=== PATIENT | male | born 1960 | race Caucasian/White ===

== ENCOUNTER 2017-12-11 16:12 | Inpatient (IN) | payer MEDICARE ==
[2017-12-11] MEDS ORDERED: INSULIN REG, HUMAN 100 UNIT/ML 3 ML VIAL (PYX) ONE ×2 (16:36→16:37)
[2017-12-11] MEDS ORDERED: INSULIN REG, HUMAN 100 UNIT/ML 3 ML VIAL (PYX) IV ONE ×2 (16:39→16:41)
[2017-12-11 16:50] LABS: HEMATOCRIT 50.2 % (37.9-51.0); MEAN CORPUSCULAR HEMOGLOBIN 32.1 pg (27.0-33.4); MEAN CORPUSCULAR HGB CONC 29.8 g/dL (32.0-36.0); MEAN CORPUSCULAR VOLUME 108 fl (80-97); RED BLOOD COUNT 4.67 10^6/uL (4.35-5.55); RED CELL DISTRIBUTION WIDTH 14.1 % (11.5-14.0); WHITE BLOOD COUNT 22.9 10^3/uL (4.0-10.5)
--- NOTE | 2017-12-11 16:58 | RADIOLOGY REPORT (SQ) ---
EXAM DESCRIPTION: CHEST SINGLE VIEW COMPLETED DATE/TIME: 12/11/2017 4:47 pm REASON FOR STUDY: Short of breath, poorly responsive COMPARISON: None. NUMBER OF VIEWS: One view. TECHNIQUE: Single frontal radiographic view of the chest acquired. LIMITATIONS: None. FINDINGS: LUNGS AND PLEURA: No opacities, masses or pneumothorax. No pleural effusion. MEDIASTINUM AND HILAR STRUCTURES: No masses. Contour normal. HEART AND VASCULAR STRUCTURES: Heart enlarged without failure. Normal vasculature. BONES: No acute findings. HARDWARE: None in the chest. OTHER: No other significant finding. IMPRESSION: HEART ENLARGED WITHOUT FAILURE. NO OTHER SIGNIFICANT RADIOGRAPHIC FINDING IN THE CHEST. TECHNICAL DOCUMENTATION: JOB ID: [id number] [employer]- All Rights Reserved Reading location - IP/workstation name: [email or web address]
[2017-12-11] MEDS ORDERED: NORMAL SALINE 1000 ML 1,000 ML IV PRN ×2 (17:04→18:22)
[2017-12-11 17:11] LABS: ALANINE AMINOTRANSFERASE 53 U/L (21-72); ALBUMIN 4.2 g/dL (3.5-5.0); ALKALINE PHOSPHATASE 139 U/L (38-126); ASPARTATE AMINO TRANSFERASE 39 U/L (17-59); BILIRUBIN,DIRECT 0.7 mg/dL (0.0-0.4); BILIRUBIN,TOTAL 1.3 mg/dL (0.2-1.3); BLOOD UREA NITROGEN 72 mg/dL (7-20); CALCIUM 10.6 mg/dL (8.4-10.2); POTASSIUM 5.1 mmol/L (3.6-5.0); TOTAL PROTEIN 7.8 g/dL (6.3-8.2)
[2017-12-11 17:16] LABS: CARBON DIOXIDE 27 mmol/L (22-30); CHLORIDE 89 mmol/L (98-107); SODIUM 139.7 mmol/L (137-145)
[2017-12-11 17:17] LABS: ANION GAP 24 (5-19)
[2017-12-11 17:28] LABS: ABSOLUTE LYMPHOCYTES# (MANUAL) 0.7 10^3/uL (0.5-4.7); ABSOLUTE MONOCYTES # (MANUAL) 1.8 10^3/uL (0.1-1.4); ABSOLUTE NEUTROPHILS# (MANUAL) 20.4 10^3/uL (1.7-8.2); BAND NEUTROPHILS % (MANUAL) 2 % (3-5); BASOPHILS % (MANUAL) 0 % (0-2); EOSINOPHILS % (MANUAL) 0 % (0-6); LYMPHOCYTES % (MANUAL) 3 % (13-45); MONOCYTES % (MANUAL) 8 % (3-13); SEGMENTED NEUTROPHILS % (MAN) 87 % (42-78); TOTAL CELLS COUNTED 100
[2017-12-11 17:30] LABS: GLUCOSE 1548 mg/dL (75-110)
[2017-12-11 17:32] LABS: ANISOCYTOSIS SLIGHT; POLYCHROMASIA SLIGHT
[2017-12-11 17:33] LABS: PLATELET CLUMPS PRESENT; PLATELET COMMENT ADEQUATE; PLATELET COUNT 313 10^3/uL (150-450)
[2017-12-11 18:00] LABS: APPEARANCE,URINE CLEAR; BILIRUBIN,URINE NEGATIVE (NEGATIVE); COLOR,URINE YELLOW; GLUCOSE, URINE >=1000 mg/dL (NEGATIVE); KETONES,URINE NEGATIVE (NEGATIVE)
[2017-12-11 18:01] LABS: PROTEIN,URINE NEGATIVE (NEGATIVE)
[2017-12-11 18:02] LABS: LEUKOCYTE ESTERASE,URINE NEGATIVE (NEGATIVE); NITRITE,URINE NEGATIVE (NEGATIVE); URINE SPECIFIC GRAVITY 1.034; UROBILINOGEN,URINE NEGATIVE mg/dL (<2.0)
--- NOTE | 2017-12-11 18:08 | ER Document Report ---
ED General - General Chief Complaint: High Blood Sugar Stated Complaint: HIGH BLOOD SUGAR Time Seen by Provider: 12/11/17 16:36 Notes: Patient's brought in because she has been sick for 3 days. 3 days ago he vomited all day long. Has also had some diarrhea. Has not vomited today. However, patient's went to work and came back home this afternoon to find the patient "acting crazy" and unable to stand or walk and ambulate on his own. Patient is an insulin-dependent diabetic on Januvia and glipizide and Actos as well as sliding scale regular insulin. He was previously on NovoLog but that was stopped about a week and a half ago. Blood sugar here today, is running high. TRAVEL OUTSIDE OF THE [place] IN LAST 30 DAYS: No - Related Data Allergies/Adverse Reactions: Unable to Assess Allergy (Unverified 12/11/17 17:03) Past Medical History - Social History Smoking Status: Never Smoker Frequency of alcohol use: None Drug Abuse: None Family History: Reviewed & Not Pertinent Patient has suicidal ideation: No Patient has homicidal ideation: No - Past Medical History Cardiac Medical History: Reports: Hx Hypercholesterolemia, Hx Hypertension Pulmonary Medical History: Reports: Hx Sleep Apnea Endocrine Medical History: Reports: Hx Diabetes Mellitus Type 1, Hx Diabetes Mellitus Type 2 Malignancy Medical History: Reports Hx Prostate Cancer - Surgery 3 years ago. Past Surgical History: Reports: Hx Orthopedic Surgery - rotator cuff Review of Systems - Review of Systems Notes: REVIEW OF SYSTEMS: Patient unable to provide any review of history. What is listed is obtained from the . CONSTITUTIONAL : Denies fever. EENT: Denies eye, ear, nose or mouth or throat pain or other symptoms. CARDIOVASCULAR: Denies chest pain. RESPIRATORY: Denies cough, chest congestion, or shortness of breath. GASTROINTESTINAL: See HPI. GENITOURINARY: Denies difficulty or painful urinating, urinary frequency, blood in urine. MUSCULOSKELETAL: Denies back or neck pain. Denies joint pain or swelling. SKIN: Denies rash or skin lesions. NEUROLOGICAL: See HPI. ALL OTHER SYSTEMS REVIEWED AND NEGATIVE. Physical Exam - Vital signs Vitals: Resp Pulse Ox 25 H 97 12/11/17 16:19 12/11/17 16:19 Interpretation: Tachycardic, Tachypneic - Notes Notes: PHYSICAL EXAMINATION: GENERAL: Comatose and unresponsive except with a shrug or a grunt to tactile stimulation HEAD: Atraumatic, normocephalic. EYES: Pupils equal round and reactive to light, extraocular movements intact. ENT: oropharynx clear without exudates. NECK: Normal range of motion, supple. LUNGS: Breath sounds clear and equal bilaterally. HEART: Regular rate and rhythm without murmurs. ABDOMEN: Soft, nontender. No guarding or rebound. No masses. BACK: No tenderness throughout entire back. EXTREMITIES: Normal range of motion without pain. NEUROLOGICAL: Patient is semi-comatose and basically unresponsive to verbal or tactile stimulation, only displaying a slight shrug or grunt in response.. SKIN: Warm, dry, no rashes. Course - Re-evaluation Re-evalutation: 12/11/17 18:25 Patient is in critical condition. IV fluids were established. He was given a 5 unit insulin bolus and then a 5 U/h insulin drip. Spoke with hospitalist who will admit the patient to ICU. - Vital Signs Vital signs: Temp Pulse Resp BP Pulse Ox 26 H 155/88 H 100 12/11/17 17:01 12/11/17 17:01 12/11/17 17:01 - Laboratory Result Diagrams: 12/11/17 16:25 12/11/17 16:25 Laboratory results interpreted by me: 12/11/17 12/11/17 12/11/17 16:25 16:25 17:25 WBC 22.9 H MCV 108 H MCHC 29.8 L RDW 14.1 H Seg Neuts % (Manual) 87 H Band Neutrophils % 2 L Lymphocytes % (Manual) 3 L Abs Neuts (Manual) 20.4 H Abs Monocytes (Manual) 1.8 H Potassium 5.1 H Chloride 89 L Anion Gap 24 H BUN 72 H Creatinine 2.76 H Est GFR ( Amer) 29 L Est GFR (Non-Af Amer) 24 L Glucose 1548 H* Calcium 10.6 H Direct Bilirubin 0.7 H Alkaline Phosphatase 139 H Urine Glucose (UA) >=1000 H Urine Blood LARGE H - Diagnostic Test Radiology results interpreted by me: 12/11/17 18:27 Chest x-ray shows an enlarged heart but otherwise unremarkable. - EKG Interpretation by Mi EKG shows normal: Sinus rhythm Rate: Tachycardia Rhythm: NSR Additional EKG results interpreted by me: 12/11/17 18:27 Otherwise no change in EKG. Critical Care Note - Critical Care Note Total time excluding time spent on procedures (mins): 60 Discharge - Discharge Clinical Impression: Diabetic ketoacidosis Condition: Serious Disposition: ADMITTED INPATIENT Admitting Provider: Hospitalist Unit Admitted: ICU
[2017-12-11] MEDS ORDERED: GLUCAGON,HUMAN RECOMB 1 MG INJ IM PRN ×2 (18:20→18:21)
[2017-12-11] MEDS ORDERED: DEXTROSE 50%-WATER 25 GM/50 ML DISP.SYRIN IV PRN ×4 (18:20→18:21)
[2017-12-11] MEDS ORDERED: DEXTROSE 40% GEL 15 GM TUBE PO PRN ×4 (18:20→18:21)
[2017-12-11] MEDS ORDERED: ACETAMINOPHEN 650 MG SUPP.RECT PR PRN (18:22)
[2017-12-11 18:27] LABS: ARTERIAL BLOOD BASE EXCESS -0.6 mmol/L; ARTERIAL BLOOD H2CO3 1.52 mmol/L (1.05-1.35); ARTERIAL BLOOD HCO3 26.1 mmol/L (20-26); ARTERIAL BLOOD O2 SATURATION 99.1 % (94-98); ARTERIAL BLOOD PCO2 50.5 mmHg (35-45); ARTERIAL BLOOD PH 7.33 (7.35-7.45); ARTERIAL BLOOD PO2 177.8 mmHg (80-100); ARTERIAL BLOOD TOTAL CO2 27.6 mmol/L (23-27)
[2017-12-11 18:29] LABS: ARTERIAL BLOOD FIO2 45%
--- NOTE | 2017-12-11 18:37 | PDOC H&P ---
History of Present Illness Admission Date/PCP: 12/11/17 Dr. Yenni Painting [facility] Gentleman with past medical history of insulin-dependent diabetes Diabetic neuropathy Prostate cancer treated 8 years ago Hypertension Hyperlipidemia He presented to the hospital today because his brought in him in for altered mental status and decreased responsiveness. She reports that for the past 3 days he has been having vomiting diarrhea fatigue and generalized pains. He stopped his NovoLog approximately 2 weeks ago in consultation with his physician given that he could not afford it anymore. He has been taking Lantus, dose unknown. The rest of his medications are as follows Atorvastatin 40 mg daily Januvia 50 mg twice a day Lisinopril hydrochlorothiazide 20/25 mg daily Glipizide ER 10 mg daily Ranitidine 150 mg twice a day P.o. glitazone 30 mg daily According to his his blood sugar readings have been too high to be detected by the glucometer however he refused to call his doctor. He has a long history of noncompliance and poorly controlled diabetes. Emergency room he was found to have diabetic ketoacidosis and also has acute renal failure mild hyperkalemia. History of Present Illness: JERE MCMILLAN is a 57 year old male Past Medical History Cardiac Medical History: Reports: Hyperlipidema, Hypertension Pulmonary Medical History: Reports: Sleep Apnea Endocrine Medical History: Reports: Diabetes Mellitus Type 1, Diabetes Mellitus Type 2 Past Surgical History Past Surgical History: Reports: Orthopedic Surgery - rotator cuff Social History Smoking Status: Never Smoker Frequency of Alcohol Use: None Hx Recreational Drug Use: No Family History Family History: DM Parental Family History Reviewed: Yes Children Family History Reviewed: Yes Sibling(s) Family History Reviewed.: Yes Medication/Allergy Allergies/Adverse Reactions: Unable to Assess Allergy (Unverified 12/11/17 17:03) Review of Systems ROS unobtainable: Due to mental status Physical Exam Vital Signs: Temp Pulse Resp BP Pulse Ox 26 H 155/88 H 100 12/11/17 17:01 12/11/17 17:01 12/11/17 17:01 General appearance: PRESENT: obese Head exam: PRESENT: atraumatic, normocephalic Eye exam: PRESENT: conjunctiva pink, EOMI. ABSENT: scleral icterus Ear exam: PRESENT: normal external ear exam Respiratory exam: PRESENT: clear to auscultation bernardo, symmetrical, unlabored Cardiovascular exam: PRESENT: RRR GI/Abdominal exam: PRESENT: normal bowel sounds, soft. ABSENT: tenderness Rectal exam: PRESENT: deferred Neurological exam: PRESENT: other - Obtunded on BiPAP, groans to sternal rub unable to follow commands. Results Laboratory Results: 12/11/17 16:25 12/11/17 16:25 12/11/17 12/11/17 12/11/17 16:25 16:25 17:25 WBC 22.9 H RBC 4.67 Hgb 15.0 Hct 50.2 MCV 108 H MCH 32.1 MCHC 29.8 L RDW 14.1 H Plt Count 313 Seg Neutrophils % Not Reportable Lymphocytes % Not Reportable Monocytes % Not Reportable Eosinophils % Not Reportable Basophils % Not Reportable Absolute Neutrophils Not Reportable Absolute Lymphocytes Not Reportable Absolute Monocytes Not Reportable Absolute Eosinophils Not Reportable Absolute Basophils Not Reportable Carbonic Acid HCO3/H2CO3 Ratio ABG pH ABG pCO2 ABG pO2 ABG HCO3 ABG O2 Saturation ABG Base Excess FiO2 Sodium 139.7 Potassium 5.1 H Chloride 89 L Carbon Dioxide 27 Anion Gap 24 H BUN 72 H Creatinine 2.76 H Est GFR ( Amer) 29 L Est GFR (Non-Af Amer) 24 L Glucose 1548 H* Calcium 10.6 H Total Bilirubin 1.3 AST 39 ALT 53 Alkaline Phosphatase 139 H Total Protein 7.8 Albumin 4.2 Urine Color YELLOW Urine Appearance CLEAR Urine pH 6.0 Ur Specific Covel 1.034 Urine Protein NEGATIVE Urine Glucose (UA) >=1000 H Urine Ketones NEGATIVE Urine Blood LARGE H Urine Nitrite NEGATIVE Ur Leukocyte Esterase NEGATIVE Urine WBC (Auto) 1 Urine RBC (Auto) 0 12/11/17 18:09 WBC RBC Hgb Hct MCV MCH MCHC RDW Plt Count Seg Neutrophils % Lymphocytes % Monocytes % Eosinophils % Basophils % Absolute Neutrophils Absolute Lymphocytes Absolute Monocytes Absolute Eosinophils Absolute Basophils Carbonic Acid 1.52 H HCO3/H2CO3 Ratio 17:1 ABG pH 7.33 L ABG pCO2 50.5 H ABG pO2 177.8 H ABG HCO3 26.1 H ABG O2 Saturation 99.1 H ABG Base Excess -0.6 FiO2 45% Sodium Potassium Chloride Carbon Dioxide Anion Gap BUN Creatinine Est GFR ( Amer) Est GFR (Non-Af Amer) Glucose Calcium Total Bilirubin AST ALT Alkaline Phosphatase Total Protein Albumin Urine Color Urine Appearance Urine pH Ur Specific Covel Urine Protein Urine Glucose (UA) Urine Ketones Urine Blood Urine Nitrite Ur Leukocyte Esterase Urine WBC (Auto) Urine RBC (Auto) Impressions: Chest X-Ray 12/11/17 16:37 IMPRESSION: HEART ENLARGED WITHOUT FAILURE. NO OTHER SIGNIFICANT RADIOGRAPHIC FINDING IN THE CHEST. 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: with custodial use Diabetes mellitus complication status: with neurologic complications Diabetes mellitus complication detail: with polyneuropathy Qualified Code(s): E11.42 - Type 2 diabetes mellitus with diabetic polyneuropathy; E11.65 - Type 2 diabetes mellitus with hyperglycemia; E11.65 - Type 2 diabetes mellitus with hyperglycemia; E11.65 - Type 2 diabetes mellitus with hyperglycemia; E11.65 - Type 2 diabetes mellitus with hyperglycemia; 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; Z79.4 - MCFP (current) use of insulin; Z79.4 - [facility]FP (current ) use of insulin; 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 Is this a current diagnosis for this admission?: Yes (4) Diabetic neuropathy Is this a current diagnosis for this admission?: Yes (5) Hypertension Is this a current diagnosis for this admission?: Yes (6) Hyperlipidemia Is this a current diagnosis for this admission?: Yes (7) History of prostate cancer Is this a current diagnosis for this admission?: No - Time Time Spent with patient: 65 min critical care time Time Spent: 50 to 70 Minutes - Inpatient Certification Medical Necessity: Failure to Improve With Outpatient Therapy, Significant Comorbidiites Make Outpatient Treatment Too Risky, Need Close Monitoring Due to Risk of Patient Decompensation, Need For IV Fluids - Plan Summary Plan Summary: Admit to ICU Every hour Accu-Cheks Insulin drip Monitor electrolytes and renal function IV fluids N.p.o. Hold oral hypoglycemic agents Hold lisinopril and hydrochlorothiazide.
[2017-12-11 19:31] LABS: BLOOD UREA NITROGEN 74 mg/dL (7-20); CALCIUM 10.4 mg/dL (8.4-10.2); CARBON DIOXIDE 30 mmol/L (22-30); CHLORIDE 98 mmol/L (98-107); POTASSIUM 4.4 mmol/L (3.6-5.0); SODIUM 148.1 mmol/L (137-145)
[2017-12-11 19:42] LABS: CREATINE KINASE MB 3.05 ng/mL (<4.55); TROPONIN I 0.028 ng/mL
[2017-12-11 19:58] LABS: GLUCOSE 1234 mg/dL (75-110)
[2017-12-11 19:59] LABS: ANION GAP 20 (5-19)
[2017-12-11] MEDS ORDERED: 1/2 NORMAL SALINE 1,000 ML IV PRN ×2 (20:30→20:32)
[2017-12-11 22:52] LABS: ANION GAP 15 (5-19); BLOOD UREA NITROGEN 78 mg/dL (7-20); CALCIUM 10.7 mg/dL (8.4-10.2); CARBON DIOXIDE 35 mmol/L (22-30); CHLORIDE 104 mmol/L (98-107); POTASSIUM 4.5 mmol/L (3.6-5.0); SODIUM 154.2 mmol/L (137-145)
[2017-12-11 23:01] LABS: GLUCOSE 878 mg/dL (75-110)
[2017-12-11] MEDS ORDERED: DESMOPRESSIN ACETATE INJ 4 MCG/1 ML AMPULE IV ONE (23:30)
[2017-12-11] MEDS ORDERED: PHARMACY COMMUNICATION ORDER MC NR (23:30)
[2017-12-11] MEDS ORDERED: DEXTROSE 40% GEL 15 GM TUBE NG PRN ×2 (23:31)
[2017-12-11 23:35] LABS: ARTERIAL BLOOD H2CO3 1.58 mmol/L (1.05-1.35); ARTERIAL BLOOD HCO3 33.4 mmol/L (20-26); ARTERIAL BLOOD O2 SATURATION 99.7 % (94-98); ARTERIAL BLOOD PCO2 52.5 mmHg (35-45); ARTERIAL BLOOD PH 7.42 (7.35-7.45); ARTERIAL BLOOD PO2 279.5 mmHg (80-100)
[2017-12-11 23:41] LABS: ARTERIAL BLOOD FIO2 15L
[2017-12-11] MEDS ORDERED: DESMOPRESSIN ACETATE INJ 4 MCG/1 ML AMPULE ONE (23:51)
[2017-12-11] MEDS: DEXTROSE 5%-WATER 1000 ML 1,000 ML IV PRN (23:57)
--- NOTE | 2017-12-12 00:05 | RADIOLOGY REPORT (SQ) ---
EXAM DESCRIPTION: CHEST SINGLE VIEW CLINICAL HISTORY: 57 years, Male, NG tube Placement COMPARISON: None. NUMBER OF VIEWS: One TECHNIQUE: AP view the chest LIMITATIONS: None. FINDINGS: The tip of the nasogastric tube is in the distal thoracic esophagus and should be advanced further. The visualized lung bases are clear IMPRESSION: The tip of the nasogastric tube is in the distal thoracic esophagus and should be advanced further 2010 [email or web address]- All Rights Reserved
[2017-12-12] MEDS ORDERED: DESMOPRESSIN ACETATE INJ 4 MCG/1 ML AMPULE ONE (00:23)
[2017-12-12] MEDS ORDERED: INFLUENZA ADLT QUAD (36MOS+) 2017-18 VAC 0.5 ML SYR IM PRN (00:41)
[2017-12-12 00:52] LABS: CREATINE KINASE MB 5.78 ng/mL (<4.55); TROPONIN I 0.084 ng/mL
[2017-12-12] MEDS ORDERED: PROPOFOL 100 ML IV ONE (01:32)
[2017-12-12] MEDS ORDERED: VANCOMYCIN HCL 1,500 MG in DEXTROSE 5%-WATER 250 ML IV ONE (01:33)
[2017-12-12] MEDS ORDERED: THIAMINE HCL 100 MG, FOLIC ACID 1 MG in NORMAL SALINE 250 ML IV ONE (01:45)
[2017-12-12] MEDS ORDERED: VANCOMYCIN HCL 0 MG in DEXTROSE 5%-WATER 250 ML IV NR (01:45)
[2017-12-12] MEDS ORDERED: PANTOPRAZOLE SODIUM 40 MG VIAL IV ONE (01:45)
[2017-12-12] MEDS ORDERED: PROPOFOL INJ 200 MG/20 ML VIAL IV ONE (01:47)
[2017-12-12] MEDS ORDERED: CEFTRIAXONE 2 GM/D5W RTU 2 GM/50 ML RTUPB IV ONE ×2 (02:00→04:40)
[2017-12-12] MEDS ORDERED: NOREPINEPHRINE BITARTRATE INJ/PF 4 MG/4 ML SDV IV ONE (02:14)
--- NOTE | 2017-12-12 02:20 | RADIOLOGY REPORT (SQ) ---
EXAM DESCRIPTION: CHEST SINGLE VIEW CLINICAL HISTORY: 57 years Male, Check NG Tube placement due to advance; ETT PLACED COMPARISON: 3.29.18 NUMBER OF VIEWS/TECHNIQUE: 1/AP LIMITATIONS: None. FINDINGS: Low lung volume, normal cardiac silhouette, nonspecific obscuration of left costophrenic angle, adequate appearing enteric tube tip is 5.2 cm from the mason, and likely adequate enteric tube obscured at its tip. No acute bone defect. No pneumothorax. IMPRESSION: Interval line and tube adjustment. Else, stable.
[2017-12-12] MEDS ORDERED: NORMAL SALINE 1000 ML 1,000 ML IV ONE ×2 (02:30→23:45)
[2017-12-12 02:55] LABS: ANION GAP 17 (5-19); BLOOD UREA NITROGEN 80 mg/dL (7-20); CALCIUM 9.7 mg/dL (8.4-10.2); CARBON DIOXIDE 29 mmol/L (22-30); CHLORIDE 109 mmol/L (98-107); POTASSIUM 4.1 mmol/L (3.6-5.0); SODIUM 155.2 mmol/L (137-145)
[2017-12-12 03:07] LABS: GLUCOSE 687 mg/dL (75-110)
[2017-12-12] MEDS: PANTOPRAZOLE SODIUM 40 MG VIAL IV SCH ×3 (03:07→21:11)
[2017-12-12] MEDS: HEPARIN SOD (PORCINE) 5,000 UNIT/ML 1 ML SYRINGE SUBCUT SCH ×4 (03:07→21:11)
[2017-12-12 03:14] LABS: ARTERIAL BLOOD BASE EXCESS -0.9 mmol/L; ARTERIAL BLOOD H2CO3 1.25 mmol/L (1.05-1.35); ARTERIAL BLOOD HCO3 24.2 mmol/L (20-26); ARTERIAL BLOOD O2 SATURATION 97.5 % (94-98); ARTERIAL BLOOD PCO2 41.4 mmHg (35-45); ARTERIAL BLOOD PH 7.38 (7.35-7.45); ARTERIAL BLOOD PO2 100.5 mmHg (80-100); ARTERIAL BLOOD TOTAL CO2 25.4 mmol/L (23-27)
[2017-12-12 03:19] LABS: ARTERIAL BLOOD FIO2 40%
[2017-12-12] MEDS ORDERED: HYDROCORTISONE SOD SUCCINATE INJ/PF 100 MG/2 ML SDV IV ONE (03:38)
[2017-12-12] MEDS ORDERED: THIAMINE HCL INJ 200 MG/2 ML VIAL ONE (03:58)
--- NOTE | 2017-12-12 03:59 | RADIOLOGY REPORT (SQ) ---
EXAM DESCRIPTION: CT HEAD WITHOUT CLINICAL HISTORY: 57 years Male, Fever due to COMPARISON: None. TECHNIQUE: No contrast. Coronal and sagittal reformat. This exam was performed according to our departmental dose-optimization program, which includes automated exposure control, adjustment of the mA and/or kV according to patient size and/or use of iterative reconstruction technique. FINDINGS: No hemorrhage or infarct. No mass, mass effect, or midline shift. Mild cerebral volume loss, endotracheal-nasogastric tubes partially imaged, and moderate abdominal levo convexity of the nasal septum.Brain and extra-axial structures appear otherwise intact. IMPRESSION: No acute findings. Lines and tubes.
--- NOTE | 2017-12-12 04:09 | RADIOLOGY REPORT (SQ) ---
EXAM DESCRIPTION: CT CHEST WITHOUT (accession [id number]), CT ABD/PELVIS NO ORAL OR IV (accession [id number]) CLINICAL HISTORY: 57 years Male, Aspiration COMPARISON: None. TECHNIQUE: No contrast. Coronal and sagittal reformat. This exam was performed according to our departmental dose-optimization program, which includes automated exposure control, adjustment of the mA and/or kV according to patient size and/or use of iterative reconstruction technique. Limitation: Arm positioning. FINDINGS: Moderately inflamed fat surrounds the pancreatic tail. Fat replacement of the pancreatic head. Small streakiness of the right lower lobe. Minimal streakiness of the left lower lobe. Minimal bilateral dependent atelectasis. Adequate appearing endotracheal tube tip is 3.5 cm from the mason. Adequate appearing enteric tube. Appendicolith. No appendicitis. Bhatti catheter. Penile prosthesis with right intrapelvic reservoir. 3 cm umbilical fat only hernia. Moderate hepatic steatosis. Moderate diffuse idiopathic skeletal hyperostosis. Inferior neck, axillae, mediastinum, heart, gallbladder, spleen, adrenals, renal system, gastrointestinal tract, pelvic organs, lymphatics, vasculature, and musculoskeleton appear otherwise unremarkable. Impression: 1. Moderate focal pancreatitis pattern at the pancreatic tail. 2. Minimal bilateral lower lobar pneumonia/atelectasis.
--- NOTE | 2017-12-12 04:09 | RADIOLOGY REPORT (SQ) ---
EXAM DESCRIPTION: CT CHEST WITHOUT (accession [id number]), CT ABD/PELVIS NO ORAL OR IV (accession [id number]) CLINICAL HISTORY: 57 years Male, Aspiration COMPARISON: None. TECHNIQUE: No contrast. Coronal and sagittal reformat. This exam was performed according to our departmental dose-optimization program, which includes automated exposure control, adjustment of the mA and/or kV according to patient size and/or use of iterative reconstruction technique. Limitation: Arm positioning. FINDINGS: Moderately inflamed fat surrounds the pancreatic tail. Fat replacement of the pancreatic head. Small streakiness of the right lower lobe. Minimal streakiness of the left lower lobe. Minimal bilateral dependent atelectasis. Adequate appearing endotracheal tube tip is 3.5 cm from the mason. Adequate appearing enteric tube. Appendicolith. No appendicitis. Bhatti catheter. Penile prosthesis with right intrapelvic reservoir. 3 cm umbilical fat only hernia. Moderate hepatic steatosis. Moderate diffuse idiopathic skeletal hyperostosis. Inferior neck, axillae, mediastinum, heart, gallbladder, spleen, adrenals, renal system, gastrointestinal tract, pelvic organs, lymphatics, vasculature, and musculoskeleton appear otherwise unremarkable. Impression: 1. Moderate focal pancreatitis pattern at the pancreatic tail. 2. Minimal bilateral lower lobar pneumonia/atelectasis.
[2017-12-12] MEDS ORDERED: FOLIC ACID INJ 5 MG/1 ML 10 ML VIAL ONE (04:40)
[2017-12-12] MEDS ORDERED: VANCOMYCIN HCL INJ 1000 MG VIAL ONE (04:40)
[2017-12-12] MEDS ORDERED: VANCOMYCIN HCL INJ 500 MG VIAL ONE (04:40)
[2017-12-12] MEDS: DEXTROSE 5%-WATER 1000 ML 1,000 ML IV PRN ×3 (05:15→17:29)
[2017-12-12 06:33] LABS: ALANINE AMINOTRANSFERASE 39 U/L (21-72); ALBUMIN 3.5 g/dL (3.5-5.0); ALKALINE PHOSPHATASE 106 U/L (38-126); ASPARTATE AMINO TRANSFERASE 57 U/L (17-59); BILIRUBIN,DIRECT 0.5 mg/dL (0.0-0.4); TOTAL PROTEIN 6.7 g/dL (6.3-8.2)
[2017-12-12 06:40] LABS: LIPASE 3942.1 U/L (23-300)
[2017-12-12 07:18] LABS: ABSOLUTE BASOPHILS # (AUTO) 0.1 10^3/uL (0.0-0.2); ABSOLUTE LYMPHOCYTES (AUTO) 1.1 10^3/uL (0.5-4.7); ABSOLUTE MONOCYTES (AUTO) 1.3 10^3/uL (0.1-1.4); ABSOLUTE NEUT (AUTO) 16.9 10^3/uL (1.7-8.2); BASOPHILS % (AUTO) 0.3 % (0-2); EOSINOPHILS % (AUTO) 0.1 % (0-6); HEMATOCRIT 42.5 % (37.9-51.0); HEMOGLOBIN 14.1 g/dL (13.5-17.0); LYMPHOCYTES % (AUTO) 5.8 % (13-45); MEAN CORPUSCULAR HEMOGLOBIN 32.2 pg (27.0-33.4); MEAN CORPUSCULAR HGB CONC 33.2 g/dL (32.0-36.0); MONOCYTES % (AUTO) 6.9 % (3-13); PLATELET COUNT 240 10^3/uL (150-450); RED BLOOD COUNT 4.38 10^6/uL (4.35-5.55); RED CELL DISTRIBUTION WIDTH 13.1 % (11.5-14.0); SEGMENTED NEUTROPHILS % (AUTO) 86.9 % (42-78); TOTAL CELLS COUNTED % (AUTO) 100 %; WHITE BLOOD COUNT 19.4 10^3/uL (4.0-10.5)
[2017-12-12 07:20] LABS: MEAN CORPUSCULAR VOLUME 97 fl (80-97)
[2017-12-12 07:27] LABS: INTERNATIONAL RATION (INR) 0.94; PROTHROMBIN TIME 13.2 SEC (11.4-15.4)
[2017-12-12 07:42] LABS: ALANINE AMINOTRANSFERASE 47 U/L (21-72); ALBUMIN 3.5 g/dL (3.5-5.0); ALKALINE PHOSPHATASE 114 U/L (38-126); ANION GAP 14 (5-19); ASPARTATE AMINO TRANSFERASE 56 U/L (17-59); BILIRUBIN,DIRECT 0.4 mg/dL (0.0-0.4); BILIRUBIN,TOTAL 0.6 mg/dL (0.2-1.3); BLOOD UREA NITROGEN 81 mg/dL (7-20); CALCIUM 9.6 mg/dL (8.4-10.2); CARBON DIOXIDE 30 mmol/L (22-30); CHLORIDE 109 mmol/L (98-107); CHOLESTEROL 270.72 mg/dL (0-200); CREATINE KINASE 1142 U/L (55-170); PHOSPHORUS 4.5 mg/dL (2.5-4.5); POTASSIUM 3.9 mmol/L (3.6-5.0); SODIUM 152.8 mmol/L (137-145); TOTAL PROTEIN 6.7 g/dL (6.3-8.2)
[2017-12-12 07:47] LABS: CREATINE KINASE MB 5.69 ng/mL (<4.55); TROPONIN I 0.098 ng/mL
--- NOTE | 2017-12-12 07:48 | EKG REPORT ---
SEVERITY:- BORDERLINE ECG - SINUS TACHYCARDIA BORDERLINE PROLONGED QT INTERVAL : Confirmed by: Willie Sherman MD 12-Dec-2017 07:46:55
[2017-12-12] MEDS: DEXTROSE 5%-WATER 250 ML with NOREPINEPHRINE BITARTRATE 4 MG IV PRN ×6 (08:12→19:47)
[2017-12-12 08:15] LABS: DIRECT LDL < 30 mg/dL (<100); TRIGLYCERIDES 1970 mg/dL (<150)
[2017-12-12] MEDS: PROPOFOL 100 ML IV PRN ×3 (08:15→17:27)
[2017-12-12 08:17] LABS: GLUCOSE 520 mg/dL (75-110)
[2017-12-12] MEDS ORDERED: PANTOPRAZOLE SODIUM 40 MG VIAL IV SCH (10:00)
--- NOTE | 2017-12-12 10:17 | RADIOLOGY REPORT (SQ) ---
EXAM DESCRIPTION: CHEST SINGLE VIEW COMPLETED DATE/TIME: 12/12/2017 9:43 am REASON FOR STUDY: CENTRAL LINE PLACEMENT COMPARISON: CT chest 12/12/2017 Chest films 12/12/2017, 12/11/2017 EXAM PARAMETERS: NUMBER OF VIEWS: One view. TECHNIQUE: Single frontal radiographic view of the chest acquired. RADIATION DOSE: NA LIMITATIONS: None. FINDINGS: Endotracheal tube tip is at the mason, pointing toward the right mainstem bronchus. This report was called to the patient's nurse in ICU 1000 hours, 12/12/2017, Fauzia PLUMMER. Right jugular central line tip in the SVC/upper right atrium. No pneumothorax. Nasogastric tube tip and side port in the stomach. LUNGS AND PLEURA: Mild bibasilar airspace disease atelectasis versus pneumonia. No pleural effusions . No pneumothorax. MEDIASTINUM AND HILAR STRUCTURES: No masses. Contour normal. HEART AND VASCULAR STRUCTURES: Heart normal in size. Normal vasculature. BONES: No acute findings. HARDWARE: As above OTHER: No other significant finding. IMPRESSION: Bibasilar airspace disease atelectasis versus pneumonia Endotracheal tube at the mason pointing towards the right mainstem bronchus. Report called to ELIAN Cage ICU nurse 1000 hours, 12/12/2017 TECHNICAL DOCUMENTATION: JOB ID: [id number] [employer]- All Rights Reserved Reading location - IP/workstation name: [email or web address]
[2017-12-12] MEDS: ASPIRIN 81 MG TABLET, CHEWABLE NG SCH (10:41)
[2017-12-12] MEDS: DESMOPRESSIN ACETATE INJ 4 MCG/1 ML AMPULE IV SCH ×2 (10:46→17:27)
[2017-12-12] MEDS: NORMAL SALINE 100 ML with INSULIN REGULAR, HUMAN 100 UNIT IV PRN ×6 (11:07→23:39)
[2017-12-12 11:27] LABS: ANION GAP 12 (5-19); BLOOD UREA NITROGEN 81 mg/dL (7-20); CALCIUM 8.9 mg/dL (8.4-10.2); CARBON DIOXIDE 29 mmol/L (22-30); CHLORIDE 108 mmol/L (98-107); POTASSIUM 3.5 mmol/L (3.6-5.0)
--- NOTE | 2017-12-12 11:34 | OPERATIVE REPORT E ---
Operative Report NAME: JERE MCMILLAN : 1960 AGE: 57Y DATE OF SURGERY: 12/12/2017 ROOM: [id number] PREOPERATIVE DIAGNOSIS: Poor veins for IV access and patient needed a central line for hemodynamic instability. POSTOPERATIVE DIAGNOSIS: Poor veins for IV access and patient needed a central line for hemodynamic instability. OPERATION: Insertion of a right internal jugular vein catheter under ultrasound guidance. SURGEON: KENN PAGAN M.D. ANESTHESIA: Local. DESCRIPTION OF PROCEDURE: The patient was still intubated and placed in slight Trendelenburg position. The right internal jugular vein was identified with an ultrasound and permanent marker placed on the path of the internal jugular vein. Next, the right was then prepped and draped in the usual sterile fashion and local anesthesia infiltrated over the path of the internal jugular vein. The right internal jugular vein was then punctured and guidewire passed through the needle towards the area of the superior vena cava. The puncture was enlarged and a triple lumen catheter inserted for a distance of about 15 cm. The catheter was then anchored to the skin with 3-0 silk, and all the 3 ports aspirated blood easily and was able to instill saline easily. A Biopatch placed at the insertion site and a transparent dressing placed over the Biopatch and catheter. Chest x-ray will be obtained for placement. DICTATING PHYSICIAN: KENN PAGAN M.D. [id number] PHY#: [id number] ID: [id number] JOB#: [id number] ACCT: [id number] cc:KENN PAGAN M.D. >
[2017-12-12 11:37] LABS: GLUCOSE 417 mg/dL (75-110)
--- NOTE | 2017-12-12 13:07 | PDOC CONSULTATION ---
Consultation Consult Date: 12/12/17 Attending physician:: JUAN M LAGUNAS Consult reason:: resp failure/pna History of Present Illness Admission Date/PCP: 12/11/17 18:31 History of Present Illness: JERE MCMILLAN is a 57 year old male Currently in intubated and sedated in the ICU apparently the patient has chronic renal failure diabetes mellitus with poor control (hemoglobin A1c 14) and hyperosmolar as Jenny nonketotic diabetic coma. It also appears that he is aspirated as the NG aspirate and the ET aspirate are comparable. No additional history is available at this time as patient is currently intubated and sedated Past Medical History Cardiac Medical History: Reports: Hyperlipidema, Hypertension Pulmonary Medical History: Reports: Sleep Apnea Endocrine Medical History: Reports: Diabetes Mellitus Type 1, Diabetes Mellitus Type 2 Past Surgical History Past Surgical History: Reports: Orthopedic Surgery - rotator cuff Social History Smoking Status: Current Every Day Smoker Frequency of Alcohol Use: None Hx Recreational Drug Use: No Family History Parental Family History Reviewed: No Children Family History Reviewed: No Sibling(s) Family History Reviewed.: No Medication/Allergy Home Medications: Atorvastatin Calcium [Lipitor 40 mg Tablet] 40 mg PO QHS 12/11/17 Glipizide [Glipizide Xl] 10 mg PO DAILY 12/11/17 Insulin Aspart [Novolog Insulin 100 Unit/1 ml 10 ml] 50 unit SUBCUT MEALS Insulin Glargine,Hum.rec.anlog [Lantus Solostar] 65 unit SQ .ASDIR 12/11/17 Lisinopril/Hydrochlorothiazide [Lisinopril-Hctz 20-25 mg Tab] 1 each PO DAILY Pioglitazone HCl [Actos] 45 mg PO DAILY 12/11/17 Sitagliptin Phosphate [Januvia 50 mg Tablet] 50 mg PO Q12 12/11/17 Allergies/Adverse Reactions: Unable to Assess Allergy (Unverified 12/11/17 17:03) Review of Systems ROS unobtainable: Due to endotracheal tube Physical Exam Vital Signs: Temp Pulse Resp BP Pulse Ox 100.0 F 101 H 18 103/60 97 12/12/17 08:39 12/12/17 08:00 12/12/17 08:39 12/12/17 08:39 12/12/17 08:39 Intake & Output 12/11/17 12/12/17 12/13/17 06:59 06:59 06:59 Intake Total 2207 Output Total 750 15 Balance 1457 -15 Weight 99.6 kg General appearance: PRESENT: no acute distress, disheveled, obese. ABSENT: cooperative Head exam: PRESENT: atraumatic, normocephalic Eye exam: PRESENT: conjunctiva pale. ABSENT: nystagmus, periorbital swelling, scleral icterus Mouth exam: PRESENT: dry mucosa, neck supple, tongue midline, other - Endotracheal tube in place Neck exam: ABSENT: carotid bruit, JVD, lymphadenopathy, thyromegaly, tracheal deviation, tracheostomy Respiratory exam: PRESENT: decreased breath sounds, prolonged expiratory phas, rales, rhonchi, symmetrical, unlabored, wheezes. ABSENT: retraction, stridor, tachypnea Cardiovascular exam: PRESENT: RRR, +S1, +S2, tachycardia Pulses: PRESENT: normal radial pulses GI/Abdominal exam: PRESENT: diminished bowel sounds, soft Extremities exam: ABSENT: clubbing, full ROM, joint swelling Musculoskeletal exam: ABSENT: ambulatory, deformity, dislocation Neurological exam: ABSENT: awake, oriented to person Skin exam: PRESENT: dry, warm Results Laboratory Results: 12/12/17 07:00 12/12/17 07:00 12/11/17 12/11/17 12/11/17 18:50 22:20 23:15 WBC RBC Hgb Hct MCV MCH MCHC RDW Plt Count Seg Neutrophils % Lymphocytes % Monocytes % Eosinophils % Basophils % Absolute Neutrophils Absolute Lymphocytes Absolute Monocytes Absolute Eosinophils Absolute Basophils Carbonic Acid 1.58 H HCO3/H2CO3 Ratio 21:1 ABG pH 7.42 ABG pCO2 52.5 H ABG pO2 279.5 H ABG HCO3 33.4 H ABG O2 Saturation 99.7 H ABG Base Excess 7.0 FiO2 15L Sodium 148.1 H 154.2 H Potassium 4.4 4.5 Chloride 98 104 Carbon Dioxide 30 35 H Anion Gap 20 H 15 BUN 74 H 78 H Creatinine 2.40 H 2.51 H Est GFR ( Amer) 34 L 32 L Est GFR (Non-Af Amer) 28 L 27 L Glucose 1234 H* 878 H* Serum Osmolality Calcium 10.4 H 10.7 H Phosphorus Magnesium Total Bilirubin AST ALT Alkaline Phosphatase Total Protein Albumin Triglycerides Cholesterol LDL Cholesterol Direct VLDL Cholesterol HDL Cholesterol Lipase TSH Urine Osmolality 12/12/17 12/12/17 12/12/17 00:10 00:18 01:08 WBC RBC Hgb Hct MCV MCH MCHC RDW Plt Count Seg Neutrophils % Lymphocytes % Monocytes % Eosinophils % Basophils % Absolute Neutrophils Absolute Lymphocytes Absolute Monocytes Absolute Eosinophils Absolute Basophils Carbonic Acid HCO3/H2CO3 Ratio ABG pH ABG pCO2 ABG pO2 ABG HCO3 ABG O2 Saturation ABG Base Excess FiO2 Sodium Potassium Chloride Carbon Dioxide Anion Gap BUN Creatinine Est GFR ( Amer) Est GFR (Non-Af Amer) Glucose 713 H* Serum Osmolality 390 H Calcium Phosphorus Magnesium Total Bilirubin AST ALT Alkaline Phosphatase Total Protein Albumin Triglycerides Cholesterol LDL Cholesterol Direct VLDL Cholesterol HDL Cholesterol Lipase TSH Urine Osmolality 476 12/12/17 12/12/17 12/12/17 02:25 02:50 05:10 WBC RBC Hgb Hct MCV MCH MCHC RDW Plt Count Seg Neutrophils % Lymphocytes % Monocytes % Eosinophils % Basophils % Absolute Neutrophils Absolute Lymphocytes Absolute Monocytes Absolute Eosinophils Absolute Basophils Carbonic Acid 1.25 HCO3/H2CO3 Ratio 19:1 ABG pH 7.38 ABG pCO2 41.4 ABG pO2 100.5 H ABG HCO3 24.2 ABG O2 Saturation 97.5 ABG Base Excess -0.9 FiO2 40% Sodium 155.2 H Potassium 4.1 Chloride 109 H Carbon Dioxide 29 Anion Gap 17 BUN 80 H Creatinine 3.26 H Est GFR ( Amer) 24 L Est GFR (Non-Af Amer) 20 L Glucose 687 H* 590 H* Serum Osmolality Calcium 9.7 Phosphorus Magnesium Total Bilirubin AST ALT Alkaline Phosphatase Total Protein Albumin Triglycerides Cholesterol LDL Cholesterol Direct VLDL Cholesterol HDL Cholesterol Lipase TSH Urine Osmolality 12/12/17 12/12/17 12/12/17 05:10 07:00 07:00 WBC 19.4 H RBC 4.38 Hgb 14.1 Hct 42.5 MCV 97 D MCH 32.2 MCHC 33.2 RDW 13.1 Plt Count 240 Seg Neutrophils % 86.9 H Lymphocytes % 5.8 L Monocytes % 6.9 Eosinophils % 0.1 Basophils % 0.3 Absolute Neutrophils 16.9 H Absolute Lymphocytes 1.1 Absolute Monocytes 1.3 Absolute Eosinophils 0.0 Absolute Basophils 0.1 Carbonic Acid HCO3/H2CO3 Ratio ABG pH ABG pCO2 ABG pO2 ABG HCO3 ABG O2 Saturation ABG Base Excess FiO2 Sodium 152.8 H Potassium 3.9 Chloride 109 H Carbon Dioxide 30 Anion Gap 14 BUN 81 H Creatinine 3.08 H Est GFR ( Amer) 25 L Est GFR (Non-Af Amer) 21 L Glucose 520 H* Serum Osmolality Calcium 9.6 Phosphorus 4.5 Magnesium 2.9 H Total Bilirubin 1.0 0.6 AST 57 56 ALT 39 47 Alkaline Phosphatase 106 114 Total Protein 6.7 6.7 Albumin 3.5 3.5 Triglycerides 1970 H Cholesterol 270.72 H LDL Cholesterol Direct < 30 VLDL Cholesterol UNABLE TO CALCULATE HDL Cholesterol 19 L Lipase 3942.1 H TSH Urine Osmolality 12/12/17 07:00 WBC RBC Hgb Hct MCV MCH MCHC RDW Plt Count Seg Neutrophils % Lymphocytes % Monocytes % Eosinophils % Basophils % Absolute Neutrophils Absolute Lymphocytes Absolute Monocytes Absolute Eosinophils Absolute Basophils Carbonic Acid HCO3/H2CO3 Ratio ABG pH ABG pCO2 ABG pO2 ABG HCO3 ABG O2 Saturation ABG Base Excess FiO2 Sodium Potassium Chloride Carbon Dioxide Anion Gap BUN Creatinine Est GFR ( Amer) Est GFR (Non-Af Amer) Glucose Serum Osmolality Calcium Phosphorus Magnesium Total Bilirubin AST ALT Alkaline Phosphatase Total Protein Albumin Triglycerides Cholesterol LDL Cholesterol Direct VLDL Cholesterol HDL Cholesterol Lipase TSH 0.65 Urine Osmolality 12/12/17 12/12/17 12/12/17 00:18 00:18 07:00 Creatine Kinase 1133 H 1142 H CK-MB (CK-2) 5.78 H Troponin I 0.084 NT-Pro-B Natriuret Pep 12/12/17 07:00 Creatine Kinase CK-MB (CK-2) 5.69 H Troponin I 0.098 NT-Pro-B Natriuret Pep 553 Impressions: Chest X-Ray 12/12/17 00:00 IMPRESSION: Interval line and tube adjustment. Else, stable. Head CT 12/12/17 00:00 IMPRESSION: No acute findings. Lines and tubes. Assessment & Plan - Diagnosis (1) Acute respiratory failure Is this a current diagnosis for this admission?: Yes Plan: Support with mechanical ventilation getting adequate oxygenation and ventilation patient currently not acidotic excessive ventilation not necessary at this time (2) Hyperosmolar nonketotic coma in diabetes Is this a current diagnosis for this admission?: Yes Plan: Labs- All tests 24 hr 12/11/17 12/12/17 12/12/17 17:25 00:18 10:00 Carbon Dioxide POC Glucose 451 H* Serum Osmolality 390 H Urine Ketones NEGATIVE Ur Leukocyte Esterase NEGATIVE 12/12/17 10:50 Carbon Dioxide 29 POC Glucose Serum Osmolality Urine Ketones Ur Leukocyte Esterase (3) ARF (acute renal failure) Is this a current diagnosis for this admission?: Yes (4) Diabetes type 2, uncontrolled Qualifiers: Diabetes mellitus mcfp insulin use: with mcfp use Diabetes mellitus complication status: with neurologic complications Diabetes mellitus complication detail: with polyneuropathy Qualified Code(s): E11.42 - Type 2 diabetes mellitus with diabetic polyneuropathy; E11.65 - Type 2 diabetes mellitus with hyperglycemia; E11.65 - Type 2 diabetes mellitus with hyperglycemia; E11.65 - Type 2 diabetes mellitus with hyperglycemia; E11.65 - Type 2 diabetes mellitus with hyperglycemia; Z79.4 - [facility] (current) use of insulin; Z79.4 - [facility] (current) use of insulin; Z79.4 - [facility] (current ) use of insulin; 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 Is this a current diagnosis for this admission?: Yes Plan: Hemoglobin A1c 14 (5) Hypertension Is this a current diagnosis for this admission?: Yes Plan: Stable at this time (6) Septic shock Is this a current diagnosis for this admission?: Yes Plan: Labs- All tests 24 hr 12/11/17 12/12/17 16:25 07:00 WBC 22.9 H 19.4 H Selected Entries 12/12/17 12/12/17 12/12/17 08:09 08:23 09:53 Temperature 100.0 F 100.0 F 100.0 F 12/12/17 12/12/17 12/12/17 09:54 11:09 11:23 Temperature 100.0 F 100.0 F 100.0 F 12/12/17 12/12/17 12/12/17 11:24 11:38 11:39 Temperature 100.0 F 100.0 F 100.0 F 12/12/17 12:00 Temperature 100.0 F Generic Name Dose Route Start Last Admin Trade Name Freq PRN Reason Stop Dose Admin Norepinephrine Bitartrate 4 mg 250 mls @ 0 mls/hr 12/12/17 02:23 12/12/17 08: 12 / Dextrose IV 01/11/18 02:22 4 mg CONTINUOUS PRN THIS MED IS NOT "PRN" Protocol Titrate - Time Total Critical Time (Minutes): 60
[2017-12-12 14:47] LABS: CREATINE KINASE MB 5.29 ng/mL (<4.55); TROPONIN I 0.081 ng/mL
[2017-12-12] MEDS ORDERED: SUCCINYLCHOLINE CHLORIDE INJ 200 MG/10 ML VIAL ONE (14:57)
[2017-12-12 15:29] LABS: ANION GAP 12 (5-19); BLOOD UREA NITROGEN 82 mg/dL (7-20); CALCIUM 8.7 mg/dL (8.4-10.2); CARBON DIOXIDE 29 mmol/L (22-30); CHLORIDE 108 mmol/L (98-107); GLUCOSE 328 mg/dL (75-110); POTASSIUM 3.2 mmol/L (3.6-5.0); SODIUM 149.2 mmol/L (137-145)
--- NOTE | 2017-12-12 16:16 | PDOC PROGRESS REPORT ---
Subjective Progress Note for:: 12/12/17 Subjective:: 57-year-old gentleman with uncontrolled diabetes and medication noncompliance presented with DKA yesterday. Overnight he developed acute respiratory failure and was intubated. He also has acute pancreatitis as seen on CAT scan of the abdomen. The patient has hypernatremia and is being treated with D5W and free water flushes through the OG tube. Blood and urine cultures have been negative so far. He is on empiric antibiotics and levophed. Reason For Visit: DKA Physical Exam Vital Signs: Temp Pulse Resp BP Pulse Ox 100.0 F 96 14 114/64 99 12/12/17 16:00 12/12/17 16:00 12/12/17 16:00 12/12/17 16:00 12/12/17 16:00 Intake & Output 12/11/17 12/12/17 12/13/17 06:59 06:59 06:59 Intake Total 2207 250 Output Total 750 200 Balance 1457 50 Weight 99.6 kg General appearance: PRESENT: obese, other - Sedated on the vent. ET tube and OG tube present. Head exam: PRESENT: atraumatic, normocephalic Eye exam: PRESENT: conjunctiva pink, PERRLA Ear exam: PRESENT: normal external ear exam Neck exam: ABSENT: tracheal deviation Respiratory exam: PRESENT: rhonchi, unlabored Cardiovascular exam: PRESENT: RRR GI/Abdominal exam: PRESENT: normal bowel sounds, tenderness, other - Epigastric tenderness Rectal exam: PRESENT: deferred Skin exam: ABSENT: rash Results Laboratory Results: 12/12/17 07:00 12/12/17 13:58 12/11/17 12/11/17 12/11/17 18:50 22:20 23:15 WBC RBC Hgb Hct MCV MCH MCHC RDW Plt Count Seg Neutrophils % Lymphocytes % Monocytes % Eosinophils % Basophils % Absolute Neutrophils Absolute Lymphocytes Absolute Monocytes Absolute Eosinophils Absolute Basophils Carbonic Acid 1.58 H HCO3/H2CO3 Ratio 21:1 ABG pH 7.42 ABG pCO2 52.5 H ABG pO2 279.5 H ABG HCO3 33.4 H ABG O2 Saturation 99.7 H ABG Base Excess 7.0 FiO2 15L Sodium 148.1 H 154.2 H Potassium 4.4 4.5 Chloride 98 104 Carbon Dioxide 30 35 H Anion Gap 20 H 15 BUN 74 H 78 H Creatinine 2.40 H 2.51 H Est GFR ( Amer) 34 L 32 L Est GFR (Non-Af Amer) 28 L 27 L Glucose 1234 H* 878 H* Serum Osmolality Lactic Acid Calcium 10.4 H 10.7 H Phosphorus Magnesium Total Bilirubin AST ALT Alkaline Phosphatase Total Protein Albumin Triglycerides Cholesterol LDL Cholesterol Direct VLDL Cholesterol HDL Cholesterol Lipase TSH Urine Osmolality 12/12/17 12/12/17 12/12/17 00:10 00:18 01:08 WBC RBC Hgb Hct MCV MCH MCHC RDW Plt Count Seg Neutrophils % Lymphocytes % Monocytes % Eosinophils % Basophils % Absolute Neutrophils Absolute Lymphocytes Absolute Monocytes Absolute Eosinophils Absolute Basophils Carbonic Acid HCO3/H2CO3 Ratio ABG pH ABG pCO2 ABG pO2 ABG HCO3 ABG O2 Saturation ABG Base Excess FiO2 Sodium Potassium Chloride Carbon Dioxide Anion Gap BUN Creatinine Est GFR ( Amer) Est GFR (Non-Af Amer) Glucose 713 H* Serum Osmolality 390 H Lactic Acid Calcium Phosphorus Magnesium Total Bilirubin AST ALT Alkaline Phosphatase Total Protein Albumin Triglycerides Cholesterol LDL Cholesterol Direct VLDL Cholesterol HDL Cholesterol Lipase TSH Urine Osmolality 476 12/12/17 12/12/17 12/12/17 02:25 02:50 05:10 WBC RBC Hgb Hct MCV MCH MCHC RDW Plt Count Seg Neutrophils % Lymphocytes % Monocytes % Eosinophils % Basophils % Absolute Neutrophils Absolute Lymphocytes Absolute Monocytes Absolute Eosinophils Absolute Basophils Carbonic Acid 1.25 HCO3/H2CO3 Ratio 19:1 ABG pH 7.38 ABG pCO2 41.4 ABG pO2 100.5 H ABG HCO3 24.2 ABG O2 Saturation 97.5 ABG Base Excess -0.9 FiO2 40% Sodium 155.2 H Potassium 4.1 Chloride 109 H Carbon Dioxide 29 Anion Gap 17 BUN 80 H Creatinine 3.26 H Est GFR ( Amer) 24 L Est GFR (Non-Af Amer) 20 L Glucose 687 H* 590 H* Serum Osmolality Lactic Acid Calcium 9.7 Phosphorus Magnesium Total Bilirubin AST ALT Alkaline Phosphatase Total Protein Albumin Triglycerides Cholesterol LDL Cholesterol Direct VLDL Cholesterol HDL Cholesterol Lipase TSH Urine Osmolality 12/12/17 12/12/17 12/12/17 05:10 07:00 07:00 WBC 19.4 H RBC 4.38 Hgb 14.1 Hct 42.5 MCV 97 D MCH 32.2 MCHC 33.2 RDW 13.1 Plt Count 240 Seg Neutrophils % 86.9 H Lymphocytes % 5.8 L Monocytes % 6.9 Eosinophils % 0.1 Basophils % 0.3 Absolute Neutrophils 16.9 H Absolute Lymphocytes 1.1 Absolute Monocytes 1.3 Absolute Eosinophils 0.0 Absolute Basophils 0.1 Carbonic Acid HCO3/H2CO3 Ratio ABG pH ABG pCO2 ABG pO2 ABG HCO3 ABG O2 Saturation ABG Base Excess FiO2 Sodium 152.8 H Potassium 3.9 Chloride 109 H Carbon Dioxide 30 Anion Gap 14 BUN 81 H Creatinine 3.08 H Est GFR ( Amer) 25 L Est GFR (Non-Af Amer) 21 L Glucose 520 H* Serum Osmolality Lactic Acid Calcium 9.6 Phosphorus 4.5 Magnesium 2.9 H Total Bilirubin 1.0 0.6 AST 57 56 ALT 39 47 Alkaline Phosphatase 106 114 Total Protein 6.7 6.7 Albumin 3.5 3.5 Triglycerides 1970 H Cholesterol 270.72 H LDL Cholesterol Direct < 30 VLDL Cholesterol UNABLE TO CALCULATE HDL Cholesterol 19 L Lipase 3942.1 H TSH Urine Osmolality 12/12/17 12/12/17 12/12/17 07:00 10:50 10:50 WBC RBC Hgb Hct MCV MCH MCHC RDW Plt Count Seg Neutrophils % Lymphocytes % Monocytes % Eosinophils % Basophils % Absolute Neutrophils Absolute Lymphocytes Absolute Monocytes Absolute Eosinophils Absolute Basophils Carbonic Acid HCO3/H2CO3 Ratio ABG pH ABG pCO2 ABG pO2 ABG HCO3 ABG O2 Saturation ABG Base Excess FiO2 Sodium 149.0 H Potassium 3.5 L Chloride 108 H Carbon Dioxide 29 Anion Gap 12 BUN 81 H Creatinine 3.00 H Est GFR ( Amer) 26 L Est GFR (Non-Af Amer) 22 L Glucose 417 H* Serum Osmolality Lactic Acid Cancelled Calcium 8.9 Phosphorus Magnesium Total Bilirubin AST ALT Alkaline Phosphatase Total Protein Albumin Triglycerides Cholesterol LDL Cholesterol Direct VLDL Cholesterol HDL Cholesterol Lipase TSH 0.65 Urine Osmolality 12/12/17 12/12/17 12/12/17 10:50 13:58 13:58 WBC RBC Hgb Hct MCV MCH MCHC RDW Plt Count Seg Neutrophils % Lymphocytes % Monocytes % Eosinophils % Basophils % Absolute Neutrophils Absolute Lymphocytes Absolute Monocytes Absolute Eosinophils Absolute Basophils Carbonic Acid HCO3/H2CO3 Ratio ABG pH ABG pCO2 ABG pO2 ABG HCO3 ABG O2 Saturation ABG Base Excess FiO2 Sodium 149.2 H Potassium 3.2 L Chloride 108 H Carbon Dioxide 29 Anion Gap 12 BUN 82 H Creatinine 3.16 H Est GFR ( Amer) 25 L Est GFR (Non-Af Amer) 20 L Glucose 328 H Serum Osmolality Lactic Acid 2.4 H 2.4 H Calcium 8.7 Phosphorus Magnesium Total Bilirubin AST ALT Alkaline Phosphatase Total Protein Albumin Triglycerides Cholesterol LDL Cholesterol Direct VLDL Cholesterol HDL Cholesterol Lipase TSH Urine Osmolality 12/12/17 12/12/17 12/12/17 00:18 00:18 07:00 Creatine Kinase 1133 H 1142 H CK-MB (CK-2) 5.78 H Troponin I 0.084 NT-Pro-B Natriuret Pep 12/12/17 12/12/17 12/12/17 07:00 13:58 13:58 Creatine Kinase 1040 H CK-MB (CK-2) 5.69 H 5.29 H Troponin I 0.098 0.081 NT-Pro-B Natriuret Pep 553 Impressions: Chest X-Ray 12/12/17 00:00 IMPRESSION: Bibasilar airspace disease atelectasis versus pneumonia Endotracheal tube at the mason pointing towards the right mainstem bronchus. Report called to ELIAN Cage ICU nurse 1000 hours, 12/12/[address] 12/12/17 00:00 IMPRESSION: No acute findings. Lines and tubes. Assessment & Plan - Diagnosis (1) Diabetic ketoacidosis Is this a current diagnosis for this admission?: Yes Plan: On insulin drip. Continue to monitor blood sugars. (2) ARF (acute renal failure) Qualifiers: Acute renal failure type: with acute tubular necrosis Qualified Code(s): N17.0 - Acute kidney failure with tubular necrosis Is this a current diagnosis for this admission?: Yes Plan: Continue IV fluids and monitor renal function. (3) Diabetes type 2, uncontrolled Qualifiers: Diabetes mellitus manager terminal insulin use: with manager terminal use Diabetes mellitus complication status: with neurologic complications Diabetes mellitus complication detail: with polyneuropathy Qualified Code(s): E11.42 - Type 2 diabetes mellitus with diabetic polyneuropathy; E11.65 - Type 2 diabetes mellitus with hyperglycemia; E11.65 - Type 2 diabetes mellitus with hyperglycemia; E11.65 - Type 2 diabetes mellitus with hyperglycemia; E11.65 - Type 2 diabetes mellitus with hyperglycemia; Z79.4 - [facility] ([facility] use of [facility]; Z79.4 - [facility] ([facility] use of insulin; Z79.4 - [facility] (current ) use of insulin; 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 (10) Hypernatremia Is this a current diagnosis for this admission?: Yes Plan: Improving very slowly. Continue to monitor closely. Continue D5W and free water flushes. (11) Hypokalemia Is this a current diagnosis for this admission?: Yes Plan: Replete and continue to monitor.
[2017-12-12] MEDS: POTASSI CL 20 MEQ/50 ML RIDER 20 MEQ/50 ML RTUPB IV SCH ×2 (16:25→17:28)
[2017-12-12 19:16] LABS: ANION GAP 9 (5-19); BLOOD UREA NITROGEN 81 mg/dL (7-20); CALCIUM 8.4 mg/dL (8.4-10.2); CARBON DIOXIDE 29 mmol/L (22-30); CHLORIDE 107 mmol/L (98-107); CREATINE KINASE 1048 U/L (55-170); GLUCOSE 237 mg/dL (75-110); POTASSIUM 3.4 mmol/L (3.6-5.0); SODIUM 145.4 mmol/L (137-145)
[2017-12-12 19:28] LABS: CREATINE KINASE MB 4.78 ng/mL (<4.55); TROPONIN I 0.067 ng/mL
[2017-12-12] MEDS: CEFTRIAXONE 2 GM/D5W RTU 2 GM/50 ML RTUPB IV SCH (21:10)
[2017-12-12 23:30] LABS: ANION GAP 10 (5-19); BLOOD UREA NITROGEN 81 mg/dL (7-20); CALCIUM 7.8 mg/dL (8.4-10.2); CARBON DIOXIDE 28 mmol/L (22-30); CHLORIDE 104 mmol/L (98-107); GLUCOSE 238 mg/dL (75-110); SODIUM 142.1 mmol/L (137-145)
[2017-12-13] MEDS: PROPOFOL 100 ML IV PRN ×6 (00:08→21:45)
[2017-12-13] MEDS: POTASSIUM CHLORIDE 20 MEQ/50 ML RTU IV SCH ×4 (00:40→09:31)
[2017-12-13 03:49] LABS: ANION GAP 9 (5-19); BLOOD UREA NITROGEN 72 mg/dL (7-20); CALCIUM 7.5 mg/dL (8.4-10.2); CARBON DIOXIDE 25 mmol/L (22-30); CHLORIDE 107 mmol/L (98-107); GLUCOSE 249 mg/dL (75-110); POTASSIUM 3.6 mmol/L (3.6-5.0); SODIUM 141.3 mmol/L (137-145)
[2017-12-13 04:52] LABS: MEAN CORPUSCULAR HEMOGLOBIN 31.9 pg (27.0-33.4); MEAN CORPUSCULAR HGB CONC 33.6 g/dL (32.0-36.0); MEAN CORPUSCULAR VOLUME 95 fl (80-97); RED BLOOD COUNT 3.59 10^6/uL (4.35-5.55); RED CELL DISTRIBUTION WIDTH 12.6 % (11.5-14.0); WHITE BLOOD COUNT 15.3 10^3/uL (4.0-10.5)
[2017-12-13 05:00] LABS: ALANINE AMINOTRANSFERASE 43 U/L (21-72); ALBUMIN 2.7 g/dL (3.5-5.0); ALKALINE PHOSPHATASE 78 U/L (38-126); AMYLASE 612 U/L (30-110); ANION GAP 7 (5-19); ASPARTATE AMINO TRANSFERASE 53 U/L (17-59); BILIRUBIN,DIRECT 0.2 mg/dL (0.0-0.4); BILIRUBIN,TOTAL 0.4 mg/dL (0.2-1.3); BLOOD UREA NITROGEN 71 mg/dL (7-20); CALCIUM 7.4 mg/dL (8.4-10.2); CARBON DIOXIDE 27 mmol/L (22-30); CHLORIDE 106 mmol/L (98-107); GLUCOSE 267 mg/dL (75-110); LIPASE 1173.7 U/L (23-300); PHOSPHORUS 2.6 mg/dL (2.5-4.5); POTASSIUM 3.4 mmol/L (3.6-5.0); SODIUM 140.4 mmol/L (137-145); TOTAL PROTEIN 5.2 g/dL (6.3-8.2)
[2017-12-13] MEDS: DEXTROSE 5%-WATER 250 ML with NOREPINEPHRINE BITARTRATE 4 MG IV PRN ×4 (05:04→21:46)
[2017-12-13] MEDS: HEPARIN SOD (PORCINE) 5,000 UNIT/ML 1 ML SYRINGE SUBCUT SCH ×3 (05:05→21:46)
[2017-12-13 05:36] LABS: ARTERIAL BLOOD BASE EXCESS 1.5 mmol/L; ARTERIAL BLOOD H2CO3 1.13 mmol/L (1.05-1.35); ARTERIAL BLOOD HCO3 25.4 mmol/L (20-26); ARTERIAL BLOOD O2 SATURATION 95.8 % (94-98); ARTERIAL BLOOD PCO2 37.7 mmHg (35-45); ARTERIAL BLOOD PH 7.45 (7.35-7.45); ARTERIAL BLOOD PO2 75.9 mmHg (80-100); ARTERIAL BLOOD TOTAL CO2 26.6 mmol/L (23-27)
[2017-12-13 05:42] LABS: ARTERIAL BLOOD FIO2 30%
[2017-12-13 05:42] LABS: ABSOLUTE LYMPHOCYTES# (MANUAL) 1.1 10^3/uL (0.5-4.7); ABSOLUTE MONOCYTES # (MANUAL) 0.3 10^3/uL (0.1-1.4); ABSOLUTE NEUTROPHILS# (MANUAL) 13.9 10^3/uL (1.7-8.2); BASOPHILS % (MANUAL) 0 % (0-2); EOSINOPHILS % (MANUAL) 0 % (0-6); LYMPHOCYTES % (MANUAL) 6 % (13-45); METAMYELOCYTES % (MANUAL) 1 % (0); MONOCYTES % (MANUAL) 2 % (3-13); SEGMENTED NEUTROPHILS % (MAN) 80 % (42-78); TOTAL CELLS COUNTED 100
[2017-12-13 05:47] LABS: PLATELET CLUMPS PRESENT; PLATELET COMMENT ADEQUATE; RBC MORPHOLOGY COMMENT NORMO-CYTIC/CHROMIC; TOXIC GRANULATION 1+; TOXIC VACUOLATION PRESENT
[2017-12-13 05:48] LABS: PLATELET COUNT 149 10^3/uL (150-450)
[2017-12-13 05:49] LABS: BAND NEUTROPHILS % (MANUAL) 10 % (3-5)
[2017-12-13] MEDS ORDERED: VANCOMYCIN HCL 750 MG in DEXTROSE 5%-WATER 250 ML IV SCH (06:00)
[2017-12-13 06:03] LABS: HEMOGLOBIN 11.4 g/dL (13.5-17.0)
[2017-12-13] MEDS: ACETAMINOPHEN 650 MG SUPP.RECT PR PRN (06:15)
--- NOTE | 2017-12-13 08:20 | RADIOLOGY REPORT (SQ) ---
EXAM DESCRIPTION: CHEST SINGLE VIEW COMPLETED DATE/TIME: 12/13/2017 7:08 am REASON FOR STUDY: pna/resp failure COMPARISON: 12/12/2017 EXAM PARAMETERS: NUMBER OF VIEWS: One view TECHNIQUE: Single frontal radiograph of the chest. RADIATION DOSE: N/A LIMITATIONS: None. FINDINGS: TEMPORARY SUPPORT DEVICES:ETT in expected location. NG tube courses below the ya-diaphr agm in to the stomach. Central venous access catheter tip is in expected location. LUNGS AND PLEURA: Minimal basilar airspace disease left greater than right. No pneumothorax. No effu sions. No masses. No pneumothorax. MEDIASTINUM AND HILAR STRUCTURES: No masses. Contour normal. HEART AND VASCULAR STRUCTURES: Heart normal in size. normal vascularity. Aorta normal for age. BONES: No acute findings. OTHER: No other significant finding. IMPRESSION: Minimal basilar airspace disease. SUPPORT DEVICE(S) IN EXPECTED LOCATIONS. TECHNICAL DOCUMENTATION: JOB ID: [id number] [employer]- All Rights Reserved Reading location - IP/workstation name: [email or web address]
[2017-12-13] MEDS: PANTOPRAZOLE SODIUM 40 MG VIAL IV SCH ×2 (09:29→21:46)
[2017-12-13] MEDS: ASPIRIN 81 MG TABLET, CHEWABLE NG SCH (09:30)
[2017-12-13 09:31] LABS: ANION GAP 6 (5-19); BLOOD UREA NITROGEN 68 mg/dL (7-20); CALCIUM 7.3 mg/dL (8.4-10.2); CARBON DIOXIDE 27 mmol/L (22-30); CHLORIDE 104 mmol/L (98-107); GLUCOSE 375 mg/dL (75-110); POTASSIUM 3.8 mmol/L (3.6-5.0); SODIUM 137.3 mmol/L (137-145)
[2017-12-13] MEDS: NORMAL SALINE 100 ML with INSULIN REGULAR, HUMAN 100 UNIT IV PRN ×6 (09:56→21:47)
[2017-12-13] MEDS: DESMOPRESSIN ACETATE INJ 4 MCG/1 ML AMPULE IV SCH (10:08)
[2017-12-13] MEDS ORDERED: DEXTROSE 5%-1/2 NORMAL SALINE 1,000 ML with POTASSIUM CHLORIDE 20 MEQ IV PRN ×2 (10:11)
[2017-12-13] MEDS: THIAMINE HCL 100 MG, FOLIC ACID 1 MG in NORMAL SALINE 250 ML IV SCH (10:38)
[2017-12-13 12:48] LABS: ANION GAP 6 (5-19); BLOOD UREA NITROGEN 63 mg/dL (7-20); CALCIUM 7.1 mg/dL (8.4-10.2); CARBON DIOXIDE 27 mmol/L (22-30); CHLORIDE 106 mmol/L (98-107); GLUCOSE 308 mg/dL (75-110); POTASSIUM 3.7 mmol/L (3.6-5.0); SODIUM 139.3 mmol/L (137-145)
[2017-12-13] MEDS: POTASSI CL 20 MEQ/D5-1/2NS 1L 1000 ML IV PRN ×2 (12:52→21:48)
--- NOTE | 2017-12-13 13:15 | PDOC PROGRESS REPORT ---
Subjective Progress Note for:: 12/13/17 Subjective:: 57-year-old gentleman with uncontrolled diabetes and medication noncompliance presented with [facility] on 12/11/17 He was intubated for acute respiratory failure and was also found to have acute pancreatitis. The patient had some hyponatremia which was treated with D5W and free water flushes. This has improved. Lipase level is improving. Blood and urine cultures have been negative so far. He is on empiric antibiotics and levophed. Remain sedated on the vent. Reason For Visit: DKA Physical Exam Vital Signs: Temp Pulse Resp BP Pulse Ox 99.1 F 77 15 111/60 99 12/13/17 12:00 12/13/17 12:00 12/13/17 12:00 12/13/17 12:00 12/13/17 12:00 Intake & Output 12/12/17 12/13/17 12/14/17 06:59 06:59 06:59 Intake Total 2207 6150 Output Total 750 820 570 Balance 1457 5330 -570 Weight 99.6 kg 105.5 kg General appearance: PRESENT: morbidly obese Head exam: PRESENT: atraumatic, normocephalic Eye exam: PRESENT: PERRLA. ABSENT: scleral icterus Respiratory exam: PRESENT: clear to auscultation bernardo, symmetrical, unlabored Cardiovascular exam: PRESENT: RRR GI/Abdominal exam: PRESENT: normal bowel sounds, soft, tenderness Rectal exam: PRESENT: deferred Extremities exam: ABSENT: pedal edema - sedated on the vent. OG tube present Bhatti present Results Laboratory Results: 12/13/17 04:35 12/13/17 11:50 12/12/17 12/12/17 12/12/17 13:58 13:58 18:45 WBC RBC Hgb Hct MCV MCH MCHC RDW Plt Count Seg Neutrophils % Lymphocytes % Monocytes % Eosinophils % Basophils % Absolute Neutrophils Absolute Lymphocytes Absolute Monocytes Absolute Eosinophils Absolute Basophils Carbonic Acid HCO3/H2CO3 Ratio ABG pH ABG pCO2 ABG pO2 ABG HCO3 ABG O2 Saturation ABG Base Excess FiO2 Sodium 149.2 H 145.4 H Potassium 3.2 L 3.4 L Chloride 108 H 107 Carbon Dioxide 29 29 Anion Gap 12 9 BUN 82 H 81 H Creatinine 3.16 H 2.84 H Est GFR ( Amer) 25 L 28 L Est GFR (Non-Af Amer) 20 L 23 L Glucose 328 H 237 H Lactic Acid 2.4 H Calcium 8.7 8.4 Phosphorus Magnesium Total Bilirubin AST ALT Alkaline Phosphatase Total Protein Albumin Amylase Lipase 12/12/17 12/13/17 12/13/17 23:00 03:00 04:35 WBC RBC Hgb Hct MCV MCH MCHC RDW Plt Count Seg Neutrophils % Lymphocytes % Monocytes % Eosinophils % Basophils % Absolute Neutrophils Absolute Lymphocytes Absolute Monocytes Absolute Eosinophils Absolute Basophils Carbonic Acid HCO3/H2CO3 Ratio ABG pH ABG pCO2 ABG pO2 ABG HCO3 ABG O2 Saturation ABG Base Excess FiO2 Sodium 142.1 141.3 140.4 Potassium 3.0 L* 3.6 3.4 L Chloride 104 107 106 Carbon Dioxide 28 25 27 Anion Gap 10 9 7 BUN 81 H 72 H 71 H Creatinine 2.96 H 2.58 H 2.52 H Est GFR ( Amer) 27 L 31 L 32 L Est GFR (Non-Af Amer) 22 L 26 L 26 L Glucose 238 H 249 H 267 H Lactic Acid Calcium 7.8 L 7.5 L 7.4 L Phosphorus 2.6 Magnesium 2.1 Total Bilirubin 0.4 AST 53 ALT 43 Alkaline Phosphatase 78 Total Protein 5.2 L Albumin 2.7 L Amylase 612 H Lipase 1173.7 H 12/13/17 12/13/17 12/13/17 04:35 05:20 06:55 WBC 15.3 H RBC 3.59 L Hgb 11.4 L D Hct 34.0 L MCV 95 MCH 31.9 MCHC 33.6 RDW 12.6 Plt Count 149 L Seg Neutrophils % Not Reportable Lymphocytes % Not Reportable Monocytes % Not Reportable Eosinophils % Not Reportable Basophils % Not Reportable Absolute Neutrophils Not Reportable Absolute Lymphocytes Not Reportable Absolute Monocytes Not Reportable Absolute Eosinophils Not Reportable Absolute Basophils Not Reportable Carbonic Acid 1.13 HCO3/H2CO3 Ratio 22:1 ABG pH 7.45 ABG pCO2 37.7 ABG pO2 75.9 L ABG HCO3 25.4 ABG O2 Saturation 95.8 ABG Base Excess 1.5 FiO2 30% Sodium Cancelled Potassium Cancelled Chloride Cancelled Carbon Dioxide Cancelled Anion Gap Cancelled BUN Cancelled Creatinine Cancelled Est GFR ( Amer) Cancelled Est GFR (Non-Af Amer) Cancelled Glucose Cancelled Lactic Acid Calcium Cancelled Phosphorus Magnesium Total Bilirubin AST ALT Alkaline Phosphatase Total Protein Albumin Amylase Lipase 12/13/17 12/13/17 08:49 11:50 WBC RBC Hgb Hct MCV MCH MCHC RDW Plt Count Seg Neutrophils % Lymphocytes % Monocytes % Eosinophils % Basophils % Absolute Neutrophils Absolute Lymphocytes Absolute Monocytes Absolute Eosinophils Absolute Basophils Carbonic Acid HCO3/H2CO3 Ratio ABG pH ABG pCO2 ABG pO2 ABG HCO3 ABG O2 Saturation ABG Base Excess FiO2 Sodium 137.3 139.3 Potassium 3.8 3.7 Chloride 104 106 Carbon Dioxide 27 27 Anion Gap 6 6 BUN 68 H 63 H Creatinine 2.22 H 1.89 H Est GFR ( Amer) 37 L 45 L Est GFR (Non-Af Amer) 31 L 37 L Glucose 375 H 308 H Lactic Acid Calcium 7.3 L 7.1 L Phosphorus Magnesium Total Bilirubin AST ALT Alkaline Phosphatase Total Protein Albumin Amylase Lipase 12/12/17 12/12/17 12/12/17 00:18 00:18 07:00 Creatine Kinase 1133 H 1142 H CK-MB (CK-2) 5.78 H Troponin I 0.084 NT-Pro-B Natriuret Pep 12/12/17 12/12/17 12/12/17 07:00 13:58 13:58 Creatine Kinase 1040 H CK-MB (CK-2) 5.69 H 5.29 H Troponin I 0.098 0.081 NT-Pro-B Natriuret Pep 553 12/12/17 12/12/17 18:45 18:45 Creatine Kinase 1048 H CK-MB (CK-2) 4.78 H Troponin I 0.067 NT-Pro-B Natriuret Pep Impressions: Head CT 12/12/17 00:00 IMPRESSION: No acute findings. Lines and tubes. Chest X-Ray 12/13/17 06:00 IMPRESSION: Minimal basilar airspace disease. SUPPORT DEVICE(S) IN EXPECTED LOCATIONS. Assessment & Plan - Diagnosis (1) Hyperosmolar nonketotic coma in diabetes Is this a current diagnosis for this admission?: Yes Plan: Continue IV fluids, free water flushes through the OG and insulin drip. (2) ARF (acute renal failure) Qualifiers: Acute renal failure type: with acute tubular necrosis Qualified Code(s): N17.0 - Acute kidney failure with tubular necrosis Is this a current diagnosis for this admission?: Yes Plan: Continue IV fluids and monitor renal function. (3) Diabetes type 2, uncontrolled Qualifiers: Diabetes mellitus senior living insulin use: with senior living use Diabetes mellitus complication status: with neurologic complications Diabetes mellitus complication detail: with polyneuropathy Qualified Code(s): E11.42 - Type 2 diabetes mellitus with diabetic polyneuropathy; E11.65 - Type 2 diabetes mellitus with hyperglycemia; E11.65 - Type 2 diabetes mellitus with hyperglycemia; E11.65 - Type 2 diabetes mellitus with hyperglycemia; E11.65 - Type 2 diabetes mellitus with hyperglycemia; Z79.4 - snf (current) use of insulin; Z79.4 - snf (current) use of insulin; Z79.4 - bowling ball 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 (4) Diabetic neuropathy Is this a current diagnosis for this admission?: Yes (5) Hypertension Is this a current diagnosis for this admission?: No (6) Hyperlipidemia Is this a current diagnosis for this admission?: Yes (7) History of prostate cancer Is this a current diagnosis for this admission?: No (8) Acute pancreatitis Is this a current diagnosis for this admission?: Yes Plan: N.p.o. Bowel rest. Continue to monitor lipase. Empiric antibiotics. (9) Acute respiratory failure Is this a current diagnosis for this admission?: Yes Plan: Continue vent support. Pulmonology recommendations appreciated. (10) Hypernatremia Is this a current diagnosis for this admission?: Yes Plan: Improving. Continue to monitor closely. (11) Hypokalemia Is this a current diagnosis for this admission?: Yes - Time Time Spent with patient: 35 or more minutes Total Critical Time (Minutes): 45 - Inpatient Certification Medical Necessity: Need Close Monitoring Due to Risk of Patient Decompensation, Need For IV Fluids, Need For Continuous Telemetry Monitoring, Need for IV Antibiotics, Risk of Complication if Not Cared For in Hospital
[2017-12-13 16:25] LABS: ANION GAP 8 (5-19); BLOOD UREA NITROGEN 60 mg/dL (7-20); CALCIUM 7.1 mg/dL (8.4-10.2); CARBON DIOXIDE 25 mmol/L (22-30); CHLORIDE 106 mmol/L (98-107); GLUCOSE 293 mg/dL (75-110); POTASSIUM 3.6 mmol/L (3.6-5.0); SODIUM 139.3 mmol/L (137-145)
--- NOTE | 2017-12-13 19:19 | PDOC PROGRESS REPORT ---
Subjective Progress Note for:: 12/13/17 Subjective:: intubated and sedated Reason For Visit: DKA Physical Exam Vital Signs: Temp Pulse Resp BP Pulse Ox 100.0 F 87 16 118/55 L 99 12/13/17 08:00 12/13/17 08:00 12/13/17 08:00 12/13/17 08:00 12/13/17 08:00 Intake & Output 12/12/17 12/13/17 12/14/17 06:59 06:59 06:59 Intake Total 2207 6150 Output Total 750 820 125 Balance 1457 5330 -125 Weight 99.6 kg 105.5 kg General appearance: PRESENT: no acute distress, disheveled, obese. ABSENT: cooperative Head exam: PRESENT: atraumatic, normocephalic Eye exam: PRESENT: conjunctiva pale. ABSENT: nystagmus, periorbital swelling, scleral icterus Mouth exam: PRESENT: dry mucosa, neck supple, tongue midline, other - ET tube Neck exam: ABSENT: carotid bruit, JVD, lymphadenopathy, thyromegaly, tracheal deviation, tracheostomy Respiratory exam: PRESENT: decreased breath sounds, prolonged expiratory phas, rales, rhonchi, symmetrical, unlabored, wheezes. ABSENT: retraction, stridor, tachypnea Cardiovascular exam: PRESENT: RRR, +S1, +S2, tachycardia Pulses: PRESENT: normal radial pulses GI/Abdominal exam: PRESENT: diminished bowel sounds, soft Extremities exam: ABSENT: clubbing, joint swelling Musculoskeletal exam: ABSENT: ambulatory, deformity, dislocation Neurological exam: ABSENT: awake, oriented to person Skin exam: PRESENT: dry, warm Results Laboratory Results: 12/13/17 04:35 12/13/17 06:55 12/12/17 12/12/17 12/12/17 10:50 10:50 10:50 WBC RBC Hgb Hct MCV MCH MCHC RDW Plt Count Seg Neutrophils % Lymphocytes % Monocytes % Eosinophils % Basophils % Absolute Neutrophils Absolute Lymphocytes Absolute Monocytes Absolute Eosinophils Absolute Basophils Carbonic Acid HCO3/H2CO3 Ratio ABG pH ABG pCO2 ABG pO2 ABG HCO3 ABG O2 Saturation ABG Base Excess FiO2 Sodium 149.0 H Potassium 3.5 L Chloride 108 H Carbon Dioxide 29 Anion Gap 12 BUN 81 H Creatinine 3.00 H Est GFR ( Amer) 26 L Est GFR (Non-Af Amer) 22 L Glucose 417 H* Lactic Acid Cancelled 2.4 H Calcium 8.9 Phosphorus Magnesium Total Bilirubin AST ALT Alkaline Phosphatase Total Protein Albumin Amylase Lipase 12/12/17 12/12/17 12/12/17 13:58 13:58 18:45 WBC RBC Hgb Hct MCV MCH MCHC RDW Plt Count Seg Neutrophils % Lymphocytes % Monocytes % Eosinophils % Basophils % Absolute Neutrophils Absolute Lymphocytes Absolute Monocytes Absolute Eosinophils Absolute Basophils Carbonic Acid HCO3/H2CO3 Ratio ABG pH ABG pCO2 ABG pO2 ABG HCO3 ABG O2 Saturation ABG Base Excess FiO2 Sodium 149.2 H 145.4 H Potassium 3.2 L 3.4 L Chloride 108 H 107 Carbon Dioxide 29 29 Anion Gap 12 9 BUN 82 H 81 H Creatinine 3.16 H 2.84 H Est GFR ( Amer) 25 L 28 L Est GFR (Non-Af Amer) 20 L 23 L Glucose 328 H 237 H Lactic Acid 2.4 H Calcium 8.7 8.4 Phosphorus Magnesium Total Bilirubin AST ALT Alkaline Phosphatase Total Protein Albumin Amylase Lipase 12/12/17 12/13/17 12/13/17 23:00 03:00 04:35 WBC RBC Hgb Hct MCV MCH MCHC RDW Plt Count Seg Neutrophils % Lymphocytes % Monocytes % Eosinophils % Basophils % Absolute Neutrophils Absolute Lymphocytes Absolute Monocytes Absolute Eosinophils Absolute Basophils Carbonic Acid HCO3/H2CO3 Ratio ABG pH ABG pCO2 ABG pO2 ABG HCO3 ABG O2 Saturation ABG Base Excess FiO2 Sodium 142.1 141.3 140.4 Potassium 3.0 L* 3.6 3.4 L Chloride 104 107 106 Carbon Dioxide 28 25 27 Anion Gap 10 9 7 BUN 81 H 72 H 71 H Creatinine 2.96 H 2.58 H 2.52 H Est GFR ( Amer) 27 L 31 L 32 L Est GFR (Non-Af Amer) 22 L 26 L 26 L Glucose 238 H 249 H 267 H Lactic Acid Calcium 7.8 L 7.5 L 7.4 L Phosphorus 2.6 Magnesium 2.1 Total Bilirubin 0.4 AST 53 ALT 43 Alkaline Phosphatase 78 Total Protein 5.2 L Albumin 2.7 L Amylase 612 H Lipase 1173.7 H 12/13/17 12/13/17 12/13/17 04:35 05:20 06:55 WBC 15.3 H RBC 3.59 L Hgb 11.4 L D Hct 34.0 L MCV 95 MCH 31.9 MCHC 33.6 RDW 12.6 Plt Count 149 L Seg Neutrophils % Not Reportable Lymphocytes % Not Reportable Monocytes % Not Reportable Eosinophils % Not Reportable Basophils % Not Reportable Absolute Neutrophils Not Reportable Absolute Lymphocytes Not Reportable Absolute Monocytes Not Reportable Absolute Eosinophils Not Reportable Absolute Basophils Not Reportable Carbonic Acid 1.13 HCO3/H2CO3 Ratio 22:1 ABG pH 7.45 ABG pCO2 37.7 ABG pO2 75.9 L ABG HCO3 25.4 ABG O2 Saturation 95.8 ABG Base Excess 1.5 FiO2 30% Sodium Cancelled Potassium Cancelled Chloride Cancelled Carbon Dioxide Cancelled Anion Gap Cancelled BUN Cancelled Creatinine Cancelled Est GFR ( Amer) Cancelled Est GFR (Non-Af Amer) Cancelled Glucose Cancelled Lactic Acid Calcium Cancelled Phosphorus Magnesium Total Bilirubin AST ALT Alkaline Phosphatase Total Protein Albumin Amylase Lipase 12/12/17 12/12/17 12/12/17 00:18 00:18 07:00 Creatine Kinase 1133 H 1142 H CK-MB (CK-2) 5.78 H Troponin I 0.084 NT-Pro-B Natriuret Pep 12/12/17 12/12/17 12/12/17 07:00 13:58 13:58 Creatine Kinase 1040 H CK-MB (CK-2) 5.69 H 5.29 H Troponin I 0.098 0.081 NT-Pro-B Natriuret Pep 553 12/12/17 12/12/17 18:45 18:45 Creatine Kinase 1048 H CK-MB (CK-2) 4.78 H Troponin I 0.067 NT-Pro-B Natriuret Pep Impressions: Head CT 12/12/17 00:00 IMPRESSION: No acute findings. Lines and tubes. Chest X-Ray 12/13/17 06:00 IMPRESSION: Minimal basilar airspace disease. SUPPORT DEVICE(S) IN EXPECTED LOCATIONS. Assessment & Plan - Diagnosis (1) Acute respiratory failure Is this a current diagnosis for this admission?: Yes Plan: Support with mechanical ventilation getting adequate oxygenation and ventilation patient currently not acidotic excessive ventilation not necessary at this time (2) Hyperosmolar nonketotic coma in diabetes Is this a current diagnosis for this admission?: Yes Plan: Labs- All tests 24 hr 12/11/17 12/12/17 12/12/17 17:25 00:18 10:00 Carbon Dioxide POC Glucose 451 H* Serum Osmolality 390 H Urine Ketones NEGATIVE Ur Leukocyte Esterase NEGATIVE 12/12/17 10:50 Carbon Dioxide 29 POC Glucose Serum Osmolality Urine Ketones Ur Leukocyte Esterase (3) ARF (acute renal failure) Qualifiers: Acute renal failure type: with acute tubular necrosis Qualified Code(s): N17.0 - Acute kidney failure with tubular necrosis Is this a current diagnosis for this admission?: Yes Plan: improved slightly (4) Diabetes type 2, uncontrolled Qualifiers: Diabetes mellitus retirement insulin use: 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 Diabetes mellitus complication status: with neurologic complications Diabetes mellitus complication detail: with polyneuropathy Qualified Code(s): E11.42 - Type 2 diabetes mellitus with diabetic polyneuropathy; E11.65 - Type 2 diabetes mellitus with hyperglycemia; E11.65 - Type 2 diabetes mellitus with hyperglycemia; E11.65 - Type 2 diabetes mellitus with hyperglycemia; E11.65 - Type 2 diabetes mellitus with hyperglycemia; Z79.4 - penitentiary (current) use of insulin; Z79.4 - long term care administrator (current) use of insulin; Z79.4 - penitentiary (current ) use of insulin; Z79.4 - long term care administrator (current) use of insulin Is this a current diagnosis for this admission?: Yes Plan: Hemoglobin A1c 14 (5) Hypertension Is this a current diagnosis for this admission?: No (6) Septic shock Is this a current diagnosis for this admission?: Yes - Time Total Critical Time (Minutes): 45
[2017-12-13 19:24] LABS: ALBUMIN 2.5 g/dL (3.5-5.0); ANION GAP 6 (5-19); BLOOD UREA NITROGEN 56 mg/dL (7-20); CALCIUM 7.1 mg/dL (8.4-10.2); CARBON DIOXIDE 26 mmol/L (22-30); CHLORIDE 107 mmol/L (98-107); GLUCOSE 268 mg/dL (75-110); POTASSIUM 3.5 mmol/L (3.6-5.0); SODIUM 138.6 mmol/L (137-145)
--- NOTE | 2017-12-13 20:05 | XCELERA REPORT ---
[address] [address] Transthoracic Echocardiogram Report Name: ASH MCMILLAN Age: 57 yrs Gender: Male : 1960 Patient Status: Inpatient Patient Location: ICU^[id number]^A Study Date: 12/13/2017 03:31 PM Height: 67 in Weight: 232 lb BSA: 2.2 m2 Procedure: A complete two-dimensional transthoracic echocardiogram was performed (2D, M-mode, spectral and color flow Doppler). The study was technically difficult with many images being suboptimal in quality. Reason For Study: LVEF, CHF, CAD Ordering Physician: JUAN M LAGUNAS Performed By: Claudia Mares Interpretation Summary The left ventricular ejection fraction is normal. Doppler measurements suggest pseudonormalized left ventricular relaxation, which is associated with grade II/IV or mild to moderate diastolic dysfunction There is mild concentric left ventricular hypertrophy. The left ventricle is grossly normal size. Wall motion cannot be accurately commented on, but no definite regional wall motion abnormalities noted. The right ventricle is mildly dilated. The right ventricular systolic function is normal. The right atrium is normal in size The left atrial size is normal. There is no mitral valve stenosis. There is a trace amount of mitral regurgitation There is no aortic valve stenosis No aortic regurgitation is present. There is a trace or physiologic amount of tricuspid regurgitation Tricuspid regurgitation jet envelope not well defined to measure RV systolic pressure accurately. The aortic root is not well visualized but is probably normal size. The inferior vena cava was not well visualized Minimal pericardial effusion. MMode/2D Measurements & Calculations RVDd: 2.8 cm LVIDd: 4.5 cm FS: 36.5 % Ao root diam: 2.9 cm IVSd: 1.1 cm LVIDs: 2.9 cm EDV(Teich): 93.2 ml LVPWd: 1.1 cm ESV(Teich): 31.3 ml Ao root area: 6.4 cm2 EF(Teich): 66.4 % LA dimension: 2.7 cm Doppler Measurements & Calculations MV E max nicole: MV P1/2t max nicole: Ao V2 max: LV V1 max P.1 cm/sec 72.1 cm/sec 150.3 cm/sec 4.3 mmHg MV A max nicole: MV P1/2t: 84.4 msec Ao max PG: LV V1 max: 92.3 cm/sec 9.0 mmHg 104.1 cm/sec MV E/A: 0.78 MVA(P1/2t): 2.6 cm2 MV dec slope: 250.2 cm/sec2 PA V2 max: 98.2 cm/sec PA max P.9 mmHg Left Ventricle The left ventricle is grossly normal size. There is mild concentric left ventricular hypertrophy. The left ventricular ejection fraction is normal. Doppler measurements suggest pseudonormalized left ventricular relaxation, which is associated with grade II/IV or mild to moderate diastolic dysfunction. Wall motion cannot be accurately commented on, but no definite regional wall motion abnormalities noted. Right Ventricle The right ventricle is mildly dilated. There is normal right ventricular wall thickness. The right ventricular systolic function is normal. Atria The right atrium is normal in size. The left atrial size is normal. Interarterial septum not well visualized and not well dopplered. Cannot comment on ASD/PFO presence. Mitral Valve The mitral valve is grossly normal. There is no mitral valve stenosis. There is a trace amount of mitral regurgitation. Aortic Valve The aortic valve opens well. There is no aortic valve stenosis. No aortic regurgitation is present. Tricuspid Valve The tricuspid valve is not well visualized secondary to technical limitations. There is no tricuspid stenosis. There is a trace or physiologic amount of tricuspid regurgitation. Tricuspid regurgitation jet envelope not well defined to measure RV systolic pressure accurately. Pulmonic Valve The pulmonic valve is not well visualized. Great Vessels The aortic root is not well visualized but is probably normal size. The inferior vena cava was not well visualized. Effusions Minimal pericardial effusion. : JUAN M LAGUNAS > Dae Carrillo
[2017-12-13] MEDS: CEFTRIAXONE 2 GM/D5W RTU 2 GM/50 ML RTUPB IV SCH (21:46)
[2017-12-13 23:44] LABS: ANION GAP 7 (5-19); BLOOD UREA NITROGEN 52 mg/dL (7-20); CARBON DIOXIDE 24 mmol/L (22-30); CHLORIDE 108 mmol/L (98-107); GLUCOSE 225 mg/dL (75-110); POTASSIUM 3.7 mmol/L (3.6-5.0)
[2017-12-14 00:11] LABS: CALCIUM 6.9 mg/dL (8.4-10.2)
[2017-12-14] MEDS: PROPOFOL 100 ML IV PRN ×6 (02:53→21:41)
[2017-12-14] MEDS: NORMAL SALINE 100 ML with INSULIN REGULAR, HUMAN 100 UNIT IV PRN ×8 (02:53→21:42)
[2017-12-14] MEDS: POTASSI CL 20 MEQ/D5-1/2NS 1L 1000 ML IV PRN ×2 (05:44→15:45)
[2017-12-14] MEDS: HEPARIN SOD (PORCINE) 5,000 UNIT/ML 1 ML SYRINGE SUBCUT SCH (05:44)
[2017-12-14 05:46] LABS: ARTERIAL BLOOD BASE EXCESS -2.3 mmol/L; ARTERIAL BLOOD FIO2 30%; ARTERIAL BLOOD H2CO3 0.95 mmol/L (1.05-1.35); ARTERIAL BLOOD HCO3 21.1 mmol/L (20-26); ARTERIAL BLOOD O2 SATURATION 97.7 % (94-98); ARTERIAL BLOOD PCO2 31.7 mmHg (35-45); ARTERIAL BLOOD PH 7.44 (7.35-7.45); ARTERIAL BLOOD PO2 97.3 mmHg (80-100); ARTERIAL BLOOD TOTAL CO2 22.1 mmol/L (23-27)
[2017-12-14 05:49] LABS: ABSOLUTE EOSINOPHILS # (AUTO) 0.7 10^3/uL (0.0-0.6); ABSOLUTE LYMPHOCYTES (AUTO) 1.6 10^3/uL (0.5-4.7); ABSOLUTE MONOCYTES (AUTO) 0.9 10^3/uL (0.1-1.4); ABSOLUTE NEUT (AUTO) 11.9 10^3/uL (1.7-8.2); BASOPHILS % (AUTO) 0.1 % (0-2); EOSINOPHILS % (AUTO) 4.8 % (0-6); HEMATOCRIT 31.6 % (37.9-51.0); HEMOGLOBIN 10.7 g/dL (13.5-17.0); LYMPHOCYTES % (AUTO) 10.7 % (13-45); MEAN CORPUSCULAR HEMOGLOBIN 32.2 pg (27.0-33.4); MEAN CORPUSCULAR HGB CONC 33.9 g/dL (32.0-36.0); MEAN CORPUSCULAR VOLUME 95 fl (80-97); MONOCYTES % (AUTO) 6.2 % (3-13); PLATELET COUNT 118 10^3/uL (150-450); RED BLOOD COUNT 3.32 10^6/uL (4.35-5.55); RED CELL DISTRIBUTION WIDTH 12.7 % (11.5-14.0); SEGMENTED NEUTROPHILS % (AUTO) 78.2 % (42-78); TOTAL CELLS COUNTED % (AUTO) 100 %; WHITE BLOOD COUNT 15.2 10^3/uL (4.0-10.5)
[2017-12-14] MEDS ORDERED: VANCOMYCIN HCL 1,250 MG in DEXTROSE 5%-WATER 250 ML IV SCH (06:00)
[2017-12-14 06:19] LABS: ALANINE AMINOTRANSFERASE 44 U/L (21-72); ALBUMIN 2.4 g/dL (3.5-5.0); ALKALINE PHOSPHATASE 88 U/L (38-126); ANION GAP 6 (5-19); ASPARTATE AMINO TRANSFERASE 52 U/L (17-59); BILIRUBIN,DIRECT 0.3 mg/dL (0.0-0.4); BILIRUBIN,TOTAL 0.3 mg/dL (0.2-1.3); BLOOD UREA NITROGEN 47 mg/dL (7-20); CARBON DIOXIDE 25 mmol/L (22-30); CHLORIDE 111 mmol/L (98-107); GLUCOSE 159 mg/dL (75-110); POTASSIUM 3.5 mmol/L (3.6-5.0); SODIUM 142.1 mmol/L (137-145)
[2017-12-14 06:20] LABS: PHOSPHORUS 2.3 mg/dL (2.5-4.5)
--- NOTE | 2017-12-14 08:26 | RADIOLOGY REPORT (SQ) ---
EXAM DESCRIPTION: CHEST SINGLE VIEW COMPLETED DATE/TIME: 12/14/2017 6:57 am REASON FOR STUDY: bruce COMPARISON: 12/13/2017 EXAM PARAMETERS: NUMBER OF VIEWS: One view TECHNIQUE: Single frontal radiograph of the chest. RADIATION DOSE: N/A LIMITATIONS: None. FINDINGS: TEMPORARY SUPPORT DEVICES:ETT in expected location. NG tube courses below the ya-diaphr agm in to the stomach. Central venous access catheter tip is in expected location. LUNGS AND PLEURA: Minimal basilar atelectasis left greater than right. No effusions. No masses. No p neumothorax. MEDIASTINUM AND HILAR STRUCTURES: No masses. Contour normal. HEART AND VASCULAR STRUCTURES: Heart normal in size. normal vascularity. Aorta normal for age. BONES: No acute findings. OTHER: No other significant finding. IMPRESSION: Basilar atelectasis. SUPPORT DEVICE(S) IN EXPECTED LOCATIONS. TECHNICAL DOCUMENTATION: JOB ID: [id number] [employer]- All Rights Reserved Reading location - IP/workstation name: [email or web address]
[2017-12-14 08:56] LABS: HEMATOCRIT 31.1 % (37.9-51.0); HEMOGLOBIN 10.6 g/dL (13.5-17.0); MEAN CORPUSCULAR HEMOGLOBIN 32.4 pg (27.0-33.4); MEAN CORPUSCULAR VOLUME 95 fl (80-97); PLATELET COUNT 111 10^3/uL (150-450); RED BLOOD COUNT 3.27 10^6/uL (4.35-5.55); RED CELL DISTRIBUTION WIDTH 12.7 % (11.5-14.0); WHITE BLOOD COUNT 13.8 10^3/uL (4.0-10.5)
[2017-12-14] MEDS ORDERED: CALCIUM GLUCONATE 1000 MG/10 ML INJ IV ONE (09:00)
[2017-12-14] MEDS: PANTOPRAZOLE SODIUM 40 MG VIAL IV SCH (09:01)
[2017-12-14] MEDS: ASPIRIN 81 MG TABLET, CHEWABLE NG SCH (09:01)
[2017-12-14] MEDS: THIAMINE HCL 100 MG, FOLIC ACID 1 MG in NORMAL SALINE 250 ML IV SCH (09:01)
--- NOTE | 2017-12-14 15:43 | PDOC PROGRESS REPORT ---
Subjective Progress Note for:: 12/14/17 Subjective:: 57-year-old gentleman with uncontrolled diabetes and medication noncompliance presented with [facility] on 12/11/17 He was intubated for acute respiratory failure and was also found to have acute pancreatitis. The patient had some hyponatremia which was treated with D5W and free water flushes. This has improved. Lipase level is improving. Blood and urine cultures have been negative so far. He is on empiric antibiotics and levophed. Remains sedated on the vent. Platelet count dropped by >50%- stopped heparin, started on SCDs. Check HIT antibody. Continues to have low grade fevers- negative cultures, no diarrhea- check venous dopplers of extremities Reason For Visit: DKA Physical Exam Vital Signs: Temp Pulse Resp BP Pulse Ox 100.0 F 85 16 108/59 L 98 12/14/17 06:01 12/13/17 22:00 12/14/17 06:01 12/14/17 06:01 12/14/17 06:01 Intake & Output 12/13/17 12/14/17 12/15/17 06:59 06:59 06:59 Intake Total 6150 4300 Output Total 820 2605 Balance 5330 1695 Weight 105.5 kg 106.8 kg General appearance: PRESENT: obese Head exam: PRESENT: atraumatic, normocephalic Eye exam: PRESENT: conjunctiva pink, PERRLA. ABSENT: scleral icterus Ear exam: PRESENT: normal external ear exam Mouth exam: PRESENT: neck supple Respiratory exam: PRESENT: clear to auscultation bernardo, symmetrical, unlabored Cardiovascular exam: PRESENT: RRR GI/Abdominal exam: PRESENT: normal bowel sounds, soft. ABSENT: tenderness Rectal exam: PRESENT: deferred Extremities exam: ABSENT: calf tenderness, pedal edema Skin exam: PRESENT: rash - Sedated on vent Results Laboratory Results: 12/14/17 05:15 12/14/17 05:15 12/13/17 12/13/17 12/13/17 06:55 08:49 11:50 WBC RBC Hgb Hct MCV MCH MCHC RDW Plt Count Seg Neutrophils % Lymphocytes % Monocytes % Eosinophils % Basophils % Absolute Neutrophils Absolute Lymphocytes Absolute Monocytes Absolute Eosinophils Absolute Basophils Carbonic Acid HCO3/H2CO3 Ratio ABG pH ABG pCO2 ABG pO2 ABG HCO3 ABG O2 Saturation ABG Base Excess FiO2 Sodium Cancelled 137.3 139.3 Potassium Cancelled 3.8 3.7 Chloride Cancelled 104 106 Carbon Dioxide Cancelled 27 27 Anion Gap Cancelled 6 6 BUN Cancelled 68 H 63 H Creatinine Cancelled 2.22 H 1.89 H Est GFR ( Amer) Cancelled 37 L 45 L Est GFR (Non-Af Amer) Cancelled 31 L 37 L Glucose Cancelled 375 H 308 H Calcium Cancelled 7.3 L 7.1 L Phosphorus Magnesium Total Bilirubin AST ALT Alkaline Phosphatase Total Protein Albumin Lipase 12/13/17 12/13/17 12/13/17 15:41 18:43 23:10 WBC RBC Hgb Hct MCV MCH MCHC RDW Plt Count Seg Neutrophils % Lymphocytes % Monocytes % Eosinophils % Basophils % Absolute Neutrophils Absolute Lymphocytes Absolute Monocytes Absolute Eosinophils Absolute Basophils Carbonic Acid HCO3/H2CO3 Ratio ABG pH ABG pCO2 ABG pO2 ABG HCO3 ABG O2 Saturation ABG Base Excess FiO2 Sodium 139.3 138.6 139.0 Potassium 3.6 3.5 L 3.7 Chloride 106 107 108 H Carbon Dioxide 25 26 24 Anion Gap 8 6 7 BUN 60 H 56 H 52 H Creatinine 1.81 H 1.90 H 1.55 H Est GFR ( Amer) 47 L 44 L 56 L Est GFR (Non-Af Amer) 39 L 37 L 46 L Glucose 293 H 268 H 225 H Calcium 7.1 L 7.1 L 6.9 L* Phosphorus Magnesium Total Bilirubin AST ALT Alkaline Phosphatase Total Protein Albumin 2.5 L Lipase 12/14/17 12/14/17 12/14/17 05:15 05:15 05:15 WBC RBC Hgb Hct MCV MCH MCHC RDW Plt Count Seg Neutrophils % Lymphocytes % Monocytes % Eosinophils % Basophils % Absolute Neutrophils Absolute Lymphocytes Absolute Monocytes Absolute Eosinophils Absolute Basophils Carbonic Acid 0.95 L HCO3/H2CO3 Ratio 22:1 ABG pH 7.44 ABG pCO2 31.7 L ABG pO2 97.3 ABG HCO3 21.1 ABG O2 Saturation 97.7 ABG Base Excess -2.3 FiO2 30% Sodium Potassium Chloride Carbon Dioxide Anion Gap BUN Creatinine Est GFR ( Amer) Est GFR (Non-Af Amer) Glucose Calcium Phosphorus 2.3 L Magnesium 2.5 H Total Bilirubin AST ALT Alkaline Phosphatase Total Protein Albumin 2.5 L Lipase 04/01/18 04/01/18 05:15 05:15 WBC 15.2 H RBC 3.32 L Hgb 10.7 L Hct 31.6 L MCV 95 MCH 32.2 MCHC 33.9 RDW 12.7 Plt Count 118 L Seg Neutrophils % 78.2 H Lymphocytes % 10.7 L Monocytes % 6.2 Eosinophils % 4.8 Basophils % 0.1 Absolute Neutrophils 11.9 H Absolute Lymphocytes 1.6 Absolute Monocytes 0.9 Absolute Eosinophils 0.7 H Absolute Basophils 0.0 Carbonic Acid HCO3/H2CO3 Ratio ABG pH ABG pCO2 ABG pO2 ABG HCO3 ABG O2 Saturation ABG Base Excess FiO2 Sodium 142.1 Potassium 3.5 L Chloride 111 H Carbon Dioxide 25 Anion Gap 6 BUN 47 H Creatinine 1.51 H Est GFR ( Amer) 58 L Est GFR (Non-Af Amer) 48 L Glucose 159 H Calcium 7.0 L* Phosphorus Magnesium Total Bilirubin 0.3 AST 52 ALT 44 Alkaline Phosphatase 88 Total Protein 5.0 L Albumin 2.4 L Lipase 351.0 H 12/12/17 12/12/17 12/12/17 00:18 00:18 07:00 Creatine Kinase 1133 H 1142 H CK-MB (CK-2) 5.78 H Troponin I 0.084 NT-Pro-B Natriuret Pep 12/12/17 12/12/17 12/12/17 07:00 13:58 13:58 Creatine Kinase 1040 H CK-MB (CK-2) 5.69 H 5.29 H Troponin I 0.098 0.081 NT-Pro-B Natriuret Pep 553 12/12/17 12/12/17 18:45 18:45 Creatine Kinase 1048 H CK-MB (CK-2) 4.78 H Troponin I 0.067 NT-Pro-B Natriuret Pep Impressions: Head CT 12/12/17 00:00 IMPRESSION: No acute findings. Lines and tubes. Assessment & Plan - Diagnosis (1) Hyperosmolar nonketotic coma in diabetes Is this a current diagnosis for this admission?: Yes Plan: Continue IV fluids, free water flushes through the OG and insulin drip. (2) ARF (acute renal failure) Qualifiers: Acute renal failure type: with acute tubular necrosis Qualified Code(s): N17.0 - Acute kidney failure with tubular necrosis Is this a current diagnosis for this admission?: Yes Plan: Continue IV fluids and monitor renal function. Improving (3) Diabetes type 2, uncontrolled Qualifiers: Diabetes mellitus correction insulin use: with correction use Diabetes mellitus complication status: with neurologic complications Diabetes mellitus complication detail: with polyneuropathy Qualified Code(s): E11.42 - Type 2 diabetes mellitus with diabetic polyneuropathy; E11.65 - Type 2 diabetes mellitus with hyperglycemia; E11.65 - Type 2 diabetes mellitus with hyperglycemia; E11.65 - Type 2 diabetes mellitus with hyperglycemia; E11.65 - Type 2 diabetes mellitus with hyperglycemia; Z79.4 - FPC (current) use of insulin; Z79.4 - termite helper (current) use of insulin; Z79.4 - termite helper (current ) use of insulin; Z79.4 - FPC (current) use of insulin Is this a current diagnosis for this admission?: Yes Plan: As above. (4) Diabetic neuropathy Is this a current diagnosis for this admission?: Yes (5) Hypertension Is this a current diagnosis for this admission?: Yes Plan: Currently on pressors. (6) Hyperlipidemia Is this a current diagnosis for this admission?: Yes (7) History of prostate cancer Is this a current diagnosis for this admission?: Yes (8) Acute pancreatitis Is this a current diagnosis for this admission?: Yes Plan: N.p.o. Continue empiric antibiotics. Lipase improving. (9) Acute respiratory failure Is this a current diagnosis for this admission?: Yes Plan: Continue vent support. Pulmonology recommendations appreciated. (10) Hypernatremia Is this a current diagnosis for this admission?: Yes Plan: Improving. Continue to monitor closely. (11) Hypokalemia Is this a current diagnosis for this admission?: Yes Plan: Replete and continue to monitor. (12) Hypocalcemia Is this a current diagnosis for this admission?: Yes Plan: REplete (13) Hypophosphatemia Is this a current diagnosis for this admission?: Yes Plan: Replete, monitor (14) Thrombocytopenia Is this a current diagnosis for this admission?: Yes Plan: Hold Heparin. Recheck platelet count. (15) Fever Qualifiers: Fever type: unspecified Qualified Code(s): R50.9 - Fever, unspecified Is this a current diagnosis for this admission?: Yes Plan: Blood, urine and sputum cultures have been negative Check venous dopplers of extremities
[2017-12-14] MEDS: VANCOMYCIN HCL 1,000 MG in DEXTROSE 5%-WATER 250 ML IV SCH (17:36)
[2017-12-14] MEDS: CEFTRIAXONE 2 GM/D5W RTU 2 GM/50 ML RTUPB IV SCH (21:41)
[2017-12-15] MEDS: PROPOFOL 100 ML IV PRN ×6 (00:59→21:22)
[2017-12-15] MEDS: POTASSI CL 20 MEQ/D5-1/2NS 1L 1000 ML IV PRN ×3 (00:59→19:53)
[2017-12-15] MEDS: VANCOMYCIN HCL 1,000 MG in DEXTROSE 5%-WATER 250 ML IV SCH (05:23)
[2017-12-15 05:53] LABS: ABSOLUTE EOSINOPHILS # (AUTO) 0.7 10^3/uL (0.0-0.6); ABSOLUTE LYMPHOCYTES (AUTO) 1.1 10^3/uL (0.5-4.7); ABSOLUTE MONOCYTES (AUTO) 0.9 10^3/uL (0.1-1.4); ABSOLUTE NEUT (AUTO) 8.9 10^3/uL (1.7-8.2); BASOPHILS % (AUTO) 0.2 % (0-2); EOSINOPHILS % (AUTO) 6.1 % (0-6); HEMATOCRIT 28.7 % (37.9-51.0); HEMOGLOBIN 9.6 g/dL (13.5-17.0); LYMPHOCYTES % (AUTO) 9.6 % (13-45); MEAN CORPUSCULAR HEMOGLOBIN 32.1 pg (27.0-33.4); MEAN CORPUSCULAR HGB CONC 33.5 g/dL (32.0-36.0); MEAN CORPUSCULAR VOLUME 96 fl (80-97); MONOCYTES % (AUTO) 7.8 % (3-13); PLATELET COUNT 109 10^3/uL (150-450); RED BLOOD COUNT 2.99 10^6/uL (4.35-5.55); RED CELL DISTRIBUTION WIDTH 12.8 % (11.5-14.0); SEGMENTED NEUTROPHILS % (AUTO) 76.3 % (42-78); TOTAL CELLS COUNTED % (AUTO) 100 %; WHITE BLOOD COUNT 11.7 10^3/uL (4.0-10.5)
[2017-12-15 06:00] LABS: ARTERIAL BLOOD BASE EXCESS -1.8 mmol/L; ARTERIAL BLOOD H2CO3 1.01 mmol/L (1.05-1.35); ARTERIAL BLOOD HCO3 21.9 mmol/L (20-26); ARTERIAL BLOOD O2 SATURATION 96.7 % (94-98); ARTERIAL BLOOD PCO2 33.5 mmHg (35-45); ARTERIAL BLOOD PH 7.43 (7.35-7.45); ARTERIAL BLOOD PO2 84.4 mmHg (80-100)
[2017-12-15 06:05] LABS: ARTERIAL BLOOD FIO2 30%
[2017-12-15 06:19] LABS: ANION GAP 6 (5-19); BLOOD UREA NITROGEN 32 mg/dL (7-20); CARBON DIOXIDE 24 mmol/L (22-30); CHLORIDE 114 mmol/L (98-107); GLUCOSE 127 mg/dL (75-110); LIPASE 292.4 U/L (23-300); PHOSPHORUS 2.1 mg/dL (2.5-4.5); SODIUM 143.5 mmol/L (137-145)
[2017-12-15 06:20] LABS: CALCIUM 6.9 mg/dL (8.4-10.2)
--- NOTE | 2017-12-15 07:39 | RADIOLOGY REPORT (SQ) ---
EXAM DESCRIPTION: CHEST SINGLE VIEW CLINICAL HISTORY: 57 years Male, resp failure/spsis COMPARISON: 4.1.18 NUMBER OF VIEWS/TECHNIQUE: 1/AP LIMITATIONS: None. FINDINGS: Small streaky opacity of the left lower lobe, moderate lung volume, normal cardiac silhouette, adequate appearing enteric tube is 6 cm from the mason, likely adequate enteric tube obscured at its tip, right jugular central line tip at the proximal right atrium. No pneumothorax. No acute bone defect. IMPRESSION: No significant change.
[2017-12-15] MEDS: THIAMINE HCL 100 MG, FOLIC ACID 1 MG in NORMAL SALINE 250 ML IV SCH (09:09)
[2017-12-15] MEDS: ASPIRIN 81 MG TABLET, CHEWABLE NG SCH (09:09)
[2017-12-15] MEDS: CALCIUM CARBONATE 500 MG TABLET NG SCH ×2 (10:24→17:05)
[2017-12-15] MEDS: FUROSEMIDE INJ/PF 20 MG/2 ML SDV IV SCH ×2 (10:24→21:21)
[2017-12-15] MEDS: BISACODYL 10 MG SUPP.RECT PR PRN (10:24)
--- NOTE | 2017-12-15 13:21 | RADIOLOGY REPORT (SQ) ---
EXAM DESCRIPTION: VENOUS BILATERAL LOWER COMPLETED DATE/TIME: 12/15/2017 1:13 pm REASON FOR STUDY: Fever, thrombocytopenia COMPARISON: None. TECHNIQUE: Dynamic and static ho scale and color images acquired of both lower extremity venous sy stems. Selected spectral images acquired with additional compression and augmentation maneuvers. Imag es stored on PACS. LIMITATIONS: None. FINDINGS: RIGHT LEG COMMON FEMORAL AND FEMORAL: Normal phasicity, compression and augmentation. No visualized echogenic m aterial on ho scale. No defects on color images. POPLITEAL: Normal compression and augmentation. No visualized echogenic material on ho scale. No de fects on color images. CALF VESSELS: Normal compression and augmentation. No visualized echogenic material on ho scale. No defects on color image. GSV AND SSV: Normal compression. No visualized echogenic material on ho scale. No defects on color images. ANY DEEP VENOUS INSUFFICIENCY: No. ANY EVIDENCE OF POPLITEAL CYST: No. OTHER: No other significant finding. LEFT LEG COMMON FEMORAL AND FEMORAL: Normal phasicity, compression and augmentation. No visualized echogenic m aterial on ho scale. No defects on color images. POPLITEAL: Normal compression and augmentation. No visualized echogenic material on ho scale. No de fects on color images. CALF VESSELS: Normal compression and augmentation. No visualized echogenic material on ho scale. No defects on color images. GSV AND SSV: Normal compression. No visualized echogenic material on ho scale. No defects on color images. ANY DEEP VENOUS INSUFFICIENCY: No. ANY EVIDENCE POPLITEAL CYST: No. OTHER: No other significant finding. IMPRESSION: NO EVIDENCE DVT OR SVT IN EITHER LEG. TECHNICAL DOCUMENTATION: JOB ID: [id number] [email or web address]- All Rights Reserved Reading location - IP/workstation name: [facility]
--- NOTE | 2017-12-15 13:22 | RADIOLOGY REPORT (SQ) ---
EXAM DESCRIPTION: VENOUS BILATERAL UPPER COMPLETED DATE/TIME: 12/15/2017 1:13 pm REASON FOR STUDY: Fever, thrombocytopenia COMPARISON: None. TECHNIQUE: Dynamic and static ho scale and color images acquired of the right and left arm venous system. Selected spectral images acquired with additional compression and augmentation maneuvers. The contralateral subclavian vein and internal jugular vein were also imaged. Images stored on PACS. LIMITATIONS: None. FINDINGS: RIGHT INTERNAL JUGULAR VEIN: Normal phasicity, compression, augmentation. No visualized echogenic material on ho scale. No defects on color images. Comparison opposite side normal. SUBCLAVIAN VEIN: Normal compression, augmentation. No visualized echogenic material on ho scale. No defects on color images. AXILLARY VEIN: Normal compression, augmentation. No visualized echogenic material on ho scale. No d efects on color images. BRACHIAL VEIN: Normal compression, augmentation. No visualized echogenic material on ho scale. No d efects on color images. BASILIC VEIN: Normal compression, augmentation. No visualized echogenic material on ho scale. No de fects on color images. CEPHALIC VEIN: Normal compression, augmentation. No visualized echogenic material on ho scale. No d efects on color images. OTHER: No other significant finding. LEFT: INTERNAL JUGULAR VEIN: Normal phasicity, compression, augmentation. No visualized echogenic material on ho scale. No defects on color images. Comparison opposite side normal. SUBCLAVIAN VEIN: Normal compression, augmentation. No visualized echogenic material on ho scale. No defects on color images. AXILLARY VEIN: Normal compression, augmentation. No visualized echogenic material on ho scale. No d efects on color images. BRACHIAL VEIN: Normal compression, augmentation. No visualized echogenic material on ho scale. No d efects on color images. BASILIC VEIN: Normal compression, augmentation. No visualized echogenic material on ho scale. No de fects on color images. CEPHALIC VEIN: Normal compression, augmentation. No visualized echogenic material on ho scale. No d efects on color images. OTHER: No other significant finding. IMPRESSION: Unremarkable bilateral upper extremity venous Doppler TECHNICAL DOCUMENTATION: JOB ID: [id number] [email or web address]- All Rights Reserved Reading location - IP/workstation name: [facility]
--- NOTE | 2017-12-15 13:38 | PDOC PROGRESS REPORT ---
Subjective Progress Note for:: 12/14/17 Subjective:: intubated and sedated Reason For Visit: DKA Physical Exam Vital Signs: Temp Pulse Resp BP Pulse Ox 100.0 F 85 16 108/59 L 98 12/14/17 06:01 12/13/17 22:00 12/14/17 06:01 12/14/17 06:01 12/14/17 06:01 Intake & Output 12/13/17 12/14/17 12/15/17 06:59 06:59 06:59 Intake Total 6150 4300 Output Total 820 2605 Balance 5330 1695 Weight 105.5 kg 106.8 kg General appearance: PRESENT: no acute distress, disheveled, morbidly obese, well -nourished. ABSENT: cooperative Head exam: PRESENT: atraumatic, normocephalic Eye exam: PRESENT: conjunctiva pale, EOMI. ABSENT: nystagmus, periorbital swelling, scleral icterus Mouth exam: PRESENT: dry mucosa, neck supple, tongue midline, other - ET tube Neck exam: ABSENT: carotid bruit, JVD, lymphadenopathy, thyromegaly, tracheal deviation, tracheostomy Respiratory exam: PRESENT: crackles, decreased breath sounds, prolonged expiratory phas, rhonchi, symmetrical, unlabored. ABSENT: retraction, stridor, tachypnea Cardiovascular exam: PRESENT: RRR, +S1, +S2 Pulses: PRESENT: normal radial pulses GI/Abdominal exam: PRESENT: diminished bowel sounds, soft Extremities exam: ABSENT: clubbing, joint swelling Musculoskeletal exam: ABSENT: ambulatory, deformity, dislocation Neurological exam: PRESENT: awake. ABSENT: alert, oriented to person Skin exam: PRESENT: dry, warm Results Laboratory Results: 12/14/17 05:15 12/14/17 05:15 12/13/17 12/13/17 12/13/17 06:55 08:49 11:50 WBC RBC Hgb Hct MCV MCH MCHC RDW Plt Count Seg Neutrophils % Lymphocytes % Monocytes % Eosinophils % Basophils % Absolute Neutrophils Absolute Lymphocytes Absolute Monocytes Absolute Eosinophils Absolute Basophils Carbonic Acid HCO3/H2CO3 Ratio ABG pH ABG pCO2 ABG pO2 ABG HCO3 ABG O2 Saturation ABG Base Excess FiO2 Sodium Cancelled 137.3 139.3 Potassium Cancelled 3.8 3.7 Chloride Cancelled 104 106 Carbon Dioxide Cancelled 27 27 Anion Gap Cancelled 6 6 BUN Cancelled 68 H 63 H Creatinine Cancelled 2.22 H 1.89 H Est GFR ( Amer) Cancelled 37 L 45 L Est GFR (Non-Af Amer) Cancelled 31 L 37 L Glucose Cancelled 375 H 308 H Calcium Cancelled 7.3 L 7.1 L Phosphorus Magnesium Total Bilirubin AST ALT Alkaline Phosphatase Total Protein Albumin Lipase 12/13/17 12/13/17 12/13/17 15:41 18:43 23:10 WBC RBC Hgb Hct MCV MCH MCHC RDW Plt Count Seg Neutrophils % Lymphocytes % Monocytes % Eosinophils % Basophils % Absolute Neutrophils Absolute Lymphocytes Absolute Monocytes Absolute Eosinophils Absolute Basophils Carbonic Acid HCO3/H2CO3 Ratio ABG pH ABG pCO2 ABG pO2 ABG HCO3 ABG O2 Saturation ABG Base Excess FiO2 Sodium 139.3 138.6 139.0 Potassium 3.6 3.5 L 3.7 Chloride 106 107 108 H Carbon Dioxide 25 26 24 Anion Gap 8 6 7 BUN 60 H 56 H 52 H Creatinine 1.81 H 1.90 H 1.55 H Est GFR ( Amer) 47 L 44 L 56 L Est GFR (Non-Af Amer) 39 L 37 L 46 L Glucose 293 H 268 H 225 H Calcium 7.1 L 7.1 L 6.9 L* Phosphorus Magnesium Total Bilirubin AST ALT Alkaline Phosphatase Total Protein Albumin 2.5 L Lipase 12/14/17 12/14/17 12/14/17 05:15 05:15 05:15 WBC RBC Hgb Hct MCV MCH MCHC RDW Plt Count Seg Neutrophils % Lymphocytes % Monocytes % Eosinophils % Basophils % Absolute Neutrophils Absolute Lymphocytes Absolute Monocytes Absolute Eosinophils Absolute Basophils Carbonic Acid 0.95 L HCO3/H2CO3 Ratio 22:1 ABG pH 7.44 ABG pCO2 31.7 L ABG pO2 97.3 ABG HCO3 21.1 ABG O2 Saturation 97.7 ABG Base Excess -2.3 FiO2 30% Sodium Potassium Chloride Carbon Dioxide Anion Gap BUN Creatinine Est GFR ( Amer) Est GFR (Non-Af Amer) Glucose Calcium Phosphorus 2.3 L Magnesium 2.5 H Total Bilirubin AST ALT Alkaline Phosphatase Total Protein Albumin 2.5 L Lipase 12/14/17 12/14/17 05:15 05:15 WBC 15.2 H RBC 3.32 L Hgb 10.7 L Hct 31.6 L MCV 95 MCH 32.2 MCHC 33.9 RDW 12.7 Plt Count 118 L Seg Neutrophils % 78.2 H Lymphocytes % 10.7 L Monocytes % 6.2 Eosinophils % 4.8 Basophils % 0.1 Absolute Neutrophils 11.9 H Absolute Lymphocytes 1.6 Absolute Monocytes 0.9 Absolute Eosinophils 0.7 H Absolute Basophils 0.0 Carbonic Acid HCO3/H2CO3 Ratio ABG pH ABG pCO2 ABG pO2 ABG HCO3 ABG O2 Saturation ABG Base Excess FiO2 Sodium 142.1 Potassium 3.5 L Chloride 111 H Carbon Dioxide 25 Anion Gap 6 BUN 47 H Creatinine 1.51 H Est GFR ( Amer) 58 L Est GFR (Non-Af Amer) 48 L Glucose 159 H Calcium 7.0 L* Phosphorus Magnesium Total Bilirubin 0.3 AST 52 ALT 44 Alkaline Phosphatase 88 Total Protein 5.0 L Albumin 2.4 L Lipase 351.0 H 12/12/17 12/12/17 12/12/17 00:18 00:18 07:00 Creatine Kinase 1133 H 1142 H CK-MB (CK-2) 5.78 H Troponin I 0.084 NT-Pro-B Natriuret Pep 12/12/17 12/12/17 12/12/17 07:00 13:58 13:58 Creatine Kinase 1040 H CK-MB (CK-2) 5.69 H 5.29 H Troponin I 0.098 0.081 NT-Pro-B Natriuret Pep 553 12/12/17 12/12/17 18:45 18:45 Creatine Kinase 1048 H CK-MB (CK-2) 4.78 H Troponin I 0.067 NT-Pro-B Natriuret Pep Impressions: Head CT 12/12/17 00:00 IMPRESSION: No acute findings. Lines and tubes. Assessment & Plan - Diagnosis (1) Acute respiratory failure Is this a current diagnosis for this admission?: Yes Plan: Support with mechanical ventilation getting adequate oxygenation and ventilation patient currently not acidotic excessive ventilation not necessary at this time (2) Hyperosmolar nonketotic coma in diabetes Is this a current diagnosis for this admission?: Yes Plan: Labs- All tests 24 hr 12/11/17 12/12/17 12/12/17 17:25 00:18 10:00 Carbon Dioxide POC Glucose 451 H* Serum Osmolality 390 H Urine Ketones NEGATIVE Ur Leukocyte Esterase NEGATIVE 03/30/18 10:50 Carbon Dioxide 29 POC Glucose Serum Osmolality Urine Ketones Ur Leukocyte Esterase (3) ARF (acute renal failure) Qualifiers: Acute renal failure type: with acute tubular necrosis Qualified Code(s): N17.0 - Acute kidney failure with tubular necrosis Is this a current diagnosis for this admission?: Yes Plan: improved slightly (4) Diabetes type 2, uncontrolled Qualifiers: Diabetes mellitus pediatric hospitalist insulin use: with pediatric hospitalist use Diabetes mellitus complication status: with neurologic complications Diabetes mellitus complication detail: with polyneuropathy Qualified Code(s): E11.42 - Type 2 diabetes mellitus with diabetic polyneuropathy; E11.65 - Type 2 diabetes mellitus with hyperglycemia; E11.65 - Type 2 diabetes mellitus with hyperglycemia; E11.65 - Type 2 diabetes mellitus with hyperglycemia; E11.65 - Type 2 diabetes mellitus with hyperglycemia; Z79.4 - institutional aide (current) use of insulin; Z79.4 - institutional aide (current) use of insulin; Z79.4 - group home (current ) use of insulin; Z79.4 - institutional aide (current) use of insulin Is this a current diagnosis for this admission?: Yes Plan: Hemoglobin A1c 14 (5) Hypertension Is this a current diagnosis for this admission?: No Plan: Stable at this time (6) Septic shock Is this a current diagnosis for this admission?: Yes - Time Total Critical Time (Minutes): 45
[2017-12-15] MEDS: NORMAL SALINE 100 ML with INSULIN REGULAR, HUMAN 100 UNIT IV PRN ×2 (13:42)
--- NOTE | 2017-12-15 14:13 | PDOC PROGRESS REPORT ---
Subjective Progress Note for:: 12/15/17 Subjective:: intubated and sedated Reason For Visit: DKA Physical Exam Vital Signs: Temp Pulse Resp BP Pulse Ox 99.5 F 74 16 103/58 L 99 12/15/17 08:00 12/15/17 08:00 12/15/17 08:00 12/15/17 08:00 12/15/17 08:00 Intake & Output 12/14/17 12/15/17 12/16/17 06:59 06:59 06:59 Intake Total 4300 4429 Output Total 2605 4125 75 Balance 1695 304 -75 Weight 106.8 kg 107.9 kg General appearance: PRESENT: no acute distress, disheveled, morbidly obese. ABSENT: cooperative Head exam: PRESENT: atraumatic, normocephalic Eye exam: PRESENT: conjunctiva pale. ABSENT: EOMI, nystagmus, periorbital swelling, scleral icterus Mouth exam: PRESENT: dry mucosa, neck supple, tongue midline, other - ET tube in place Neck exam: ABSENT: carotid bruit, JVD, lymphadenopathy, thyromegaly, tracheal deviation, tracheostomy Respiratory exam: PRESENT: decreased breath sounds, prolonged expiratory phas, rhonchi, symmetrical, unlabored, wheezes. ABSENT: retraction, stridor, tachypnea Cardiovascular exam: PRESENT: RRR, +S1, +S2 Pulses: PRESENT: normal radial pulses GI/Abdominal exam: PRESENT: diminished bowel sounds, soft Extremities exam: ABSENT: clubbing, joint swelling Musculoskeletal exam: ABSENT: deformity, dislocation Neurological exam: ABSENT: awake, oriented to person Skin exam: PRESENT: dry, warm Results Laboratory Results: 12/15/17 05:25 12/15/17 05:25 12/14/17 12/15/17 12/15/17 08:50 05:25 05:25 WBC 13.8 H RBC 3.27 L Hgb 10.6 L Hct 31.1 L MCV 95 MCH 32.4 MCHC 34.0 RDW 12.7 Plt Count 111 L Seg Neutrophils % Lymphocytes % Monocytes % Eosinophils % Basophils % Absolute Neutrophils Absolute Lymphocytes Absolute Monocytes Absolute Eosinophils Absolute Basophils Carbonic Acid 1.01 L HCO3/H2CO3 Ratio 21:1 ABG pH 7.43 ABG pCO2 33.5 L ABG pO2 84.4 ABG HCO3 21.9 ABG O2 Saturation 96.7 ABG Base Excess -1.8 FiO2 30% Sodium 143.5 Potassium 4.0 Chloride 114 H Carbon Dioxide 24 Anion Gap 6 BUN 32 H Creatinine 1.20 Est GFR ( Amer) > 60 Est GFR (Non-Af Amer) > 60 Glucose 127 H Calcium 6.9 L* Phosphorus 2.1 L Magnesium 2.5 H Albumin Lipase 292.4 12/15/17 12/15/17 05:25 05:25 WBC 11.7 H RBC 2.99 L Hgb 9.6 L Hct 28.7 L MCV 96 MCH 32.1 MCHC 33.5 RDW 12.8 Plt Count 109 L Seg Neutrophils % 76.3 Lymphocytes % 9.6 L Monocytes % 7.8 Eosinophils % 6.1 H Basophils % 0.2 Absolute Neutrophils 8.9 H Absolute Lymphocytes 1.1 Absolute Monocytes 0.9 Absolute Eosinophils 0.7 H Absolute Basophils 0.0 Carbonic Acid HCO3/H2CO3 Ratio ABG pH ABG pCO2 ABG pO2 ABG HCO3 ABG O2 Saturation ABG Base Excess FiO2 Sodium Potassium Chloride Carbon Dioxide Anion Gap BUN Creatinine Est GFR ( Amer) Est GFR (Non-Af Amer) Glucose Calcium Phosphorus Magnesium Albumin 2.2 L Lipase 12/12/17 02:50 Tracheal Aspirate Gram Stain - Final 12/12/17 02:50 Tracheal Aspirate Sputum Culture - Final C.albicans/C.dubliniensis Group B Beta Streptococcus Normal Kathy 12/12/17 08:14 Catheterized Urine Urine Culture - Final NO GROWTH 2 DAYS 12/12/17 12/12/17 12/12/17 00:18 00:18 07:00 Creatine Kinase 1133 H 1142 H CK-MB (CK-2) 5.78 H Troponin I 0.084 NT-Pro-B Natriuret Pep 12/12/17 12/12/17 12/12/17 07:00 13:58 13:58 Creatine Kinase 1040 H CK-MB (CK-2) 5.69 H 5.29 H Troponin I 0.098 0.081 NT-Pro-B Natriuret Pep 553 12/12/17 12/12/17 18:45 18:45 Creatine Kinase 1048 H CK-MB (CK-2) 4.78 H Troponin I 0.067 NT-Pro-B Natriuret Pep Impressions: Head CT 12/12/17 00:00 IMPRESSION: No acute findings. Lines and tubes. Chest X-Ray 12/15/17 06:00 IMPRESSION: No significant change. Assessment & Plan - Diagnosis (1) Acute respiratory failure Is this a current diagnosis for this admission?: Yes Plan: Support with mechanical ventilation getting adequate oxygenation and ventilation patient currently not acidotic excessive ventilation not necessary at this time (2) Hyperosmolar nonketotic coma in diabetes Is this a current diagnosis for this admission?: Yes Plan: Labs- All tests 24 hr 12/11/17 12/12/17 12/12/17 17:25 00:18 10:00 Carbon Dioxide POC Glucose 451 H* Serum Osmolality 390 H Urine Ketones NEGATIVE Ur Leukocyte Esterase NEGATIVE 12/12/17 10:50 Carbon Dioxide 29 POC Glucose Serum Osmolality Urine Ketones Ur Leukocyte Esterase Improving continues to get insulin drip (3) ARF (acute renal failure) Qualifiers: Acute renal failure type: with acute tubular necrosis Qualified Code(s): N17.0 - Acute kidney failure with tubular necrosis Is this a current diagnosis for this admission?: Yes Plan: Also improving (4) Diabetes type 2, uncontrolled Qualifiers: Diabetes mellitus half-way insulin use: with local intermodal truck driver use Diabetes mellitus complication status: with neurologic complications Diabetes mellitus complication detail: with polyneuropathy Qualified Code(s): E11.42 - Type 2 diabetes mellitus with diabetic polyneuropathy; E11.65 - Type 2 diabetes mellitus with hyperglycemia; E11.65 - Type 2 diabetes mellitus with hyperglycemia; E11.65 - Type 2 diabetes mellitus with hyperglycemia; E11.65 - Type 2 diabetes mellitus with hyperglycemia; Z79.4 - long-term (current) use of insulin; Z79.4 - long-term (current) use of insulin; Z79.4 - long-term (current ) use of insulin; Z79.4 - long-term (current) use of insulin Is this a current diagnosis for this admission?: Yes (5) Hypertension Is this a current diagnosis for this admission?: Yes (6) Septic shock Is this a current diagnosis for this admission?: Yes - Time Total Critical Time (Minutes): 40
[2017-12-15] MEDS: FENTANYL CITRATE INJ/PF 100 MCG/2 ML AMPUL IV PRN (15:18)
--- NOTE | 2017-12-15 16:27 | PDOC PROGRESS REPORT ---
Subjective Progress Note for:: 12/15/17 Subjective:: 57-year-old gentleman with uncontrolled diabetes and medication noncompliance presented with [facility] on 12/11/17 He was intubated for acute respiratory failure and was also found to have acute pancreatitis. The patient had some hyponatremia which was treated with D5W and free water flushes. This has improved. Lipase level is improving. Blood and urine cultures have been negative so far. He is on empiric antibiotics and levophed. Remains sedated on the vent. Platelet count dropped by >50%- heparin was stopped on 12/14/17, started on SCDs. HIT antibody is pending.. Continues to have low grade fevers- negative cultures, no diarrhea- check venous dopplers of extremities Reason For Visit: DKA Physical Exam Vital Signs: Temp Pulse Resp BP Pulse Ox 99.0 F 79 18 103/56 L 97 12/15/17 16:00 12/15/17 16:00 12/15/17 16:00 12/15/17 16:00 12/15/17 16:00 Intake & Output 12/14/17 12/15/17 12/16/17 06:59 06:59 06:59 Intake Total 4300 4429 60 Output Total 2605 4125 2560 Balance 1695 304 -2500 Weight 106.8 kg 107.9 kg General appearance: PRESENT: obese Head exam: PRESENT: normocephalic Eye exam: PRESENT: PERRLA Ear exam: PRESENT: normal external ear exam Neck exam: ABSENT: tracheal deviation Respiratory exam: PRESENT: clear to auscultation bernardo, symmetrical Cardiovascular exam: PRESENT: RRR GI/Abdominal exam: PRESENT: normal bowel sounds, soft. ABSENT: tenderness Rectal exam: PRESENT: deferred Extremities exam: PRESENT: +1 edema. ABSENT: calf tenderness Skin exam: ABSENT: rash - sedated on vent Results Laboratory Results: 12/15/17 05:25 12/15/17 05:25 12/15/17 12/15/17 12/15/17 05:25 05:25 05:25 WBC 11.7 H RBC 2.99 L Hgb 9.6 L Hct 28.7 L MCV 96 MCH 32.1 MCHC 33.5 RDW 12.8 Plt Count 109 L Seg Neutrophils % 76.3 Lymphocytes % 9.6 L Monocytes % 7.8 Eosinophils % 6.1 H Basophils % 0.2 Absolute Neutrophils 8.9 H Absolute Lymphocytes 1.1 Absolute Monocytes 0.9 Absolute Eosinophils 0.7 H Absolute Basophils 0.0 Carbonic Acid 1.01 L HCO3/H2CO3 Ratio 21:1 ABG pH 7.43 ABG pCO2 33.5 L ABG pO2 84.4 ABG HCO3 21.9 ABG O2 Saturation 96.7 ABG Base Excess -1.8 FiO2 30% Sodium 143.5 Potassium 4.0 Chloride 114 H Carbon Dioxide 24 Anion Gap 6 BUN 32 H Creatinine 1.20 Est GFR ( Amer) > 60 Est GFR (Non-Af Amer) > 60 Glucose 127 H Calcium 6.9 L* Phosphorus 2.1 L Magnesium 2.5 H Albumin Lipase 292.4 12/15/17 05:25 WBC RBC Hgb Hct MCV MCH MCHC RDW Plt Count Seg Neutrophils % Lymphocytes % Monocytes % Eosinophils % Basophils % Absolute Neutrophils Absolute Lymphocytes Absolute Monocytes Absolute Eosinophils Absolute Basophils Carbonic Acid HCO3/H2CO3 Ratio ABG pH ABG pCO2 ABG pO2 ABG HCO3 ABG O2 Saturation ABG Base Excess FiO2 Sodium Potassium Chloride Carbon Dioxide Anion Gap BUN Creatinine Est GFR ( Amer) Est GFR (Non-Af Amer) Glucose Calcium Phosphorus Magnesium Albumin 2.2 L Lipase 12/12/17 12/12/17 12/12/17 00:18 00:18 07:00 Creatine Kinase 1133 H 1142 H CK-MB (CK-2) 5.78 H Troponin I 0.084 NT-Pro-B Natriuret Pep 12/12/17 12/12/17 12/12/17 07:00 13:58 13:58 Creatine Kinase 1040 H CK-MB (CK-2) 5.69 H 5.29 H Troponin I 0.098 0.081 NT-Pro-B Natriuret Pep 553 12/12/17 12/12/17 18:45 18:45 Creatine Kinase 1048 H CK-MB (CK-2) 4.78 H Troponin I 0.067 NT-Pro-B Natriuret Pep Impressions: Head CT 12/12/17 00:00 IMPRESSION: No acute findings. Lines and tubes. Venous Doppler Study 12/15/17 00:00 IMPRESSION: Unremarkable bilateral upper extremity venous Doppler Chest X-Ray 12/15/17 06:00 IMPRESSION: No significant change. Assessment & Plan - Diagnosis (1) Hyperosmolar nonketotic coma in diabetes Is this a current diagnosis for this admission?: Yes Plan: Continue IV fluids, free water flushes through the OG and insulin drip. (2) ARF (acute renal failure) Qualifiers: Acute renal failure type: with acute tubular necrosis Qualified Code(s): N17.0 - Acute kidney failure with tubular necrosis Is this a current diagnosis for this admission?: Yes Plan: Continue IV fluids and monitor renal function. Improving (3) Diabetes type 2, uncontrolled Qualifiers: Diabetes mellitus manager long term care insulin use: with manager long term care use Diabetes mellitus complication status: with neurologic complications Diabetes mellitus complication detail: with polyneuropathy Qualified Code(s): E11.42 - Type 2 diabetes mellitus with diabetic polyneuropathy; E11.65 - Type 2 diabetes mellitus with hyperglycemia; E11.65 - Type 2 diabetes mellitus with hyperglycemia; E11.65 - Type 2 diabetes mellitus with hyperglycemia; E11.65 - Type 2 diabetes mellitus with hyperglycemia; Z79.4 - manager long term care (current) use of insulin; Z79.4 - manager long term care (current) use of insulin; Z79.4 - half-way (current ) use of insulin; Z79.4 - manager long term care (current) use of insulin Is this a current diagnosis for this admission?: Yes Plan: As above. (4) Diabetic neuropathy Is this a current diagnosis for this admission?: Yes (5) Hypertension Is this a current diagnosis for this admission?: No Plan: Currently on pressors. (6) Hyperlipidemia Is this a current diagnosis for this admission?: Yes (7) History of prostate cancer Is this a current diagnosis for this admission?: Yes (8) Acute pancreatitis Is this a current diagnosis for this admission?: Yes Plan: Continue empiric antibiotics. Lipase improving. (9) Acute respiratory failure Is this a current diagnosis for this admission?: Yes Plan: Continue vent support. Pulmonology recommendations appreciated. (10) Hypernatremia Is this a current diagnosis for this admission?: Yes Plan: Resolved. Continue to monitor closely. (11) Hypokalemia Is this a current diagnosis for this admission?: Yes Plan: Replete and continue to monitor. (12) Hypocalcemia Is this a current diagnosis for this admission?: Yes Plan: Replete (13) Hypophosphatemia Is this a current diagnosis for this admission?: Yes Plan: Replete, continue to monitor. (14) Thrombocytopenia Is this a current diagnosis for this admission?: Yes Plan: Heparin on hold. Recheck platelet count. - Time Time Spent with patient: 35 or more minutes
[2017-12-15] MEDS ORDERED: LORAZEPAM INJ 2 MG/1 ML VIAL ONE (17:55)
[2017-12-15] MEDS ORDERED: LORAZEPAM INJ 2 MG/1 ML VIAL IV ONE (18:00)
[2017-12-15] MEDS: CEFTRIAXONE 2 GM/D5W RTU 2 GM/50 ML RTUPB IV SCH (21:21)
[2017-12-16] MEDS: PROPOFOL 100 ML IV PRN ×7 (00:01→20:52)
[2017-12-16] MEDS: NORMAL SALINE 100 ML with INSULIN REGULAR, HUMAN 100 UNIT IV PRN ×4 (02:00→18:43)
[2017-12-16] MEDS: ACETAMINOPHEN 650 MG SUPP.RECT PR PRN (02:49)
[2017-12-16] MEDS: POTASSI CL 20 MEQ/D5-1/2NS 1L 1000 ML IV PRN ×3 (04:53→20:55)
[2017-12-16 05:31] LABS: ARTERIAL BLOOD BASE EXCESS -4.1 mmol/L; ARTERIAL BLOOD H2CO3 0.93 mmol/L (1.05-1.35); ARTERIAL BLOOD HCO3 19.6 mmol/L (20-26); ARTERIAL BLOOD O2 SATURATION 96.3 % (94-98); ARTERIAL BLOOD PCO2 30.9 mmHg (35-45); ARTERIAL BLOOD PH 7.42 (7.35-7.45); ARTERIAL BLOOD PO2 80.8 mmHg (80-100); ARTERIAL BLOOD TOTAL CO2 20.6 mmol/L (23-27)
[2017-12-16 05:36] LABS: HEMATOCRIT 28.6 % (37.9-51.0); HEMOGLOBIN 9.5 g/dL (13.5-17.0); MEAN CORPUSCULAR HEMOGLOBIN 32.3 pg (27.0-33.4); MEAN CORPUSCULAR HGB CONC 33.3 g/dL (32.0-36.0); MEAN CORPUSCULAR VOLUME 97 fl (80-97); PLATELET COUNT 117 10^3/uL (150-450); RED BLOOD COUNT 2.96 10^6/uL (4.35-5.55); RED CELL DISTRIBUTION WIDTH 13.3 % (11.5-14.0); WHITE BLOOD COUNT 11.4 10^3/uL (4.0-10.5)
[2017-12-16 05:37] LABS: ARTERIAL BLOOD FIO2 30%
[2017-12-16 05:56] LABS: ABSOLUTE LYMPHOCYTES# (MANUAL) 0.5 10^3/uL (0.5-4.7); ABSOLUTE MONOCYTES # (MANUAL) 0.5 10^3/uL (0.1-1.4); ABSOLUTE NEUTROPHILS# (MANUAL) 10.1 10^3/uL (1.7-8.2); EOSINOPHILS % (MANUAL) 3 % (0-6); LYMPHOCYTES % (MANUAL) 4 % (13-45); MONOCYTES % (MANUAL) 4 % (3-13); SEGMENTED NEUTROPHILS % (MAN) 89 % (42-78); TOTAL CELLS COUNTED 100
[2017-12-16 05:58] LABS: PLATELET COMMENT DECREASED; RBC MORPHOLOGY COMMENT NORMO-CYTIC/CHROMIC; TOXIC GRANULATION SLIGHT
[2017-12-16 06:01] LABS: ANION GAP 8 (5-19); BLOOD UREA NITROGEN 24 mg/dL (7-20); CARBON DIOXIDE 21 mmol/L (22-30); CHLORIDE 117 mmol/L (98-107); GLUCOSE 138 mg/dL (75-110); LIPASE 167.7 U/L (23-300); PHOSPHORUS 2.8 mg/dL (2.5-4.5); POTASSIUM 3.6 mmol/L (3.6-5.0); SODIUM 145.8 mmol/L (137-145)
[2017-12-16 06:12] LABS: CALCIUM 6.9 mg/dL (8.4-10.2)
--- NOTE | 2017-12-16 07:58 | RADIOLOGY REPORT (SQ) ---
EXAM DESCRIPTION: CHEST SINGLE VIEW COMPLETED DATE/TIME: 12/16/2017 6:50 am REASON FOR STUDY: resp fail/sepsis COMPARISON: Chest film 12/15/2017, 12/14/2017, 12/13/2017, 12/12/2017 CT chest 12/12/2017 EXAM PARAMETERS: NUMBER OF VIEWS: One view. TECHNIQUE: Single frontal radiographic view of the chest acquired. RADIATION DOSE: NA LIMITATIONS: None. FINDINGS: LUNGS AND PLEURA: Low lung volumes. No focal infiltrates. No pleural effusion or pneumot horax. MEDIASTINUM AND HILAR STRUCTURES: No masses. Contour normal. HEART AND VASCULAR STRUCTURES: Heart normal in size. Normal vasculature. BONES: No acute findings. HARDWARE: Endotracheal tube tip is 6 to 7 cm above the mason. This report was called to the patient 's nurse Teagan, 0745 hours 12/16/2017. Nasogastric tube tip and side port in the stomach. Right jugular central line tip in the SVC/ upper right atrium. OTHER: No other significant finding. IMPRESSION: Low lung volumes. No focal infiltrates. Endotracheal tube tip at the thoracic inlet. TECHNICAL DOCUMENTATION: JOB ID: [id number] [employer]- All Rights Reserved Reading location - IP/workstation name: [email or web address]
[2017-12-16] MEDS: FUROSEMIDE INJ/PF 20 MG/2 ML SDV IV SCH ×2 (10:51→21:52)
[2017-12-16] MEDS: THIAMINE HCL 100 MG, FOLIC ACID 1 MG in NORMAL SALINE 250 ML IV SCH (10:52)
[2017-12-16] MEDS: CALCIUM CARBONATE 500 MG TABLET NG SCH ×2 (10:52→17:37)
[2017-12-16] MEDS: ASPIRIN 81 MG TABLET, CHEWABLE NG SCH (10:52)
[2017-12-16] MEDS ORDERED: DEXAMETHASONE SOD PHOSPHATE INJ 4 MG/1 ML VIAL IV ONE (11:00)
--- NOTE | 2017-12-16 14:00 | PDOC PROGRESS REPORT ---
Subjective Progress Note for:: 12/16/17 Subjective:: extubate Reason For Visit: DKA Physical Exam Vital Signs: Temp Pulse Resp BP Pulse Ox 100.0 F 69 16 105/49 L 99 12/16/17 07:59 12/16/17 07:59 12/16/17 07:59 12/16/17 07:59 12/16/17 07:59 Intake & Output 12/15/17 12/16/17 12/17/17 06:59 06:59 06:59 Intake Total 4429 4246 Output Total 4125 5000 Balance 304 -754 Weight 107.9 kg 109.2 kg General appearance: PRESENT: no acute distress, disheveled, obese. ABSENT: cooperative Head exam: PRESENT: atraumatic, normocephalic Eye exam: PRESENT: conjunctiva pale. ABSENT: nystagmus, periorbital swelling, scleral icterus Mouth exam: PRESENT: dry mucosa, neck supple, tongue midline, other - ET tube Neck exam: ABSENT: carotid bruit, JVD, lymphadenopathy, thyromegaly, tracheal deviation, tracheostomy Respiratory exam: PRESENT: decreased breath sounds, prolonged expiratory phas, rales, rhonchi, symmetrical, unlabored. ABSENT: retraction, stridor, tachypnea Cardiovascular exam: PRESENT: RRR, +S1, +S2, tachycardia Pulses: PRESENT: normal radial pulses GI/Abdominal exam: PRESENT: diminished bowel sounds, soft Extremities exam: ABSENT: calf tenderness, clubbing Musculoskeletal exam: ABSENT: deformity, dislocation Neurological exam: ABSENT: awake Skin exam: PRESENT: dry, warm Results Laboratory Results: 12/16/17 05:11 12/16/17 05:11 12/16/17 12/16/17 12/16/17 05:11 05:11 05:11 WBC 11.4 H RBC 2.96 L Hgb 9.5 L Hct 28.6 L MCV 97 MCH 32.3 MCHC 33.3 RDW 13.3 Plt Count 117 L Seg Neutrophils % Not Reportable Lymphocytes % Not Reportable Monocytes % Not Reportable Eosinophils % Not Reportable Basophils % Not Reportable Absolute Neutrophils Not Reportable Absolute Lymphocytes Not Reportable Absolute Monocytes Not Reportable Absolute Eosinophils Not Reportable Absolute Basophils Not Reportable Carbonic Acid 0.93 L HCO3/H2CO3 Ratio 21:1 ABG pH 7.42 ABG pCO2 30.9 L ABG pO2 80.8 ABG HCO3 19.6 L ABG O2 Saturation 96.3 ABG Base Excess -4.1 FiO2 30% Sodium 145.8 H Potassium 3.6 Chloride 117 H Carbon Dioxide 21 L Anion Gap 8 BUN 24 H Creatinine 1.12 Est GFR ( Amer) > 60 Est GFR (Non-Af Amer) > 60 Glucose 138 H Calcium 6.9 L* Phosphorus 2.8 Magnesium 2.1 Albumin Lipase 167.7 12/16/17 05:11 WBC RBC Hgb Hct MCV MCH MCHC RDW Plt Count Seg Neutrophils % Lymphocytes % Monocytes % Eosinophils % Basophils % Absolute Neutrophils Absolute Lymphocytes Absolute Monocytes Absolute Eosinophils Absolute Basophils Carbonic Acid HCO3/H2CO3 Ratio ABG pH ABG pCO2 ABG pO2 ABG HCO3 ABG O2 Saturation ABG Base Excess FiO2 Sodium Potassium Chloride Carbon Dioxide Anion Gap BUN Creatinine Est GFR ( Amer) Est GFR (Non-Af Amer) Glucose Calcium Phosphorus Magnesium Albumin 2.2 L Lipase 12/12/17 12/12/17 12/12/17 00:18 00:18 07:00 Creatine Kinase 1133 H 1142 H CK-MB (CK-2) 5.78 H Troponin I 0.084 NT-Pro-B Natriuret Pep 12/12/17 12/12/17 12/12/17 07:00 13:58 13:58 Creatine Kinase 1040 H CK-MB (CK-2) 5.69 H 5.29 H Troponin I 0.098 0.081 NT-Pro-B Natriuret Pep 553 12/12/17 12/12/17 18:45 18:45 Creatine Kinase 1048 H CK-MB (CK-2) 4.78 H Troponin I 0.067 NT-Pro-B Natriuret Pep Impressions: Head CT 12/12/17 00:00 IMPRESSION: No acute findings. Lines and tubes. Venous Doppler Study 12/15/17 00:00 IMPRESSION: Unremarkable bilateral upper extremity venous Doppler Chest X-Ray 12/16/17 06:00 IMPRESSION: Low lung volumes. No focal infiltrates. Endotracheal tube tip at the thoracic inlet. Assessment & Plan - Diagnosis (1) Acute respiratory failure Is this a current diagnosis for this admission?: Yes Plan: Support with mechanical ventilation getting adequate oxygenation and ventilation patient currently not acidotic excessive ventilation not necessary at this time (2) Hyperosmolar nonketotic coma in diabetes Is this a current diagnosis for this admission?: Yes Plan: Labs- All tests 24 hr 12/11/17 12/12/17 12/12/17 17:25 00:18 10:00 Carbon Dioxide POC Glucose 451 H* Serum Osmolality 390 H Urine Ketones NEGATIVE Ur Leukocyte Esterase NEGATIVE 12/12/17 10:50 Carbon Dioxide 29 POC Glucose Serum Osmolality Urine Ketones Ur Leukocyte Esterase (3) ARF (acute renal failure) Qualifiers: Acute renal failure type: with acute tubular necrosis Qualified Code(s): N17.0 - Acute kidney failure with tubular necrosis Is this a current diagnosis for this admission?: Yes Plan: improving (4) Diabetes type 2, uncontrolled Qualifiers: Diabetes mellitus joint terminal attack controller insulin use: with joint terminal attack controller use Diabetes mellitus complication status: with neurologic complications Diabetes mellitus complication detail: with polyneuropathy Qualified Code(s): E11.42 - Type 2 diabetes mellitus with diabetic polyneuropathy; E11.65 - Type 2 diabetes mellitus with hyperglycemia; E11.65 - Type 2 diabetes mellitus with hyperglycemia; E11.65 - Type 2 diabetes mellitus with hyperglycemia; E11.65 - Type 2 diabetes mellitus with hyperglycemia; Z79.4 - joint terminal attack controller (current) use of insulin; Z79.4 - shelter (current) use of insulin; Z79.4 - joint terminal attack controller (current ) use of insulin; Z79.4 - joint terminal attack controller (current) use of insulin Is this a current diagnosis for this admission?: Yes Plan: Hemoglobin A1c 14 (5) Hypertension Is this a current diagnosis for this admission?: No Plan: Stable at this time (6) Septic shock Is this a current diagnosis for this admission?: Yes - Time Total Critical Time (Minutes): 45
--- NOTE | 2017-12-16 18:29 | PDOC PROGRESS REPORT ---
Subjective Progress Note for:: 12/16/17 Subjective:: Sedated and intubated Reason For Visit: 57-year-old gentleman with uncontrolled diabetes and medication noncompliance presented with [facility] on 12/11/17 He was intubated for acute respiratory failure and was also found to have acute pancreatitis. The patient had some hypernatremia which was treated with D5W and free water flushes. This has improved. Lipase level has improved. Blood and urine cultures have been negative so far. He wass on empiric antibiotics and levophed. Levophed has been discontinued Remains sedated on the vent. Platelet count dropped by >50%- heparin was stopped on 12/14/17, started on SCDs. HIT antibody is pending.. Continues to have low grade fevers- negative cultures, no diarrhea- check venous dopplers of extremities Physical Exam Vital Signs: Temp Pulse Resp BP Pulse Ox 98.8 F 64 16 111/62 97 12/16/17 18:00 12/16/17 17:27 12/16/17 18:00 12/16/17 17:47 12/16/17 18:00 Intake & Output 12/15/17 12/16/17 12/17/17 06:59 06:59 06:59 Intake Total 4429 4246 2066 Output Total 4125 5000 1910 Balance 304 -754 156 Weight 107.9 kg 109.2 kg General appearance: PRESENT: no acute distress Head exam: PRESENT: atraumatic, normocephalic Respiratory exam: PRESENT: unlabored Cardiovascular exam: PRESENT: RRR. ABSENT: diastolic murmur, rubs, systolic murmur GI/Abdominal exam: PRESENT: normal bowel sounds, soft. ABSENT: distended, guarding, mass, organolmegaly, rebound, tenderness Skin exam: PRESENT: dry, intact, warm. ABSENT: cyanosis, rash Results Laboratory Results: 12/16/17 05:11 12/16/17 05:11 12/16/17 12/16/17 12/16/17 05:11 05:11 05:11 WBC 11.4 H RBC 2.96 L Hgb 9.5 L Hct 28.6 L MCV 97 MCH 32.3 MCHC 33.3 RDW 13.3 Plt Count 117 L Seg Neutrophils % Not Reportable Lymphocytes % Not Reportable Monocytes % Not Reportable Eosinophils % Not Reportable Basophils % Not Reportable Absolute Neutrophils Not Reportable Absolute Lymphocytes Not Reportable Absolute Monocytes Not Reportable Absolute Eosinophils Not Reportable Absolute Basophils Not Reportable Carbonic Acid 0.93 L HCO3/H2CO3 Ratio 21:1 ABG pH 7.42 ABG pCO2 30.9 L ABG pO2 80.8 ABG HCO3 19.6 L ABG O2 Saturation 96.3 ABG Base Excess -4.1 FiO2 30% Sodium 145.8 H Potassium 3.6 Chloride 117 H Carbon Dioxide 21 L Anion Gap 8 BUN 24 H Creatinine 1.12 Est GFR ( Amer) > 60 Est GFR (Non-Af Amer) > 60 Glucose 138 H Calcium 6.9 L* Phosphorus 2.8 Magnesium 2.1 Albumin Lipase 167.7 12/16/17 05:11 WBC RBC Hgb Hct MCV MCH MCHC RDW Plt Count Seg Neutrophils % Lymphocytes % Monocytes % Eosinophils % Basophils % Absolute Neutrophils Absolute Lymphocytes Absolute Monocytes Absolute Eosinophils Absolute Basophils Carbonic Acid HCO3/H2CO3 Ratio ABG pH ABG pCO2 ABG pO2 ABG HCO3 ABG O2 Saturation ABG Base Excess FiO2 Sodium Potassium Chloride Carbon Dioxide Anion Gap BUN Creatinine Est GFR ( Amer) Est GFR (Non-Af Amer) Glucose Calcium Phosphorus Magnesium Albumin 2.2 L Lipase 12/12/17 12/12/17 12/12/17 00:18 00:18 07:00 Creatine Kinase 1133 H 1142 H CK-MB (CK-2) 5.78 H Troponin I 0.084 NT-Pro-B Natriuret Pep 12/12/17 12/12/17 12/12/17 07:00 13:58 13:58 Creatine Kinase 1040 H CK-MB (CK-2) 5.69 H 5.29 H Troponin I 0.098 0.081 NT-Pro-B Natriuret Pep 553 12/12/17 12/12/17 18:45 18:45 Creatine Kinase 1048 H CK-MB (CK-2) 4.78 H Troponin I 0.067 NT-Pro-B Natriuret Pep Impressions: Head CT 12/12/17 00:00 IMPRESSION: No acute findings. Lines and tubes. Venous Doppler Study 12/15/17 00:00 IMPRESSION: Unremarkable bilateral upper extremity venous Doppler Chest X-Ray 12/16/17 06:00 IMPRESSION: Low lung volumes. No focal infiltrates. Endotracheal tube tip at the thoracic inlet. Assessment & Plan - Diagnosis (1) ARF (acute renal failure) Qualifiers: Acute renal failure type: with acute tubular necrosis Qualified Code(s): N17.0 - Acute kidney failure with tubular necrosis Is this a current diagnosis for this admission?: Yes Plan: Resolved. (2) Acute pancreatitis Qualifiers: Acute pancreatitis complication: unspecified Is this a current diagnosis for this admission?: Yes Plan: Resolved. He may benefit from a MRI abdomen once off the ventilator. 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 Start him on subcu insulin tomorrow (4) Hyperosmolar nonketotic coma in diabetes Is this a current diagnosis for this admission?: Yes (5) Hypertension Qualifiers: Hypertension type: essential hypertension Qualified Code(s): I10 - Essential (primary) hypertension Is this a current diagnosis for this admission?: No Plan: Blood pressure well controlled. (6) Thrombocytopenia Is this a current diagnosis for this admission?: Yes Plan: Continue to monitor. - Time Time Spent with patient: 35 or more minutes Anticipated discharge: Home - Inpatient Certification Based on my medical assessment, after consideration of the patient's comorbidities, presenting symptoms, or acuity I expect that the services needed warrant INPATIENT care.: Yes I certify that my determination is in accordance with my understanding of Medicare's requirements for reasonable and necessary INPATIENT services [42 CFR 412.3e].: Yes Medical Necessity: Significant Comorbidiites Make Outpatient Treatment Too Risky , Need Close Monitoring Due to Risk of Patient Decompensation, Need For IV Fluids, Need for IV Antibiotics
[2017-12-16] MEDS: CEFTRIAXONE 2 GM/D5W RTU 2 GM/50 ML RTUPB IV SCH (21:52)
[2017-12-17] MEDS: NORMAL SALINE 100 ML with INSULIN REGULAR, HUMAN 100 UNIT IV PRN ×4 (00:44→06:05)
[2017-12-17] MEDS: PROPOFOL 100 ML IV PRN ×4 (05:04→23:16)
[2017-12-17 05:25] LABS: ARTERIAL BLOOD BASE EXCESS -5.8 mmol/L; ARTERIAL BLOOD H2CO3 0.96 mmol/L (1.05-1.35); ARTERIAL BLOOD HCO3 18.5 mmol/L (20-26); ARTERIAL BLOOD O2 SATURATION 96.8 % (94-98); ARTERIAL BLOOD PCO2 31.8 mmHg (35-45); ARTERIAL BLOOD PH 7.38 (7.35-7.45); ARTERIAL BLOOD TOTAL CO2 19.5 mmol/L (23-27)
[2017-12-17 05:29] LABS: ARTERIAL BLOOD FIO2 30%
[2017-12-17 05:32] LABS: ABSOLUTE LYMPHOCYTES (AUTO) 1.1 10^3/uL (0.5-4.7); ABSOLUTE NEUT (AUTO) 11.8 10^3/uL (1.7-8.2); EOSINOPHILS % (AUTO) 0.2 % (0-6); HEMATOCRIT 27.3 % (37.9-51.0); HEMOGLOBIN 9.1 g/dL (13.5-17.0); LYMPHOCYTES % (AUTO) 7.8 % (13-45); MEAN CORPUSCULAR HEMOGLOBIN 31.9 pg (27.0-33.4); MEAN CORPUSCULAR HGB CONC 33.1 g/dL (32.0-36.0); MEAN CORPUSCULAR VOLUME 96 fl (80-97); MONOCYTES % (AUTO) 7.3 % (3-13); PLATELET COUNT 140 10^3/uL (150-450); RED BLOOD COUNT 2.84 10^6/uL (4.35-5.55); RED CELL DISTRIBUTION WIDTH 12.9 % (11.5-14.0); SEGMENTED NEUTROPHILS % (AUTO) 84.7 % (42-78); TOTAL CELLS COUNTED % (AUTO) 100 %; WHITE BLOOD COUNT 13.9 10^3/uL (4.0-10.5)
[2017-12-17 05:40] LABS: ANION GAP 6 (5-19); BLOOD UREA NITROGEN 25 mg/dL (7-20); CARBON DIOXIDE 22 mmol/L (22-30); CHLORIDE 117 mmol/L (98-107); GLUCOSE 107 mg/dL (75-110); PHOSPHORUS 3.5 mg/dL (2.5-4.5); POTASSIUM 4.2 mmol/L (3.6-5.0)
[2017-12-17 05:51] LABS: CALCIUM 6.8 mg/dL (8.4-10.2)
[2017-12-17] MEDS: POTASSI CL 20 MEQ/D5-1/2NS 1L 1000 ML IV PRN ×2 (06:04→18:12)
--- NOTE | 2017-12-17 06:27 | RADIOLOGY REPORT (SQ) ---
EXAM DESCRIPTION: CHEST SINGLE VIEW CLINICAL HISTORY: resp fail COMPARISON: 12/16/2017 FINDINGS: Single frontal view of the chest. Endotracheal tube with tip at the level of clavicles. NG tube with tip below the diaphragm. Right IJ central venous catheter. Cardiomegaly. Interval increase in bilateral perihilar opacities. No pneumothorax or pleural effusion. Leads overlie the chest. No acute osseous abnormalities. Upper abdominal soft tissues are unremarkable. IMPRESSION: 1. Interval increase in bilateral perihilar opacities likely representing pulmonary vascular congestion.
--- NOTE | 2017-12-17 08:19 | PDOC PROGRESS REPORT ---
Subjective Progress Note for:: 12/17/17 Subjective:: 57-year-old gentleman with uncontrolled diabetes and medication noncompliance presented with [facility] on 12/11/17 He was intubated for acute respiratory failure and was also found to have acute pancreatitis. The patient had some hypernatremia which was treated with D5W and free water flushes. This has improved. Lipase level has improved. Blood and urine cultures have been negative so far. He was on empiric antibiotics and levophed. Levophed has been discontinued Remains sedated on the vent. Wean attempted 12/16, but failed Platelet count dropped by >50%- heparin was stopped on 12/14/17, started on SCDs. HIT antibody was wnl. low platelets likely due to critical illness. Continues to have low grade fevers- negative cultures, no diarrhea- venous dopplers of upper extremities showed no clots Reason For Visit: DKA Physical Exam Vital Signs: Temp Pulse Resp BP Pulse Ox 99.1 F 82 16 103/52 L 100 12/17/17 08:00 12/17/17 08:00 12/17/17 08:00 12/17/17 08:00 12/17/17 08:00 Intake & Output 12/16/17 12/17/17 12/18/17 06:59 06:59 06:59 Intake Total 4246 4109 Output Total 5000 2960 125 Balance -754 1149 -125 Weight 109.2 kg 109.5 kg General appearance: PRESENT: no acute distress, obese Head exam: PRESENT: atraumatic, normocephalic Eye exam: PRESENT: EOMI, PERRLA Respiratory exam: PRESENT: clear to auscultation bernardo. ABSENT: rales, rhonchi, wheezes Cardiovascular exam: PRESENT: RRR. ABSENT: diastolic murmur, rubs, systolic murmur GI/Abdominal exam: PRESENT: normal bowel sounds, soft. ABSENT: distended, guarding, mass, organolmegaly, rebound, tenderness Neurological exam: PRESENT: alert, awake Psychiatric exam: ABSENT: agitated, anxious Results Laboratory Results: 12/17/17 05:14 12/17/17 05:14 12/17/17 12/17/17 12/17/17 05:14 05:14 05:14 WBC 13.9 H RBC 2.84 L Hgb 9.1 L Hct 27.3 L MCV 96 MCH 31.9 MCHC 33.1 RDW 12.9 Plt Count 140 L Seg Neutrophils % 84.7 H Lymphocytes % 7.8 L Monocytes % 7.3 Eosinophils % 0.2 Basophils % 0.0 Absolute Neutrophils 11.8 H Absolute Lymphocytes 1.1 Absolute Monocytes 1.0 Absolute Eosinophils 0.0 Absolute Basophils 0.0 Carbonic Acid 0.96 L HCO3/H2CO3 Ratio 19:1 ABG pH 7.38 ABG pCO2 31.8 L ABG pO2 89.0 ABG HCO3 18.5 L ABG O2 Saturation 96.8 ABG Base Excess -5.8 FiO2 30% Sodium 145.0 Potassium 4.2 Chloride 117 H Carbon Dioxide 22 Anion Gap 6 BUN 25 H Creatinine 1.24 Est GFR ( Amer) > 60 Est GFR (Non-Af Amer) > 60 Glucose 107 Calcium 6.8 L* Ionized Calcium Connie Phosphorus 3.5 Magnesium 2.0 Albumin 12/17/17 12/17/17 05:14 06:23 WBC RBC Hgb Hct MCV MCH MCHC RDW Plt Count Seg Neutrophils % Lymphocytes % Monocytes % Eosinophils % Basophils % Absolute Neutrophils Absolute Lymphocytes Absolute Monocytes Absolute Eosinophils Absolute Basophils Carbonic Acid HCO3/H2CO3 Ratio ABG pH ABG pCO2 ABG pO2 ABG HCO3 ABG O2 Saturation ABG Base Excess FiO2 Sodium Potassium Chloride Carbon Dioxide Anion Gap BUN Creatinine Est GFR ( Amer) Est GFR (Non-Af Amer) Glucose Calcium Ionized Calcium Connie 1.02 L Phosphorus Magnesium Albumin 2.5 L 12/12/17 03:20 Blood Blood Culture - Final NO GROWTH IN 5 DAYS 12/12/17 02:25 Blood Blood Culture - Final NO GROWTH IN 5 DAYS 12/11/17 19:00 Blood Blood Culture - Final NO GROWTH IN 5 DAYS 12/11/17 18:50 Blood Blood Culture - Final NO GROWTH IN 5 DAYS 12/12/17 12/12/17 12/12/17 00:18 00:18 07:00 Creatine Kinase 1133 H 1142 H CK-MB (CK-2) 5.78 H Troponin I 0.084 NT-Pro-B Natriuret Pep 12/12/17 12/12/17 12/12/17 07:00 13:58 13:58 Creatine Kinase 1040 H CK-MB (CK-2) 5.69 H 5.29 H Troponin I 0.098 0.081 NT-Pro-B Natriuret Pep 553 12/12/17 12/12/17 18:45 18:45 Creatine Kinase 1048 H CK-MB (CK-2) 4.78 H Troponin I 0.067 NT-Pro-B Natriuret Pep Impressions: Head CT 12/12/17 00:00 IMPRESSION: No acute findings. Lines and tubes. Venous Doppler Study 12/15/17 00:00 IMPRESSION: Unremarkable bilateral upper extremity venous Doppler Chest X-Ray 12/17/17 06:00 IMPRESSION: 1. Interval increase in bilateral perihilar opacities likely representing pulmonary vascular congestion. Assessment & Plan - Diagnosis (1) ARF (acute renal failure) Qualifiers: Acute renal failure type: with acute tubular necrosis Qualified Code(s): N17.0 - Acute kidney failure with tubular necrosis Is this a current diagnosis for this admission?: Yes Plan: Resolved. (2) Acute pancreatitis Qualifiers: Acute pancreatitis complication: unspecified Is this a current diagnosis for this admission?: Yes Plan: Resolved. He may benefit from a MRI abdomen once off the ventilator. 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: with halfway use Diabetes mellitus complication status: with neurologic complications Diabetes mellitus complication detail: with polyneuropathy Qualified Code(s): E11.42 - Type 2 diabetes mellitus with diabetic polyneuropathy; E11.65 - Type 2 diabetes mellitus with hyperglycemia; E11.65 - Type 2 diabetes mellitus with hyperglycemia; E11.65 - Type 2 diabetes mellitus with hyperglycemia; E11.65 - Type 2 diabetes mellitus with hyperglycemia; Z79.4 - [facility] (current) use of insulin; Z79.4 - [facility] (current) use of insulin; Z79.4 - vermin exterminator (current ) use of insulin; Z79.4 - [facility] (current) use of insulin Is this a current diagnosis for this admission?: Yes Plan: stop insulin drip. start SubQ insulin now. (4) Hyperosmolar nonketotic coma in diabetes Is this a current diagnosis for this admission?: Yes Plan: resolved. (5) Hypertension Qualifiers: Hypertension type: essential hypertension Qualified Code(s): I10 - Essential (primary) hypertension Is this a current diagnosis for this admission?: No Plan: Blood pressure well controlled. (6) Thrombocytopenia Is this a current diagnosis for this admission?: Yes Plan: improved. Continue to monitor. - Time Time Spent with patient: 25-34 minutes Medications reviewed and adjusted accordingly: Yes Anticipated discharge: SNF - Inpatient Certification Based on my medical assessment, after consideration of the patient's comorbidities, presenting symptoms, or acuity I expect that the services needed warrant INPATIENT care.: Yes I certify that my determination is in accordance with my understanding of Medicare's requirements for reasonable and necessary INPATIENT services [42 CFR 412.3e].: Yes Medical Necessity: Significant Comorbidiites Make Outpatient Treatment Too Risky
[2017-12-17] MEDS ORDERED: DEXTROSE 40% GEL 15 GM TUBE PO PRN ×2 (08:20)
[2017-12-17] MEDS ORDERED: DEXTROSE 50%-WATER 25 GM/50 ML DISP.SYRIN IV PRN ×2 (08:20)
[2017-12-17] MEDS ORDERED: GLUCAGON,HUMAN RECOMB 1 MG INJ IM PRN (08:20)
[2017-12-17] MEDS: THIAMINE HCL 100 MG, FOLIC ACID 1 MG in NORMAL SALINE 250 ML IV SCH (09:03)
[2017-12-17] MEDS: FUROSEMIDE INJ/PF 20 MG/2 ML SDV IV SCH ×2 (09:05→21:12)
[2017-12-17] MEDS: CALCIUM CARBONATE 500 MG TABLET NG SCH ×2 (09:06→17:41)
[2017-12-17] MEDS: ASPIRIN 81 MG TABLET, CHEWABLE NG SCH (09:06)
[2017-12-17] MEDS ORDERED: FUROSEMIDE INJ/PF 20 MG/2 ML SDV IV ONE (11:00)
[2017-12-17] MEDS ORDERED: OLANZAPINE 2.5 MG TABLET PO ONE (11:00)
[2017-12-17] MEDS: INSULIN LISPRO 100 UNIT/ML 3 ML VIAL SUBCUT PRN ×3 (11:41→23:40)
--- NOTE | 2017-12-17 13:38 | PDOC PROGRESS REPORT ---
Subjective Progress Note for:: 12/17/17 Subjective:: Patient did not sustain trial of pressure support and CPAP was never extubated this morning is intubated and easily arousable Reason For Visit: DKA Physical Exam Vital Signs: Temp Pulse Resp BP Pulse Ox 99.1 F 82 16 103/52 L 100 12/17/17 08:00 12/17/17 08:00 12/17/17 08:00 12/17/17 08:00 12/17/17 08:58 Intake & Output 12/16/17 12/17/17 12/18/17 06:59 06:59 06:59 Intake Total 4246 4109 Output Total 5000 2960 125 Balance -754 1149 -125 Weight 109.2 kg 109.5 kg General appearance: PRESENT: no acute distress, disheveled, morbidly obese. ABSENT: cooperative Head exam: PRESENT: atraumatic, normocephalic Eye exam: PRESENT: conjunctiva pale, EOMI. ABSENT: nystagmus, periorbital swelling, scleral icterus Mouth exam: PRESENT: dry mucosa, neck supple, tongue midline, other - ET tube in place Neck exam: ABSENT: carotid bruit, JVD, lymphadenopathy, thyromegaly, tracheal deviation, tracheostomy Respiratory exam: PRESENT: decreased breath sounds, prolonged expiratory phas, rhonchi, symmetrical, unlabored, wheezes. ABSENT: retraction, stridor, tachypnea Cardiovascular exam: PRESENT: RRR, +S1, +S2, tachycardia Pulses: PRESENT: normal radial pulses GI/Abdominal exam: PRESENT: diminished bowel sounds, soft Extremities exam: ABSENT: calf tenderness, clubbing, joint swelling Musculoskeletal exam: ABSENT: ambulatory, deformity, dislocation, full ROM Neurological exam: PRESENT: awake Skin exam: PRESENT: dry, warm Results Laboratory Results: 12/17/17 05:14 12/17/17 05:14 12/17/17 12/17/17 12/17/17 05:14 05:14 05:14 WBC 13.9 H RBC 2.84 L Hgb 9.1 L Hct 27.3 L MCV 96 MCH 31.9 MCHC 33.1 RDW 12.9 Plt Count 140 L Seg Neutrophils % 84.7 H Lymphocytes % 7.8 L Monocytes % 7.3 Eosinophils % 0.2 Basophils % 0.0 Absolute Neutrophils 11.8 H Absolute Lymphocytes 1.1 Absolute Monocytes 1.0 Absolute Eosinophils 0.0 Absolute Basophils 0.0 Carbonic Acid 0.96 L HCO3/H2CO3 Ratio 19:1 ABG pH 7.38 ABG pCO2 31.8 L ABG pO2 89.0 ABG HCO3 18.5 L ABG O2 Saturation 96.8 ABG Base Excess -5.8 FiO2 30% Sodium 145.0 Potassium 4.2 Chloride 117 H Carbon Dioxide 22 Anion Gap 6 BUN 25 H Creatinine 1.24 Est GFR ( Amer) > 60 Est GFR (Non-Af Amer) > 60 Glucose 107 Calcium 6.8 L* Ionized Calcium Connie Phosphorus 3.5 Magnesium 2.0 Albumin 12/17/17 12/17/17 05:14 06:23 WBC RBC Hgb Hct MCV MCH MCHC RDW Plt Count Seg Neutrophils % Lymphocytes % Monocytes % Eosinophils % Basophils % Absolute Neutrophils Absolute Lymphocytes Absolute Monocytes Absolute Eosinophils Absolute Basophils Carbonic Acid HCO3/H2CO3 Ratio ABG pH ABG pCO2 ABG pO2 ABG HCO3 ABG O2 Saturation ABG Base Excess FiO2 Sodium Potassium Chloride Carbon Dioxide Anion Gap BUN Creatinine Est GFR ( Amer) Est GFR (Non-Af Amer) Glucose Calcium Ionized Calcium Connie 1.02 L Phosphorus Magnesium Albumin 2.5 L 12/12/17 03:20 Blood Blood Culture - Final NO GROWTH IN 5 DAYS 12/12/17 02:25 Blood Blood Culture - Final NO GROWTH IN 5 DAYS 12/11/17 19:00 Blood Blood Culture - Final NO GROWTH IN 5 DAYS 12/11/17 18:50 Blood Blood Culture - Final NO GROWTH IN 5 DAYS 12/12/17 12/12/17 12/12/17 00:18 00:18 07:00 Creatine Kinase 1133 H 1142 H CK-MB (CK-2) 5.78 H Troponin I 0.084 NT-Pro-B Natriuret Pep 12/12/17 12/12/17 12/12/17 07:00 13:58 13:58 Creatine Kinase 1040 H CK-MB (CK-2) 5.69 H 5.29 H Troponin I 0.098 0.081 NT-Pro-B Natriuret Pep 553 12/12/17 12/12/17 18:45 18:45 Creatine Kinase 1048 H CK-MB (CK-2) 4.78 H Troponin I 0.067 NT-Pro-B Natriuret Pep Impressions: Head CT 12/12/17 00:00 IMPRESSION: No acute findings. Lines and tubes. Venous Doppler Study 12/15/17 00:00 IMPRESSION: Unremarkable bilateral upper extremity venous Doppler Chest X-Ray 12/17/17 06:00 IMPRESSION: 1. Interval increase in bilateral perihilar opacities likely representing pulmonary vascular congestion. Assessment & Plan - Diagnosis (1) Acute respiratory failure Is this a current diagnosis for this admission?: Yes Plan: Improving it is noted at this time these approximately 3 L positive in his intake and output having baseline diuresis of 20 mg Lasix IV every 12 gave him an additional dose of Lasix now dose of 40 mg IV (2) Hyperosmolar nonketotic coma in diabetes Is this a current diagnosis for this admission?: Yes Plan: Resolved no longer on insulin drip (3) ARF (acute renal failure) Qualifiers: Acute renal failure type: with acute tubular necrosis Qualified Code(s): N17.0 - Acute kidney failure with tubular necrosis Is this a current diagnosis for this admission?: Yes Plan: Resolved (4) Diabetes type 2, uncontrolled Qualifiers: Diabetes mellitus 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 container terminal insulin use: with detention use Diabetes mellitus complication status: with neurologic complications Diabetes mellitus complication detail: with polyneuropathy Qualified Code(s): E11.42 - Type 2 diabetes mellitus with diabetic polyneuropathy; E11.65 - Type 2 diabetes mellitus with hyperglycemia; E11.65 - Type 2 diabetes mellitus with hyperglycemia; E11.65 - Type 2 diabetes mellitus with hyperglycemia; E11.65 - Type 2 diabetes mellitus with hyperglycemia; Z79.4 - [facility] (current) use of insulin; Z79.4 - [employer] (current) use of insulin; Z79.4 - [facility] (current ) use of insulin; Z79.4 - [employer] continuous churn (current) use of insulin Is this a current diagnosis for this admission?: Yes Plan: Stable at this time (5) Hypertension Qualifiers: Hypertension type: essential hypertension Qualified Code(s): I10 - Essential (primary) hypertension Is this a current diagnosis for this admission?: No (6) Septic shock Is this a current diagnosis for this admission?: Yes Plan: No longer requiring vasopressor agents - Time Total Critical Time (Minutes): 45
[2017-12-17] MEDS: IBUPROFEN 800 MG in NORMAL SALINE 250 ML IV SCH ×2 (14:44→21:10)
[2017-12-17] MEDS: GABAPENTIN 300 MG CAPSULE PO SCH ×2 (14:44→21:10)
[2017-12-17] MEDS: BISACODYL 10 MG SUPP.RECT PR PRN (18:14)
[2017-12-17] MEDS: CEFTRIAXONE 2 GM/D5W RTU 2 GM/50 ML RTUPB IV SCH (21:11)
[2017-12-18] MEDS: POTASSI CL 20 MEQ/D5-1/2NS 1L 1000 ML IV PRN (01:17)
[2017-12-18] MEDS: PROPOFOL 100 ML IV PRN (04:36)
[2017-12-18] MEDS: IBUPROFEN 800 MG in NORMAL SALINE 250 ML IV SCH (05:16)
[2017-12-18] MEDS: GABAPENTIN 300 MG CAPSULE PO SCH ×3 (05:17→21:03)
[2017-12-18 05:50] LABS: ARTERIAL BLOOD BASE EXCESS -4.7 mmol/L; ARTERIAL BLOOD HCO3 19.6 mmol/L (20-26); ARTERIAL BLOOD O2 SATURATION 95.1 % (94-98); ARTERIAL BLOOD PCO2 33.2 mmHg (35-45); ARTERIAL BLOOD PH 7.39 (7.35-7.45); ARTERIAL BLOOD PO2 74.8 mmHg (80-100); ARTERIAL BLOOD TOTAL CO2 20.7 mmol/L (23-27)
[2017-12-18 05:51] LABS: ARTERIAL BLOOD FIO2 30%
[2017-12-18 05:58] LABS: HEMATOCRIT 28.1 % (37.9-51.0); HEMOGLOBIN 9.2 g/dL (13.5-17.0); MEAN CORPUSCULAR HEMOGLOBIN 31.8 pg (27.0-33.4); MEAN CORPUSCULAR HGB CONC 32.7 g/dL (32.0-36.0); MEAN CORPUSCULAR VOLUME 97 fl (80-97); PLATELET COUNT 205 10^3/uL (150-450); RED BLOOD COUNT 2.89 10^6/uL (4.35-5.55); RED CELL DISTRIBUTION WIDTH 13.1 % (11.5-14.0); WHITE BLOOD COUNT 13.7 10^3/uL (4.0-10.5)
[2017-12-18] MEDS: INSULIN LISPRO 100 UNIT/ML 3 ML VIAL SUBCUT PRN ×2 (06:01→15:29)
[2017-12-18 06:13] LABS: BASOPHILS % (MANUAL) 0 % (0-2)
[2017-12-18 06:16] LABS: ABSOLUTE LYMPHOCYTES# (MANUAL) 1.1 10^3/uL (0.5-4.7); ABSOLUTE MONOCYTES # (MANUAL) 1.1 10^3/uL (0.1-1.4); BAND NEUTROPHILS % (MANUAL) 1 % (3-5); EOSINOPHILS % (MANUAL) 4 % (0-6); LYMPHOCYTES % (MANUAL) 8 % (13-45); METAMYELOCYTES % (MANUAL) 1 % (0); MONOCYTES % (MANUAL) 8 % (3-13); SEGMENTED NEUTROPHILS % (MAN) 78 % (42-78); TOTAL CELLS COUNTED 100
[2017-12-18 06:17] LABS: ANION GAP 8 (5-19); BLOOD UREA NITROGEN 31 mg/dL (7-20); CARBON DIOXIDE 21 mmol/L (22-30); CHLORIDE 116 mmol/L (98-107); GLUCOSE 338 mg/dL (75-110); PHOSPHORUS 4.1 mg/dL (2.5-4.5); PLATELET COMMENT ADEQUATE; POTASSIUM 4.4 mmol/L (3.6-5.0); SODIUM 144.9 mmol/L (137-145); TEAR DROP CELLS SLIGHT; TOXIC GRANULATION SLIGHT
--- NOTE | 2017-12-18 06:50 | RADIOLOGY REPORT (SQ) ---
EXAM DESCRIPTION: CHEST SINGLE VIEW CLINICAL HISTORY: sepsis/resp failure COMPARISON: 12/17/2017 FINDINGS: Single frontal view of the chest. Endotracheal tube with tip at the level of clavicles. NG tube with tip below the diaphragm. Right IJ central venous catheter. Cardiomegaly. Interval decrease in bilateral perihilar opacities. No pneumothorax or pleural effusion. Leads overlie the chest. No acute osseous abnormalities. Upper abdominal soft tissues are unremarkable. IMPRESSION: 1. Interval decrease in bilateral perihilar opacities with otherwise stable appearance of the chest. Electronically signed by: Mykel Vogt 12/18/2017 5:49 AM
--- NOTE | 2017-12-18 09:46 | PDOC PROGRESS REPORT ---
Subjective Progress Note for:: 12/18/17 Subjective:: 57-year-old gentleman with uncontrolled diabetes and medication noncompliance [facility] He was intubated for acute respiratory failure and was also found to have acute pancreatitis. The patient had some hypernatremia which was treated with D5W and free water flushes. This has improved. Lipase level has improved. Blood and urine cultures have been negative so far. He was on empiric antibiotics and levophed. Levophed has been discontinued Remains sedated on the vent. Wean attempted 12/16, but failed Platelet count dropped by >50%- heparin was stopped on 12/14/17, started on SCDs. HIT antibody was wnl. low platelets likely due to critical illness. Continued to have low grade fevers- negative cultures, no diarrhea- venous dopplers of upper extremities showed no clots. Reason For Visit: [facility] Physical Exam Vital Signs: Temp Pulse Resp BP Pulse Ox 97.5 F 67 11 L 88/49 L 98 12/18/17 09:01 12/18/17 06:00 12/18/17 09:01 12/18/17 09:01 12/18/17 09:15 Intake & Output 12/17/17 12/18/17 12/19/17 06:59 06:59 06:59 Intake Total 4109 3178 Output Total 2960 3970 250 Balance 1149 -792 -250 Weight 109.5 kg 108.8 kg General appearance: PRESENT: no acute distress, obese Head exam: PRESENT: atraumatic, normocephalic Respiratory exam: PRESENT: clear to auscultation bernardo. ABSENT: rales, rhonchi, wheezes Cardiovascular exam: PRESENT: RRR. ABSENT: diastolic murmur, rubs, systolic murmur GI/Abdominal exam: PRESENT: hypoactive bowel sounds, soft. ABSENT: distended, guarding, mass, organolmegaly, rebound, tenderness Extremities exam: PRESENT: +2 edema Neurological exam: PRESENT: other - Sedated Skin exam: PRESENT: dry, intact, warm. ABSENT: cyanosis, rash Results Laboratory Results: 12/18/17 05:30 12/18/17 05:30 12/18/17 12/18/17 12/18/17 05:30 05:30 05:30 WBC 13.7 H RBC 2.89 L Hgb 9.2 L Hct 28.1 L MCV 97 MCH 31.8 MCHC 32.7 RDW 13.1 Plt Count 205 Seg Neutrophils % Not Reportable Lymphocytes % Not Reportable Monocytes % Not Reportable Eosinophils % Not Reportable Basophils % Not Reportable Absolute Neutrophils Not Reportable Absolute Lymphocytes Not Reportable Absolute Monocytes Not Reportable Absolute Eosinophils Not Reportable Absolute Basophils Not Reportable Carbonic Acid 1.00 L HCO3/H2CO3 Ratio 19:1 ABG pH 7.39 ABG pCO2 33.2 L ABG pO2 74.8 L ABG HCO3 19.6 L ABG O2 Saturation 95.1 ABG Base Excess -4.7 FiO2 30% Sodium 144.9 Potassium 4.4 Chloride 116 H Carbon Dioxide 21 L Anion Gap 8 BUN 31 H Creatinine 1.27 H Est GFR ( Amer) > 60 Est GFR (Non-Af Amer) 58 L Glucose 338 H Calcium 7.0 L* Phosphorus 4.1 Magnesium 1.8 12/12/17 12/12/17 12/12/17 00:18 00:18 07:00 Creatine Kinase 1133 H 1142 H CK-MB (CK-2) 5.78 H Troponin I 0.084 NT-Pro-B Natriuret Pep 12/12/17 12/12/17 12/12/17 07:00 13:58 13:58 Creatine Kinase 1040 H CK-MB (CK-2) 5.69 H 5.29 H Troponin I 0.098 0.081 NT-Pro-B Natriuret Pep 553 12/12/17 12/12/17 18:45 18:45 Creatine Kinase 1048 H CK-MB (CK-2) 4.78 H Troponin I 0.067 NT-Pro-B Natriuret Pep Impressions: Head CT 12/12/17 00:00 IMPRESSION: No acute findings. Lines and tubes. Venous Doppler Study 12/15/17 00:00 IMPRESSION: Unremarkable bilateral upper extremity venous Doppler Chest X-Ray 12/18/17 06:00 IMPRESSION: 1. Interval decrease in bilateral perihilar opacities with otherwise stable appearance of the chest. Assessment & Plan - Diagnosis (1) ARF (acute renal failure) Qualifiers: Acute renal failure type: with acute tubular necrosis Qualified Code(s): N17.0 - Acute kidney failure with tubular necrosis Is this a current diagnosis for this admission?: Yes Plan: Resolved. (2) Acute pancreatitis Qualifiers: Acute pancreatitis complication: unspecified Is this a current diagnosis for this admission?: Yes Plan: Resolved. He may benefit from a MRI abdomen once off the ventilator. 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 Continue sliding scale. Start Lantus 10units daily. (4) Hyperosmolar nonketotic coma in diabetes Is this a current diagnosis for this admission?: Yes Plan: resolved. (5) Hypertension Qualifiers: Hypertension type: essential hypertension Qualified Code(s): I10 - Essential (primary) hypertension Is this a current diagnosis for this admission?: No Plan: Blood pressure well controlled off BP meds. Today he is mildly hypotensive. Continue to monitor. (6) Thrombocytopenia Is this a current diagnosis for this admission?: Yes Plan: Resolved. Continue to monitor. - Time Time Spent with patient: 25-34 minutes Medications reviewed and adjusted accordingly: Yes - Inpatient Certification Based on my medical assessment, after consideration of the patient's comorbidities, presenting symptoms, or acuity I expect that the services needed warrant INPATIENT care.: Yes I certify that my determination is in accordance with my understanding of Medicare's requirements for reasonable and necessary INPATIENT services [42 CFR 412.3e].: Yes Medical Necessity: Failure to Improve With Outpatient Therapy, Significant Comorbidiites Make Outpatient Treatment Too Risky, Need Close Monitoring Due to Risk of Patient Decompensation, Need For IV Fluids
[2017-12-18] MEDS ORDERED: INSULIN GLARGINE,HUM.REC.ANLOG 1,000 UNIT/10 ML UNIT SUBCUT SCH (10:00)
[2017-12-18] MEDS ORDERED: INSULIN GLARGINE,HUM.REC.ANLOG 300 UNIT/3 ML INSULN.PEN SUBCUT SCH (10:00)
[2017-12-18] MEDS: ASPIRIN 81 MG TABLET, CHEWABLE NG SCH (10:08)
[2017-12-18] MEDS: CALCIUM CARBONATE 500 MG TABLET NG SCH ×2 (10:09→18:45)
[2017-12-18] MEDS: OLANZAPINE 2.5 MG TABLET PO SCH (10:09)
[2017-12-18] MEDS: FUROSEMIDE INJ/PF 40 MG/4 ML SDV IV SCH ×2 (10:10→21:02)
[2017-12-18] MEDS: THIAMINE HCL 100 MG, FOLIC ACID 1 MG in NORMAL SALINE 250 ML IV SCH (10:18)
[2017-12-18] MEDS: NORMAL SALINE 1000 ML 1,000 ML IV PRN (10:19)
--- NOTE | 2017-12-18 13:08 | PDOC PROGRESS REPORT ---
Subjective Progress Note for:: 12/18/17 Subjective:: Intubated but not arousable Reason For Visit: DKA Physical Exam Vital Signs: Temp Pulse Resp BP Pulse Ox 99.5 F 67 15 105/56 L 96 12/18/17 06:00 12/18/17 06:00 12/18/17 06:00 12/18/17 06:00 12/18/17 06:00 Intake & Output 12/17/17 12/18/17 12/19/17 06:59 06:59 06:59 Intake Total 4109 3178 Output Total 2960 3970 250 Balance 1149 -792 -250 Weight 109.5 kg 108.8 kg General appearance: PRESENT: no acute distress, disheveled, morbidly obese. ABSENT: cooperative Head exam: PRESENT: atraumatic, normocephalic Eye exam: PRESENT: conjunctiva pale. ABSENT: EOMI, nystagmus, periorbital swelling, scleral icterus Mouth exam: PRESENT: dry mucosa, neck supple, tongue midline, other - ET tube in place Neck exam: ABSENT: carotid bruit, JVD, lymphadenopathy, thyromegaly, tracheal deviation, tracheostomy Respiratory exam: PRESENT: decreased breath sounds, prolonged expiratory phas, rales, rhonchi, symmetrical, unlabored. ABSENT: retraction, stridor, tachypnea , wheezes Cardiovascular exam: PRESENT: RRR, +S1, +S2, tachycardia Pulses: PRESENT: normal radial pulses GI/Abdominal exam: PRESENT: diminished bowel sounds, soft Extremities exam: ABSENT: clubbing, joint swelling Musculoskeletal exam: ABSENT: deformity, dislocation Neurological exam: ABSENT: awake, oriented to person Skin exam: PRESENT: dry, warm Results Laboratory Results: 12/18/17 05:30 12/18/17 05:30 12/18/17 12/18/17 12/18/17 05:30 05:30 05:30 WBC 13.7 H RBC 2.89 L Hgb 9.2 L Hct 28.1 L MCV 97 MCH 31.8 MCHC 32.7 RDW 13.1 Plt Count 205 Seg Neutrophils % Not Reportable Lymphocytes % Not Reportable Monocytes % Not Reportable Eosinophils % Not Reportable Basophils % Not Reportable Absolute Neutrophils Not Reportable Absolute Lymphocytes Not Reportable Absolute Monocytes Not Reportable Absolute Eosinophils Not Reportable Absolute Basophils Not Reportable Carbonic Acid 1.00 L HCO3/H2CO3 Ratio 19:1 ABG pH 7.39 ABG pCO2 33.2 L ABG pO2 74.8 L ABG HCO3 19.6 L ABG O2 Saturation 95.1 ABG Base Excess -4.7 FiO2 30% Sodium 144.9 Potassium 4.4 Chloride 116 H Carbon Dioxide 21 L Anion Gap 8 BUN 31 H Creatinine 1.27 H Est GFR ( Amer) > 60 Est GFR (Non-Af Amer) 58 L Glucose 338 H Calcium 7.0 L* Phosphorus 4.1 Magnesium 1.8 12/12/17 12/12/17 12/12/17 00:18 00:18 07:00 Creatine Kinase 1133 H 1142 H CK-MB (CK-2) 5.78 H Troponin I 0.084 NT-Pro-B Natriuret Pep 12/12/17 12/12/17 12/12/17 07:00 13:58 13:58 Creatine Kinase 1040 H CK-MB (CK-2) 5.69 H 5.29 H Troponin I 0.098 0.081 NT-Pro-B Natriuret Pep 553 12/12/17 12/12/17 18:45 18:45 Creatine Kinase 1048 H CK-MB (CK-2) 4.78 H Troponin I 0.067 NT-Pro-B Natriuret Pep Impressions: Head CT 12/12/17 00:00 IMPRESSION: No acute findings. Lines and tubes. Venous Doppler Study 12/15/17 00:00 IMPRESSION: Unremarkable bilateral upper extremity venous Doppler Chest X-Ray 12/18/17 06:00 IMPRESSION: 1. Interval decrease in bilateral perihilar opacities with otherwise stable appearance of the chest. Assessment & Plan - Diagnosis (1) Acute respiratory failure Is this a current diagnosis for this admission?: Yes Plan: Stable at this time;Limiting factor for extubation mental status (2) Hyperosmolar nonketotic coma in diabetes Is this a current diagnosis for this admission?: Yes Plan: Resolved no longer on insulin drip (3) ARF (acute renal failure) Qualifiers: Acute renal failure type: with acute tubular necrosis Qualified Code(s): N17.0 - Acute kidney failure with tubular necrosis Is this a current diagnosis for this admission?: Yes Plan: Resolved (4) Diabetes type 2, uncontrolled Qualifiers: Diabetes mellitus remote computer terminal 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 insulin use: with shelter use Diabetes mellitus complication status: with neurologic complications Diabetes mellitus complication detail: with polyneuropathy Qualified Code(s): E11.42 - Type 2 diabetes mellitus with diabetic polyneuropathy; E11.65 - Type 2 diabetes mellitus with hyperglycemia; E11.65 - Type 2 diabetes mellitus with hyperglycemia; E11.65 - Type 2 diabetes mellitus with hyperglycemia; E11.65 - Type 2 diabetes mellitus with hyperglycemia; Z79.4 - longterm (current) use of insulin; Z79.4 - remote computer terminal operator (current) use of insulin; Z79.4 - remote computer terminal operator (current ) use of insulin; Z79.4 - remote computer terminal operator (current) use of insulin Is this a current diagnosis for this admission?: Yes Plan: Sliding scale insulin (5) Hypertension Qualifiers: Hypertension type: essential hypertension Qualified Code(s): I10 - Essential (primary) hypertension Is this a current diagnosis for this admission?: No Plan: Stable at this time (6) Septic shock Is this a current diagnosis for this admission?: Yes Plan: Not currently using vasopressor agents - Time Total Critical Time (Minutes): 45
[2017-12-18] MEDS: CEFTRIAXONE 2 GM/D5W RTU 2 GM/50 ML RTUPB IV SCH (21:02)
[2017-12-18] MEDS: FENTANYL CITRATE INJ/PF 100 MCG/2 ML AMPUL IV PRN (23:39)
[2017-12-19] MEDS: INSULIN LISPRO 100 UNIT/ML 3 ML VIAL SUBCUT PRN ×2 (00:01→06:35)
[2017-12-19] MEDS: GABAPENTIN 300 MG CAPSULE PO SCH ×3 (05:39→22:11)
[2017-12-19 06:15] LABS: ARTERIAL BLOOD BASE EXCESS -0.7 mmol/L; ARTERIAL BLOOD H2CO3 1.04 mmol/L (1.05-1.35); ARTERIAL BLOOD HCO3 23.1 mmol/L (20-26); ARTERIAL BLOOD O2 SATURATION 95.9 % (94-98); ARTERIAL BLOOD PCO2 34.6 mmHg (35-45); ARTERIAL BLOOD PH 7.44 (7.35-7.45); ARTERIAL BLOOD PO2 76.7 mmHg (80-100); ARTERIAL BLOOD TOTAL CO2 24.1 mmol/L (23-27)
[2017-12-19 06:16] LABS: ARTERIAL BLOOD FIO2 30%
[2017-12-19] MEDS: PROPOFOL 100 ML IV PRN (06:21)
[2017-12-19 06:22] LABS: HEMATOCRIT 28.1 % (37.9-51.0); HEMOGLOBIN 9.3 g/dL (13.5-17.0); MEAN CORPUSCULAR HEMOGLOBIN 31.8 pg (27.0-33.4); MEAN CORPUSCULAR HGB CONC 33.1 g/dL (32.0-36.0); MEAN CORPUSCULAR VOLUME 96 fl (80-97); PLATELET COUNT 228 10^3/uL (150-450); RED BLOOD COUNT 2.92 10^6/uL (4.35-5.55); RED CELL DISTRIBUTION WIDTH 12.8 % (11.5-14.0); WHITE BLOOD COUNT 13.6 10^3/uL (4.0-10.5)
[2017-12-19] MEDS: NORMAL SALINE 1000 ML 1,000 ML IV PRN (06:34)
[2017-12-19 06:44] LABS: ALANINE AMINOTRANSFERASE 57 U/L (21-72); ALBUMIN 2.5 g/dL (3.5-5.0); ALKALINE PHOSPHATASE 116 U/L (38-126); ANION GAP 7 (5-19); ASPARTATE AMINO TRANSFERASE 23 U/L (17-59); BILIRUBIN,DIRECT 0.3 mg/dL (0.0-0.4); BILIRUBIN,TOTAL 0.3 mg/dL (0.2-1.3); BLOOD UREA NITROGEN 30 mg/dL (7-20); CALCIUM 7.5 mg/dL (8.4-10.2); CARBON DIOXIDE 25 mmol/L (22-30); CHLORIDE 114 mmol/L (98-107); GLUCOSE 264 mg/dL (75-110); POTASSIUM 3.6 mmol/L (3.6-5.0); SODIUM 146.3 mmol/L (137-145); TOTAL PROTEIN 5.2 g/dL (6.3-8.2)
--- NOTE | 2017-12-19 06:58 | RADIOLOGY REPORT (SQ) ---
EXAM DESCRIPTION: CHEST SINGLE VIEW CLINICAL HISTORY: resp fAILURE COMPARISON: 12/18/2017 FINDINGS: Single frontal view of the chest. Endotracheal tube with tip at the level of clavicles. NG tube with tip below the diaphragm. Right IJ central venous catheter. Cardiomegaly. Unchanged bilateral perihilar opacities. No pneumothorax or pleural effusion. Leads overlie the chest. No acute osseous abnormalities. Upper abdominal soft tissues are unremarkable. IMPRESSION: 1. Stable appearance of the chest. Electronically signed by: Mykel Vogt 12/19/2017 5:57 AM CDT
[2017-12-19 07:03] LABS: ABSOLUTE LYMPHOCYTES# (MANUAL) 1.8 10^3/uL (0.5-4.7); ABSOLUTE MONOCYTES # (MANUAL) 0.7 10^3/uL (0.1-1.4); ABSOLUTE NEUTROPHILS# (MANUAL) 10.5 10^3/uL (1.7-8.2); BAND NEUTROPHILS % (MANUAL) 8 % (3-5); BASOPHILS % (MANUAL) 0 % (0-2); EOSINOPHILS % (MANUAL) 5 % (0-6); LYMPHOCYTES % (MANUAL) 13 % (13-45); MONOCYTES % (MANUAL) 5 % (3-13); SEGMENTED NEUTROPHILS % (MAN) 68 % (42-78); TOTAL CELLS COUNTED 100
[2017-12-19 07:05] LABS: PLATELET COMMENT ADEQUATE; RBC MORPHOLOGY COMMENT NORMO-CYTIC/CHROMIC
[2017-12-19 07:08] LABS: MYELOCYTES % (MANUAL) 1 % (0)
--- NOTE | 2017-12-19 08:34 | PDOC PROGRESS REPORT ---
Subjective Progress Note for:: 12/19/17 Subjective:: 57-year-old gentleman with uncontrolled diabetes and medication noncompliance presented with [facility] on 12/11/17 He was intubated for acute respiratory failure and was also found to have acute pancreatitis. The patient had some hypernatremia which was treated with D5W and free water flushes. This has improved. Lipase level has improved. Blood and urine cultures have been negative so far. He was on empiric antibiotics and levophed. Levophed has been discontinued Remains sedated on the vent. Wean attempted 12/16, but failed Platelet count dropped by >50%- heparin was stopped on 12/14/17, started on SCDs. HIT antibody was wnl. low platelets likely due to critical illness. Continued to have low grade fevers- negative cultures, no diarrhea- venous dopplers of upper extremities showed no clots. Reason For Visit: DKA Physical Exam Vital Signs: Temp Pulse Resp BP Pulse Ox 99.9 F 79 14 132/68 H 96 12/19/17 06:00 12/19/17 06:00 12/19/17 06:00 12/19/17 06:00 12/19/17 06:00 Intake & Output 12/18/17 12/19/17 12/20/17 06:59 06:59 06:59 Intake Total 3178 1731 Output Total 3017 8415 Balance -792 -2095 Weight 108.8 kg 106.6 kg General appearance: PRESENT: no acute distress, obese Head exam: PRESENT: atraumatic, normocephalic Neck exam: PRESENT: other - short/thick Respiratory exam: PRESENT: clear to auscultation bernardo, unlabored Cardiovascular exam: PRESENT: RRR. ABSENT: diastolic murmur, rubs, systolic murmur GI/Abdominal exam: PRESENT: normal bowel sounds, soft. ABSENT: distended, guarding, mass, organolmegaly, rebound, tenderness Neurological exam: PRESENT: alert, awake Skin exam: PRESENT: dry, intact, warm. ABSENT: cyanosis, rash Results Laboratory Results: 12/19/17 05:45 12/19/17 05:45 12/18/17 12/19/17 12/19/17 05:30 05:45 05:45 WBC 13.6 H RBC 2.92 L Hgb 9.3 L Hct 28.1 L MCV 96 MCH 31.8 MCHC 33.1 RDW 12.8 Plt Count 228 Seg Neutrophils % Not Reportable Lymphocytes % Not Reportable Monocytes % Not Reportable Eosinophils % Not Reportable Basophils % Not Reportable Absolute Neutrophils Not Reportable Absolute Lymphocytes Not Reportable Absolute Monocytes Not Reportable Absolute Eosinophils Not Reportable Absolute Basophils Not Reportable Carbonic Acid 1.04 L HCO3/H2CO3 Ratio 22:1 ABG pH 7.44 ABG pCO2 34.6 L ABG pO2 76.7 L ABG HCO3 23.1 ABG O2 Saturation 95.9 ABG Base Excess -0.7 FiO2 30% Sodium Potassium Chloride Carbon Dioxide Anion Gap BUN Creatinine Est GFR ( Amer) Est GFR (Non-Af Amer) Glucose Calcium Magnesium Total Bilirubin AST ALT Alkaline Phosphatase Total Protein Albumin 2.4 L 12/19/17 05:45 WBC RBC Hgb Hct MCV MCH MCHC RDW Plt Count Seg Neutrophils % Lymphocytes % Monocytes % Eosinophils % Basophils % Absolute Neutrophils Absolute Lymphocytes Absolute Monocytes Absolute Eosinophils Absolute Basophils Carbonic Acid HCO3/H2CO3 Ratio ABG pH ABG pCO2 ABG pO2 ABG HCO3 ABG O2 Saturation ABG Base Excess FiO2 Sodium 146.3 H Potassium 3.6 Chloride 114 H Carbon Dioxide 25 Anion Gap 7 BUN 30 H Creatinine 1.14 Est GFR ( Amer) > 60 Est GFR (Non-Af Amer) > 60 Glucose 264 H Calcium 7.5 L Magnesium 1.9 Total Bilirubin 0.3 AST 23 ALT 57 Alkaline Phosphatase 116 Total Protein 5.2 L Albumin 2.5 L 12/12/17 12/12/17 12/12/17 00:18 00:18 07:00 Creatine Kinase 1133 H 1142 H CK-MB (CK-2) 5.78 H Troponin I 0.084 NT-Pro-B Natriuret Pep 12/12/17 12/12/17 12/12/17 07:00 13:58 13:58 Creatine Kinase 1040 H CK-MB (CK-2) 5.69 H 5.29 H Troponin I 0.098 0.081 NT-Pro-B Natriuret Pep 553 12/12/17 12/12/17 18:45 18:45 Creatine Kinase 1048 H CK-MB (CK-2) 4.78 H Troponin I 0.067 NT-Pro-B Natriuret Pep Impressions: Head CT 12/12/17 00:00 IMPRESSION: No acute findings. Lines and tubes. Venous Doppler Study 12/15/17 00:00 IMPRESSION: Unremarkable bilateral upper extremity venous Doppler Chest X-Ray 12/19/17 06:00 IMPRESSION: 1. Stable appearance of the chest. Assessment & Plan - Diagnosis (1) ARF (acute renal failure) Qualifiers: Acute renal failure type: with acute tubular necrosis Qualified Code(s): N17.0 - Acute kidney failure with tubular necrosis Is this a current diagnosis for this admission?: Yes Plan: Resolved. (2) Acute pancreatitis Qualifiers: Acute pancreatitis complication: unspecified Is this a current diagnosis for this admission?: Yes Plan: Resolved. He may benefit from a MRI abdomen once off the ventilator. 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 (5) Hypertension Qualifiers: Hypertension type: essential hypertension Qualified Code(s): I10 - Essential (primary) hypertension Is this a current diagnosis for this admission?: No Plan: Blood pressure well controlled off BP meds. Continue to monitor. (6) Thrombocytopenia Is this a current diagnosis for this admission?: Yes Plan: Resolved. Continue to monitor. - Time Time Spent with patient: 25-34 minutes Medications reviewed and adjusted accordingly: Yes Anticipated discharge: Home Within: within 72 hours - Inpatient Certification Based on my medical assessment, after consideration of the patient's comorbidities, presenting symptoms, or acuity I expect that the services needed warrant INPATIENT care.: Yes I certify that my determination is in accordance with my understanding of Medicare's requirements for reasonable and necessary INPATIENT services [42 CFR 412.3e].: Yes Medical Necessity: Need Close Monitoring Due to Risk of Patient Decompensation
[2017-12-19] MEDS ORDERED: INSULIN GLARGINE,HUM.REC.ANLOG 300 UNIT/3 ML INSULN.PEN SUBCUT SCH (10:00)
[2017-12-19] MEDS: OLANZAPINE 2.5 MG TABLET PO SCH (10:31)
[2017-12-19] MEDS: CALCIUM CARBONATE 500 MG TABLET NG SCH ×2 (10:34→18:03)
[2017-12-19] MEDS: ASPIRIN 81 MG TABLET, CHEWABLE NG SCH (10:34)
[2017-12-19] MEDS: THIAMINE HCL 100 MG, FOLIC ACID 1 MG in NORMAL SALINE 250 ML IV SCH (10:34)
[2017-12-19] MEDS: FUROSEMIDE INJ/PF 40 MG/4 ML SDV IV SCH ×2 (10:34→22:13)
[2017-12-19 11:20] LABS: PATH REVIEW PATHOLOGIST REVIEWED
[2017-12-19] MEDS: 1/2 NORMAL SALINE 1,000 ML IV PRN (22:15)
[2017-12-20 05:59] LABS: ARTERIAL BLOOD BASE EXCESS 1.3 mmol/L; ARTERIAL BLOOD H2CO3 1.13 mmol/L (1.05-1.35); ARTERIAL BLOOD HCO3 25.3 mmol/L (20-26); ARTERIAL BLOOD O2 SATURATION 91.8 % (94-98); ARTERIAL BLOOD PCO2 37.7 mmHg (35-45); ARTERIAL BLOOD PH 7.45 (7.35-7.45); ARTERIAL BLOOD PO2 59.1 mmHg (80-100); ARTERIAL BLOOD TOTAL CO2 26.5 mmol/L (23-27)
[2017-12-20 06:03] LABS: ARTERIAL BLOOD FIO2 2L
[2017-12-20 06:09] LABS: HEMATOCRIT 29.4 % (37.9-51.0); HEMOGLOBIN 9.7 g/dL (13.5-17.0); MEAN CORPUSCULAR HEMOGLOBIN 31.6 pg (27.0-33.4); MEAN CORPUSCULAR VOLUME 96 fl (80-97); PLATELET COUNT 255 10^3/uL (150-450); RED BLOOD COUNT 3.08 10^6/uL (4.35-5.55); RED CELL DISTRIBUTION WIDTH 12.7 % (11.5-14.0); WHITE BLOOD COUNT 13.4 10^3/uL (4.0-10.5)
[2017-12-20 06:11] LABS: ANION GAP 8 (5-19); BLOOD UREA NITROGEN 31 mg/dL (7-20); CARBON DIOXIDE 27 mmol/L (22-30); CHLORIDE 112 mmol/L (98-107); GLUCOSE 266 mg/dL (75-110); PHOSPHORUS 4.1 mg/dL (2.5-4.5); POTASSIUM 3.5 mmol/L (3.6-5.0); SODIUM 147.2 mmol/L (137-145)
[2017-12-20] MEDS: GABAPENTIN 300 MG CAPSULE PO SCH ×3 (06:12→21:57)
[2017-12-20 06:29] LABS: ABSOLUTE LYMPHOCYTES# (MANUAL) 0.9 10^3/uL (0.5-4.7); ABSOLUTE MONOCYTES # (MANUAL) 0.7 10^3/uL (0.1-1.4); ABSOLUTE NEUTROPHILS# (MANUAL) 11.1 10^3/uL (1.7-8.2); BAND NEUTROPHILS % (MANUAL) 5 % (3-5); BASOPHILS % (MANUAL) 0 % (0-2); EOSINOPHILS % (MANUAL) 5 % (0-6); LYMPHOCYTES % (MANUAL) 7 % (13-45); METAMYELOCYTES % (MANUAL) 1 % (0); MONOCYTES % (MANUAL) 5 % (3-13); SEGMENTED NEUTROPHILS % (MAN) 77 % (42-78); TOTAL CELLS COUNTED 100
[2017-12-20 06:30] LABS: POLYCHROMASIA 1+
[2017-12-20 06:31] LABS: PLATELET COMMENT ADEQUATE
[2017-12-20] MEDS ORDERED: INSULIN GLARGINE,HUM.REC.ANLOG 300 UNIT/3 ML INSULN.PEN SUBCUT SCH (08:48)
--- NOTE | 2017-12-20 08:55 | RADIOLOGY REPORT (SQ) ---
EXAM DESCRIPTION: CHEST SINGLE VIEW COMPLETED DATE/TIME: 12/20/2017 6:50 am REASON FOR STUDY: resp failure COMPARISON: 12/19/2017 NUMBER OF VIEWS: One view. TECHNIQUE: Single frontal radiographic image of the chest acquired. LIMITATIONS: Poor inspiratory effort. FINDINGS: LUNGS AND PLEURA: Low lung volumes. No or pneumothorax. No large effusions. MEDIASTINUM AND HEART: Stable heart size and mediastinal structures. SUPPORT DEVICES: Unchanged position of right-sided central line. Interval removal of nasogastric and endotracheal tubes. BONY STRUCTURES: No acute findings. HARDWARE: None. OTHER: No other significant finding. IMPRESSION: Stable chest status post extubation. Reading location - IP/workstation name: [email or web address]
--- NOTE | 2017-12-20 09:01 | PDOC PROGRESS REPORT ---
Subjective Progress Note for:: 12/20/17 Subjective:: 57-year-old gentleman with uncontrolled diabetes and medication noncompliance presented with [facility] on 12/11/17 He was intubated for acute respiratory failure and was also found to have acute pancreatitis. The patient had some hypernatremia which was treated with D5W and free water flushes. This has improved. Lipase level has improved. Blood and urine cultures have been negative so far. He was on empiric antibiotics and levophed. Levophed has been discontinued Remains sedated on the vent. Wean attempted 12/16, but failed Platelet count dropped by >50%- heparin was stopped on 12/14/17, started on SCDs. HIT antibody was wnl. low platelets likely due to critical illness. Continued to have low grade fevers- negative cultures, no diarrhea- venous dopplers of upper extremities showed no clots. extubated 12/19 12/20 uneventful night. wants to eat. Reason For Visit: [facility] Physical Exam Vital Signs: Temp Pulse Resp BP Pulse Ox 99.5 F 74 12 136/70 H 96 12/20/17 06:00 12/19/17 20:00 12/20/17 06:00 12/20/17 05:29 12/20/17 06:00 Intake & Output 12/19/17 12/20/17 12/21/17 06:59 06:59 06:59 Intake Total 1731 1142 Output Total 3825 4000 Balance -7618 -7466 Weight 106.6 kg 105.9 kg General appearance: PRESENT: no acute distress, obese Head exam: PRESENT: atraumatic, normocephalic Respiratory exam: PRESENT: crackles - mild bibasilar crackles. ABSENT: rales, rhonchi, wheezes Cardiovascular exam: PRESENT: RRR. ABSENT: diastolic murmur, rubs, systolic murmur GI/Abdominal exam: PRESENT: normal bowel sounds, soft. ABSENT: distended, guarding, mass, organolmegaly, rebound, tenderness Neurological exam: PRESENT: alert, awake, oriented to person, oriented to place , oriented to time, oriented to situation, CN II-XII grossly intact. ABSENT: motor sensory deficit Skin exam: PRESENT: dry, intact, warm. ABSENT: cyanosis, rash Results Laboratory Results: 12/20/17 05:30 12/20/17 05:30 12/20/17 12/20/17 12/20/17 05:30 05:30 05:30 WBC 13.4 H RBC 3.08 L Hgb 9.7 L Hct 29.4 L MCV 96 MCH 31.6 MCHC 33.0 RDW 12.7 Plt Count 255 Seg Neutrophils % Not Reportable Lymphocytes % Not Reportable Monocytes % Not Reportable Eosinophils % Not Reportable Basophils % Not Reportable Absolute Neutrophils Not Reportable Absolute Lymphocytes Not Reportable Absolute Monocytes Not Reportable Absolute Eosinophils Not Reportable Absolute Basophils Not Reportable Carbonic Acid 1.13 HCO3/H2CO3 Ratio 22:1 ABG pH 7.45 ABG pCO2 37.7 ABG pO2 59.1 L ABG HCO3 25.3 ABG O2 Saturation 91.8 L ABG Base Excess 1.3 FiO2 2L Sodium 147.2 H Potassium 3.5 L Chloride 112 H Carbon Dioxide 27 Anion Gap 8 BUN 31 H Creatinine 0.93 Est GFR ( Amer) > 60 Est GFR (Non-Af Amer) > 60 Glucose 266 H Calcium 8.0 L Phosphorus 4.1 Magnesium 1.9 12/12/17 12/12/17 12/12/17 00:18 00:18 07:00 Creatine Kinase 1133 H 1142 H CK-MB (CK-2) 5.78 H Troponin I 0.084 NT-Pro-B Natriuret Pep 12/12/17 12/12/17 12/12/17 07:00 13:58 13:58 Creatine Kinase 1040 H CK-MB (CK-2) 5.69 H 5.29 H Troponin I 0.098 0.081 NT-Pro-B Natriuret Pep 553 12/12/17 12/12/17 18:45 18:45 Creatine Kinase 1048 H CK-MB (CK-2) 4.78 H Troponin I 0.067 NT-Pro-B Natriuret Pep Impressions: Head CT 12/12/17 00:00 IMPRESSION: No acute findings. Lines and tubes. Venous Doppler Study 12/15/17 00:00 IMPRESSION: Unremarkable bilateral upper extremity venous Doppler Chest X-Ray 12/20/17 06:00 IMPRESSION: Stable chest status post extubation. Assessment & Plan - Diagnosis (1) ARF (acute renal failure) Qualifiers: Acute renal failure type: with acute tubular necrosis Qualified Code(s): N17.0 - Acute kidney failure with tubular necrosis Is this a current diagnosis for this admission?: Yes Plan: Resolved. (2) Acute pancreatitis Qualifiers: Acute pancreatitis complication: unspecified Is this a current diagnosis for this admission?: Yes Plan: Resolved. He may benefit from a MRI abdomen once off the ventilator. (3) Diabetes type 2, uncontrolled Qualifiers: Diabetes mellitus chcf insulin use: with chcf use Diabetes mellitus complication status: with neurologic complications Diabetes mellitus complication detail: with polyneuropathy Qualified Code(s): E11.42 - Type 2 diabetes mellitus with diabetic polyneuropathy; E11.65 - Type 2 diabetes mellitus with hyperglycemia; E11.65 - Type 2 diabetes mellitus with hyperglycemia; E11.65 - Type 2 diabetes mellitus with hyperglycemia; E11.65 - Type 2 diabetes mellitus with hyperglycemia; Z79.4 - skilled nursing (current) use of insulin; Z79.4 - skilled nursing (current) use of insulin; Z79.4 - skilled nursing (current ) use of insulin; Z79.4 - skilled nursing (current) use of insulin Is this a current diagnosis for this admission?: Yes Plan: Sugars in the 200s Increase Lantus to 28 units (4) Hyperosmolar nonketotic coma in diabetes Is this a current diagnosis for this admission?: Yes Plan: resolved. (5) Hypertension Qualifiers: Hypertension type: essential hypertension Qualified Code(s): I10 - Essential (primary) hypertension Is this a current diagnosis for this admission?: No Plan: Blood pressure well controlled off BP meds. Continue to monitor. (6) Thrombocytopenia Is this a current diagnosis for this admission?: Yes Plan: Resolved. Continue to monitor. - Time Time Spent with patient: 25-34 minutes Medications reviewed and adjusted accordingly: Yes Anticipated discharge: Home Within: within 72 hours - Inpatient Certification Based on my medical assessment, after consideration of the patient's comorbidities, presenting symptoms, or acuity I expect that the services needed warrant INPATIENT care.: Yes I certify that my determination is in accordance with my understanding of Medicare's requirements for reasonable and necessary INPATIENT services [42 CFR 412.3e].: Yes Medical Necessity: Need Close Monitoring Due to Risk of Patient Decompensation
[2017-12-20] MEDS: CALCIUM CARBONATE 500 MG TABLET NG SCH ×2 (09:38→18:28)
[2017-12-20] MEDS: ASPIRIN 81 MG TABLET, CHEWABLE NG SCH (09:39)
[2017-12-20] MEDS: THIAMINE HCL 100 MG, FOLIC ACID 1 MG in NORMAL SALINE 250 ML IV SCH (09:49)
[2017-12-20] MEDS: INSULIN LISPRO 100 UNIT/ML 3 ML VIAL SUBCUT PRN ×3 (11:35→21:56)
[2017-12-20] MEDS: POTASSI CL 20 MEQ/50 ML RIDER 20 MEQ/50 ML RTUPB IV SCH ×2 (11:39→11:42)
--- NOTE | 2017-12-20 19:39 | PDOC PROGRESS REPORT ---
Subjective Progress Note for:: 12/19/17 Subjective:: intubated arousable Reason For Visit: DKA Physical Exam Vital Signs: Temp Pulse Resp BP Pulse Ox 99.9 F 79 14 132/68 H 96 12/19/17 06:00 12/19/17 06:00 12/19/17 06:00 12/19/17 06:00 12/19/17 06:00 Intake & Output 12/18/17 12/19/17 12/20/17 06:59 06:59 06:59 Intake Total 3178 1731 Output Total 3972 5935 Balance -792 -9807 Weight 108.8 kg 106.6 kg General appearance: PRESENT: no acute distress, cooperative, disheveled, obese Head exam: PRESENT: atraumatic, normocephalic Eye exam: PRESENT: conjunctiva pale, EOMI. ABSENT: nystagmus, periorbital swelling, scleral icterus Mouth exam: PRESENT: dry mucosa, neck supple, tongue midline, other - ET tube Neck exam: ABSENT: carotid bruit, JVD, lymphadenopathy, thyromegaly, tracheal deviation, tracheostomy Respiratory exam: PRESENT: decreased breath sounds, prolonged expiratory phas, rales, rhonchi, symmetrical, unlabored. ABSENT: retraction, stridor, tachypnea Cardiovascular exam: PRESENT: RRR, +S1, +S2, tachycardia Pulses: PRESENT: normal radial pulses GI/Abdominal exam: PRESENT: diminished bowel sounds, soft Extremities exam: ABSENT: clubbing, joint swelling Musculoskeletal exam: ABSENT: deformity, dislocation Neurological exam: PRESENT: awake, oriented to person Skin exam: PRESENT: dry, warm Results Laboratory Results: 12/19/17 05:45 12/19/17 05:45 12/18/17 12/19/17 12/19/17 05:30 05:45 05:45 WBC 13.6 H RBC 2.92 L Hgb 9.3 L Hct 28.1 L MCV 96 MCH 31.8 MCHC 33.1 RDW 12.8 Plt Count 228 Seg Neutrophils % Not Reportable Lymphocytes % Not Reportable Monocytes % Not Reportable Eosinophils % Not Reportable Basophils % Not Reportable Absolute Neutrophils Not Reportable Absolute Lymphocytes Not Reportable Absolute Monocytes Not Reportable Absolute Eosinophils Not Reportable Absolute Basophils Not Reportable Carbonic Acid 1.04 L HCO3/H2CO3 Ratio 22:1 ABG pH 7.44 ABG pCO2 34.6 L ABG pO2 76.7 L ABG HCO3 23.1 ABG O2 Saturation 95.9 ABG Base Excess -0.7 FiO2 30% Sodium Potassium Chloride Carbon Dioxide Anion Gap BUN Creatinine Est GFR ( Amer) Est GFR (Non-Af Amer) Glucose Calcium Magnesium Total Bilirubin AST ALT Alkaline Phosphatase Total Protein Albumin 2.4 L 12/19/17 05:45 WBC RBC Hgb Hct MCV MCH MCHC RDW Plt Count Seg Neutrophils % Lymphocytes % Monocytes % Eosinophils % Basophils % Absolute Neutrophils Absolute Lymphocytes Absolute Monocytes Absolute Eosinophils Absolute Basophils Carbonic Acid HCO3/H2CO3 Ratio ABG pH ABG pCO2 ABG pO2 ABG HCO3 ABG O2 Saturation ABG Base Excess FiO2 Sodium 146.3 H Potassium 3.6 Chloride 114 H Carbon Dioxide 25 Anion Gap 7 BUN 30 H Creatinine 1.14 Est GFR ( Amer) > 60 Est GFR (Non-Af Amer) > 60 Glucose 264 H Calcium 7.5 L Magnesium 1.9 Total Bilirubin 0.3 AST 23 ALT 57 Alkaline Phosphatase 116 Total Protein 5.2 L Albumin 2.5 L 12/12/17 12/12/17 12/12/17 00:18 00:18 07:00 Creatine Kinase 1133 H 1142 H CK-MB (CK-2) 5.78 H Troponin I 0.084 NT-Pro-B Natriuret Pep 12/12/17 12/12/17 12/12/17 07:00 13:58 13:58 Creatine Kinase 1040 H CK-MB (CK-2) 5.69 H 5.29 H Troponin I 0.098 0.081 NT-Pro-B Natriuret Pep 553 12/12/17 12/12/17 18:45 18:45 Creatine Kinase 1048 H CK-MB (CK-2) 4.78 H Troponin I 0.067 NT-Pro-B Natriuret Pep Impressions: Head CT 12/12/17 00:00 IMPRESSION: No acute findings. Lines and tubes. Venous Doppler Study 12/15/17 00:00 IMPRESSION: Unremarkable bilateral upper extremity venous Doppler Chest X-Ray 12/19/17 06:00 IMPRESSION: 1. Stable appearance of the chest. Assessment & Plan - Diagnosis (1) Acute respiratory failure Is this a current diagnosis for this admission?: Yes Plan: extubate (2) Hyperosmolar nonketotic coma in diabetes Is this a current diagnosis for this admission?: Yes Plan: Resolved no longer on insulin drip (3) ARF (acute renal failure) Qualifiers: Acute renal failure type: with acute tubular necrosis Qualified Code(s): N17.0 - Acute kidney failure with tubular necrosis Is this a current diagnosis for this admission?: Yes Plan: Resolved (4) Diabetes type 2, uncontrolled Qualifiers: Diabetes mellitus ad terminal makeup operator insulin use: with custodial use Diabetes mellitus complication status: with neurologic complications Diabetes mellitus complication detail: with polyneuropathy Qualified Code(s): E11.42 - Type 2 diabetes mellitus with diabetic polyneuropathy; E11.65 - Type 2 diabetes mellitus with hyperglycemia; E11.65 - Type 2 diabetes mellitus with hyperglycemia; E11.65 - Type 2 diabetes mellitus with hyperglycemia; E11.65 - Type 2 diabetes mellitus with hyperglycemia; Z79.4 - [facility] (current) use of insulin; Z79.4 - salvage determiner (current) use of insulin; Z79.4 - [facility] (current ) use of insulin; Z79.4 - [facility] (current) use of insulin Is this a current diagnosis for this admission?: Yes Plan: Sliding scale insulin (5) Hypertension Qualifiers: Hypertension type: essential hypertension Qualified Code(s): I10 - Essential (primary) hypertension Is this a current diagnosis for this admission?: No Plan: Stable at this time (6) Septic shock Is this a current diagnosis for this admission?: Yes - Time Total Critical Time (Minutes): 55
--- NOTE | 2017-12-20 19:41 | PDOC PROGRESS REPORT ---
Subjective Progress Note for:: 12/20/17 Subjective:: 24hrs s/p extubation stable Reason For Visit: DKA Physical Exam Vital Signs: Temp Pulse Resp BP Pulse Ox 99.5 F 77 12 136/70 H 96 12/20/17 06:00 12/20/17 08:00 12/20/17 06:00 12/20/17 05:29 12/20/17 06:00 Intake & Output 12/19/17 12/20/17 12/21/17 06:59 06:59 06:59 Intake Total 1731 1142 Output Total 3825 4000 310 Balance -2094 -2858 -310 Weight 106.6 kg 105.9 kg General appearance: PRESENT: no acute distress, cooperative, disheveled, obese Head exam: PRESENT: atraumatic, normocephalic Eye exam: PRESENT: conjunctiva pale, EOMI. ABSENT: nystagmus, periorbital swelling, scleral icterus Mouth exam: PRESENT: dry mucosa, neck supple, tongue midline Neck exam: ABSENT: carotid bruit, JVD, lymphadenopathy, thyromegaly, tracheal deviation, tracheostomy Respiratory exam: PRESENT: decreased breath sounds, prolonged expiratory phas, rhonchi, symmetrical, unlabored. ABSENT: rales, retraction, stridor, tachypnea Cardiovascular exam: PRESENT: RRR, +S1, +S2 Pulses: PRESENT: normal radial pulses GI/Abdominal exam: PRESENT: diminished bowel sounds, soft Extremities exam: ABSENT: clubbing, joint swelling Musculoskeletal exam: ABSENT: deformity, dislocation Neurological exam: PRESENT: awake, oriented to person Psychiatric exam: PRESENT: flat affect Skin exam: PRESENT: dry, warm Results Laboratory Results: 12/20/17 05:30 12/20/17 05:30 12/20/17 12/20/17 12/20/17 05:30 05:30 05:30 WBC 13.4 H RBC 3.08 L Hgb 9.7 L Hct 29.4 L MCV 96 MCH 31.6 MCHC 33.0 RDW 12.7 Plt Count 255 Seg Neutrophils % Not Reportable Lymphocytes % Not Reportable Monocytes % Not Reportable Eosinophils % Not Reportable Basophils % Not Reportable Absolute Neutrophils Not Reportable Absolute Lymphocytes Not Reportable Absolute Monocytes Not Reportable Absolute Eosinophils Not Reportable Absolute Basophils Not Reportable Carbonic Acid 1.13 HCO3/H2CO3 Ratio 22:1 ABG pH 7.45 ABG pCO2 37.7 ABG pO2 59.1 L ABG HCO3 25.3 ABG O2 Saturation 91.8 L ABG Base Excess 1.3 FiO2 2L Sodium 147.2 H Potassium 3.5 L Chloride 112 H Carbon Dioxide 27 Anion Gap 8 BUN 31 H Creatinine 0.93 Est GFR ( Amer) > 60 Est GFR (Non-Af Amer) > 60 Glucose 266 H Calcium 8.0 L Phosphorus 4.1 Magnesium 1.9 12/12/17 12/12/17 12/12/17 00:18 00:18 07:00 Creatine Kinase 1133 H 1142 H CK-MB (CK-2) 5.78 H Troponin I 0.084 NT-Pro-B Natriuret Pep 12/12/17 12/12/17 12/12/17 07:00 13:58 13:58 Creatine Kinase 1040 H CK-MB (CK-2) 5.69 H 5.29 H Troponin I 0.098 0.081 NT-Pro-B Natriuret Pep 553 12/12/17 12/12/17 18:45 18:45 Creatine Kinase 1048 H CK-MB (CK-2) 4.78 H Troponin I 0.067 NT-Pro-B Natriuret Pep Impressions: Head CT 12/12/17 00:00 IMPRESSION: No acute findings. Lines and tubes. Venous Doppler Study 12/15/17 00:00 IMPRESSION: Unremarkable bilateral upper extremity venous Doppler Chest X-Ray 12/20/17 06:00 IMPRESSION: Stable chest status post extubation. Assessment & Plan - Diagnosis (1) Acute respiratory failure Is this a current diagnosis for this admission?: Yes Plan: extubated x 24 hrs stable (2) Hyperosmolar nonketotic coma in diabetes Is this a current diagnosis for this admission?: No (3) ARF (acute renal failure) Qualifiers: Acute renal failure type: with acute tubular necrosis Qualified Code(s): N17.0 - Acute kidney failure with tubular necrosis Is this a current diagnosis for this admission?: No (4) Diabetes type 2, uncontrolled Qualifiers: Diabetes mellitus snf insulin use: with snf use Diabetes mellitus complication status: with neurologic complications Diabetes mellitus complication detail: with polyneuropathy Qualified Code(s): E11.42 - Type 2 diabetes mellitus with diabetic polyneuropathy; E11.65 - Type 2 diabetes mellitus with hyperglycemia; E11.65 - Type 2 diabetes mellitus with hyperglycemia; E11.65 - Type 2 diabetes mellitus with hyperglycemia; E11.65 - Type 2 diabetes mellitus with hyperglycemia; Z79.4 - care home (current) use of insulin; Z79.4 - care home (current) use of insulin; Z79.4 - terminal gauger (current ) use of insulin; Z79.4 - terminal gauger (current) use of insulin Is this a current diagnosis for this admission?: Yes Plan: Sliding scale insulin (5) Hypertension Qualifiers: Hypertension type: essential hypertension Qualified Code(s): I10 - Essential (primary) hypertension Is this a current diagnosis for this admission?: No Plan: Stable at this time (6) Septic shock Is this a current diagnosis for this admission?: No
[2017-12-21] MEDS: GABAPENTIN 300 MG CAPSULE PO SCH ×3 (06:33→22:17)
[2017-12-21 06:41] LABS: HEMATOCRIT 29.1 % (37.9-51.0); HEMOGLOBIN 9.7 g/dL (13.5-17.0); MEAN CORPUSCULAR HEMOGLOBIN 31.8 pg (27.0-33.4); MEAN CORPUSCULAR HGB CONC 33.2 g/dL (32.0-36.0); MEAN CORPUSCULAR VOLUME 96 fl (80-97); PLATELET COUNT 253 10^3/uL (150-450); RED BLOOD COUNT 3.04 10^6/uL (4.35-5.55); RED CELL DISTRIBUTION WIDTH 12.6 % (11.5-14.0); WHITE BLOOD COUNT 13.3 10^3/uL (4.0-10.5)
[2017-12-21 06:49] LABS: ANION GAP 6 (5-19); BLOOD UREA NITROGEN 32 mg/dL (7-20); CARBON DIOXIDE 29 mmol/L (22-30); CHLORIDE 112 mmol/L (98-107); GLUCOSE 220 mg/dL (75-110); POTASSIUM 3.3 mmol/L (3.6-5.0); SODIUM 146.7 mmol/L (137-145)
[2017-12-21] MEDS ORDERED: INSULIN GLARGINE,HUM.REC.ANLOG 300 UNIT/3 ML INSULN.PEN SUBCUT SCH (07:33)
[2017-12-21] MEDS ORDERED: PIOGLITAZONE HCL 15 MG TABLET PO SCH (07:45)
[2017-12-21] MEDS ORDERED: ACETAMINOPHEN 325 MG TABLET PO PRN ×2 (08:00→08:01)
[2017-12-21] MEDS: INSULIN LISPRO 100 UNIT/ML 3 ML VIAL SUBCUT PRN ×4 (08:06→22:17)
--- NOTE | 2017-12-21 08:06 | PDOC PROGRESS REPORT ---
Subjective Progress Note for:: 12/21/17 Subjective:: 57-year-old gentleman with uncontrolled diabetes and medication noncompliance presented with [facility] on 12/11/17 He was intubated for acute respiratory failure and was also found to have acute pancreatitis. The patient had some hypernatremia which was treated with D5W and free water flushes. This has improved. Lipase level has improved. Blood and urine cultures have been negative so far. He was on empiric antibiotics and levophed. Levophed has been discontinued Remains sedated on the vent. Wean attempted 12/16, but failed Platelet count dropped by >50%- heparin was stopped on 12/14/17, started on SCDs. HIT antibody was wnl. low platelets likely due to critical illness. Continued to have low grade fevers- negative cultures, no diarrhea- venous dopplers of upper extremities showed no clots. extubated 12/19 12/20 uneventful night. wants to eat. 12/21 No new problems. Bhatti still in. Blood noted in tube. Reason For Visit: [facility] Physical Exam Vital Signs: Temp Pulse Resp BP Pulse Ox 99.3 F 85 12 115/65 94 12/20/17 23:00 12/21/17 07:38 12/21/17 06:17 12/21/17 06:17 12/20/17 15:28 Intake & Output 12/20/17 12/21/17 12/22/17 06:59 06:59 06:59 Intake Total 1142 1339 Output Total 4000 1860 Balance -2858 -521 Weight 105.9 kg 103.4 kg General appearance: PRESENT: no acute distress, obese Head exam: PRESENT: atraumatic, normocephalic Eye exam: PRESENT: EOMI, PERRLA Neck exam: ABSENT: carotid bruit, JVD, lymphadenopathy, thyromegaly Respiratory exam: PRESENT: clear to auscultation bernardo. ABSENT: rales, rhonchi, wheezes Cardiovascular exam: PRESENT: RRR. ABSENT: diastolic murmur, rubs, systolic murmur GI/Abdominal exam: PRESENT: normal bowel sounds, soft. ABSENT: distended, guarding, mass, organolmegaly, rebound, tenderness Musculoskeletal exam: PRESENT: normal inspection Neurological exam: PRESENT: alert, awake, oriented to person, oriented to place , oriented to time, oriented to situation, CN II-XII grossly intact. ABSENT: motor sensory deficit Psychiatric exam: PRESENT: appropriate affect, normal mood. ABSENT: homicidal ideation, suicidal ideation Skin exam: PRESENT: dry, intact, warm. ABSENT: cyanosis, rash Results Laboratory Results: 12/21/17 06:00 12/21/17 06:00 12/21/17 12/21/17 06:00 06:00 WBC 13.3 H RBC 3.04 L Hgb 9.7 L Hct 29.1 L MCV 96 MCH 31.8 MCHC 33.2 RDW 12.6 Plt Count 253 Sodium 146.7 H Potassium 3.3 L Chloride 112 H Carbon Dioxide 29 Anion Gap 6 BUN 32 H Creatinine 0.98 Est GFR ( Amer) > 60 Est GFR (Non-Af Amer) > 60 Glucose 220 H Calcium 8.0 L 12/12/17 12/12/17 12/12/17 00:18 00:18 07:00 Creatine Kinase 1133 H 1142 H CK-MB (CK-2) 5.78 H Troponin I 0.084 NT-Pro-B Natriuret Pep 12/12/17 12/12/17 12/12/17 07:00 13:58 13:58 Creatine Kinase 1040 H CK-MB (CK-2) 5.69 H 5.29 H Troponin I 0.098 0.081 NT-Pro-B Natriuret Pep 553 12/12/17 12/12/17 18:45 18:45 Creatine Kinase 1048 H CK-MB (CK-2) 4.78 H Troponin I 0.067 NT-Pro-B Natriuret Pep Impressions: Head CT 12/12/17 00:00 IMPRESSION: No acute findings. Lines and tubes. Venous Doppler Study 12/15/17 00:00 IMPRESSION: Unremarkable bilateral upper extremity venous Doppler Chest X-Ray 12/20/17 06:00 IMPRESSION: Stable chest status post extubation. Assessment & Plan - Diagnosis (1) ARF (acute renal failure) Qualifiers: Acute renal failure type: with acute tubular necrosis Qualified Code(s): N17.0 - Acute kidney failure with tubular necrosis Is this a current diagnosis for this admission?: No Plan: Resolved. (2) Acute pancreatitis Qualifiers: Acute pancreatitis complication: unspecified Is this a current diagnosis for this admission?: Yes Plan: Resolved. I am reluctant to re-start Januvia since there have been case reports of it associated with pancreatitis. (3) Diabetes type 2, uncontrolled Qualifiers: Diabetes mellitus data warehouse administrator insulin use: with usp use Diabetes mellitus complication status: with neurologic complications Diabetes mellitus complication detail: with polyneuropathy Qualified Code(s): E11.42 - Type 2 diabetes mellitus with diabetic polyneuropathy; E11.65 - Type 2 diabetes mellitus with hyperglycemia; E11.65 - Type 2 diabetes mellitus with hyperglycemia; E11.65 - Type 2 diabetes mellitus with hyperglycemia; E11.65 - Type 2 diabetes mellitus with hyperglycemia; Z79.4 - premium note interest calculator clerk (current) use of insulin; Z79.4 - premium note interest calculator clerk (current) use of insulin; Z79.4 - premium note interest calculator clerk (current ) use of insulin; Z79.4 - premium note interest calculator clerk (current) use of insulin Is this a current diagnosis for this admission?: Yes Plan: Sugars in the 200s Increase Lantus to 36 units. Add Actos 30 mg daily. (4) Hyperosmolar nonketotic coma in diabetes Is this a current diagnosis for this admission?: No Plan: resolved. (5) Hypertension Qualifiers: Hypertension type: essential hypertension Qualified Code(s): I10 - Essential (primary) hypertension Is this a current diagnosis for this admission?: No Plan: Blood pressure well controlled off BP meds. Continue to monitor. (6) Thrombocytopenia Is this a current diagnosis for this admission?: Yes Plan: Resolved. Continue to monitor. - Time Time Spent with patient: 25-34 minutes Medications reviewed and adjusted accordingly: Yes Anticipated discharge: Home Within: within 72 hours - Inpatient Certification Based on my medical assessment, after consideration of the patient's comorbidities, presenting symptoms, or acuity I expect that the services needed warrant INPATIENT care.: Yes I certify that my determination is in accordance with my understanding of Medicare's requirements for reasonable and necessary INPATIENT services [42 CFR 412.3e].: Yes Medical Necessity: Need For IV Fluids
[2017-12-21] MEDS: CALCIUM CARBONATE 500 MG TABLET NG SCH ×2 (09:07→18:00)
[2017-12-21] MEDS: PIOGLITAZONE HCL 15 MG TABLET PO SCH (09:07)
[2017-12-21] MEDS: ASPIRIN 81 MG TABLET, CHEWABLE NG SCH (09:13)
--- NOTE | 2017-12-21 16:21 | PDOC PROGRESS REPORT ---
Subjective Progress Note for:: 12/21/17 Subjective:: 48hrs s/p extubation contines to improve Reason For Visit: DKA Physical Exam Vital Signs: Temp Pulse Resp BP Pulse Ox 99.3 F 85 12 115/65 94 12/20/17 23:00 12/21/17 07:38 12/21/17 06:17 12/21/17 06:17 12/20/17 15:28 Intake & Output 12/20/17 12/21/17 12/22/17 06:59 06:59 06:59 Intake Total 1142 1339 Output Total 4000 1860 Balance -9219 -291 Weight 105.9 kg 103.4 kg General appearance: PRESENT: no acute distress, cooperative, disheveled, obese Head exam: PRESENT: atraumatic, normocephalic Eye exam: PRESENT: conjunctiva pale, EOMI. ABSENT: nystagmus, periorbital swelling, scleral icterus Mouth exam: PRESENT: dry mucosa, neck supple, tongue midline Neck exam: ABSENT: carotid bruit, JVD, lymphadenopathy, thyromegaly, tracheal deviation, tracheostomy Respiratory exam: PRESENT: decreased breath sounds, prolonged expiratory phas, rhonchi, symmetrical. ABSENT: stridor, tachypnea Cardiovascular exam: PRESENT: RRR, +S1, +S2 Pulses: PRESENT: normal radial pulses GI/Abdominal exam: PRESENT: diminished bowel sounds, soft Extremities exam: ABSENT: calf tenderness, clubbing, joint swelling Musculoskeletal exam: ABSENT: deformity, dislocation Neurological exam: PRESENT: alert, awake Psychiatric exam: PRESENT: flat affect Skin exam: PRESENT: dry, warm Results Laboratory Results: 12/21/17 06:00 12/21/17 06:00 12/21/17 12/21/17 06:00 06:00 WBC 13.3 H RBC 3.04 L Hgb 9.7 L Hct 29.1 L MCV 96 MCH 31.8 MCHC 33.2 RDW 12.6 Plt Count 253 Sodium 146.7 H Potassium 3.3 L Chloride 112 H Carbon Dioxide 29 Anion Gap 6 BUN 32 H Creatinine 0.98 Est GFR ( Amer) > 60 Est GFR (Non-Af Amer) > 60 Glucose 220 H Calcium 8.0 L 12/12/17 12/12/17 12/12/17 00:18 00:18 07:00 Creatine Kinase 1133 H 1142 H CK-MB (CK-2) 5.78 H Troponin I 0.084 NT-Pro-B Natriuret Pep 12/12/17 12/12/17 12/12/17 07:00 13:58 13:58 Creatine Kinase 1040 H CK-MB (CK-2) 5.69 H 5.29 H Troponin I 0.098 0.081 NT-Pro-B Natriuret Pep 553 12/12/17 12/12/17 18:45 18:45 Creatine Kinase 1048 H CK-MB (CK-2) 4.78 H Troponin I 0.067 NT-Pro-B Natriuret Pep Impressions: Head CT 12/12/17 00:00 IMPRESSION: No acute findings. Lines and tubes. Venous Doppler Study 12/15/17 00:00 IMPRESSION: Unremarkable bilateral upper extremity venous Doppler Chest X-Ray 12/20/17 06:00 IMPRESSION: Stable chest status post extubation. 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 Diabetes mellitus complication status: with neurologic complications Diabetes mellitus complication detail: with polyneuropathy Qualified Code(s): E11.42 - Type 2 diabetes mellitus with diabetic polyneuropathy; E11.65 - Type 2 diabetes mellitus with hyperglycemia; E11.65 - Type 2 diabetes mellitus with hyperglycemia; E11.65 - Type 2 diabetes mellitus with hyperglycemia; E11.65 - Type 2 diabetes mellitus with hyperglycemia; Z79.4 - prison (current) use of insulin; Z79.4 - prison (current) use of insulin; Z79.4 - prison (current ) use of insulin; 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
[2017-12-22] MEDS: 1/2 NORMAL SALINE 1,000 ML IV PRN (03:22)
[2017-12-22 06:02] LABS: ARTERIAL BLOOD BASE EXCESS 2.4 mmol/L; ARTERIAL BLOOD FIO2 ROOM AIR; ARTERIAL BLOOD H2CO3 1.18 mmol/L (1.05-1.35); ARTERIAL BLOOD HCO3 26.5 mmol/L (20-26); ARTERIAL BLOOD O2 SATURATION 94.1 % (94-98); ARTERIAL BLOOD PCO2 39.3 mmHg (35-45); ARTERIAL BLOOD PH 7.45 (7.35-7.45); ARTERIAL BLOOD TOTAL CO2 27.7 mmol/L (23-27)
[2017-12-22 06:07] LABS: ABSOLUTE BASOPHILS # (AUTO) 0.1 10^3/uL (0.0-0.2); ABSOLUTE EOSINOPHILS # (AUTO) 0.6 10^3/uL (0.0-0.6); ABSOLUTE LYMPHOCYTES (AUTO) 1.5 10^3/uL (0.5-4.7); ABSOLUTE MONOCYTES (AUTO) 0.5 10^3/uL (0.1-1.4); ABSOLUTE NEUT (AUTO) 9.1 10^3/uL (1.7-8.2); BASOPHILS % (AUTO) 0.4 % (0-2); EOSINOPHILS % (AUTO) 5.3 % (0-6); HEMATOCRIT 29.7 % (37.9-51.0); LYMPHOCYTES % (AUTO) 12.9 % (13-45); MEAN CORPUSCULAR HEMOGLOBIN 31.9 pg (27.0-33.4); MEAN CORPUSCULAR HGB CONC 33.9 g/dL (32.0-36.0); MEAN CORPUSCULAR VOLUME 94 fl (80-97); MONOCYTES % (AUTO) 4.4 % (3-13); PLATELET COUNT 250 10^3/uL (150-450); RED BLOOD COUNT 3.15 10^6/uL (4.35-5.55); RED CELL DISTRIBUTION WIDTH 12.7 % (11.5-14.0); TOTAL CELLS COUNTED % (AUTO) 100 %; WHITE BLOOD COUNT 11.8 10^3/uL (4.0-10.5)
[2017-12-22 06:24] LABS: ANION GAP 7 (5-19); BLOOD UREA NITROGEN 28 mg/dL (7-20); CALCIUM 8.6 mg/dL (8.4-10.2); CARBON DIOXIDE 27 mmol/L (22-30); CHLORIDE 109 mmol/L (98-107); GLUCOSE 285 mg/dL (75-110); POTASSIUM 3.5 mmol/L (3.6-5.0); SODIUM 142.8 mmol/L (137-145)
[2017-12-22] MEDS: GABAPENTIN 300 MG CAPSULE PO SCH ×3 (06:37→22:24)
--- NOTE | 2017-12-22 07:28 | RADIOLOGY REPORT (SQ) ---
EXAM DESCRIPTION: CHEST SINGLE VIEW COMPLETED DATE/TIME: 12/22/2017 5:38 am REASON FOR STUDY: resp failure COMPARISON: Chest films 12/17/2017, 12/18/2017, 12/19/2017, 12/20/2017 EXAM PARAMETERS: NUMBER OF VIEWS: One view. TECHNIQUE: Single frontal radiographic view of the chest acquired. RADIATION DOSE: NA LIMITATIONS: None. FINDINGS: LUNGS AND PLEURA: There is dense consolidation in the right upper lobe perihilar region, w orrisome for pneumonia. This is more prominent than on previous films. There is left perihilar bandlike airspace disease atelectasis versus pneumonia, similar compared to p revious studies. No pleural effusions. No pneumothorax. MEDIASTINUM AND HILAR STRUCTURES: No masses. Contour normal. HEART AND VASCULAR STRUCTURES: Mild cardiomegaly BONES: No acute findings. HARDWARE: Right jugular central line tip in the upper right atrium. Endotracheal tube seen on 12/20/19 18 has been removed. OTHER: No other significant finding. IMPRESSION: Right upper lobe, left perihilar airspace disease worrisome for pneumonia. TECHNICAL DOCUMENTATION: JOB ID: [id number] [employer]- All Rights Reserved Reading location - IP/workstation name: [email or web address]
[2017-12-22] MEDS: PIOGLITAZONE HCL 15 MG TABLET PO SCH (08:05)
[2017-12-22] MEDS: INSULIN GLARGINE,HUM.REC.ANLOG 300 UNIT/3 ML INSULN.PEN SUBCUT SCH (09:24)
[2017-12-22] MEDS: ASPIRIN 81 MG TABLET, CHEWABLE PO SCH (09:24)
[2017-12-22] MEDS: CALCIUM CARBONATE 500 MG TABLET PO SCH ×2 (09:25→17:27)
[2017-12-22] MEDS: DOXYCYCLINE HYCLATE 100 MG TABLET PO SCH ×2 (09:25→22:42)
[2017-12-22] MEDS: INSULIN LISPRO 100 UNIT/ML 3 ML VIAL SUBCUT SCH ×3 (12:00→22:42)
--- NOTE | 2017-12-22 18:59 | PDOC PROGRESS REPORT ---
Subjective Progress Note for:: 12/22/17 Subjective:: 57-year-old gentleman with uncontrolled diabetes and medication noncompliance presented with [facility] on 12/11/17 He was intubated for acute respiratory failure and was also found to have acute pancreatitis. The patient had some hypernatremia which was treated with D5W and free water flushes. This has improved. Lipase level has improved. Blood and urine cultures have been negative so far. He was on empiric antibiotics and levophed. Levophed has been discontinued Remains sedated on the vent. Wean attempted 12/16, but failed Platelet count dropped by >50%- heparin was stopped on 12/14/17, started on SCDs. HIT antibody was wnl. low platelets likely due to critical illness. Continued to have low grade fevers- negative cultures, no diarrhea- venous dopplers of upper extremities showed no clots. extubated 12/19 12/22 patient is alert awake appears extremely comfortable ; he has no respiratory distress and minimal cough The patient's blood sugars are normalizing and his electrolytes have improved He is tolerating diet Reason For Visit: DKA Physical Exam Vital Signs: Temp Pulse Resp BP Pulse Ox 98.1 F 82 16 126/67 H 96 12/22/17 15:57 12/22/17 15:57 12/22/17 15:57 12/22/17 15:57 12/22/17 15:57 Intake & Output 12/21/17 12/22/17 12/23/17 00:59 00:59 00:59 Intake Total 8989 999 9050 Output Total 2009 158 1245 Balance -578 -676 -47 Weight 105.9 kg 103.4 kg 105.7 kg General appearance: PRESENT: no acute distress, well-developed, well-nourished Head exam: PRESENT: atraumatic, normocephalic Respiratory exam: PRESENT: clear to auscultation bernardo. ABSENT: rales, rhonchi, wheezes Cardiovascular exam: PRESENT: bradycardia Pulses: PRESENT: normal dorsalis pedis pul GI/Abdominal exam: PRESENT: normal bowel sounds, soft. ABSENT: distended, guarding, mass, organolmegaly, rebound, tenderness Neurological exam: PRESENT: alert, awake, oriented to person, oriented to place , oriented to time, oriented to situation, CN II-XII grossly intact. ABSENT: motor sensory deficit Results Laboratory Results: 12/22/17 05:40 12/22/17 05:40 12/22/17 12/22/17 12/22/17 05:40 05:40 05:40 WBC 11.8 H RBC 3.15 L Hgb 10.0 L Hct 29.7 L MCV 94 MCH 31.9 MCHC 33.9 RDW 12.7 Plt Count 250 Seg Neutrophils % 77.0 Lymphocytes % 12.9 L Monocytes % 4.4 Eosinophils % 5.3 Basophils % 0.4 Absolute Neutrophils 9.1 H Absolute Lymphocytes 1.5 Absolute Monocytes 0.5 Absolute Eosinophils 0.6 Absolute Basophils 0.1 Carbonic Acid 1.18 HCO3/H2CO3 Ratio 22:1 ABG pH 7.45 ABG pCO2 39.3 ABG pO2 67.0 L ABG HCO3 26.5 H ABG O2 Saturation 94.1 ABG Base Excess 2.4 FiO2 ROOM AIR Sodium 142.8 Potassium 3.5 L Chloride 109 H Carbon Dioxide 27 Anion Gap 7 BUN 28 H Creatinine 0.99 Est GFR ( Amer) > 60 Est GFR (Non-Af Amer) > 60 Glucose 285 H Calcium 8.6 Magnesium 2.2 12/12/17 12/12/17 12/12/17 00:18 00:18 07:00 Creatine Kinase 1133 H 1142 H CK-MB (CK-2) 5.78 H Troponin I 0.084 NT-Pro-B Natriuret Pep 12/12/17 12/12/17 12/12/17 07:00 13:58 13:58 Creatine Kinase 1040 H CK-MB (CK-2) 5.69 H 5.29 H Troponin I 0.098 0.081 NT-Pro-B Natriuret Pep 553 12/12/17 12/12/17 18:45 18:45 Creatine Kinase 1048 H CK-MB (CK-2) 4.78 H Troponin I 0.067 NT-Pro-B Natriuret Pep Impressions: Head CT 12/12/17 00:00 IMPRESSION: No acute findings. Lines and tubes. Venous Doppler Study 12/15/17 00:00 IMPRESSION: Unremarkable bilateral upper extremity venous Doppler Chest X-Ray 12/22/17 06:00 IMPRESSION: Right upper lobe, left perihilar airspace disease worrisome for pneumonia. Assessment & Plan - Diagnosis (1) Right upper lobe pneumonia Qualifiers: Pneumonia type: aspiration pneumonia Is this a current diagnosis for this admission?: Yes Plan: We do have concern about development of the right upper lobe pneumonia. Patient has persistent leukocytosis Does not have any significant hypoxemia and minimal symptoms We ordered blood cultures Zosyn IV And doxycycline po were ordered (2) ARF (acute renal failure) Qualifiers: Acute renal failure type: with acute tubular necrosis Qualified Code(s): N17.0 - Acute kidney failure with tubular necrosis Is this a current diagnosis for this admission?: No Plan: Resolved (3) Acute pancreatitis Qualifiers: Acute pancreatitis complication: unspecified Is this a current diagnosis for this admission?: Yes Plan: Resolved (4) Acute respiratory failure Is this a current diagnosis for this admission?: Yes Plan: Resolved (5) Septic shock Is this a current diagnosis for this admission?: No - Time Time Spent with patient: We will increase patient's Lantus and resume his prior dose at home Lispro before meals at bedtime Continue antibiotics Zosyn and doxycycline patient may be transferred to medical unit Repeat CBC and BMP in a.m. Time Spent with patient: 25-34 minutes - Inpatient Certification Based on my medical assessment, after consideration of the patient's comorbidities, presenting symptoms, or acuity I expect that the services needed warrant INPATIENT care.: Yes I certify that my determination is in accordance with my understanding of Medicare's requirements for reasonable and necessary INPATIENT services [42 CFR 412.3e].: Yes Medical Necessity: Need For IV Fluids, Need for Nebulizer Therapy and Monitoring of Response, Need for IV Antibiotics
[2017-12-22] MEDS: PIPERACILLIN SODIUM/TAZOBACTAM 3.375 GM in NORMAL SALINE 100 ML IV SCH (21:55)
[2017-12-22] MEDS ORDERED: DOXYCYCLINE HYCLATE 100 MG TABLET PO ONE (22:37)
[2017-12-23] MEDS: PIPERACILLIN SODIUM/TAZOBACTAM 3.375 GM in NORMAL SALINE 100 ML IV SCH ×3 (02:50→14:37)
[2017-12-23] MEDS: GABAPENTIN 300 MG CAPSULE PO SCH ×3 (06:30→21:39)
[2017-12-23 06:48] LABS: ABSOLUTE EOSINOPHILS # (AUTO) 0.5 10^3/uL (0.0-0.6); ABSOLUTE LYMPHOCYTES (AUTO) 1.5 10^3/uL (0.5-4.7); ABSOLUTE MONOCYTES (AUTO) 0.6 10^3/uL (0.1-1.4); ABSOLUTE NEUT (AUTO) 10.9 10^3/uL (1.7-8.2); BASOPHILS % (AUTO) 0.3 % (0-2); EOSINOPHILS % (AUTO) 3.8 % (0-6); HEMOGLOBIN 9.5 g/dL (13.5-17.0); LYMPHOCYTES % (AUTO) 11.2 % (13-45); MEAN CORPUSCULAR HEMOGLOBIN 31.9 pg (27.0-33.4); MEAN CORPUSCULAR HGB CONC 33.9 g/dL (32.0-36.0); MEAN CORPUSCULAR VOLUME 94 fl (80-97); MONOCYTES % (AUTO) 4.1 % (3-13); PLATELET COUNT 233 10^3/uL (150-450); RED BLOOD COUNT 2.97 10^6/uL (4.35-5.55); RED CELL DISTRIBUTION WIDTH 12.5 % (11.5-14.0); SEGMENTED NEUTROPHILS % (AUTO) 80.6 % (42-78); TOTAL CELLS COUNTED % (AUTO) 100 %; WHITE BLOOD COUNT 13.5 10^3/uL (4.0-10.5)
[2017-12-23 07:10] LABS: ANION GAP 6 (5-19); BLOOD UREA NITROGEN 25 mg/dL (7-20); CALCIUM 9.2 mg/dL (8.4-10.2); CARBON DIOXIDE 29 mmol/L (22-30); CHLORIDE 108 mmol/L (98-107); CHOLESTEROL 186.97 mg/dL (0-200); GLUCOSE 174 mg/dL (75-110); POTASSIUM 3.3 mmol/L (3.6-5.0); SODIUM 142.8 mmol/L (137-145); TRIGLYCERIDES 321 mg/dL (<150)
[2017-12-23 07:21] LABS: DIRECT LDL 101 mg/dL (<100)
[2017-12-23 07:34] LABS: VLDL CHOLESTEROL 64.2 mg/dL (10-31)
[2017-12-23] MEDS: INSULIN LISPRO 100 UNIT/ML 3 ML VIAL SUBCUT SCH ×4 (08:41→21:55)
[2017-12-23] MEDS: PIOGLITAZONE HCL 15 MG TABLET PO SCH (08:52)
[2017-12-23] MEDS ORDERED: (PENDING PHARMACY ID) (Lisinopril/Hydrochlorothiazide [Lisinopril-Hctz 20-25 Mg Tab] 1 EAC PO SCH (10:00)
[2017-12-23] MEDS: INSULIN GLARGINE,HUM.REC.ANLOG 300 UNIT/3 ML INSULN.PEN SUBCUT SCH (10:28)
[2017-12-23] MEDS: ASPIRIN 81 MG TABLET, CHEWABLE PO SCH (10:31)
[2017-12-23] MEDS: LISINOPRIL 10 MG TABLET PO SCH (10:32)
[2017-12-23] MEDS: CALCIUM CARBONATE 500 MG TABLET PO SCH ×2 (10:32→17:03)
[2017-12-23] MEDS: HYDROCHLOROTHIAZIDE 25 MG TABLET PO SCH (10:33)
[2017-12-23] MEDS: DOXYCYCLINE HYCLATE 100 MG TABLET PO SCH (10:33)
--- NOTE | 2017-12-23 16:06 | Progress Note ---
Provider Note Provider Note: ID Consult Note Asked to review pt's chart by Pharmacy. Mr. Hu is a 57 yo man with uncontrolled DM and medication noncompliance who was admitted with [facility] on and also found to have acute pancreatitis. Rocephin and vancomycin were started empirically and ultimately Rocephin was continued for 1 week. Blood and urine cultures remained negative. His initial CT chest showed no evidence of an infiltrate c/w pneumonia. His WBC count was 22.9k on admission. It has decreased to the 11-14k range over the past several days. His last fever was 100.6 F on 12/16. He was extubated successfully on 12/19/17. According to the progress note on 12/22, Mr. Hu has had no respiratory distress, minimal cough, and clear lungs on exam. He had a single-view CXR that was read as showing dense consolidation in the right upper lobe perihilar region. I personally reviewed this film and also his CT chest that was done previously. Impression / Recommendations Leukocytosis likely secondary to acute pancreatitis Non-infectious SIRS - In absence of clinical signs and symptoms to correspond to a pneumonia (no hypoxia, no respiratory distress, no cough, no new fever), I think that it is difficult to support a diagnosis of pneumonia only on the basis of a single view chest film with low lung volumes and more crowding as a result. If the patient had an episode of aspiration, it is worth bearing in mind that most episodes of aspiration result in no sequelae or aspiration pneumonitis without kerline pneumonia. - The patient's temperature and WBC count have not changed markedly in the past few days. The patient has also been diagnosed with acute pancreatitis this admission, and it can be intensely inflammatory and may account for the ongoing leukocytosis. - If he is still suspected of having aspiration pneumonia based on clinical grounds such as finding adventitious lung sounds, hypoxia, productive cough, or new fever, consider repeating a 2-view CXR and getting a sputum sample for culture. However, based on the information that is documented right now, I do not see this convincingly being the case. Recommend discontinuing Zosyn and doxycycline considering the lack of clinical correlation with the CXR read. Rodney Barker MD [facility] Infectious Diseases, pager [phone]
--- NOTE | 2017-12-23 18:45 | PDOC PROGRESS REPORT ---
Subjective Progress Note for:: 12/23/17 Subjective:: Feeling much better today. Really wants to go home. Denies fevers, chills, CP, SOB. Per RN report, remains unsteady on feet and requiring walker. Denies abdominal pain. Reason For Visit: DKA Physical Exam Vital Signs: Temp Pulse Resp BP Pulse Ox 98.8 F 85 16 113/62 95 12/23/17 15:58 12/23/17 15:58 12/23/17 15:58 12/23/17 15:58 12/23/17 15:58 Intake & Output 12/22/17 12/23/17 12/24/17 06:59 06:59 06:59 Intake Total 1055 600 Output Total 2125 100 Balance -1070 500 Weight 105.7 kg 104.7 kg General appearance: PRESENT: no acute distress, cooperative, obese Mouth exam: PRESENT: moist Respiratory exam: PRESENT: unlabored. ABSENT: tachypnea Cardiovascular exam: PRESENT: +S1, +S2 GI/Abdominal exam: PRESENT: normal bowel sounds, soft. ABSENT: tenderness Neurological exam: PRESENT: alert, awake, CN II-XII grossly intact Psychiatric exam: PRESENT: appropriate affect, normal mood Results Laboratory Results: 12/23/17 06:30 12/23/17 06:30 12/23/17 12/23/17 06:30 06:30 WBC 13.5 H RBC 2.97 L Hgb 9.5 L Hct 28.0 L MCV 94 MCH 31.9 MCHC 33.9 RDW 12.5 Plt Count 233 Seg Neutrophils % 80.6 H Lymphocytes % 11.2 L Monocytes % 4.1 Eosinophils % 3.8 Basophils % 0.3 Absolute Neutrophils 10.9 H Absolute Lymphocytes 1.5 Absolute Monocytes 0.6 Absolute Eosinophils 0.5 Absolute Basophils 0.0 Sodium 142.8 Potassium 3.3 L Chloride 108 H Carbon Dioxide 29 Anion Gap 6 BUN 25 H Creatinine 0.96 Est GFR ( Amer) > 60 Est GFR (Non-Af Amer) > 60 Glucose 174 H Calcium 9.2 Triglycerides 321 H Cholesterol 186.97 LDL Cholesterol Direct 101 H VLDL Cholesterol 64.2 H HDL Cholesterol 21 L 12/12/17 12/12/17 12/12/17 00:18 00:18 07:00 Creatine Kinase 1133 H 1142 H CK-MB (CK-2) 5.78 H Troponin I 0.084 NT-Pro-B Natriuret Pep 12/12/17 12/12/17 12/12/17 07:00 13:58 13:58 Creatine Kinase 1040 H CK-MB (CK-2) 5.69 H 5.29 H Troponin I 0.098 0.081 NT-Pro-B Natriuret Pep 553 12/12/17 12/12/17 18:45 18:45 Creatine Kinase 1048 H CK-MB (CK-2) 4.78 H Troponin I 0.067 NT-Pro-B Natriuret Pep Impressions: Head CT 12/12/17 00:00 IMPRESSION: No acute findings. Lines and tubes. Venous Doppler Study 12/15/17 00:00 IMPRESSION: Unremarkable bilateral upper extremity venous Doppler Chest X-Ray 12/22/17 06:00 IMPRESSION: Right upper lobe, left perihilar airspace disease worrisome for pneumonia. Assessment & Plan - Diagnosis (1) Acute pancreatitis Qualifiers: Acute pancreatitis complication: unspecified Is this a current diagnosis for this admission?: Yes Plan: Markedly improved. Continues to have elevated WBC which could be residual inflammation. Non tender on exam today . (2) ARF (acute renal failure) Qualifiers: Acute renal failure type: with acute tubular necrosis Qualified Code(s): N17.0 - Acute kidney failure with tubular necrosis Is this a current diagnosis for this admission?: No (3) Diabetes type 2, uncontrolled Qualifiers: Diabetes mellitus fdc insulin use: with fdc use Diabetes mellitus complication status: with neurologic complications Diabetes mellitus complication detail: with polyneuropathy Qualified Code(s): E11.42 - Type 2 diabetes mellitus with diabetic polyneuropathy; E11.65 - Type 2 diabetes mellitus with hyperglycemia; E11.65 - Type 2 diabetes mellitus with hyperglycemia; E11.65 - Type 2 diabetes mellitus with hyperglycemia; E11.65 - Type 2 diabetes mellitus with hyperglycemia; Z79.4 - longterm (current) use of insulin; Z79.4 - longterm (current) use of insulin; 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 Discontinued Zosyn and doxycycline. Will continue Levofloxacin PO for 4 additional days as coverage given persistent leukocytosis (5) Physical deconditioning Is this a current diagnosis for this admission?: Yes Plan: Worked with PT today - Will need home health with PT prior to discharge - Time Time Spent with patient: 15-24 minutes Anticipated discharge: Home with Homehealth Within: within 24 hours
[2017-12-23] MEDS: ATORVASTATIN CALCIUM 80 MG TABLET PO SCH (21:39)
[2017-12-24] MEDS: GABAPENTIN 300 MG CAPSULE PO SCH ×3 (05:58→22:25)
[2017-12-24 06:36] LABS: HEMATOCRIT 27.7 % (37.9-51.0); HEMOGLOBIN 9.4 g/dL (13.5-17.0); MEAN CORPUSCULAR HEMOGLOBIN 31.8 pg (27.0-33.4); MEAN CORPUSCULAR VOLUME 94 fl (80-97); PLATELET COUNT 241 10^3/uL (150-450); RED BLOOD COUNT 2.96 10^6/uL (4.35-5.55); RED CELL DISTRIBUTION WIDTH 12.4 % (11.5-14.0); WHITE BLOOD COUNT 13.4 10^3/uL (4.0-10.5)
[2017-12-24 06:37] LABS: ANION GAP 8 (5-19); BLOOD UREA NITROGEN 21 mg/dL (7-20); CALCIUM 9.4 mg/dL (8.4-10.2); CARBON DIOXIDE 29 mmol/L (22-30); CHLORIDE 108 mmol/L (98-107); GLUCOSE 154 mg/dL (75-110); POTASSIUM 3.2 mmol/L (3.6-5.0); SODIUM 144.6 mmol/L (137-145)
[2017-12-24] MEDS: INSULIN LISPRO 100 UNIT/ML 3 ML VIAL SUBCUT SCH ×4 (08:01→22:40)
[2017-12-24] MEDS: PIOGLITAZONE HCL 15 MG TABLET PO SCH (08:10)
[2017-12-24] MEDS: INSULIN GLARGINE,HUM.REC.ANLOG 300 UNIT/3 ML INSULN.PEN SUBCUT SCH (10:25)
[2017-12-24] MEDS: LISINOPRIL 10 MG TABLET PO SCH (10:26)
[2017-12-24] MEDS: LEVOFLOXACIN 750 MG TABLET PO SCH (10:26)
[2017-12-24] MEDS: HYDROCHLOROTHIAZIDE 25 MG TABLET PO SCH (10:26)
[2017-12-24] MEDS: ASPIRIN 81 MG TABLET, CHEWABLE PO SCH (10:26)
[2017-12-24] MEDS: CALCIUM CARBONATE 500 MG TABLET PO SCH ×2 (10:26→17:35)
--- NOTE | 2017-12-24 18:49 | PDOC PROGRESS REPORT ---
Subjective Progress Note for:: 12/24/17 Subjective:: Feeling much better. No more abdominal pain, no nausea or vomiting. No chest pain or shortness of breath, no palpitations. No fever or chills. Has cough, dry. Reason For Visit: DKA Physical Exam Vital Signs: Temp Pulse Resp BP Pulse Ox 98.0 F 88 18 138/77 H 96 12/24/17 17:23 12/24/17 17:23 12/24/17 17:23 12/24/17 17:23 12/24/17 17:23 Intake & Output 12/23/17 12/24/17 12/25/17 06:59 06:59 06:59 Intake Total 600 620 720 Output Total 100 Balance 500 620 720 Weight 104.7 kg 104.7 kg GEN: NAD, well-developed, well-nourished CV: RRR, NL S1S2 LUNGS: Decreased breath sounds bases bilaterally ABDOMEN Soft, NT, +BS EXTERMITIES: No e/c/c NEURO: Alert, oriented 3, nonfocal Results Laboratory Results: 12/24/17 06:05 12/24/17 06:05 12/24/17 12/24/17 06:05 06:05 WBC 13.4 H RBC 2.96 L Hgb 9.4 L Hct 27.7 L MCV 94 MCH 31.8 MCHC 34.0 RDW 12.4 Plt Count 241 Sodium 144.6 Potassium 3.2 L Chloride 108 H Carbon Dioxide 29 Anion Gap 8 BUN 21 H Creatinine 0.99 Est GFR ( Amer) > 60 Est GFR (Non-Af Amer) > 60 Glucose 154 H Calcium 9.4 12/12/17 12/12/17 12/12/17 00:18 00:18 07:00 Creatine Kinase 1133 H 1142 H CK-MB (CK-2) 5.78 H Troponin I 0.084 NT-Pro-B Natriuret Pep 12/12/17 12/12/17 12/12/17 07:00 13:58 13:58 Creatine Kinase 1040 H CK-MB (CK-2) 5.69 H 5.29 H Troponin I 0.098 0.081 NT-Pro-B Natriuret Pep 553 12/12/17 12/12/17 18:45 18:45 Creatine Kinase 1048 H CK-MB (CK-2) 4.78 H Troponin I 0.067 NT-Pro-B Natriuret Pep Impressions: Head CT 12/12/17 00:00 IMPRESSION: No acute findings. Lines and tubes. Venous Doppler Study 12/15/17 00:00 IMPRESSION: Unremarkable bilateral upper extremity venous Doppler Chest X-Ray 12/22/17 06:00 IMPRESSION: Right upper lobe, left perihilar airspace disease worrisome for pneumonia. Assessment & Plan - Plan Summary Plan Summary: (1) Acute pancreatitis Qualifiers: Acute pancreatitis complication: unspecified Is this a current diagnosis for this admission?: Yes Plan: Markedly improved. Continues to have elevated WBC which could be residual inflammation. No longer symptomatic and Non tender on my exam today. (2) ARF (acute renal failure) Qualifiers: Acute renal failure type: with acute tubular necrosis Qualified Code(s): N17.0 - Acute kidney failure with tubular necrosis Is this a current diagnosis for this admission?: No -Markedly improved. 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 Will continue Levofloxacin PO for 3 additional days as coverage given persistent leukocytosis. Follow-up PA/ lateral chest x-ray in a.m. (5) Physical deconditioning Is this a current diagnosis for this admission?: Yes Plan: Worked with PT today - Will need home health with PT prior to discharge 6. Hypokalemia. Will treat with KCl 40 M EQ p.o. 1. Follow-up Chem-7 in a.m. 7. Disposition. Possible discharge in a.m. if stable.
[2017-12-24] MEDS ORDERED: POTASSIUM CHLORIDE 10 MEQ TABLET.SA PO ONE (19:15)
--- NOTE | 2017-12-24 19:26 | RADIOLOGY REPORT (SQ) ---
EXAM DESCRIPTION: CHEST 2 VIEWS COMPLETED DATE/TIME: 12/24/2017 7:19 pm REASON FOR STUDY: Possible PNA COMPARISON: 12/22/2017 EXAM PARAMETERS: NUMBER OF VIEWS: two views TECHNIQUE: Digital Frontal and Lateral radiographic views of the chest acquired. RADIATION DOSE: NA LIMITATIONS: none FINDINGS: LUNGS AND PLEURA: Persistent parenchymal opacity in the right upper lobe. Minimal left pe rihilar and basilar opacities. MEDIASTINUM AND HILAR STRUCTURES: No masses or contour abnormalities. HEART AND VASCULAR STRUCTURES: Heart normal size. No evidence for failure. BONES: No acute findings. HARDWARE: Venous access catheter unchanged. OTHER: No other significant finding. IMPRESSION: No improvement in the right upper lobe opacities. Increasing left-sided opacities. TECHNICAL DOCUMENTATION: JOB ID: [id number] [employer]- All Rights Reserved Reading location - IP/workstation name: [email or web address]
[2017-12-24] MEDS: ATORVASTATIN CALCIUM 80 MG TABLET PO SCH (22:25)
[2017-12-25] MEDS: GABAPENTIN 300 MG CAPSULE PO SCH ×2 (06:42→14:54)
[2017-12-25 07:35] LABS: ANION GAP 9 (5-19); BLOOD UREA NITROGEN 19 mg/dL (7-20); CALCIUM 9.6 mg/dL (8.4-10.2); CARBON DIOXIDE 30 mmol/L (22-30); CHLORIDE 105 mmol/L (98-107); GLUCOSE 197 mg/dL (75-110); POTASSIUM 3.5 mmol/L (3.6-5.0); SODIUM 143.6 mmol/L (137-145)
[2017-12-25 07:41] LABS: ABSOLUTE EOSINOPHILS # (AUTO) 0.6 10^3/uL (0.0-0.6); ABSOLUTE LYMPHOCYTES (AUTO) 1.7 10^3/uL (0.5-4.7); ABSOLUTE MONOCYTES (AUTO) 0.7 10^3/uL (0.1-1.4); ABSOLUTE NEUT (AUTO) 11.8 10^3/uL (1.7-8.2); BASOPHILS % (AUTO) 0.2 % (0-2); EOSINOPHILS % (AUTO) 3.8 % (0-6); HEMATOCRIT 26.9 % (37.9-51.0); HEMOGLOBIN 9.2 g/dL (13.5-17.0); LYMPHOCYTES % (AUTO) 11.3 % (13-45); MEAN CORPUSCULAR HEMOGLOBIN 32.1 pg (27.0-33.4); MEAN CORPUSCULAR HGB CONC 34.2 g/dL (32.0-36.0); MEAN CORPUSCULAR VOLUME 94 fl (80-97); MONOCYTES % (AUTO) 4.9 % (3-13); PLATELET COUNT 227 10^3/uL (150-450); RED BLOOD COUNT 2.87 10^6/uL (4.35-5.55); RED CELL DISTRIBUTION WIDTH 12.8 % (11.5-14.0); SEGMENTED NEUTROPHILS % (AUTO) 79.8 % (42-78); TOTAL CELLS COUNTED % (AUTO) 100 %; WHITE BLOOD COUNT 14.8 10^3/uL (4.0-10.5)
[2017-12-25] MEDS: ASPIRIN 81 MG TABLET, CHEWABLE PO SCH (09:07)
[2017-12-25] MEDS: LEVOFLOXACIN 750 MG TABLET PO SCH (09:08)
[2017-12-25] MEDS: CALCIUM CARBONATE 500 MG TABLET PO SCH ×2 (09:08→17:47)
[2017-12-25] MEDS: PIOGLITAZONE HCL 15 MG TABLET PO SCH (09:09)
[2017-12-25] MEDS: HYDROCHLOROTHIAZIDE 25 MG TABLET PO SCH (09:10)
[2017-12-25] MEDS: LISINOPRIL 10 MG TABLET PO SCH (09:13)
[2017-12-25] MEDS: INSULIN LISPRO 100 UNIT/ML 3 ML VIAL SUBCUT SCH ×3 (09:16→17:46)
[2017-12-25] MEDS: INSULIN GLARGINE,HUM.REC.ANLOG 300 UNIT/3 ML INSULN.PEN SUBCUT SCH (09:23)
--- NOTE | 2017-12-25 12:36 | RADIOLOGY REPORT (SQ) ---
EXAM DESCRIPTION: CT CHEST WITH COMPLETED DATE/TIME: 12/25/2017 12:11 pm REASON FOR STUDY: Persistent RUL opacity COMPARISON: Non contrasted chest CT scan dated 12/12/2017 and chest x-ray dated 12/24/2017 TECHNIQUE: CT scan of the chest performed using helical scanning technique with dynamic intravenous contrast injection. Images reviewed with lung, soft tissue and bone windows. Reconstructed coronal and sagittal MPR images reviewed. All images stored on PACS. All CT scanners at this facility use dose modulation, iterative reconstruction, and/or weight based d osing when appropriate to reduce radiation dose to as low as reasonably achievable (ALARA). [facility]: Dose Right [facility]: CareDose [facility]: Dose Right [facility]: Teradose 4D [facility]: [employer] CONTRAST TYPE AND DOSE: contrast/concentration: Isovue 370.00 mg/ml; Total Contrast Delivered: 80.0 ml; Total Saline Delivered: 55.0 ml RENAL FUNCTION: Creatinine 0.98 RADIATION DOSE: CT Rad equipment meets quality standard of care and radiation dose reduction techniq ues were employed. CTDIvol: 18.6 mGy. DLP: 666 mGy-cm. . LIMITATIONS: None. FINDINGS: LUNGS AND PLEURA: There is focal airspace consolidation in the right upper lobe posteriorl y which correlates with the chest x-ray findings. This could represent atelectatic changes or pneumo tonie consolidation. This was not present on the previous chest CT scan. Patchy bilateral airspace co nsolidation is identified in both lower lobes most consistent with patchy pneumonic infiltrates which was not present on the previous chest CT scan. A tiny right pleural effusion is identified. HILAR AND MEDIASTINAL STRUCTURES: No identified masses or abnormal nodes. HEART AND VASCULAR STRUCTURES: No aneurysm or dissection. No central pulmonary emboli. No pericardi al effusion. HARDWARE: Central line is identified with its tip at the level of the right atrium. UPPER ABDOMEN: Again there is fatty infiltration of the liver. THYROID AND OTHER SOFT TISSUES: No masses. No adenopathy. BONES: No significant finding. OTHER: No other significant finding. IMPRESSION: Focal airspace consolidation in the right upper lobe posteriorly which could represent a telectatic changes or pneumonic consolidation. Patchy bilateral airspace densities are identified in both lower lobes most consistent with patchy pneumonic infiltrates. Tiny right pleural effusion is identified. Other findings as noted above TECHNICAL DOCUMENTATION: JOB ID: [id number] Quality ID # [id number]: Final reports with documentation of one or more dose reduction techniques (e.g., Au tomated exposure control, adjustment of the mA and/or kV according to patient size, use of iterative reconstruction technique) 2010 [employer]- All Rights Reserved Reading location - IP/workstation name: [email or web address]
[2017-12-25] MEDS ORDERED: LEVALBUTEROL HCL NEB 0.63 MG/3 ML AMPUL NEB PRN (13:45)
[2017-12-25 16:01] VITALS: BP 138/77
[2017-12-25] MEDS ORDERED: ACETYLCYSTEINE 20% SOLN 800 MG/4 ML VIAL.NEB NEB SCH (20:00)
--- NOTE | 2017-12-26 12:28 | PDOC PROGRESS REPORT ---
Subjective Progress Note for:: 12/22/17 Subjective:: 48hrs s/p extubation contines to improve Reason For Visit: DKA Physical Exam Vital Signs: Temp Pulse Resp BP Pulse Ox 98.6 F 72 12 142/76 H 95 12/22/17 08:23 12/22/17 08:23 12/22/17 08:23 12/22/17 08:23 12/22/17 08:23 Intake & Output 12/21/17 12/22/17 12/23/17 06:59 06:59 06:59 Intake Total 1339 1055 Output Total 1860 2125 100 Balance -521 -1070 -100 Weight 103.4 kg 105.7 kg General appearance: PRESENT: no acute distress, cooperative, disheveled, obese Head exam: PRESENT: atraumatic, normocephalic Eye exam: PRESENT: conjunctiva pale, EOMI. ABSENT: nystagmus, periorbital swelling, scleral icterus Mouth exam: PRESENT: moist, neck supple, tongue midline Neck exam: ABSENT: carotid bruit, JVD, lymphadenopathy, thyromegaly, tracheal deviation, tracheostomy Respiratory exam: PRESENT: decreased breath sounds, prolonged expiratory phas, rales, rhonchi, symmetrical, unlabored, wheezes. ABSENT: retraction, stridor, tachypnea Cardiovascular exam: PRESENT: RRR, +S1, +S2 Pulses: PRESENT: normal radial pulses GI/Abdominal exam: PRESENT: diminished bowel sounds, soft Extremities exam: ABSENT: calf tenderness, clubbing, joint swelling Musculoskeletal exam: ABSENT: deformity, dislocation Neurological exam: PRESENT: awake Psychiatric exam: PRESENT: flat affect Skin exam: PRESENT: dry, warm Results Laboratory Results: 12/22/17 05:40 12/22/17 05:40 12/22/17 12/22/17 12/22/17 05:40 05:40 05:40 WBC 11.8 H RBC 3.15 L Hgb 10.0 L Hct 29.7 L MCV 94 MCH 31.9 MCHC 33.9 RDW 12.7 Plt Count 250 Seg Neutrophils % 77.0 Lymphocytes % 12.9 L Monocytes % 4.4 Eosinophils % 5.3 Basophils % 0.4 Absolute Neutrophils 9.1 H Absolute Lymphocytes 1.5 Absolute Monocytes 0.5 Absolute Eosinophils 0.6 Absolute Basophils 0.1 Carbonic Acid 1.18 HCO3/H2CO3 Ratio 22:1 ABG pH 7.45 ABG pCO2 39.3 ABG pO2 67.0 L ABG HCO3 26.5 H ABG O2 Saturation 94.1 ABG Base Excess 2.4 FiO2 ROOM AIR Sodium 142.8 Potassium 3.5 L Chloride 109 H Carbon Dioxide 27 Anion Gap 7 BUN 28 H Creatinine 0.99 Est GFR ( Amer) > 60 Est GFR (Non-Af Amer) > 60 Glucose 285 H Calcium 8.6 Magnesium 2.2 12/12/17 12/12/17 12/12/17 00:18 00:18 07:00 Creatine Kinase 1133 H 1142 H CK-MB (CK-2) 5.78 H Troponin I 0.084 NT-Pro-B Natriuret Pep 12/12/17 12/12/17 12/12/17 07:00 13:58 13:58 Creatine Kinase 1040 H CK-MB (CK-2) 5.69 H 5.29 H Troponin I 0.098 0.081 NT-Pro-B Natriuret Pep 553 12/12/17 12/12/17 18:45 18:45 Creatine Kinase 1048 H CK-MB (CK-2) 4.78 H Troponin I 0.067 NT-Pro-B Natriuret Pep Impressions: Head CT 12/12/17 00:00 IMPRESSION: No acute findings. Lines and tubes. Venous Doppler Study 12/15/17 00:00 IMPRESSION: Unremarkable bilateral upper extremity venous Doppler Chest X-Ray 12/22/17 06:00 IMPRESSION: Right upper lobe, left perihilar airspace disease worrisome for pneumonia. Assessment & Plan - Diagnosis (1) Acute respiratory failure Is this a current diagnosis for this admission?: Yes (2) Hyperosmolar nonketotic coma in diabetes Is this a current diagnosis for this admission?: No (3) ARF (acute renal failure) Qualifiers: Acute renal failure type: with acute tubular necrosis Qualified Code(s): N17.0 - Acute kidney failure with tubular necrosis Is this a current diagnosis for this admission?: No (4) Diabetes type 2, uncontrolled Qualifiers: Diabetes mellitus oysterman insulin use: with oysterman use Diabetes mellitus complication status: with neurologic complications Diabetes mellitus complication detail: with polyneuropathy Qualified Code(s): E11.42 - Type 2 diabetes mellitus with diabetic polyneuropathy; E11.65 - Type 2 diabetes mellitus with hyperglycemia; E11.65 - Type 2 diabetes mellitus with hyperglycemia; E11.65 - Type 2 diabetes mellitus with hyperglycemia; E11.65 - Type 2 diabetes mellitus with hyperglycemia; Z79.4 - long term care phlebotomist (current) use of insulin; Z79.4 - skilled nursing (current) use of insulin; Z79.4 - long term care phlebotomist (current ) use of insulin; Z79.4 - long term care phlebotomist (current) use of insulin Is this a current diagnosis for this admission?: Yes (5) Hypertension Qualifiers: Hypertension type: essential hypertension Qualified Code(s): I10 - Essential (primary) hypertension Is this a current diagnosis for this admission?: No (6) Septic shock Is this a current diagnosis for this admission?: No
--- NOTE | 2017-12-26 12:31 | PDOC PROGRESS REPORT ---
Subjective Progress Note for:: 12/23/17 Subjective:: Stable over the last 24 hours Reason For Visit: DKA Physical Exam Vital Signs: Temp Pulse Resp BP Pulse Ox 98.2 F 86 18 124/63 96 12/23/17 07:39 12/23/17 07:39 12/23/17 07:39 12/23/17 07:39 12/23/17 07:39 Intake & Output 12/22/17 12/23/17 12/24/17 06:59 06:59 06:59 Intake Total 1055 600 Output Total 2125 100 Balance -1070 500 Weight 105.7 kg 104.7 kg General appearance: PRESENT: no acute distress, cooperative, disheveled, obese, well-developed, well-nourished Head exam: PRESENT: atraumatic, normocephalic Eye exam: PRESENT: conjunctiva pale, EOMI. ABSENT: nystagmus, periorbital swelling, scleral icterus Mouth exam: PRESENT: moist, neck supple, tongue midline Neck exam: ABSENT: carotid bruit, JVD, lymphadenopathy, thyromegaly, tracheal deviation, tracheostomy Respiratory exam: PRESENT: decreased breath sounds, prolonged expiratory phas, rales, rhonchi, symmetrical, unlabored, wheezes. ABSENT: retraction, stridor, tachypnea Cardiovascular exam: PRESENT: RRR, +S1, +S2 Pulses: PRESENT: normal radial pulses GI/Abdominal exam: PRESENT: diminished bowel sounds, soft Extremities exam: ABSENT: clubbing, joint swelling Musculoskeletal exam: ABSENT: deformity, dislocation Neurological exam: PRESENT: awake Psychiatric exam: PRESENT: normal mood Skin exam: PRESENT: dry, warm Results Laboratory Results: 12/23/17 06:30 12/23/17 06:30 12/23/17 12/23/17 06:30 06:30 WBC 13.5 H RBC 2.97 L Hgb 9.5 L Hct 28.0 L MCV 94 MCH 31.9 MCHC 33.9 RDW 12.5 Plt Count 233 Seg Neutrophils % 80.6 H Lymphocytes % 11.2 L Monocytes % 4.1 Eosinophils % 3.8 Basophils % 0.3 Absolute Neutrophils 10.9 H Absolute Lymphocytes 1.5 Absolute Monocytes 0.6 Absolute Eosinophils 0.5 Absolute Basophils 0.0 Sodium 142.8 Potassium 3.3 L Chloride 108 H Carbon Dioxide 29 Anion Gap 6 BUN 25 H Creatinine 0.96 Est GFR ( Amer) > 60 Est GFR (Non-Af Amer) > 60 Glucose 174 H Calcium 9.2 Triglycerides 321 H Cholesterol 186.97 LDL Cholesterol Direct 101 H VLDL Cholesterol 64.2 H HDL Cholesterol 21 L 12/12/17 12/12/17 12/12/17 00:18 00:18 07:00 Creatine Kinase 1133 H 1142 H CK-MB (CK-2) 5.78 H Troponin I 0.084 NT-Pro-B Natriuret Pep 12/12/17 12/12/17 12/12/17 07:00 13:58 13:58 Creatine Kinase 1040 H CK-MB (CK-2) 5.69 H 5.29 H Troponin I 0.098 0.081 NT-Pro-B Natriuret Pep 553 12/12/17 12/12/17 18:45 18:45 Creatine Kinase 1048 H CK-MB (CK-2) 4.78 H Troponin I 0.067 NT-Pro-B Natriuret Pep Impressions: Head CT 12/12/17 00:00 IMPRESSION: No acute findings. Lines and tubes. Venous Doppler Study 12/15/17 00:00 IMPRESSION: Unremarkable bilateral upper extremity venous Doppler Chest X-Ray 12/22/17 06:00 IMPRESSION: Right upper lobe, left perihilar airspace disease worrisome for pneumonia. Assessment & Plan - Diagnosis (1) Acute respiratory failure Is this a current diagnosis for this admission?: Yes Plan: Persistent crackles at base (2) Hyperosmolar nonketotic coma in diabetes Is this a current diagnosis for this admission?: No Plan: Resolved no longer on insulin drip (3) ARF (acute renal failure) Qualifiers: Acute renal failure type: with acute tubular necrosis Qualified Code(s): N17.0 - Acute kidney failure with tubular necrosis Is this a current diagnosis for this admission?: No (4) Diabetes type 2, uncontrolled Qualifiers: Diabetes mellitus long term care social worker insulin use: with long term care social worker use Diabetes mellitus complication status: with neurologic complications Diabetes mellitus complication detail: with polyneuropathy Qualified Code(s): E11.42 - Type 2 diabetes mellitus with diabetic polyneuropathy; E11.65 - Type 2 diabetes mellitus with hyperglycemia; E11.65 - Type 2 diabetes mellitus with hyperglycemia; E11.65 - Type 2 diabetes mellitus with hyperglycemia; E11.65 - Type 2 diabetes mellitus with hyperglycemia; Z79.4 - laborer marine terminal (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
--- NOTE | 2017-12-26 12:34 | PDOC PROGRESS REPORT ---
Subjective Progress Note for:: 12/25/17 Subjective:: Patient states he is uncertain as to what the plan is will discuss with primary as well as nurse Reason For Visit: DKA Physical Exam Vital Signs: Temp Pulse Resp BP Pulse Ox 98.1 F 91 18 137/77 H 94 12/25/17 11:43 12/25/17 11:43 12/25/17 11:43 12/25/17 11:43 12/25/17 11:43 Intake & Output 12/24/17 12/25/17 12/26/17 06:59 06:59 06:59 Intake Total 620 1270 Balance 620 1270 Weight 104.7 kg 105 kg General appearance: PRESENT: no acute distress, cooperative, disheveled, obese Head exam: PRESENT: atraumatic, normocephalic Eye exam: PRESENT: conjunctiva pale, EOMI. ABSENT: nystagmus, periorbital swelling, scleral icterus Mouth exam: PRESENT: moist, neck supple, tongue midline Neck exam: ABSENT: carotid bruit, JVD, lymphadenopathy, thyromegaly, tracheal deviation, tracheostomy Respiratory exam: PRESENT: decreased breath sounds, prolonged expiratory phas, rales, rhonchi, symmetrical, unlabored, wheezes. ABSENT: retraction, stridor, tachypnea Cardiovascular exam: PRESENT: RRR, +S1, +S2 Pulses: PRESENT: normal radial pulses GI/Abdominal exam: PRESENT: diminished bowel sounds, soft Extremities exam: ABSENT: calf tenderness, clubbing, joint swelling Neurological exam: PRESENT: alert, awake Psychiatric exam: PRESENT: normal mood Skin exam: PRESENT: dry, warm Results Laboratory Results: 12/25/17 06:50 12/25/17 06:50 12/25/17 12/25/17 06:50 06:50 WBC 14.8 H RBC 2.87 L Hgb 9.2 L Hct 26.9 L MCV 94 MCH 32.1 MCHC 34.2 RDW 12.8 Plt Count 227 Seg Neutrophils % 79.8 H Lymphocytes % 11.3 L Monocytes % 4.9 Eosinophils % 3.8 Basophils % 0.2 Absolute Neutrophils 11.8 H Absolute Lymphocytes 1.7 Absolute Monocytes 0.7 Absolute Eosinophils 0.6 Absolute Basophils 0.0 Sodium 143.6 Potassium 3.5 L Chloride 105 Carbon Dioxide 30 Anion Gap 9 BUN 19 Creatinine 0.98 Est GFR ( Amer) > 60 Est GFR (Non-Af Amer) > 60 Glucose 197 H Calcium 9.6 12/12/17 12/12/17 12/12/17 00:18 00:18 07:00 Creatine Kinase 1133 H 1142 H CK-MB (CK-2) 5.78 H Troponin I 0.084 NT-Pro-B Natriuret Pep 12/12/17 12/12/17 12/12/17 07:00 13:58 13:58 Creatine Kinase 1040 H CK-MB (CK-2) 5.69 H 5.29 H Troponin I 0.098 0.081 NT-Pro-B Natriuret Pep 553 12/12/17 12/12/17 18:45 18:45 Creatine Kinase 1048 H CK-MB (CK-2) 4.78 H Troponin I 0.067 NT-Pro-B Natriuret Pep Impressions: Head CT 12/12/17 00:00 IMPRESSION: No acute findings. Lines and tubes. Venous Doppler Study 12/15/17 00:00 IMPRESSION: Unremarkable bilateral upper extremity venous Doppler Chest X-Ray 12/24/17 00:00 IMPRESSION: No improvement in the right upper lobe opacities. Increasing left- sided opacities. Chest CT 12/25/17 00:00 IMPRESSION: Focal airspace consolidation in the right upper lobe posteriorly which could represent atelectatic changes or pneumonic consolidation. Patchy bilateral airspace densities are identified in both lower lobes most consistent with patchy pneumonic infiltrates. Tiny right pleural effusion is identified. Other findings as noted above Assessment & Plan - Diagnosis (1) Acute respiratory failure Is this a current diagnosis for this admission?: Yes Plan: Persistent crackles at base,,,CXR suggest increasing pneumonia afebrile WBC somewhat elevated (2) Hyperosmolar nonketotic coma in diabetes Is this a current diagnosis for this admission?: No (3) ARF (acute renal failure) Qualifiers: Acute renal failure type: with acute tubular necrosis Qualified Code(s): N17.0 - Acute kidney failure with tubular necrosis Is this a current diagnosis for this admission?: No (4) Diabetes type 2, uncontrolled Qualifiers: Diabetes mellitus alf insulin use: with alf use Diabetes mellitus complication status: with neurologic complications Diabetes mellitus complication detail: with polyneuropathy Qualified Code(s): E11.42 - Type 2 diabetes mellitus with diabetic polyneuropathy; E11.65 - Type 2 diabetes mellitus with hyperglycemia; E11.65 - Type 2 diabetes mellitus with hyperglycemia; E11.65 - Type 2 diabetes mellitus with hyperglycemia; E11.65 - Type 2 diabetes mellitus with hyperglycemia; Z79.4 - dental laboratory worker (current) use of insulin; Z79.4 - [facility] (current) use of insulin; Z79.4 - [facility] (current ) use of insulin; Z79.4 - dental laboratory worker (current) use of insulin Is this a current diagnosis for this admission?: Yes (5) Hypertension Qualifiers: Hypertension type: essential hypertension Qualified Code(s): I10 - Essential (primary) hypertension Is this a current diagnosis for this admission?: No (6) Septic shock Is this a current diagnosis for this admission?: No
--- NOTE | 2017-12-26 20:37 | PDOC DISCHARGE SUMMARY ---
General - Admit/Disc Date/PCP Admission Date/Primary Care Provider: 12/11/17 18:31 Discharge Date: 12/25/17 - Additional Information Resuscitation Status: Full Code Discharge Diet: Diabetic Discharge Activity: Activity As Tolerated Prescriptions: Atorvastatin Calcium [Lipitor 80 mg Tablet] 80 mg PO QHS 30 Days tablet Calcium Carbonate [Os-Blake 500 mg Tablet (Oyster-Shell)] 500 mg PO BID 30 Days tablet Insulin Glargine,Hum.rec.anlog [Lantus Solostar] 65 unit SQ .ASDIR 30 Days insuln.pen Insulin Lispro [Humalog Insulin (Lispro) 100 unit/mL] 0 - 12 unit SUBCUT ACHS 30 Days unit Levofloxacin [Levaquin 750 mg Tablet] 750 mg PO DAILY 5 Days #5 tablet Home Medications: Atorvastatin Calcium [Lipitor 40 mg Tablet] 40 mg PO QHS 12/11/17 Glipizide [Glipizide Xl] 10 mg PO DAILY 12/11/17 Lisinopril/Hydrochlorothiazide [Lisinopril-Hctz 20-25 mg Tab] 1 each PO DAILY Pioglitazone HCl [Actos] 45 mg PO DAILY 12/11/17 Sitagliptin Phosphate [Januvia 50 mg Tablet] 50 mg PO Q12 12/11/17 Acetaminophen [Tylenol 325 mg Tablet] 650 mg PO Q6HP PRN tablet 12/25/17 Aspirin [Aspirin 81 mg Chewable Tablet] 324 mg PO DAILY tab.chew 12/25/17 Atorvastatin Calcium [Lipitor 80 mg Tablet] 80 mg PO QHS 30 Days tablet Calcium Carbonate [Os-Blake 500 mg Tablet (Oyster-Shell)] 500 mg PO BID 30 Days tablet 12/25/17 Gabapentin [Neurontin 300 mg Capsule] 600 mg PO Q8 30 Days capsule 12/25/17 Insulin Glargine,Hum.rec.anlog [Lantus Solostar] 65 unit SQ .ASDIR 30 Days insuln.pen 12/25/17 Insulin Lispro [Humalog Insulin (Lispro) 100 unit/mL] 0 - 12 unit SUBCUT ACHS 30 Days unit 12/25/17 Levofloxacin [Levaquin 750 mg Tablet] 750 mg PO DAILY 5 Days #5 tablet 12/25/17 History of Present Illness History of Present Illness: ASH MCMILLAN is a 57 year old Gentleman with past medical history of insulin-dependent diabetes Diabetic neuropathy Prostate cancer treated 8 years ago Hypertension Hyperlipidemia He presented to the hospital because his brought in him in for altered mental status and decreased responsiveness. She reported that he had 3 days vomiting, diarrhea, fatigue and generalized pains. He stopped his NovoLog approximately 2 weeks prior in consultation with his physician given that he could not afford it anymore. According to his his blood sugar readings had been too high to be detected by the glucometer, however he refused to call his doctor. He has a long history of noncompliance and poorly controlled diabetes. In the emergency room he was found to have diabetic ketoacidosis and also had acute renal failure and mild hyperkalemia. Evaluation at hospitalization also revealed acute pancreatitis. Hospital Course Hospital Course: He was admitted and managed as follows: (1) Acute pancreatitis Qualifiers: Acute pancreatitis complication: unspecified Is this a current diagnosis for this admission?: Yes Plan: Treated with IV fluids, n.p.o. He is now markedly improved. Tolerating p.o. intake. Continues to have elevated WBC which could be residual inflammation. No longer symptomatic and Non tender on my exam today. (2) ARF (acute renal failure) Qualifiers: Acute renal failure type: with acute tubular necrosis Qualified Code(s): N17.0 - Acute kidney failure with tubular necrosis Is this a current diagnosis for this admission?: No -Markedly improved with IV fluid. (3) Diabetes type 2, uncontrolled Qualifiers: Diabetes mellitus skilled nursing insulin use: with terminal clerk use Diabetes mellitus complication status: with neurologic complications Diabetes mellitus complication detail: with polyneuropathy Qualified Code(s): E11.42 - Type 2 diabetes mellitus with diabetic polyneuropathy; E11.65 - Type 2 diabetes mellitus with hyperglycemia; E11.65 - Type 2 diabetes mellitus with hyperglycemia; E11.65 - Type 2 diabetes mellitus with hyperglycemia; E11.65 - Type 2 diabetes mellitus with hyperglycemia; Z79.4 - assisted (current) use of insulin; Z79.4 - assisted (current) use of insulin; Z79.4 - assisted (current ) use of insulin; Z79.4 - assisted (current) use of insulin Is this a current diagnosis for this admission?: Yes Plan: Extremely poor control with Hg A1c 14% - Currently on Lantus 65U qhs and LDISS - Would benefit from seeing endocrinology as outpatient; he will have his PCP referred him. -Continue Lipitor 80 qhs (4) Right upper lobe pneumonia Qualifiers: Pneumonia type: aspiration pneumonia Is this a current diagnosis for this admission?: Yes Plan: He was also found to have right upper lobe pneumonia. Initially treated with Zosyn and doxycycline and this was transitioned to Levofloxacin PO. Follow-up chest x-ray showing residual infiltrate, both patient no longer symptomatic, no fever or chills. He is to complete Levaquin p.o. because and follow-up with his PCP. PCP to recheck chest x-ray in 1-4 weeks. (5) Physical deconditioning Is this a current diagnosis for this admission?: Yes Plan: Worked with PT today - Home health with PT ordered. Physical Exam Vital Signs: Temp Pulse Resp BP Pulse Ox 98.0 F 92 18 138/77 H 96 12/25/17 15:58 12/25/17 15:58 12/25/17 15:58 12/25/17 15:58 12/25/17 15:58 Intake & Output 12/24/17 12/25/17 12/26/17 06:59 06:59 06:59 Intake Total 620 1270 720 Balance 620 1270 720 Weight 104.7 kg 105 kg GEN: NAD, well-developed, well-nourished CV: RRR, NL S1S2 LUNGS: Decreased breath sounds bases bilaterally ABDOMEN Soft, NT, +BS EXTERMITIES: No e/c/c NEURO: Alert, oriented 3, nonfocal Results Laboratory Results: 12/25/17 06:50 12/25/17 06:50 12/25/17 12/25/17 06:50 06:50 WBC 14.8 H RBC 2.87 L Hgb 9.2 L Hct 26.9 L MCV 94 MCH 32.1 MCHC 34.2 RDW 12.8 Plt Count 227 Seg Neutrophils % 79.8 H Lymphocytes % 11.3 L Monocytes % 4.9 Eosinophils % 3.8 Basophils % 0.2 Absolute Neutrophils 11.8 H Absolute Lymphocytes 1.7 Absolute Monocytes 0.7 Absolute Eosinophils 0.6 Absolute Basophils 0.0 Sodium 143.6 Potassium 3.5 L Chloride 105 Carbon Dioxide 30 Anion Gap 9 BUN 19 Creatinine 0.98 Est GFR ( Amer) > 60 Est GFR (Non-Af Amer) > 60 Glucose 197 H Calcium 9.6 12/12/17 12/12/17 12/12/17 00:18 00:18 07:00 Creatine Kinase 1133 H 1142 H CK-MB (CK-2) 5.78 H Troponin I 0.084 NT-Pro-B Natriuret Pep 12/12/17 12/12/17 12/12/17 07:00 13:58 13:58 Creatine Kinase 1040 H CK-MB (CK-2) 5.69 H 5.29 H Troponin I 0.098 0.081 NT-Pro-B Natriuret Pep 553 12/12/17 12/12/17 18:45 18:45 Creatine Kinase 1048 H CK-MB (CK-2) 4.78 H Troponin I 0.067 NT-Pro-B Natriuret Pep Impressions: Head CT 12/12/17 00:00 IMPRESSION: No acute findings. Lines and tubes. Venous Doppler Study 12/15/17 00:00 IMPRESSION: Unremarkable bilateral upper extremity venous Doppler Chest X-Ray 12/24/17 00:00 IMPRESSION: No improvement in the right upper lobe opacities. Increasing left- sided opacities. Chest CT 12/25/17 00:00 IMPRESSION: Focal airspace consolidation in the right upper lobe posteriorly which could represent atelectatic changes or pneumonic consolidation. Patchy bilateral airspace densities are identified in both lower lobes most consistent with patchy pneumonic infiltrates. Tiny right pleural effusion is identified. Other findings as noted above Qualifiers - * PATEINT BEING DISCHARGED WITH ANY OF THE FOLLOWING DIAGNOSIS?: No
== END 2017-12-25 18:40 | disposition home health service (06) | DRG 870 ==
LOC: ER 16:12 → EH 18:31 → ICU 22:55 → 2N 12-22 13:22
PROVIDERS: ADMIT Internal Medicine; ATTEND Internal Medicine
PROC: 02HV33Z Insertion of Infusion Device into Superior Vena Cava, Percutaneous Approach (ICD-10-PCS; principal; 2017-12-12)
PROC: 5A1955Z Respiratory Ventilation, Greater than 96 Consecutive Hours (ICD-10-PCS; 2017-12-12)
PROC: B548ZZA Ultrasonography of Superior Vena Cava, Guidance (ICD-10-PCS; 2017-12-12)
PROC: 0BH17EZ Insertion of Endotracheal Airway into Trachea, Via Natural or Artificial Opening (ICD-10-PCS; 2017-12-12)
DX: A41.9 Sepsis, unspecified organism (principal); E11.01 Type 2 diabetes mellitus with hyperosmolarity with coma; J96.00 Acute respiratory failure, unspecified whether with hypoxia or hypercapnia; K85.90 Acute pancreatitis without necrosis or infection, unspecified; N17.0 Acute kidney failure with tubular necrosis; J69.0 Pneumonitis due to inhalation of food and vomit; R65.21 Severe sepsis with septic shock; E87.0 Hyperosmolality and hypernatremia; E11.40 Type 2 diabetes mellitus with diabetic neuropathy, unspecified; E11.65 Type 2 diabetes mellitus with hyperglycemia; E78.5 Hyperlipidemia, unspecified; E87.6 Hypokalemia; D69.6 Thrombocytopenia, unspecified; E83.39 Other disorders of phosphorus metabolism; E87.5 Hyperkalemia; I10 Essential (primary) hypertension; F17.210 Nicotine dependence, cigarettes, uncomplicated; T38.3X6A Underdosing of insulin and oral hypoglycemic [antidiabetic] drugs, initial encounter; Y92.009 Unspecified place in unspecified non-institutional (private) residence as the place of occurrence of the external cause; Z91.120 Patient's intentional underdosing of medication regimen due to financial hardship; Z79.4 Long term (current) use of insulin; Z85.46 Personal history of malignant neoplasm of prostate; Z79.84 Long term (current) use of oral hypoglycemic drugs; Z79.899 Other long term (current) drug therapy
CPT/HCPCS: 31500; 36415; 70450; 71045; 71046; 71250; 71260; 74176; 80048; 80053; 80061; 80076; 81001; 82040; 82150; 82330; 82550; 82553; 82803; 82947; 82962; 83036; 83605; 83690; 83735; 83880; 83930; 83935; 84100; 84443; 84484; 85025; 85027; 85610; 86022; 87040; 87070; 87077; 87086; 87205; 93005; 93010; 93306; 93970; 94002; 94003; 94660; 94799; 99291; C1751; G8978-GP; G8979-GP; J0330; J0610; J0696; J1100; J1644; J1720; J1741; J1815; J1940; J2060; J2543; J2597; J2704; J3010; J3370; J3411; J3480; J3490; J7030; J7050; J7060; S0164

== ENCOUNTER 2018-11-20 05:48 | Inpatient (IN) | payer MEDICARE ==
[2018-11-20] MEDS ORDERED: ONDANSETRON HCL INJ/PF 4 MG/2 ML SDV IV ONE (06:14)
[2018-11-20] MEDS: NORMAL SALINE 1000 ML 1,000 ML IV PRN ×2 (06:35→08:07)
[2018-11-20 06:37] LABS: VENOUS BLOOD BASE EXCESS 0.6 mmol/L; VENOUS BLOOD HCO3 27.8 mmol/L (20-32); VENOUS BLOOD PH 7.32 (7.30-7.42)
[2018-11-20 06:39] LABS: ABSOLUTE EOSINOPHILS # (AUTO) 0.1 10^3/uL (0.0-0.6); ABSOLUTE LYMPHOCYTES (AUTO) 0.7 10^3/uL (0.5-4.7); ABSOLUTE MONOCYTES (AUTO) 0.9 10^3/uL (0.1-1.4); ABSOLUTE NEUT (AUTO) 9.5 10^3/uL (1.7-8.2); BASOPHILS % (AUTO) 0.2 % (0-2); EOSINOPHILS % (AUTO) 0.8 % (0-6); HEMATOCRIT 40.7 % (37.9-51.0); HEMOGLOBIN 12.9 g/dL (13.5-17.0); MEAN CORPUSCULAR HEMOGLOBIN 30.9 pg (27.0-33.4); MEAN CORPUSCULAR HGB CONC 31.8 g/dL (32.0-36.0); MEAN CORPUSCULAR VOLUME 97 fl (80-97); MONOCYTES % (AUTO) 7.7 % (3-13); PLATELET COUNT 224 10^3/uL (150-450); RED BLOOD COUNT 4.18 10^6/uL (4.35-5.55); RED CELL DISTRIBUTION WIDTH 13.4 % (11.5-14.0); SEGMENTED NEUTROPHILS % (AUTO) 85.3 % (42-78); TOTAL CELLS COUNTED % (AUTO) 100 %; WHITE BLOOD COUNT 11.1 10^3/uL (4.0-10.5)
[2018-11-20 06:52] LABS: ALANINE AMINOTRANSFERASE 57 U/L (21-72); ALBUMIN 4.2 g/dL (3.5-5.0); ALKALINE PHOSPHATASE 132 U/L (38-126); ANION GAP 13 (5-19); ASPARTATE AMINO TRANSFERASE 43 U/L (17-59); BILIRUBIN,DIRECT 0.3 mg/dL (0.0-0.4); BILIRUBIN,TOTAL 0.6 mg/dL (0.2-1.3); BLOOD UREA NITROGEN 46 mg/dL (7-20); CALCIUM 10.5 mg/dL (8.4-10.2); CARBON DIOXIDE 26 mmol/L (22-30); CHLORIDE 99 mmol/L (98-107); LIPASE 179.2 U/L (23-300); POTASSIUM 4.8 mmol/L (3.6-5.0); TOTAL PROTEIN 7.1 g/dL (6.3-8.2)
[2018-11-20 07:02] LABS: ALCOHOL < 10 mg/dL (NONE DETECTED)
[2018-11-20 07:04] LABS: GLUCOSE 1057 mg/dL (75-110)
[2018-11-20 07:18] LABS: APPEARANCE,URINE CLEAR; BILIRUBIN,URINE NEGATIVE (NEGATIVE); COLOR,URINE STRAW; GLUCOSE, URINE >=500 mg/dL (NEGATIVE); KETONES,URINE NEGATIVE (NEGATIVE); LEUKOCYTE ESTERASE,URINE NEGATIVE (NEGATIVE); NITRITE,URINE NEGATIVE (NEGATIVE); PROTEIN,URINE NEGATIVE (NEGATIVE); URINE SPECIFIC GRAVITY 1.028; UROBILINOGEN,URINE NEGATIVE mg/dL (<2.0)
--- NOTE | 2018-11-20 07:22 | RADIOLOGY REPORT (SQ) ---
EXAM DESCRIPTION: X-ray single view chest. CLINICAL HISTORY: 58 years Male, wheezing COMPARISON: 12/24/2017 TECHNIQUE: Single portable view of the chest performed on 11/20/2018 at 6:46 AM FINDINGS: The lungs are well expanded and are clear. There is no evidence of a pneumothorax. The cardiac silhouette is stable and is grossly within normal limits considering the portable technique. The mediastinal contours are normal. No acute osseous abnormality is identified. No focal soft tissue abnormalities are seen. Lines and tubes: None. IMPRESSION: No definite acute intrathoracic disease.
[2018-11-20 07:33] LABS: URINE AMPHETAMINES SCREEN NEGATIVE; URINE BARBITURATES SCREEN NEGATIVE; URINE BENZODIAZEPINES SCREEN NEGATIVE; URINE COCAINE SCREEN NEGATIVE; URINE MARIJUANA (THC) SCREEN NEGATIVE; URINE METHADONE SCREEN NEGATIVE; URINE PHENCYCLIDINE SCREEN NEGATIVE
[2018-11-20] MEDS ORDERED: RINGERS SOLUTION,LACTATED 1,000 ML IV ONE (07:40)
[2018-11-20] MEDS ORDERED: NORMAL SALINE 1000 ML 1,000 ML IV ONE (07:40)
--- NOTE | 2018-11-20 08:37 | RADIOLOGY REPORT (SQ) ---
EXAM DESCRIPTION: CT HEAD WITHOUT COMPLETED DATE/TIME: 11/20/2018 7:59 am REASON FOR STUDY: ams COMPARISON: CT brain 12/12/2017 TECHNIQUE: Axial images acquired through the brain without intravenous contrast. Images reviewed wi th bone, brain and subdural windows. Additional sagittal and coronal reconstructions were generated. Images stored on PACS. All CT scanners at this facility use dose modulation, iterative reconstruction, and/or weight based d osing when appropriate to reduce radiation dose to as low as reasonably achievable (ALARA). [facility]: Dose Right [facility]: CareDose [facility]: Dose Right [facility]: Teradose 4D [facility]: The Bar Method RADIATION DOSE: CT Rad equipment meets quality standard of care and radiation dose reduction techniq ues were employed. CTDIvol: 53.2 mGy. DLP: 1017 mGy-cm. mGy. LIMITATIONS: None. FINDINGS: VENTRICLES: Normal size and contour. CEREBRUM: No masses. No hemorrhage. No midline shift. No evidence for acute infarction. Normal gra y/white matter differentiation. No areas of low density in the white matter. CEREBELLUM: No masses. No hemorrhage. No alteration of density. No evidence for acute infarction. EXTRAAXIAL SPACES: No fluid collections. No masses. ORBITS AND GLOBE: No intra- or extraconal masses. Normal contour of globe without masses. CALVARIUM: No fracture. PARANASAL SINUSES: No fluid or mucosal thickening. SOFT TISSUES: No mass or hematoma. OTHER: No other significant finding. IMPRESSION: NORMAL BRAIN CT WITHOUT CONTRAST. EVIDENCE OF ACUTE STROKE: NO. COMMENT: Quality ID # [id number]: Final reports with documentation of one or more dose reduction techniques (e.g., Automated exposure control, adjustment of the mA and/or kV according to patient size, use of iterative reconstruction technique) TECHNICAL DOCUMENTATION: JOB ID: [id number]- All Rights Reserved Reading location - IP/workstation name: [email or web address]
[2018-11-20] MEDS ORDERED: DEXTROSE 40% GEL 15 GM TUBE PO PRN ×3 (09:36→19:00)
[2018-11-20] MEDS ORDERED: NORMAL SALINE 100 ML with INSULIN REGULAR, HUMAN 100 UNIT IV PRN ×4 (09:36→10:29)
[2018-11-20] MEDS ORDERED: DEXTROSE 50%-WATER 25 GM/50 ML DISP.SYRIN IV PRN ×2 (09:36)
[2018-11-20] MEDS ORDERED: GLUCAGON,HUMAN RECOMB 1 MG INJ IM PRN ×2 (09:36→19:00)
[2018-11-20] MEDS ORDERED: INSULIN REG, HUMAN 100 UNIT/ML 3 ML VIAL (PYX) IV ONE (09:53)
--- NOTE | 2018-11-20 10:16 | ER Document Report ---
ED General - General Chief Complaint: High Blood Sugar Stated Complaint: BLOOD SUGAR ISSUES Time Seen by Provider: 11/20/18 06:13 TRAVEL OUTSIDE OF THE [place] IN LAST 30 DAYS: No - HPI Patient complains to provider of: Elevated blood sugars nausea vomiting confusion Notes: Patient coming in today for elevated blood sugars nausea vomiting. According to the family at bedside patient had one episode of vomiting however blood sugars have been reading high for the last 24 hours patient is insulin dependent diabetic. Patient does states that he is compliant with his medications however whenever we asked the patient is dosing of medication patient is somewhat confused stating he takes 70 units and then 30 units of his 7030. Patient does seem to be somewhat confused unable to answer all questions clearly ANO 3 to those questions. Family at bedside states patient similar presentation when he was diagnosed with DKA in the past. No fevers no recent antibiotics patient otherwise is tachycardic on the monitor looks to be no obvious respiratory distress - Related Data Allergies/Adverse Reactions: metformin Allergy (Mild, Verified 12/22/17 15:40) oxaprozin Allergy (Unknown, Verified 12/15/17 18:58) Past Medical History - Social History Smoking Status: Unknown if Ever Smoked Family History: Reviewed & Not Pertinent Patient has suicidal ideation: No Patient has homicidal ideation: No - Past Medical History Cardiac Medical History: Reports: Hx Hypercholesterolemia, Hx Hypertension Pulmonary Medical History: Reports: Hx Sleep Apnea Endocrine Medical History: Reports: Hx Diabetes Mellitus Type 1, Hx Diabetes Mellitus Type 2 Renal/ Medical History: Denies: Hx Peritoneal Dialysis Malignancy Medical History: Reports Hx Prostate Cancer - Surgery 3 years ago. Past Surgical History: Reports: Hx Orthopedic Surgery - rotator cuff Review of Systems - Review of Systems Notes: Altered mental state effusion -: Yes ROS unobtainable due to patient's medical condition Physical Exam - Vital signs Vitals: Temp Pulse Resp BP Pulse Ox 99 F 131 H 24 H 138/79 H 92 11/20/18 05:49 11/20/18 05:49 11/20/18 05:49 11/20/18 05:49 11/20/18 05:49 Interpretation: Tachycardic - General General appearance: Appears well, Alert - HEENT Head: Normocephalic, Atraumatic Eyes: Normal Pupils: PERRL - Respiratory Respiratory status: No respiratory distress Chest status: Nontender Breath sounds: Normal Chest palpation: Normal - Cardiovascular Rhythm: Tachycardia Heart sounds: Normal auscultation Murmur: No - Abdominal Inspection: Obese Distension: No distension Bowel sounds: Normal Tenderness: Nontender Organomegaly: No organomegaly - Back Back: Normal, Nontender - Extremities General upper extremity: Normal inspection, Nontender, Normal color, Normal ROM, Normal temperature General lower extremity: Normal inspection, Nontender, Normal color, Normal ROM, Normal temperature, Normal weight bearing. No: Edil's sign - Neurological Neuro grossly intact: Yes Cognition: Normal Orientation: AAOx4 Malia Coma Scale Eye Opening: Spontaneous [place] Coma Scale Verbal: Oriented [place] Coma Scale Motor: Obeys Commands Malia Coma Scale Total: 15 Speech: Normal Motor strength normal: LUE, RUE, LLE, RLE Sensory: Normal - Psychological Associated symptoms: Normal affect, Normal mood - Skin Skin Temperature: Warm Skin Moisture: Dry Skin Color: Normal Course - Re-evaluation Re-evalutation: 11/20/18 13:08 Patient evaluation is consistent with 7 age as hyper osmolar state no signs of acidosis or ketones because the patient's significantly elevated blood sugar we will start the patient on a very low-dose insulin drip and will continue with IV fluid resuscitation family member states patient sees Dr. Terry I did contact Dr. Terry will admit to the IMCU agrees with insulin drip at this time and IV fluid management. - Vital Signs Vital signs: Temp Pulse Resp BP Pulse Ox 99 F 131 H 16 188/94 H 96 11/20/18 05:49 11/20/18 05:49 11/20/18 12:00 11/20/18 09:32 11/20/18 12:00 - Laboratory Result Diagrams: 11/20/18 06:27 11/20/18 11:28 Laboratory results interpreted by me: 11/20/18 11/20/18 11/20/18 06:27 06:27 06:27 WBC 11.1 H RBC 4.18 L Hgb 12.9 L MCHC 31.8 L Seg Neutrophils % 85.3 H Lymphocytes % 6.0 L Absolute Neutrophils 9.5 H BUN 46 H Creatinine 1.42 H Est GFR (Non-Af Amer) 51 L Glucose 1057 H* Hemoglobin A1c % 12.7 H Serum Osmolality Calcium 10.5 H Alkaline Phosphatase 132 H Urine Glucose (UA) Urine Blood 0311/20/18 11/20/18 06:54 09:00 09:00 WBC RBC Hgb MCHC Seg Neutrophils % Lymphocytes % Absolute Neutrophils BUN Creatinine Est GFR (Non-Af Amer) Glucose 751 H* Hemoglobin A1c % Serum Osmolality 354 H Calcium Alkaline Phosphatase Urine Glucose (UA) >=500 H Urine Blood MODERATE H Critical Care Note - Critical Care Note Total time excluding time spent on procedures (mins): 40 Comments: Time spent managing insulin drip Discharge - Discharge Clinical Impression: Hyperosmolar nonketotic coma in diabetes Altered mental state Qualifiers: Altered mental status type: unspecified Qualified Code(s): R41.82 - Altered mental status, unspecified Condition: Good Disposition: ADMITTED INPATIENT Admitting Provider: Em Unit Admitted: [facility]
[2018-11-20] MEDS ORDERED: ONDANSETRON 4 MG TAB.RAPDIS PO PRN (11:57)
--- NOTE | 2018-11-20 15:30 | PDOC H&P ---
History of Present Illness Admission Date/PCP: 11/20/18 10:40 VÍCTOR AIKEN MD Patient complains of: bs high History of Present Illness: ASH MCMILLAN is a 58 year old male with morbid obesity insulin resistance and pending endocrine & barosurgical consults in [place]. Even on mixed insulin 200u every day his bs has read high last 2d. Past Medical History Cardiac Medical History: Reports: Hyperlipidema, Hypertension Pulmonary Medical History: Reports: Sleep Apnea EENT Medical History: Reports: None Neurological Medical History: Reports: Other - diabetic neuropathy Endocrine Medical History: Reports: Diabetes Mellitus Type 2 Renal/ Medical History: Reports: Chronic Kidney Disease Malignancy Medical History: Reports: Other - prostate GI Medical History: Reports: Other - pancreatitis Musculoskeltal Medical History: Reports: Arthritis - lbp Skin Medical History: Reports: None Psychiatric Medical History: Reports: None Traumatic Medical History: Reports: None Hematology: Reports: None Infectious Medical History: Reports: None Past Surgical History Past Surgical History: Reports: Orthopedic Surgery - rotator cuff Social History Information Source: Dr. Donahue Smoking Status: Never Smoker Frequency of Alcohol Use: None Hx Recreational Drug Use: No Drugs: None Hx Prescription Drug Abuse: No - Advance Directive Resuscitation Status: Full Code Family History Family History: Other - mother brain aneurysm Parental Family History Reviewed: Yes Children Family History Reviewed: Yes Sibling(s) Family History Reviewed.: Yes Medication/Allergy Home Medications: Atorvastatin Calcium [Lipitor 40 mg Tablet] 40 mg PO QHS 12/11/17 Acetaminophen [Tylenol 325 mg Tablet] 650 mg PO Q6HP PRN tablet 12/25/17 Duloxetine HCl [Cymbalta] 60 mg PO BID 11/20/18 Fenofibrate,Micronized [Fenofibrate] 134 mg PO DAILY 11/20/18 Gabapentin [Neurontin 300 mg Capsule] 300 mg PO TID 11/20/18 Glimepiride [Amaryl 4 mg Tablet] 4 mg PO DAILY 11/20/18 Insulin Aspart Protam & Aspart [Novolog Mix 70-30 Vial] 100 unit SQ BID 11/20/18 Lisinopril [Prinivil] 20 mg PO DAILY 11/20/18 Allergies/Adverse Reactions: metformin Allergy (Mild, Verified 12/22/17 15:40) oxaprozin Allergy (Unknown, Verified 12/15/17 18:58) Review of Systems Constitutional: ABSENT: fever(s), headache(s), weight loss Nose, Mouth, and Throat: PRESENT: other - sore R tongue aphtha Cardiovascular: ABSENT: chest pain, dyspnea on exertion, orthropnea Respiratory: ABSENT: cough Gastrointestinal: PRESENT: vomiting - once yesterday. ABSENT: abdominal pain, constipation, diarrhea, hematochezia Genitourinary: ABSENT: dysuria, hematuria Integumentary: ABSENT: rash Endocrine: PRESENT: polydipsia, polyphagia, polyuria Physical Exam Vital Signs: Temp Pulse Resp BP Pulse Ox 98.4 F 110 H 15 183/99 H 90 L 11/20/18 13:27 11/20/18 13:27 11/20/18 13:27 11/20/18 13:27 11/20/18 13:27 Intake & Output 11/19/18 11/20/18 11/21/18 07:59 07:59 07:59 Intake Total 3006 Balance 3006 Weight 258 lb 13.163 oz 260 lb 9.382 oz General appearance: PRESENT: no acute distress Eye exam: ABSENT: conjunctival injection, scleral icterus Mouth exam: PRESENT: dry mucosa, tongue midline Neck exam: ABSENT: lymphadenopathy, tenderness, thyromegaly, tracheal deviation Respiratory exam: PRESENT: clear to auscultation bernardo Cardiovascular exam: ABSENT: diastolic murmur, irregular rhythm, systolic murmur GI/Abdominal exam: ABSENT: mass, organolmegaly, tenderness Extremities exam: PRESENT: pedal edema - trace Neurological exam: PRESENT: oriented to situation Psychiatric exam: PRESENT: appropriate affect Results Laboratory Results: Labs- Last Values WBC 11.1 10^3/uL (4.0-10.5) H 11/20/18 06:27 RBC 4.18 10^6/uL (4.35-5.55) L 11/20/18 06:27 Hgb 12.9 g/dL (13.5-17.0) L 11/20/18 06:27 Hct 40.7 % (37.9-51.0) 11/20/18 06:27 MCV 97 fl (80-97) 11/20/18 06:27 MCH 30.9 pg (27.0-33.4) 11/20/18 06:27 MCHC 31.8 g/dL (32.0-36.0) L 11/20/18 06:27 RDW 13.4 % (11.5-14.0) 11/20/18 06:27 Plt Count 224 10^3/uL (150-450) 11/20/18 06:27 Seg Neutrophils % 85.3 % (42-78) H 11/20/18 06:27 Lymphocytes % 6.0 % (13-45) L 11/20/18 06:27 Monocytes % 7.7 % (3-13) 11/20/18 06:27 Eosinophils % 0.8 % (0-6) 11/20/18 06:27 Basophils % 0.2 % (0-2) 11/20/18 06:27 Absolute Neutrophils 9.5 10^3/uL (1.7-8.2) H 11/20/18 06:27 Absolute Lymphocytes 0.7 10^3/uL (0.5-4.7) 11/20/18 06:27 Absolute Monocytes 0.9 10^3/uL (0.1-1.4) 11/20/18 06:27 Absolute Eosinophils 0.1 10^3/uL (0.0-0.6) 11/20/18 06:27 Absolute Basophils 0.0 10^3/uL (0.0-0.2) 11/20/18 06:27 VBG pH 7.32 (7.30-7.42) 11/20/18 06:27 VBG pCO2 55.0 mmHg (35-63) 11/20/18 06:27 VBG HCO3 27.8 mmol/L (20-32) 11/20/18 06:27 VBG Base Excess 0.6 mmol/L 11/20/18 06:27 Sodium 138.0 mmol/L (137-145) 11/20/18 06:27 Potassium 4.8 mmol/L (3.6-5.0) 11/20/18 06:27 Chloride 99 mmol/L (98-107) 11/20/18 06:27 Carbon Dioxide 26 mmol/L (22-30) 11/20/18 06:27 Anion Gap 13 (5-19) 11/20/18 06:27 BUN 46 mg/dL (7-20) H 11/20/18 06:27 Creatinine 1.42 mg/dL (0.52-1.25) H 11/20/18 06:27 Est GFR ( Amer) > 60 (>60) 11/20/18 06:27 Est GFR (Non-Af Amer) 51 (>60) L 11/20/18 06:27 Glucose 673 mg/dL (75-110) H* 11/20/18 11:28 POC Glucose > 550 mg/dL (70-110) H* 11/20/18 12:24 Hemoglobin A1c % 12.7 % (4.7-6.0) H 11/20/18 06:27 Serum Osmolality 354 mOsm/kg (275-301) H 11/20/18 09:00 Calcium 10.5 mg/dL (8.4-10.2) H 11/20/18 06:27 Magnesium 2.1 mg/dL (1.6-2.3) 11/20/18 06:27 Total Bilirubin 0.6 mg/dL (0.2-1.3) 11/20/18 06:27 Direct Bilirubin 0.3 mg/dL (0.0-0.4) 11/20/18 06:27 Neonat Total Bilirubin Not Reportable 11/20/18 06:27 Neonat Direct Bilirubin Not Reportable 11/20/18 06:27 Neonat Indirect Bili Not Reportable 11/20/18 06:27 AST 43 U/L (17-59) 11/20/18 06:27 ALT 57 U/L (21-72) 11/20/18 06:27 Alkaline Phosphatase 132 U/L (38-126) H 11/20/18 06:27 Total Protein 7.1 g/dL (6.3-8.2) 11/20/18 06:27 Albumin 4.2 g/dL (3.5-5.0) 11/20/18 06:27 Lipase 179.2 U/L (23-300) 11/20/18 06:27 Urine Color STRAW 11/20/18 06:54 Urine Appearance CLEAR 11/20/18 06:54 Urine pH 6.0 (5.0-9.0) 11/20/18 06:54 Ur Specific [place] 1.028 11/20/18 06:54 Urine Protein NEGATIVE mg/dL (NEGATIVE) 11/20/18 06:54 Urine Glucose (UA) >=500 mg/dL (NEGATIVE) H 11/20/18 06:54 Urine Ketones NEGATIVE mg/dL (NEGATIVE) 11/20/18 06:54 Urine Blood MODERATE (NEGATIVE) H 11/20/18 06:54 Urine Nitrite NEGATIVE (NEGATIVE) 11/20/18 06:54 Urine Bilirubin NEGATIVE (NEGATIVE) 11/20/18 06:54 Urine Urobilinogen NEGATIVE mg/dL (<2.0) 11/20/18 06:54 Ur Leukocyte Esterase NEGATIVE (NEGATIVE) 11/20/18 06:54 Urine WBC (Auto) 1 /HPF 11/20/18 06:54 Urine RBC (Auto) 0 /HPF 11/20/18 06:54 Urine Mucus (Auto) RARE /LPF 11/20/18 06:54 Urine Osmolality 613 mOsm/kg (300-900) 11/20/18 06:54 Urine Ascorbic Acid NEGATIVE (NEGATIVE) 11/20/18 06:54 Urine Opiates Screen NEGATIVE 11/20/18 06:54 Urine Methadone Screen NEGATIVE 11/20/18 06:54 Ur Barbiturates Screen NEGATIVE 11/20/18 06:54 Ur Phencyclidine Scrn NEGATIVE 11/20/18 06:54 Ur Amphetamines Screen NEGATIVE 11/20/18 06:54 U Benzodiazepines Scrn NEGATIVE 11/20/18 06:54 Urine Cocaine Screen NEGATIVE 11/20/18 06:54 U Marijuana (THC) Screen NEGATIVE 11/20/18 06:54 Serum Alcohol < 10 mg/dL (NONE DETECTED) 11/20/18 06:27 Impressions: Chest X-Ray 11/20/18 06:24 IMPRESSION: No definite acute intrathoracic disease. Head CT 11/20/18 07:42 IMPRESSION: NORMAL BRAIN CT WITHOUT CONTRAST. EVIDENCE OF ACUTE STROKE: NO. 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 Is this a current diagnosis for this admission?: Yes Plan: insulin drip - Inpatient Certification Based on my medical assessment, after consideration of the patient's comorbidities, presenting symptoms, or acuity I expect that the services needed warrant INPATIENT care.: Yes I certify that my determination is in accordance with my understanding of Medicare's requirements for reasonable and necessary INPATIENT services [42 CFR 412.3e].: Yes Medical Necessity: Failure to Improve With Outpatient Therapy, Significant Comorbidiites Make Outpatient Treatment Too Risky, Need Close Monitoring Due to Risk of Patient Decompensation, Need For IV Fluids, Need For Continuous Telemetry Monitoring, Risk of Complication if Not Cared For in Hospital, Risk of Diagnosis Which Will Require Inpatient Eval/Care/Monitoring
[2018-11-20] MEDS ORDERED: DEXTROSE 50%-WATER SYRINGE 12.5 GM/25 ML DOSE IV PRN (19:00)
[2018-11-20] MEDS ORDERED: DEXTROSE 50%-WATER SYRINGE 25 GM/50 ML DOSE IV PRN (19:00)
[2018-11-20] MEDS ORDERED: DEXTROSE 40% GEL 15 GM TUBE X 2 PO PRN (19:00)
[2018-11-20] MEDS: INSULIN, REGULAR 100 UNIT/100 ML NORMAL SALINE IV PRN ×4 (20:00→22:10)
[2018-11-20] MEDS: FAMOTIDINE 20 MG TABLET PO SCH (22:10)
--- NOTE | 2018-11-21 06:52 | PDOC PROGRESS REPORT ---
Subjective Progress Note for:: 11/21/18 Subjective:: fells better than he has in a long time. 14y diabetes & insulin. Metformin caused diarrhea. [place] endocrine tried invokana which had side effects. Sleep study positive. Could not find right mask. Reason For Visit: HYPEROSMOLAR DIABETES Physical Exam Vital Signs: Temp Pulse Resp BP Pulse Ox 98.6 F 98 20 165/68 H 95 11/21/18 03:10 11/21/18 03:10 11/21/18 03:10 11/21/18 03:10 11/21/18 03:10 Intake & Output 11/19/18 11/20/18 11/21/18 07:59 07:59 07:59 Intake Total 5265 Balance 5265 Weight 258 lb 13.163 oz 260 lb 9.382 oz General appearance: PRESENT: no acute distress Respiratory exam: PRESENT: clear to auscultation bernardo Cardiovascular exam: ABSENT: diastolic murmur, irregular rhythm, systolic murmur GI/Abdominal exam: ABSENT: mass, organolmegaly, tenderness Extremities exam: PRESENT: pedal edema - trace Neurological exam: PRESENT: oriented to situation Psychiatric exam: PRESENT: appropriate affect Results Laboratory Results: Labs- Last Values WBC 11.1 10^3/uL (4.0-10.5) H 11/20/18 06:27 RBC 4.18 10^6/uL (4.35-5.55) L 11/20/18 06:27 Hgb 12.9 g/dL (13.5-17.0) L 11/20/18 06:27 Hct 40.7 % (37.9-51.0) 11/20/18 06:27 MCV 97 fl (80-97) 11/20/18 06:27 MCH 30.9 pg (27.0-33.4) 11/20/18 06:27 MCHC 31.8 g/dL (32.0-36.0) L 11/20/18 06:27 RDW 13.4 % (11.5-14.0) 11/20/18 06:27 Plt Count 224 10^3/uL (150-450) 11/20/18 06:27 Seg Neutrophils % 85.3 % (42-78) H 11/20/18 06:27 Lymphocytes % 6.0 % (13-45) L 11/20/18 06:27 Monocytes % 7.7 % (3-13) 11/20/18 06:27 Eosinophils % 0.8 % (0-6) 11/20/18 06:27 Basophils % 0.2 % (0-2) 11/20/18 06:27 Absolute Neutrophils 9.5 10^3/uL (1.7-8.2) H 11/20/18 06:27 Absolute Lymphocytes 0.7 10^3/uL (0.5-4.7) 11/20/18 06:27 Absolute Monocytes 0.9 10^3/uL (0.1-1.4) 11/20/18 06:27 Absolute Eosinophils 0.1 10^3/uL (0.0-0.6) 11/20/18 06:27 Absolute Basophils 0.0 10^3/uL (0.0-0.2) 11/20/18 06:27 VBG pH 7.32 (7.30-7.42) 11/20/18 06:27 VBG pCO2 55.0 mmHg (35-63) 11/20/18 06:27 VBG HCO3 27.8 mmol/L (20-32) 11/20/18 06:27 VBG Base Excess 0.6 mmol/L 11/20/18 06:27 Sodium 138.0 mmol/L (137-145) 11/20/18 06:27 Potassium 4.8 mmol/L (3.6-5.0) 11/20/18 06:27 Chloride 99 mmol/L (98-107) 11/20/18 06:27 Carbon Dioxide 26 mmol/L (22-30) 11/20/18 06:27 Anion Gap 13 (5-19) 11/20/18 06:27 BUN 46 mg/dL (7-20) H 11/20/18 06:27 Creatinine 1.42 mg/dL (0.52-1.25) H 11/20/18 06:27 Est GFR ( Amer) > 60 (>60) 11/20/18 06:27 Est GFR (Non-Af Amer) 51 (>60) L 11/20/18 06:27 Glucose 673 mg/dL (75-110) H* 11/20/18 11:28 POC Glucose 123 mg/dL (70-110) H 11/21/18 06:01 Hemoglobin A1c % 12.7 % (4.7-6.0) H 11/20/18 06:27 Serum Osmolality 354 mOsm/kg (275-301) H 11/20/18 09:00 Calcium 10.5 mg/dL (8.4-10.2) H 11/20/18 06:27 Magnesium 2.1 mg/dL (1.6-2.3) 11/20/18 06:27 Total Bilirubin 0.6 mg/dL (0.2-1.3) 11/20/18 06:27 Direct Bilirubin 0.3 mg/dL (0.0-0.4) 11/20/18 06:27 Neonat Total Bilirubin Not Reportable 11/20/18 06:27 Neonat Direct Bilirubin Not Reportable 11/20/18 06:27 Neonat Indirect Bili Not Reportable 11/20/18 06:27 AST 43 U/L (17-59) 11/20/18 06:27 ALT 57 U/L (21-72) 11/20/18 06:27 Alkaline Phosphatase 132 U/L (38-126) H 11/20/18 06:27 Total Protein 7.1 g/dL (6.3-8.2) 11/20/18 06:27 Albumin 4.2 g/dL (3.5-5.0) 11/20/18 06:27 Lipase 179.2 U/L (23-300) 11/20/18 06:27 Urine Color STRAW 11/20/18 06:54 Urine Appearance CLEAR 11/20/18 06:54 Urine pH 6.0 (5.0-9.0) 11/20/18 06:54 Ur Specific [place] 1.028 11/20/18 06:54 Urine Protein NEGATIVE mg/dL (NEGATIVE) 11/20/18 06:54 Urine Glucose (UA) >=500 mg/dL (NEGATIVE) H 11/20/18 06:54 Urine Ketones NEGATIVE mg/dL (NEGATIVE) 11/20/18 06:54 Urine Blood MODERATE (NEGATIVE) H 11/20/18 06:54 Urine Nitrite NEGATIVE (NEGATIVE) 11/20/18 06:54 Urine Bilirubin NEGATIVE (NEGATIVE) 11/20/18 06:54 Urine Urobilinogen NEGATIVE mg/dL (<2.0) 11/20/18 06:54 Ur Leukocyte Esterase NEGATIVE (NEGATIVE) 11/20/18 06:54 Urine WBC (Auto) 1 /HPF 11/20/18 06:54 Urine RBC (Auto) 0 /HPF 11/20/18 06:54 Urine Mucus (Auto) RARE /LPF 11/20/18 06:54 Urine Osmolality 613 mOsm/kg (300-900) 11/20/18 06:54 Urine Ascorbic Acid NEGATIVE (NEGATIVE) 11/20/18 06:54 Urine Opiates Screen NEGATIVE 11/20/18 06:54 Urine Methadone Screen NEGATIVE 11/20/18 06:54 Ur Barbiturates Screen NEGATIVE 11/20/18 06:54 Ur Phencyclidine Scrn NEGATIVE 11/20/18 06:54 Ur Amphetamines Screen NEGATIVE 11/20/18 06:54 U Benzodiazepines Scrn NEGATIVE 11/20/18 06:54 Urine Cocaine Screen NEGATIVE 11/20/18 06:54 U Marijuana (THC) Screen NEGATIVE 11/20/18 06:54 Serum Alcohol < 10 mg/dL (NONE DETECTED) 11/20/18 06:27 Impressions: Chest X-Ray 11/20/18 06:24 IMPRESSION: No definite acute intrathoracic disease. Head CT 11/20/18 07:42 IMPRESSION: NORMAL BRAIN CT WITHOUT CONTRAST. EVIDENCE OF ACUTE STROKE: NO. Assessment & Plan - Diagnosis (1) Diabetes mellitus with hyperosmolarity without coma, with long-term current use of insulin Qualifiers: Diabetes mellitus type: type 2 Qualified Code(s): E11.00 - Type 2 diabetes mellitus with hyperosmolarity without nonketotic hyperglycemic-hyperosmolar coma [facility] Z79.4 - retirement (current) use of insulin Is this a current diagnosis for this admission?: Yes Plan: bs 100s on 10u/h. Continue drip another day. Consider 70*30mix 80u tid ac - Inpatient Certification Medical Necessity: Failure to Improve With Outpatient Therapy, Significant Comorbidiites Make Outpatient Treatment Too Risky, Need Close Monitoring Due to Risk of Patient Decompensation, Need For IV Fluids, Need For Continuous Telemetry Monitoring, Risk of Complication if Not Cared For in Hospital, Risk of Diagnosis Which Will Require Inpatient Eval/Care/Monitoring
[2018-11-21 08:10] LABS: ANION GAP 9 (5-19); BLOOD UREA NITROGEN 31 mg/dL (7-20); CALCIUM 9.5 mg/dL (8.4-10.2); CARBON DIOXIDE 29 mmol/L (22-30); CHLORIDE 105 mmol/L (98-107); CHOLESTEROL 214.04 mg/dL (0-200); GLUCOSE 127 mg/dL (75-110); POTASSIUM 3.7 mmol/L (3.6-5.0); SODIUM 143.3 mmol/L (137-145); TRIGLYCERIDES 465 mg/dL (<150)
[2018-11-21 08:21] LABS: DIRECT LDL 95 mg/dL (<100)
[2018-11-21] MEDS ORDERED: LISINOPRIL 10 MG TABLET PO SCH (10:00)
[2018-11-21] MEDS: DULOXETINE HCL 30 MG CAPSULE.DR PO SCH ×2 (10:29→21:06)
[2018-11-21] MEDS: FAMOTIDINE 20 MG TABLET PO SCH ×2 (10:29→21:07)
[2018-11-21] MEDS: GABAPENTIN 300 MG CAPSULE PO SCH ×3 (10:29→21:07)
[2018-11-21] MEDS: FENOFIBRATE NANOCRYSTALLIZED 48 MG TABLET PO SCH (10:30)
[2018-11-21] MEDS: ENOXAPARIN SODIUM INJ 40 MG/0.4 ML DISP.SYRIN SUBCUT SCH (10:30)
[2018-11-21] MEDS: INSULIN, REGULAR 100 UNIT/100 ML NORMAL SALINE IV PRN ×2 (13:11)
[2018-11-21] MEDS: ATORVASTATIN CALCIUM 40 MG TABLET PO SCH (21:07)
[2018-11-22] MEDS: INSULIN, REGULAR 100 UNIT/100 ML NORMAL SALINE IV PRN ×2 (03:18)
[2018-11-22 07:29] LABS: ANION GAP 9 (5-19); BLOOD UREA NITROGEN 29 mg/dL (7-20); CALCIUM 8.7 mg/dL (8.4-10.2); CARBON DIOXIDE 26 mmol/L (22-30); CHLORIDE 105 mmol/L (98-107); GLUCOSE 106 mg/dL (75-110); POTASSIUM 3.4 mmol/L (3.6-5.0); SODIUM 139.5 mmol/L (137-145)
--- NOTE | 2018-11-22 08:19 | PDOC PROGRESS REPORT ---
Subjective Progress Note for:: 11/22/18 Subjective:: feels weak with bs89 on 12u/h Reason For Visit: HYPEROSMOLAR DIABETES Physical Exam Vital Signs: Temp Pulse Resp BP Pulse Ox 98.7 F 100 16 146/83 H 96 11/22/18 03:41 11/22/18 03:41 11/22/18 03:41 11/22/18 03:41 11/22/18 03:41 Intake & Output 11/21/18 11/22/18 11/23/18 06:59 07:59 07:59 Intake Total Output Total Balance Weight General appearance: PRESENT: mild distress Respiratory exam: PRESENT: clear to auscultation bernardo Cardiovascular exam: ABSENT: diastolic murmur, irregular rhythm, systolic murmur GI/Abdominal exam: ABSENT: mass, organolmegaly, tenderness Extremities exam: PRESENT: pedal edema - 1+ Neurological exam: PRESENT: oriented to situation Psychiatric exam: PRESENT: appropriate affect Results Laboratory Results: 11/20/18 06:27 11/22/18 06:51 11/21/18 11/22/18 06:43 06:51 Sodium 143.3 139.5 Potassium 3.7 3.4 L Chloride 105 105 Carbon Dioxide 29 26 Anion Gap 9 9 BUN 31 H 29 H Creatinine 1.22 1.08 Est GFR ( Amer) > 60 > 60 Est GFR (Non-Af Amer) > 60 > 60 Glucose 127 H 106 Calcium 9.5 8.7 Triglycerides 465 H Cholesterol 214.04 H LDL Cholesterol Direct 95 VLDL Cholesterol UNABLE TO CALCULATE HDL Cholesterol 37 L Impressions: Chest X-Ray 11/20/18 06:24 IMPRESSION: No definite acute intrathoracic disease. Head CT 11/20/18 07:42 IMPRESSION: NORMAL BRAIN CT WITHOUT CONTRAST. EVIDENCE OF ACUTE STROKE: NO. 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
[2018-11-22] MEDS: FAMOTIDINE 20 MG TABLET PO SCH ×2 (09:53→22:00)
[2018-11-22] MEDS: ENOXAPARIN SODIUM INJ 40 MG/0.4 ML DISP.SYRIN SUBCUT SCH (09:53)
[2018-11-22] MEDS: LACTULOSE SYRUP 20 GM/30 ML UDCUP PO SCH ×2 (09:53→10:00)
[2018-11-22] MEDS: FENOFIBRATE NANOCRYSTALLIZED 48 MG TABLET PO SCH (09:53)
[2018-11-22] MEDS: GABAPENTIN 300 MG CAPSULE PO SCH ×3 (09:53→17:15)
[2018-11-22] MEDS: HUM INSULIN NPH/REG INSULIN HM 100 UNIT/1 ML 3 ML SUBCUT SCH ×2 (09:53→22:00)
[2018-11-22] MEDS: DULOXETINE HCL 30 MG CAPSULE.DR PO SCH ×2 (10:06→17:15)
[2018-11-22] MEDS: ATORVASTATIN CALCIUM 40 MG TABLET PO SCH (22:00)
[2018-11-23 05:53] LABS: ANION GAP 9 (5-19); BLOOD UREA NITROGEN 25 mg/dL (7-20); CARBON DIOXIDE 26 mmol/L (22-30); CHLORIDE 105 mmol/L (98-107); GLUCOSE 128 mg/dL (75-110); POTASSIUM 3.5 mmol/L (3.6-5.0); SODIUM 139.9 mmol/L (137-145)
--- NOTE | 2018-11-23 08:18 | PDOC PROGRESS REPORT ---
Subjective Progress Note for:: 11/23/18 Subjective:: good x tired Reason For Visit: HYPEROSMOLAR DIABETES Physical Exam Vital Signs: Temp Pulse Resp BP Pulse Ox 97.6 F 85 18 149/90 H 94 11/23/18 03:37 11/23/18 03:37 11/23/18 03:37 11/23/18 03:37 11/23/18 03:37 Intake & Output 11/22/18 11/23/18 11/24/18 07:59 07:59 07:59 Intake Total 1729 Output Total Balance 1729 Weight 268 lb 4.841 oz General appearance: PRESENT: no acute distress Respiratory exam: PRESENT: clear to auscultation bernardo Cardiovascular exam: ABSENT: diastolic murmur, irregular rhythm, systolic murmur GI/Abdominal exam: ABSENT: tenderness Extremities exam: PRESENT: pedal edema - 1+ Neurological exam: PRESENT: oriented to situation Psychiatric exam: PRESENT: appropriate affect Results Laboratory Results: 11/20/18 06:27 11/23/18 04:50 11/23/18 04:50 Sodium 139.9 Potassium 3.5 L Chloride 105 Carbon Dioxide 26 Anion Gap 9 BUN 25 H Creatinine 1.04 Est GFR ( Amer) > 60 Est GFR (Non-Af Amer) > 60 Glucose 128 H Calcium 9.0 Impressions: Chest X-Ray 11/20/18 06:24 IMPRESSION: No definite acute intrathoracic disease. Head CT 11/20/18 07:42 IMPRESSION: NORMAL BRAIN CT WITHOUT CONTRAST. EVIDENCE OF ACUTE STROKE: NO. Assessment & Plan - Diagnosis (1) Diabetes mellitus with hyperosmolarity without coma, with long-term current use of insulin Qualifiers: Diabetes mellitus type: type 2 Qualified Code(s): E11.00 - Type 2 diabetes mellitus with hyperosmolarity without nonketotic hyperglycemic-hyperosmolar coma ([facility]); Z79.4 - ham sawyer (current) use of insulin Is this a current diagnosis for this admission?: Yes Plan: 140u bid seems to be working. Adjust 1 more day. (2) Hypertension Qualifiers: Hypertension type: essential hypertension Qualified Code(s): I10 - Essential (primary) hypertension Is this a current diagnosis for this admission?: Yes Plan: amlodipine 5mg - Inpatient Certification Medical Necessity: Failure to Improve With Outpatient Therapy, Significant Comorbidiites Make Outpatient Treatment Too Risky, Need Close Monitoring Due to Risk of Patient Decompensation, Risk of Complication if Not Cared For in Hospital, Risk of Diagnosis Which Will Require Inpatient Eval/Care/Monitoring
[2018-11-23] MEDS: GABAPENTIN 300 MG CAPSULE PO SCH ×3 (09:39→18:24)
[2018-11-23] MEDS: FENOFIBRATE NANOCRYSTALLIZED 48 MG TABLET PO SCH (09:39)
[2018-11-23] MEDS: AMLODIPINE BESYLATE 5 MG TABLET PO SCH (09:39)
[2018-11-23] MEDS: DULOXETINE HCL 30 MG CAPSULE.DR PO SCH ×2 (09:39→18:24)
[2018-11-23] MEDS: FAMOTIDINE 20 MG TABLET PO SCH ×2 (09:39→22:48)
[2018-11-23] MEDS: HUM INSULIN NPH/REG INSULIN HM 100 UNIT/1 ML 3 ML SUBCUT SCH ×2 (09:40→22:48)
[2018-11-23] MEDS: ENOXAPARIN SODIUM INJ 40 MG/0.4 ML DISP.SYRIN SUBCUT SCH (09:40)
[2018-11-23] MEDS: LACTULOSE SYRUP 20 GM/30 ML UDCUP PO SCH (09:42)
[2018-11-23] MEDS: ATORVASTATIN CALCIUM 40 MG TABLET PO SCH (22:48)
--- NOTE | 2018-11-24 08:09 | PDOC DISCHARGE SUMMARY ---
General - Admit/Disc Date/PCP Admission Date/Primary Care Provider: 11/20/18 10:40 VÍCTOR AIKEN MD Discharge Date: 11/24/18 - Discharge Diagnosis (1) Diabetes mellitus with hyperosmolarity without coma, with long-term current use of insulin Is this a current diagnosis for this admission?: Yes (2) Hypertension Is this a current diagnosis for this admission?: Yes - Additional Information Resuscitation Status: Full Code Discharge Diet: Diabetic Discharge Activity: Activity As Tolerated Prescriptions: Amlodipine Besylate [Norvasc 10 mg Tablet] 10 mg PO DAILY #30 tablet Insulin Aspart Protam & Aspart [Novolog Mix 70-30 Vial] 140 unit SQ BID #90 ml Home Medications: Atorvastatin Calcium [Lipitor 40 mg Tablet] 40 mg PO QHS 12/11/17 Duloxetine HCl [Cymbalta] 60 mg PO BID 11/20/18 Fenofibrate,Micronized [Fenofibrate] 134 mg PO DAILY 11/20/18 Gabapentin [Neurontin 300 mg Capsule] 300 mg PO TID 11/20/18 Amlodipine Besylate [Norvasc 10 mg Tablet] 10 mg PO DAILY #30 tablet 11/24/18 Insulin Aspart Protam & Aspart [Novolog Mix 70-30 Vial] 140 unit SQ BID #90 ml 11/24/18 History of Present Illness Patient complains of: high sugar History of Present Illness: ASH MCMILLAN is a 58 year old male with morbid obesity insulin resistance and pending [facility] [place] endocrine & barosurgical consults in [place]. Even on mixed insulin 200u every day his bs has read high last 2d. Hospital Course Hospital Course: Sugar came down to 100s on 12u/h after 2d. Mixed 140u bid worked. Amlodipine was added. Physical Exam Vital Signs: Temp Pulse Resp BP Pulse Ox 98.0 F 78 20 143/82 H 97 11/24/18 04:28 11/24/18 07:00 11/24/18 04:28 11/24/18 04:28 11/24/18 04:28 Intake & Output 11/23/18 11/24/18 11/25/18 07:59 07:59 07:59 Intake Total 1729 1315 Balance 1729 1315 Weight 268 lb 4.841 oz 269 lb 6.478 oz General appearance: PRESENT: no acute distress Respiratory exam: PRESENT: clear to auscultation bernardo Cardiovascular exam: ABSENT: diastolic murmur, irregular rhythm, systolic murmur GI/Abdominal exam: ABSENT: tenderness Extremities exam: PRESENT: pedal edema - 1+. Slept with feet on floor in recliner. Neurological exam: PRESENT: oriented to situation Psychiatric exam: PRESENT: appropriate affect Results Laboratory Results: Labs- Last Values WBC 11.1 10^3/uL (4.0-10.5) H 11/20/18 06:27 RBC 4.18 10^6/uL (4.35-5.55) L 11/20/18 06:27 Hgb 12.9 g/dL (13.5-17.0) L 11/20/18 06:27 Hct 40.7 % (37.9-51.0) 11/20/18 06:27 MCV 97 fl (80-97) 11/20/18 06:27 MCH 30.9 pg (27.0-33.4) 11/20/18 06:27 MCHC 31.8 g/dL (32.0-36.0) L 11/20/18 06:27 RDW 13.4 % (11.5-14.0) 11/20/18 06:27 Plt Count 224 10^3/uL (150-450) 11/20/18 06:27 Seg Neutrophils % 85.3 % (42-78) H 11/20/18 06:27 Lymphocytes % 6.0 % (13-45) L 11/20/18 06:27 Monocytes % 7.7 % (3-13) 11/20/18 06:27 Eosinophils % 0.8 % (0-6) 11/20/18 06:27 Basophils % 0.2 % (0-2) 11/20/18 06:27 Absolute Neutrophils 9.5 10^3/uL (1.7-8.2) H 11/20/18 06:27 Absolute Lymphocytes 0.7 10^3/uL (0.5-4.7) 11/20/18 06:27 Absolute Monocytes 0.9 10^3/uL (0.1-1.4) 11/20/18 06:27 Absolute Eosinophils 0.1 10^3/uL (0.0-0.6) 11/20/18 06:27 Absolute Basophils 0.0 10^3/uL (0.0-0.2) 11/20/18 06:27 VBG pH 7.32 (7.30-7.42) 11/20/18 06:27 VBG pCO2 55.0 mmHg (35-63) 11/20/18 06:27 VBG HCO3 27.8 mmol/L (20-32) 11/20/18 06:27 VBG Base Excess 0.6 mmol/L 11/20/18 06:27 Sodium 139.9 mmol/L (137-145) 11/23/18 04:50 Potassium 3.5 mmol/L (3.6-5.0) L 11/23/18 04:50 Chloride 105 mmol/L (98-107) 11/23/18 04:50 Carbon Dioxide 26 mmol/L (22-30) 11/23/18 04:50 Anion Gap 9 (5-19) 11/23/18 04:50 BUN 25 mg/dL (7-20) H 11/23/18 04:50 Creatinine 1.04 mg/dL (0.52-1.25) 11/23/18 04:50 Est GFR ( Amer) > 60 (>60) 11/23/18 04:50 Est GFR (Non-Af Amer) > 60 (>60) 11/23/18 04:50 Glucose 128 mg/dL (75-110) H 11/23/18 04:50 POC Glucose 107 mg/dL (70-110) 11/23/18 22:04 Hemoglobin A1c % 12.8 % (4.7-6.0) H 11/21/18 06:43 Serum Osmolality 354 mOsm/kg (275-301) H 11/20/18 09:00 Calcium 9.0 mg/dL (8.4-10.2) 11/23/18 04:50 Magnesium 2.1 mg/dL (1.6-2.3) 11/20/18 06:27 Total Bilirubin 0.6 mg/dL (0.2-1.3) 11/20/18 06:27 Direct Bilirubin 0.3 mg/dL (0.0-0.4) 11/20/18 06:27 Neonat Total Bilirubin Not Reportable 11/20/18 06:27 Neonat Direct Bilirubin Not Reportable 11/20/18 06:27 Neonat Indirect Bili Not Reportable 11/20/18 06:27 AST 43 U/L (17-59) 11/20/18 06:27 ALT 57 U/L (21-72) 11/20/18 06:27 Alkaline Phosphatase 132 U/L (38-126) H 11/20/18 06:27 Total Protein 7.1 g/dL (6.3-8.2) 11/20/18 06:27 Albumin 4.2 g/dL (3.5-5.0) 11/20/18 06:27 Triglycerides 465 mg/dL (<150) H 11/21/18 06:43 Cholesterol 214.04 mg/dL (0-200) H 11/21/18 06:43 LDL Cholesterol Direct 95 mg/dL (<100) 11/21/18 06:43 VLDL Cholesterol UNABLE TO CALCULATE 11/21/18 06:43 HDL Cholesterol 37 mg/dL (>40) L 11/21/18 06:43 Lipase 179.2 U/L (23-300) 11/20/18 06:27 Urine Color STRAW 11/20/18 06:54 Urine Appearance CLEAR 11/20/18 06:54 Urine pH 6.0 (5.0-9.0) 11/20/18 06:54 Ur Specific [place] 1.028 11/20/18 06:54 Urine Protein NEGATIVE mg/dL (NEGATIVE) 11/20/18 06:54 Urine Glucose (UA) >=500 mg/dL (NEGATIVE) H 11/20/18 06:54 Urine Ketones NEGATIVE mg/dL (NEGATIVE) 11/20/18 06:54 Urine Blood MODERATE (NEGATIVE) H 11/20/18 06:54 Urine Nitrite NEGATIVE (NEGATIVE) 11/20/18 06:54 Urine Bilirubin NEGATIVE (NEGATIVE) 11/20/18 06:54 Urine Urobilinogen NEGATIVE mg/dL (<2.0) 11/20/18 06:54 Ur Leukocyte Esterase NEGATIVE (NEGATIVE) 11/20/18 06:54 Urine WBC (Auto) 1 /HPF 11/20/18 06:54 Urine RBC (Auto) 0 /HPF 11/20/18 06:54 Urine Mucus (Auto) RARE /LPF 11/20/18 06:54 Urine Osmolality 613 mOsm/kg (300-900) 11/20/18 06:54 Urine Ascorbic Acid NEGATIVE (NEGATIVE) 11/20/18 06:54 Urine Opiates Screen NEGATIVE 11/20/18 06:54 Urine Methadone Screen NEGATIVE 11/20/18 06:54 Ur Barbiturates Screen NEGATIVE 11/20/18 06:54 Ur Phencyclidine Scrn NEGATIVE 11/20/18 06:54 Ur Amphetamines Screen NEGATIVE 11/20/18 06:54 U Benzodiazepines Scrn NEGATIVE 11/20/18 06:54 Urine Cocaine Screen NEGATIVE 11/20/18 06:54 U Marijuana (THC) Screen NEGATIVE 11/20/18 06:54 Serum Alcohol < 10 mg/dL (NONE DETECTED) 11/20/18 06:27 Impressions: Chest X-Ray 11/20/18 06:24 IMPRESSION: No definite acute intrathoracic disease. Head CT 11/20/18 07:42 IMPRESSION: NORMAL BRAIN CT WITHOUT CONTRAST. EVIDENCE OF ACUTE STROKE: NO. Qualifiers - * PATIENT BEING DISCHARGED WITH ANY OF THE FOLLOWING DIAGNOSIS: No Plan Discharge Plan: 2w ov
[2018-11-24] MEDS: LACTULOSE SYRUP 20 GM/30 ML UDCUP PO SCH (10:30)
[2018-11-24] MEDS: FENOFIBRATE NANOCRYSTALLIZED 48 MG TABLET PO SCH (10:31)
[2018-11-24] MEDS: AMLODIPINE BESYLATE 5 MG TABLET PO SCH (10:31)
[2018-11-24] MEDS: FAMOTIDINE 20 MG TABLET PO SCH (10:31)
[2018-11-24] MEDS: ENOXAPARIN SODIUM INJ 40 MG/0.4 ML DISP.SYRIN SUBCUT SCH (10:31)
[2018-11-24] MEDS: GABAPENTIN 300 MG CAPSULE PO SCH (10:31)
[2018-11-24] MEDS: DULOXETINE HCL 30 MG CAPSULE.DR PO SCH (10:31)
[2018-11-24] MEDS: HUM INSULIN NPH/REG INSULIN HM 100 UNIT/1 ML 3 ML SUBCUT SCH (10:47)
[2018-11-24 12:49] VITALS: BP 138/79
== END 2018-11-24 13:25 | disposition home or self-care (01) | DRG 639 ==
LOC: ER 05:48 → EH 10:40 → 3W 13:23
PROVIDERS: ADMIT Family Medicine; ATTEND Family Medicine
DX: E11.00 Type 2 diabetes mellitus with hyperosmolarity without nonketotic hyperglycemic-hyperosmolar coma (NKHHC) (principal); E78.5 Hyperlipidemia, unspecified; E66.01 Morbid (severe) obesity due to excess calories; G47.30 Sleep apnea, unspecified; E11.40 Type 2 diabetes mellitus with diabetic neuropathy, unspecified; E11.22 Type 2 diabetes mellitus with diabetic chronic kidney disease; I12.9 Hypertensive chronic kidney disease with stage 1 through stage 4 chronic kidney disease, or unspecified chronic kidney disease; N18.9 Chronic kidney disease, unspecified; M19.90 Unspecified osteoarthritis, unspecified site; Z79.4 Long term (current) use of insulin; Z82.49 Family history of ischemic heart disease and other diseases of the circulatory system; Z85.46 Personal history of malignant neoplasm of prostate
CPT/HCPCS: 36415; 70450; 71045; 80048; 80053; 80061; 80307; 81001; 82803; 82947; 82962; 83036; 83690; 83735; 83930; 83935; 85025; 96360; 96361; 99291; J1650; J1815; J2405; J3490; J7030; J7120

== ENCOUNTER 2019-07-02 16:46 | Emergency (ER) | payer MEDICARE ==
--- NOTE | 2019-07-02 17:16 | ER Document Report ---
ED Medical Screen (RME) - General Chief Complaint: Urinary Problem Stated Complaint: BLEEDING/PAIN GROIN Time Seen by Provider: 07/02/19 17:14 Primary Care Provider: VÍCTOR AIKEN MD [Primary Care Provider] - Follow up as needed Mode of Arrival: Ambulatory Information source: Patient Notes: 58-year-old male presented to ED for complaint of no urination since this m orning and has had blood coming from his penis since this morning. He is having a lot of suprapubic pressure and back pain. He states he already has back pain which is a lot worse at this time. He is alert oriented respirations regular and unlabored. He states he has high blood pressure but is much higher today. He states he has had quite a bit of blood coming from his penis but no urine. I have greeted and performed a rapid initial assessment of this patient. A comprehensive ED assessment and evaluation of the patient, analysis of test results and completion of medical decision making process will be conducted by an additional ED providers. TRAVEL OUTSIDE OF THE [place] IN LAST 30 DAYS: No - Related Data Allergies/Adverse Reactions: metformin Allergy (Mild, Verified 12/22/17 15:40) oxaprozin Allergy (Unknown, Verified 12/15/17 18:58) lisinopril Adverse Reaction (Verified 11/21/18 06:25) Facial swelling Past Medical History - Past Medical History Cardiac Medical History: Reports: Hx Hypercholesterolemia, Hx Hypertension Pulmonary Medical History: Reports: Hx Sleep Apnea Endocrine Medical History: Reports: Hx Diabetes Mellitus Type 1, Hx Diabetes Mellitus Type 2 Renal/ Medical History: Denies: Hx Peritoneal Dialysis Malignancy Medical History: Reports Hx Prostate Cancer - Surgery 3 years ago. Musculoskeltal Medical History: Reports Hx Arthritis - lbp Past Surgical History: Reports: Hx Orthopedic Surgery - rotator cuff Physical Exam - Vital signs Vitals: Temp Pulse Resp BP Pulse Ox 97.3 F 109 H 20 213/113 H 95 07/02/19 16:48 07/02/19 16:48 07/02/19 16:48 07/02/19 16:48 07/02/19 16:48 Course - Vital Signs Vital signs: Temp Pulse Resp BP Pulse Ox 97.3 F 109 H 20 213/113 H 95 07/02/19 16:48 07/02/19 16:48 07/02/19 16:48 07/02/19 16:48 07/02/19 16:48 Doctor's Discharge - Discharge Referrals: VÍCTOR AIKEN MD [Primary Care Provider] - Follow up as needed
--- NOTE | 2019-07-02 18:06 | ER Document Report ---
ED GI/ - General Chief Complaint: Urinary Problem Stated Complaint: BLEEDING/PAIN GROIN Time Seen by Provider: 07/02/19 17:14 Primary Care Provider: VÍCTOR AIKEN MD [Primary Care Provider] - Follow up as needed Mode of Arrival: Ambulatory Information source: Patient TRAVEL OUTSIDE OF THE [place] IN LAST 30 DAYS: No - HPI Notes: 07/02/19 18:05 This is a 58-year-old male presenting to the emergency department complaining of inability to urinate since this morning. Patient states he has seen blood coming from the tip of his penis and has had a lot of suprapubic pressure and back pain. 07/02/19 18:38 Patient states he has a history of prostate cancer and TURP. Patient denies prior history of kidney stones. Patient states that since arrival and Bhatti catheter placement, his symptoms which included suprapubic pain and back pain have improved with drainage of his bladder. Patient denies fever, chills, history of abdominal aortic aneurysm. Patient states that he is being evaluated for bariatric surgery for morbid obe sity. Patient states he has a CAT scan of his kidneys just 2 weeks ago that was negative for stones or any other acute pathology according to the reading radiologist. Patient states he has a penile implant because he has had problems with impotence since his prostate surgery. 07/02/19 18:45 Differential diagnosis: Kidney stone, UTI, pyelonephritis, bladder CA, metastatic prostate cancer, aortic dissection, Plan: Check CT abdomen pelvis without contrast, check CBC, CMP, coags and urinalysis. - Related Data Allergies/Adverse Reactions: metformin Allergy (Mild, Verified 12/22/17 15:40) oxaprozin Allergy (Unknown, Verified 12/15/17 18:58) lisinopril Adverse Reaction (Verified 11/21/18 06:25) Facial swelling Past Medical History - General Information source: Patient - Social History Smoking Status: Current Every Day Smoker Chew tobacco use (# tins/day): No Frequency of alcohol use: None Drug Abuse: None Family History: Other - mother brain aneurysm Patient has suicidal ideation: No Patient has homicidal ideation: No - Past Medical History Cardiac Medical History: Reports: Hx Hypercholesterolemia, Hx Hypertension Pulmonary Medical History: Reports: Hx Sleep Apnea Endocrine Medical History: Reports: Hx Diabetes Mellitus Type 1, Hx Diabetes Mellitus Type 2 Renal/ Medical History: Denies: Hx Peritoneal Dialysis Malignancy Medical History: Reports Hx Prostate Cancer - Surgery 3 years ago. Musculoskeletal Medical History: Reports Hx Arthritis - lbp Past Surgical History: Reports: Hx Orthopedic Surgery - rotator cuff Review of Systems - Review of Systems Constitutional: No symptoms reported EENT: No symptoms reported Cardiovascular: No symptoms reported Respiratory: No symptoms reported Gastrointestinal: Other - Suprapubic pain. Genitourinary: See HPI Male Genitourinary: See HPI Musculoskeletal: Back pain Skin: No symptoms reported Hematologic/Lymphatic: No symptoms reported Neurological/Psychological: No symptoms reported -: Yes All other systems reviewed and negative Physical Exam - Vital signs Vitals: Temp Pulse Resp BP Pulse Ox 97.3 F 109 H 20 213/113 H 95 07/02/19 16:48 07/02/19 16:48 07/02/19 16:48 07/02/19 16:48 07/02/19 16:48 - Notes Notes: PHYSICAL EXAMINATION: GENERAL: Well-appearing, morbidly obese and in no acute distress. HEAD: Atraumatic, normocephalic. EYES: Pupils equal round and reactive to light, extraocular movements intact, sclera anicteric, conjunctiva are normal. ENT: nares patent, oropharynx clear without exudates. Moist mucous membranes. NECK: Normal range of motion, supple without lymphadenopathy LUNGS: Breath sounds clear to auscultation bilaterally and equal. No wheezes rales or rhonchi. HEART: Regular rate and rhythm without murmurs ABDOMEN: Soft, nontender, normoactive bowel sounds. No guarding, no rebound. No masses appreciated. No aortic bruit or palpable mass appreciated. : Bhatti catheter is in place, Bhatti container has about 2 L of bright red urine. EXTREMITIES: Normal range of motion, no pitting or edema. No cyanosis. NEUROLOGICAL: No focal neurological deficits. Moves all extremities spontaneously and on command. PSYCH: Normal mood, normal affect. SKIN: Warm, Dry, normal turgor, no rashes or lesions noted. Course - Re-evaluation Re-evalutation: 07/02/19 21:09 Patient states that he feels much better since the Bhatti catheter was placed. Results of the patient's work-up including urinalysis, elevated blood sugar and CT scan findings discussed with patient and patient's spouse. Patient states he will take his evening insulin dose when he gets home. Instructed patient that he will be discharged with Bhatti and a leg bag as well as a prescription for antibiotics given he has 100 white blood cells in his urine. Patient will also be given a referral to [facility] urology. All questions were answered prior to discharging patient. - Vital Signs Vital signs: Temp Pulse Resp BP Pulse Ox 97.3 F 109 H 20 213/113 H 95 07/02/19 16:48 07/02/19 16:48 07/02/19 16:48 07/02/19 16:48 07/02/19 16:48 07/02/19 21:11 Vital signs reviewed by this MD. - Laboratory Result Diagrams: 07/02/19 18:15 07/02/19 18:15 Laboratory results interpreted by me: 07/02/19 07/02/19 07/02/19 18:15 18:15 18:15 WBC 11.5 H Seg Neuts % (Manual) 86 H Lymphocytes % (Manual) 3 L Abs Neuts (Manual) 9.9 H Abs Lymphs (Manual) 0.3 L APTT 22.4 L Sodium 134.7 L Chloride 96 L BUN 34 H Creatinine 1.66 H Est GFR ( Amer) 52 L Est GFR (MDRD) Non-Af 43 L Glucose 590 H* Urine Protein Urine Glucose (UA) Urine Blood Urine Ascorbic Acid 07/02/19 18:15 WBC Seg Neuts % (Manual) Lymphocytes % (Manual) Abs Neuts (Manual) Abs Lymphs (Manual) APTT Sodium Chloride BUN Creatinine Est GFR ( Amer) Est GFR (MDRD) Non-Af Glucose Urine Protein 100 H Urine Glucose (UA) >=500 H Urine Blood MODERATE H Urine Ascorbic Acid 20 H Lab results reviewed by this MD. - Diagnostic Test Radiology reviewed: Reports reviewed Discharge - Discharge Clinical Impression: Acute urinary retention, Acute cystitis with hematuria, Glucosuria, Hyperglycemia Condition: Good Disposition: HOME, SELF-CARE Admitting Provider: DR. DALAL, [facility] - Ears Instructions: Urinary Tract Infection ([facility]), Bhatti Catheter Care ([facility]) Additional Instructions: Levofloxacain You have been given an antibacterial agent, levofloxacin (Levaquin). This medicine is not related to the penicillins, sulfas, cephalosporins, or tetracyclines. It is often given to patients who are allergic to these drugs. It has been chosen for you either because other drugs are not appropriate, or because of the nature of your problem. Levaquin should not be taken with antacids, as these can decrease its effectiveness. It can be taken without regard to meals. LEVAQUIN SHOULD NOT BE TAKEN BY CHILDREN, NURSING WOMEN, OR WOMEN. Although Levaquin is usually well-tolerated, common side effects can include nausea and diarrhea. Contact your doctor if you experience any unusual symptoms while on this medication, such as joint pain or swelling, shortness of breath, wheezing, faintness, or hives. Return to the Emergency Department without delay if any worse. Prescriptions: Levofloxacin [Levaquin 750 mg Tablet] 250 mg PO DAILY #4 tablet Referrals: VÍCTOR AIKEN MD [Primary Care Provider] - Follow up as needed [facility] [Provider Group] - 07/05/19 (CALL ON FRIDAY TO SCHEDULE FOLLOW UP APPOINTMENT WITH DR. DALAL)
--- NOTE | 2019-07-02 18:52 | RADIOLOGY REPORT (SQ) ---
EXAM DESCRIPTION: CT ABD/PELVIS NO ORAL OR IV COMPLETED DATE/TIME: 07/02/2019 6:36 pm REASON FOR STUDY: urinary retention, hematuria, back pain COMPARISON: 12/12/2017 TECHNIQUE: CT scan of the abdomen and pelvis performed without intravenous or oral contrast. Images reviewed with lung, soft tissue, and bone windows. Reconstructed coronal and sagittal MPR images revi ewed. All images stored on PACS. All CT scanners at this facility use dose modulation, iterative reconstruction, and/or weight based d osing when appropriate to reduce radiation dose to as low as reasonably achievable (ALARA). [facility]: Dose Right [facility]: CareDose [facility]: Dose Right [facility]: Teradose 4D [facility]: Smart Coiney RADIATION DOSE: CT Rad equipment meets quality standard of care and radiation dose reduction techniq ues were employed. CTDIvol: 18.5 mGy. DLP: 1000 mGy-cm.mGy. LIMITATIONS: None. FINDINGS: LOWER CHEST: No significant findings. No nodules or infiltrates. NON-CONTRASTED LIVER, SPLEEN, ADRENALS: Evaluation limited by lack of IV contrast. No identified sign ificant masses. PANCREAS: No masses. No peripancreatic inflammatory changes. GALLBLADDER: No identified stones by CT criteria. No inflammatory changes to suggest cholecystitis. RIGHT KIDNEY AND URETER: No suspicious masses. Assessment limited by lack of IV contrast. No signif icant calcifications. No hydronephrosis or hydroureter. LEFT KIDNEY AND URETER: No suspicious masses. Assessment limited by lack of IV contrast. No signifi cant calcifications. No hydronephrosis or hydroureter. AORTA AND RETROPERITONEUM: No aneurysm. No retroperitoneal masses or adenopathy. BOWEL AND PERITONEAL CAVITY: No obvious masses or inflammatory changes. No free fluid. APPENDIX: Normal. PELVIS, BLADDER, AND ABDOMINAL WALL:A Bhatti catheter is present in the bladder so the bladder is not evaluated. No pelvic mass or fluid collection. BONES: No significant findings. OTHER: No other significant finding. IMPRESSION: NO SIGNIFICANT OR ACUTE PROCESS IN THE ABDOMEN OR PELVIS. COMMENT: Quality ID # [id number]: Final reports with documentation of one or more dose reduction techniques (e.g., Automated exposure control, adjustment of the mA and/or kV according to patient size, use of iterative reconstruction technique) TECHNICAL DOCUMENTATION: JOB ID: [id number]- All Rights Reserved Reading location - IP/workstation name: [email or web address]
[2019-07-02 18:54] LABS: HEMATOCRIT 44.9 % (37.9-51.0); HEMOGLOBIN 14.5 g/dL (13.5-17.0); MEAN CORPUSCULAR HEMOGLOBIN 29.6 pg (27.0-33.4); MEAN CORPUSCULAR HGB CONC 32.2 g/dL (32.0-36.0); MEAN CORPUSCULAR VOLUME 92 fl (80-97); PLATELET COUNT 229 10^3/uL (150-450); RED BLOOD COUNT 4.88 10^6/uL (4.35-5.55); RED CELL DISTRIBUTION WIDTH 13.7 % (11.5-14.0); WHITE BLOOD COUNT 11.5 10^3/uL (4.0-10.5)
[2019-07-02 18:59] LABS: INTERNATIONAL RATION (INR) 0.98
[2019-07-02 19:00] LABS: PARTIAL THROMBOPLASTIN TIME 22.4 SEC (23.5-35.8)
[2019-07-02 19:06] LABS: ALBUMIN 3.9 g/dL (3.5-5.0); ALKALINE PHOSPHATASE 88 U/L (38-126); ANION GAP 11 (5-19); ASPARTATE AMINO TRANSFERASE 24 U/L (17-59); BILIRUBIN,DIRECT 0.2 mg/dL (0.0-0.4); BILIRUBIN,TOTAL 0.4 mg/dL (0.2-1.3); BLOOD UREA NITROGEN 34 mg/dL (7-20); CALCIUM 9.6 mg/dL (8.4-10.2); CARBON DIOXIDE 28 mmol/L (22-30); CHLORIDE 96 mmol/L (98-107); TOTAL PROTEIN 7.3 g/dL (6.3-8.2)
[2019-07-02 19:10] LABS: APPEARANCE,URINE SLIGHTLY-CLOUDY; BILIRUBIN,URINE NEGATIVE (NEGATIVE); COLOR,URINE RED; GLUCOSE, URINE >=500 mg/dL (NEGATIVE); KETONES,URINE NEGATIVE (NEGATIVE); PROTEIN,URINE 100 mg/dL (NEGATIVE); URINE SPECIFIC GRAVITY 1.024; UROBILINOGEN,URINE NEGATIVE mg/dL (<2.0)
[2019-07-02 19:30] LABS: GLUCOSE 590 mg/dL (75-110)
[2019-07-02 19:39] LABS: ABSOLUTE LYMPHOCYTES# (MANUAL) 0.3 10^3/uL (0.5-4.7); ABSOLUTE MONOCYTES # (MANUAL) 0.9 10^3/uL (0.1-1.4); BASOPHILS % (MANUAL) 1 % (0-2); EOSINOPHILS % (MANUAL) 2 % (0-6); LYMPHOCYTES % (MANUAL) 3 % (13-45); MONOCYTES % (MANUAL) 8 % (3-13); PLATELET COMMENT ADEQUATE; RBC MORPHOLOGY COMMENT NORMO-CYTIC/CHROMIC; SEGMENTED NEUTROPHILS % (MAN) 86 % (42-78); TOTAL CELLS COUNTED 100
[2019-07-02] MEDS ORDERED: CEPHALEXIN 500 MG CAPSULE PO ONE (21:07)
[2019-07-02] MEDS ORDERED: LEVOFLOXACIN 750 MG TABLET PO ONE (21:17)
[2019-07-02 21:56] VITALS: BP 147/74
== END 2019-07-02 22:07 | disposition home or self-care (01) ==
LOC: ER 16:46
DX: N30.01 Acute cystitis with hematuria (principal); E11.65 Type 2 diabetes mellitus with hyperglycemia; R33.9 Retention of urine, unspecified; M54.9 Dorsalgia, unspecified; R10.30 Lower abdominal pain, unspecified; E66.01 Morbid (severe) obesity due to excess calories; Z85.46 Personal history of malignant neoplasm of prostate
CPT/HCPCS: 99284; 36415; 87086; 85025; 85610; 85730; 80053; 81001; 74176; A9270

== ENCOUNTER 2019-07-18 18:16 | Emergency (ER) | payer MEDICARE ==
--- NOTE | 2019-07-18 18:43 | ER Document Report ---
ED Medical Screen (RME) - General Chief Complaint: Urinary Retention Stated Complaint: URINARY PROBLEMS Time Seen by Provider: 07/18/19 18:39 Primary Care Provider: VÍCTOR AIKEN MD [Primary Care Provider] - Follow up as needed Mode of Arrival: Ambulatory Information source: Patient Notes: 58-year-old male presented to ED for complaint of urinary retention. He states 2 weeks ago he came in for the exact same thing had a Bhatti catheter put in saw urology a couple days later. He states this past 3 days ago he had the Bhatti removed scheduled for a scope in a couple days with a urologist. He states about 2:00 today he voided and has not voided since then. He states he has passed a little bit of blood from his penis but no urine. He states he is extremely tight and feels like he really needs to urinate. He is asking for catheter at this time. I have greeted and performed a rapid initial assessment of this patient. A comprehensive ED assessment and evaluation of the patient, analysis of test results and completion of medical decision making process will be conducted by an additional ED providers. TRAVEL OUTSIDE OF THE [place] IN LAST 30 DAYS: No - Related Data Allergies/Adverse Reactions: metformin Allergy (Mild, Verified 07/18/19 18:29) oxaprozin Allergy (Unknown, Verified 07/18/19 18:29) lisinopril Adverse Reaction (Verified 07/18/19 18:29) Facial swelling Home Medications: novolin. atorvastatin. duloxine Past Medical History - Social History Chew tobacco use (# tins/day): No Frequency of alcohol use: None Drug Abuse: None - Past Medical History Cardiac Medical History: Reports: Hx Hypercholesterolemia, Hx Hypertension Pulmonary Medical History: Reports: Hx Sleep Apnea Endocrine Medical History: Reports: Hx Diabetes Mellitus Type 1, Hx Diabetes Mellitus Type 2 Renal/ Medical History: Denies: Hx Peritoneal Dialysis Malignancy Medical History: Reports Hx Prostate Cancer - Surgery 3 years ago. Musculoskeltal Medical History: Reports Hx Arthritis - lbp Past Surgical History: Reports: Hx Orthopedic Surgery - rotator cuff Physical Exam - Vital signs Vitals: Temp Pulse Resp BP Pulse Ox 98.3 F 91 20 192/93 H 98 07/18/19 18:29 07/18/19 18:29 07/18/19 18:29 07/18/19 18:29 07/18/19 18:29 Course - Vital Signs Vital signs: Temp Pulse Resp BP Pulse Ox 98.3 F 91 20 192/93 H 98 07/18/19 18:29 07/18/19 18:29 07/18/19 18:29 07/18/19 18:29 07/18/19 18:29 Doctor's Discharge - Discharge Referrals: VÍCTOR AIKEN MD [Primary Care Provider] - Follow up as needed
--- NOTE | 2019-07-18 19:13 | ER Document Report ---
ED General - General Chief Complaint: Urinary Retention Stated Complaint: URINARY PROBLEMS Time Seen by Provider: 07/18/19 18:39 Primary Care Provider: VÍCTOR AIKEN MD [Primary Care Provider] - Follow up as needed Mode of Arrival: Ambulatory TRAVEL OUTSIDE OF THE [place] IN LAST 30 DAYS: No - HPI Notes: 58-year-old male presenting with a chief complaint of urinary retention. Onset 2 PM today. Duration persistent. Quality: Pressure in suprapubic area and inability to void. Precipitating factors: Patient has a history of prostatic CA. Previous tr ansurethral resection of prostate. Patient was seen here about 2 weeks ago and had a Bhatti catheter placed. This was subsequently taken out by his urologist and he was voiding well up until this afternoon. He is scheduled for cystoscopy next week. - Related Data Allergies/Adverse Reactions: metformin Allergy (Mild, Verified 07/18/19 18:29) oxaprozin Allergy (Unknown, Verified 07/18/19 18:29) lisinopril Adverse Reaction (Verified 07/18/19 18:29) Facial swelling Home Medications: novolin. atorvastatin. duloxine Past Medical History - General Information source: Patient - Social History Smoking Status: Never Smoker Chew tobacco use (# tins/day): No Frequency of alcohol use: None Drug Abuse: None Family History: Other - mother brain aneurysm Patient has suicidal ideation: No Patient has homicidal ideation: No - Past Medical History Cardiac Medical History: Reports: Hx Hypercholesterolemia, Hx Hypertension Pulmonary Medical History: Reports: Hx Sleep Apnea Endocrine Medical History: Reports: Hx Diabetes Mellitus Type 1, Hx Diabetes Mellitus Type 2 Renal/ Medical History: Denies: Hx Peritoneal Dialysis Malignancy Medical History: Reports Hx Prostate Cancer - Surgery 3 years ago. Musculoskeletal Medical History: Reports Hx Arthritis - lbp Past Surgical History: Reports: Hx Orthopedic Surgery - rotator cuff Review of Systems - Review of Systems Notes: Constitutional: Negative for fever. HENT: Negative for sore throat. Eyes: Negative for visual changes. Cardiovascular: Negative for chest pain. Respiratory: Negative for shortness of breath. Gastrointestinal: Negative for abdominal pain, vomiting or diarrhea. Genitourinary: As per HPI. Musculoskeletal: Negative for back pain. Skin: Negative for rash. Neurological: Negative for headaches, weakness or numbness. 10 point ROS negative except as marked above and in HPI. Physical Exam - Vital signs Vitals: Temp Pulse Resp BP Pulse Ox 98.3 F 91 20 192/93 H 98 07/18/19 18:29 07/18/19 18:29 07/18/19 18:29 07/18/19 18:29 07/18/19 18:29 Notes: GENERAL: Well-developed well-nourished appearing anxious and uncomfortable. SKIN: Good turgor no rashes. HEAD: Normocephalic atraumatic. EYES: PERRLA. Conjunctivae and sclerae clear. EARS: CANALS AND TMS CLEAR. NOSE: CLEAR. MOUTH: Moist mucosa. Good dentition. No stridor or edema. No drooling. NECK: Supple. No masses or thyromegaly. No adenopathy. Carotids 2+ without bruits. No JVD. BACK: Symmetrical without tenderness. CHEST: Respirations unlabored. Breath sounds clear and symmetrical. HEART: Regular rhythm. No murmur gallop or rub. ABDOMEN: Bladder is distended and patient has suprapubic tenderness. He has a 3 cm umbilical hernia which is easily reducible. GENITALIA: Deferred. EXTREMITIES: No edema. No calf tenderness. Cap refill less than 1.5 seconds. Dorsalis pedis and posterior tibial pulses 3+ and symmetrical. NEUROLOGICAL: GCS 15. Alert and oriented x3. Normal gait. Fluent speech. Cranial nerves II through XII intact. Sensorimotor and cerebellar normal. Normal tone. Psychiatric: Anxious. Course - Re-evaluation Re-evalutation: 07/18/19 20:38 16 [place] Bhatti catheter has been placed and 500 cc of urine were immediately passed. The patient is totally asymptomatic at this time. I am going to culture the urine and start dismantle and Cipro orally as well as Flomax orally and have him follow-up with urology tomorrow. He will go home with a leg bag and catheter in situ. - Vital Signs Vital signs: Temp Pulse Resp BP Pulse Ox 98.3 F 91 20 192/93 H 98 07/18/19 18:29 07/18/19 18:29 07/18/19 18:29 07/18/19 18:29 07/18/19 18:29 Discharge - Discharge Clinical Impression: History of prostate cancer, Acute urinary retention Condition: Stable Disposition: HOME, SELF-CARE Instructions: Urinary Retention ([facility]), Bhatti Catheter Care ([facility]) Additional Instructions: Contact your urologist tomorrow for office follow-up. Prescriptions: Ciprofloxacin HCl [Cipro 500 mg Tablet] 500 mg PO BID #20 tablet Tamsulosin HCl [Flomax 0.4 mg Cap.sr] 0.4 mg PO DAILY #7 cap.sr.24h Referrals: VÍCTOR AIKEN MD [Primary Care Provider] - Follow up as needed
[2019-07-18] MEDS ORDERED: LIDOCAINE 2% URO-JET 5 ML KIT MM ONE (19:51)
[2019-07-18 20:53] LABS: APPEARANCE,URINE SLIGHTLY-CLOUDY; BILIRUBIN,URINE NEGATIVE (NEGATIVE); COLOR,URINE RED; GLUCOSE, URINE >=500 mg/dL (NEGATIVE); KETONES,URINE NEGATIVE (NEGATIVE); PROTEIN,URINE 100 mg/dL (NEGATIVE); URINE SPECIFIC GRAVITY 1.027; UROBILINOGEN,URINE NEGATIVE mg/dL (<2.0)
[2019-07-18 21:47] VITALS: BP 169/86
== END 2019-07-18 21:52 | disposition home or self-care (01) ==
LOC: ER 18:16
DX: R33.9 Retention of urine, unspecified (principal); E78.00 Pure hypercholesterolemia, unspecified; I10 Essential (primary) hypertension; E11.9 Type 2 diabetes mellitus without complications; Z85.46 Personal history of malignant neoplasm of prostate
CPT/HCPCS: 81001; C1758; A9270; J3490

== ENCOUNTER 2019-07-19 04:50 | Emergency (ER) | payer MEDICARE ==
--- NOTE | 2019-07-19 05:14 | ER Document Report ---
HPI - HPI Patient complains to provider of: catheter malfunction Time Seen by Provider: 07/19/19 04:57 Onset: This morning Onset/Duration: Gradual Pain Level: Denies Context: Pt reports waking and noticing that his musa leg bag was not draining. Patient states that he has had occasional drainage from the penis around the Musa catheter. Patient is concerned that there is a blood clot blocking the Musa catheter. Patient denies any abdominal pain back pain, nausea vomiting or fever. Patient states that he is supposed to follow-up with his urologist this morning but because of the catheter not draining he came in this morning. States that when they inserted the scapular they had difficulty trying to insert a size larger. Associated Symptoms: denies: Fever, Vomiting Exacerbated by: Denies Relieved by: Denies Similar symptoms previously: Yes Recently seen / treated by doctor: Yes - ROS ROS below otherwise negative: Yes Systems Reviewed and Negative: Yes All other systems reviewed and negative - CONSTITUTIONAL Constitutional: DENIES: Fever, Chills - GASTROINTESTINAL Gastrointestinal: DENIES: Abdominal Pain, Nausea, Patient vomiting - URINARY Urinary: DENIES: Dysuria, Urgency, Frequency Notes: Musa catheter not draining well, blood to Musa bag - REPRODUCTIVE Reproductive: DENIES: : - MUSCULOSKELETAL Musculoskeletal: DENIES: Back Pain - DERM Skin Color: Normal Skin Problems: None Past Medical History - General Information source: Patient - Social History Smoking Status: Never Smoker Frequency of alcohol use: None Drug Abuse: None Lives with: Spouse/Significant other Family History: Other - mother brain aneurysm Patient has suicidal ideation: No Patient has homicidal ideation: No - Past Medical History Cardiac Medical History: Reports: Hx Hypercholesterolemia, Hx Hypertension Pulmonary Medical History: Reports: Hx Sleep Apnea Endocrine Medical History: Reports: Hx Diabetes Mellitus Type 1, Hx Diabetes Mellitus Type 2 Renal/ Medical History: Denies: Hx Peritoneal Dialysis Malignancy Medical History: Reports Hx Prostate Cancer - Surgery 3 years ago. Musculoskeletal Medical History: Reports Hx Arthritis - lbp Past Surgical History: Reports: Hx Orthopedic Surgery - rotator cuff, Other - Prostatectomy Vertical Provider Document - CONSTITUTIONAL Agree With Documented VS: Yes Exam Limitations: No Limitations General Appearance: WD/WN, No Apparent Distress - INFECTION CONTROL TRAVEL OUTSIDE OF THE [place] IN LAST 30 DAYS: No - HEENT HEENT: Atraumatic, Normocephalic - NECK Neck: Normal Inspection - RESPIRATORY Respiratory: Breath Sounds Normal, No Respiratory Distress - CARDIOVASCULAR Cardiovascular: Regular Rate, Regular Rhythm - GI/ABDOMEN Gastrointestinal: Abdomen Soft, Abdomen Non-Tender - REPRODUCTIVE Notes: Patient with bloody drainage to Musa bag. No drainage noted in the tubing at this time. - BACK Back: Normal Inspection. negative: CVA Tenderness-Right, CVA Tenderness-Left - MUSCULOSKELETAL/EXTREMETIES Musculoskeletal/Extremeties: MASARAH, FROM - NEURO Level of Consciousness: Awake, Alert, Appropriate Motor/Sensory: No Motor Deficit - DERM Integumentary: Warm, Dry, No Rash Course - Re-evaluation Re-evalutation: 07/19/19 06:00 Musa was irrigated and return was light pink in color. Small clots were seen to drain into the Musa bag. Patient's was educated on how to irrigate Musa if they noticed that it is not draining. verbalized understanding of instructions and feels confident with managing his Musa as she has discontinued his catheter previously. - Vital Signs Vital signs: Temp Pulse Resp BP Pulse Ox 97.6 F 96 18 202/105 H 97 07/19/19 04:53 07/19/19 04:53 07/19/19 04:53 07/19/19 04:53 07/19/19 04:53 Discharge - Discharge Clinical Impression: Musa catheter problem Qualifiers: Encounter type: initial encounter Qualified Code(s): T83.9XXA - Unspecified complication of genitourinary prosthetic device, implant and graft, initial encounter Condition: Stable Disposition: HOME, SELF-CARE Instructions: Musa Catheter Care ([facility]) Additional Instructions: Return immediately for any new or worsening symptoms Followup with your primary care provider, call tomorrow to make a followup appointment Follow-up with your urologist today for recheck Referrals: VÍCTOR AIKEN MD [Primary Care Provider] - Follow up as needed
[2019-07-19 06:11] VITALS: BP 168/89
== END 2019-07-19 06:11 | disposition home or self-care (01) ==
LOC: ER 04:50
DX: T83.9XXA Unspecified complication of genitourinary prosthetic device, implant and graft, initial encounter (principal); Y84.6 Urinary catheterization as the cause of abnormal reaction of the patient, or of later complication, without mention of misadventure at the time of the procedure; E78.00 Pure hypercholesterolemia, unspecified; I10 Essential (primary) hypertension; E11.9 Type 2 diabetes mellitus without complications; Z85.46 Personal history of malignant neoplasm of prostate
CPT/HCPCS: 99283

== ENCOUNTER → 2019-07-26 | Outpatient (CLI) | payer MEDICARE ==
--- NOTE | 2019-07-26 13:06 | RADIOLOGY REPORT (SQ) ---
EXAM DESCRIPTION: CT ABD/PELVIS COMBO COMPLETED DATE/TIME: 07/26/2019 9:58 am REASON FOR STUDY: GROSS HEMATURIA R31.0 GROSS HEMATURIA COMPARISON: 07/02/2019. TECHNIQUE: CT scan of the abdomen and pelvis performed with and without intravenous contrast, and wi thout oral contrast. Contrasted imaging performed helical scanning technique and dynamic intravenous contrast injection. Images reviewed with lung, soft tissue, and bone windows. Reconstructed coronal a nd sagittal MPR images reviewed. Delayed images for evaluation of the urinary system also acquired. A ll images stored on PACS. All CT scanners at this facility use dose modulation, iterative reconstruction, and/or weight based d osing when appropriate to reduce radiation dose to as low as reasonably achievable (ALARA). [facility]: Dose Right [facility]: CareDose [facility]: Dose Right [facility]: Teradose 4D [facility]: Basic-Fit CONTRAST TYPE AND DOSE: contrast/concentration: Isovue 350.00 mg/ml; Total Contrast Delivered: 100.0 ml; Total Saline Delivered: 72.0 ml RENAL FUNCTION: BUN 34 creatinine 1.66. RADIATION DOSE: CT Rad equipment meets quality standard of care and radiation dose reduction techniq ues were employed. CTDIvol: 24.2 - 28.2 mGy. DLP: 4617 mGy-cm. . LIMITATIONS: None. FINDINGS: NON-CONTRASTED IMAGING: No significant renal or bladder calcifications. No other significa nt organ calcifications. POST-CONTRASTED IMAGING: LOWER CHEST: No significant findings. No nodules or infiltrates. LIVER: Normal size. Mild diffuse fatty infiltration. No masses. No dilated ducts. SPLEEN: Normal size. No focal lesions. PANCREAS: No masses. No significant calcifications. No adjacent inflammation or peripancreatic fluid collections. Pancreatic duct not dilated. GALLBLADDER: No identified stones by CT criteria. No inflammatory changes to suggest cholecystitis. ADRENAL GLANDS: No significant masses or asymmetry. RIGHT KIDNEY AND URETER: No solid masses. No significant calcifications. No hydronephrosis or hyd roureter. LEFT KIDNEY AND URETER: No solid masses. No significant calcifications. No hydronephrosis or hydr oureter. AORTA AND VESSELS: No aneurysm. No dissection. Renal arteries, SMA, celiac without stenosis. RETROPERITONEUM: No retroperitoneal adenopathy, hemorrhage or masses. BOWEL AND PERITONEAL CAVITY: No masses or inflammatory changes. No free fluid or peritoneal masses. APPENDIX: Normal. PELVIS: No mass. No free fluid. Catheter in the bladder. The bladder is empty with corresponding i rregular bladder wall thickening. Scattered tiny bubbles of gas within the lumen, presumably related to indwelling catheter. Penile prosthesis. ABDOMINAL WALL: No masses. Umbilical hernia. BONES: No significant or acute findings. OTHER: No other significant finding. IMPRESSION: 1. NO ABNORMAL FINDINGS IN THE KIDNEYS OR URETERS. NO CALCULI. INSUFFICIENT EVALUATION OF THE URINA RY BLADDER. A NAIR CATHETER IS PRESENT AND THE BLADDER IS COLLAPSED. 2. UMBILICAL HERNIA. 3. NO OTHER SIGNIFICANT OR ACUTE ABNORMALITY IN THE ABDOMEN OR PELVIS. TECHNICAL DOCUMENTATION: JOB ID: [id number] Quality ID # [id number]: Final reports with documentation of one or more dose reduction techniques (e.g., Au tomated exposure control, adjustment of the mA and/or kV according to patient size, use of iterative reconstruction technique) 2010 [employer]- All Rights Reserved Reading location - IP/workstation name: [email or web address]
== END ==
LOC: RAD 09:33
DX: C61 Malignant neoplasm of prostate (principal); R31.0 Gross hematuria; K42.9 Umbilical hernia without obstruction or gangrene
CPT/HCPCS: 74178; 82565

== ENCOUNTER 2019-07-31 16:40 | Emergency (ER) | payer MEDICARE ==
[2019-07-31 16:48] VITALS: BP 182/101
--- NOTE | 2019-07-31 17:09 | ER Document Report ---
ED Medical Screen (RME) - General Chief Complaint: Inability to Void Stated Complaint: UNABLE TO URINATE Time Seen by Provider: 07/31/19 17:03 Primary Care Provider: SHIRA PETIT MD [Primary Care Provider] - Follow up as needed Mode of Arrival: Ambulatory Information source: Patient Notes: 58-year-old male with history of prostate cancer presents emergency department with unable to void since 6:00 this morning. He reports he voided at that time was just a huge blood clot. Reports right-sided flank pain. Reports he is been dealing with this all month. He reports he is been here multiple times for Bhatti catheter. He has been to the urologist who is done scopes and evaluated and they are not sure what else is going to happen from this point forward. De nies fever vomiting diarrhea. Reports he is hurting but not as bad as he is hurt in the past. His has to work in the morning so he figured he would be evaluated now. I have greeted and performed a rapid initial assessment of this patient. A comprehensive ED assessment and evaluation of the patient, analysis of test results and completion of the medical decision making process will be conducted by additional ED providers. Dictation of this chart was performed using voice recognition software; therefore, there may be some unintended grammatical errors. TRAVEL OUTSIDE OF THE [place] IN LAST 30 DAYS: No - Related Data Allergies/Adverse Reactions: metformin Allergy (Mild, Verified 07/31/19 16:57) oxaprozin Allergy (Unknown, Verified 07/31/19 16:57) lisinopril Adverse Reaction (Verified 07/31/19 16:57) Facial swelling Home Medications: novolin 70/30. fenofibrate 134mg. duloxetine 60 mg. atorvastatin 40 mg. metotoprol 100 mg. pioglitazone 30 mg Past Medical History - Social History Chew tobacco use (# tins/day): No Frequency of alcohol use: None Drug Abuse: None - Past Medical History Cardiac Medical History: Reports: Hx Hypercholesterolemia, Hx Hypertension Pulmonary Medical History: Reports: Hx Sleep Apnea Endocrine Medical History: Reports: Hx Diabetes Mellitus Type 1, Hx Diabetes Mellitus Type 2 Renal/ Medical History: Denies: Hx Peritoneal Dialysis Malignancy Medical History: Reports Hx Prostate Cancer - Surgery 3 years ago. Musculoskeltal Medical History: Reports Hx Arthritis - lbp Past Surgical History: Reports: Hx Orthopedic Surgery - rotator cuff, Other - Prostatectomy Physical Exam - Vital signs Vitals: Temp Pulse Resp BP Pulse Ox 98.6 F 72 16 182/101 H 98 07/31/19 16:47 07/31/19 16:47 07/31/19 16:47 07/31/19 16:47 07/31/19 16:47 Course - Vital Signs Vital signs: Temp Pulse Resp BP Pulse Ox 98.6 F 72 16 182/101 H 98 07/31/19 16:47 07/31/19 16:47 07/31/19 16:47 07/31/19 16:47 07/31/19 16:47 Doctor's Discharge - Discharge Referrals: SHIRA PETIT MD [Primary Care Provider] - Follow up as needed
[2019-07-31] MEDS ORDERED: LIDOCAINE 2% URO-JET 5 ML KIT MM ONE ×2 (17:50→21:15)
[2019-07-31] MEDS ORDERED: HYDROCODONE/ACETAMINOPHEN 5-325 MG TABLET PO ONE (17:58)
--- NOTE | 2019-07-31 18:03 | ER Document Report ---
ED General - General Mode of Arrival: Ambulatory TRAVEL OUTSIDE OF THE [place] IN LAST 30 DAYS: No - Related Data Home Medications: novolin 70/30. fenofibrate 134mg. duloxetine 60 mg. atorvastatin 40 mg. metotoprol 100 mg. pioglitazone 30 mg <HOWARD ARIAS - Last Filed: 07/31/19 20:07> <JITENDRACHANDURONIT - Last Filed: 08/01/19 02:52> - General Chief Complaint: Inability to Void Stated Complaint: UNABLE TO URINATE Time Seen by Provider: 07/31/19 17:03 Primary Care Provider: SHIRA CARDENAS MD [NO LOCAL MD] - Follow up as needed Notes: 58-year-old male presents with inability to urinate since 6 this morning. Patient states he passed a large blood clot and has not been able to urinate since. Patient has a history of prostate cancer that he received radiation for. Patient states this urinary retention has been intermittent since last month and patient has been seen in ER and by urologist multiple times for the same. Urologist believes that urinary retention may be related to radiation damage. Patient states last Bhatti was just taken out last . Patient states now he is feeling a little abdominal discomfort. Patient denies any fevers, chills, nausea, vomiting, abdominal pain. (HOWARD ARIAS) - Related Data Allergies/Adverse Reactions: metformin Allergy (Mild, Verified 07/31/19 16:57) oxaprozin Allergy (Unknown, Verified 07/31/19 16:57) lisinopril Adverse Reaction (Verified 07/31/19 16:57) Facial swelling Past Medical History - General Information source: Patient - Social History Smoking Status: Never Smoker Chew tobacco use (# tins/day): No Frequency of alcohol use: None Drug Abuse: None Family History: Other - mother brain aneurysm Patient has suicidal ideation: No Patient has homicidal ideation: No - Past Medical History Cardiac Medical History: Reports: Hx Hypercholesterolemia, Hx Hypertension Pulmonary Medical History: Reports: Hx Sleep Apnea Endocrine Medical History: Reports: Hx Diabetes Mellitus Type 1, Hx Diabetes Mellitus Type 2 Renal/ Medical History: Denies: Hx Peritoneal Dialysis Malignancy Medical History: Reports Hx Prostate Cancer - Surgery 3 years ago. Musculoskeletal Medical History: Reports Hx Arthritis - lbp Past Surgical History: Reports: Hx Orthopedic Surgery - rotator cuff, Other - Prostatectomy <HOWARD ARIAS - Last Filed: 07/31/19 20:07> Review of Systems <HOWARD ARIAS - Last Filed: 07/31/19 20:07> - Review of Systems Notes: Constitutional: Negative for fever. HENT: Negative for sore throat. Eyes: Negative for visual changes. Cardiovascular: Negative for chest pain. Respiratory: Negative for shortness of breath. Gastrointestinal: Negative for abdominal pain, vomiting or diarrhea. Genitourinary: Positive for urinary retention. Negative for dysuria. Musculoskeletal: Negative for back pain. Skin: Negative for rash. Neurological: Negative for headaches, weakness or numbness. 10 point ROS negative except as marked above and in HPI. (OMERO ARIASLuca Warren) Physical Exam <HOWARD ARIAS - Last Filed: 07/31/19 20:07> - Vital signs Vitals: Temp Pulse Resp BP Pulse Ox 98.6 F 72 16 182/101 H 98 07/31/19 16:47 07/31/19 16:47 07/31/19 16:47 07/31/19 16:47 07/31/19 16:47 - Notes Notes: GENERAL: Well-appearing, well-nourished and in no acute distress. HEAD: Atraumatic, normocephalic. EYES: Extraocular movements intact, sclera anicteric, conjunctiva are normal. NECK: Normal range of motion, supple without lymphadenopathy or JVD. LUNGS: Breath sounds clear to auscultation bilaterally and equal. No wheezes ra les or rhonchi. HEART: Regular rate and rhythm without murmurs, rubs or gallops. ABDOMEN: Soft, nontender. No guarding, no rebound. No masses appreciated. EXTREMITIES: Normal range of motion, no pitting or edema. No clubbing or cyanosis. NEUROLOGICAL: Cranial nerves II through XII grossly intact. Normal speech, normal gait. PSYCH: Normal mood, normal affect. SKIN: Warm, Dry, normal turgor, no rashes or lesions noted. (OMERO ARIASLuca Warren) Course <HOWARD ARIAS - Last Filed: 07/31/19 20:07> - Laboratory Result Diagrams: 08/01/19 01:00 08/01/19 01:00 <RONIT HOFFMANN Last Filed: 08/01/19 02:52> - Re-evaluation Re-evalutation: 07/31/19 58-year-old male with past medical history of prostate cancer presents to the ER for urinary retention since 6:00 this morning patient. Patient states he passed a large blood clot that has been unable to urinate. Abdomen soft nontender. Nontoxic in appearance well-appearing. Bladder scan ordered and Bhatti catheter ordered. 07/31/19 18:45 Bhatti catheter successfully placed by nurse. 100 cc of bloody urine initially dispelled. 07/31/19 19:30 Discussed pt with attending, Dr. Gibson, who states to make sure pt is feeling better and that Bhatti cath is able to be irrigated. Reassessed pt. Pt is feeling better however now feels like he is urinating with no output in Bhatti cath. RN to irrigate Bhatti cath. (HOWARD ARIAS) 08/01/19 00:21 I have evaluated the patient at bedside. He has been irrigated twice. Fluid now in Bhatti catheter bag is a light pink color. No clots noted. Patient voices typically when they irrigate him they never get it "completely clear." States he does have an appointment with his urologist on Friday. Discussed k eeping urinary catheter in place until then. Patient stable for discharge. 08/01/19 02:50 Prior to initial discharge nurse brings my attention that the urinary catheter is now producing bright red blood again. I discussed this with my attending Dr. Olvera. She is suggesting irrigating the bladder 1 more time. Patient will have been irrigated x3. I have then discussed this case with urologist Dr. Cardenas. Dr. Cardenas at [facility] to keep urinary catheter in place. States should the patient continue with bright red blood over the next 24 hours he should return to the emergency department otherwise continue to follow-up in his office on Friday. I discussed with Dr. Cardenas patient's stable hemoglobin and hematocrit. I discussed at length Dr. Cardenas's recommendations of the patient at bedside. Patient stable for discharge. (RONIT HOFFMANN) - Vital Signs Vital signs: Temp Pulse Resp BP Pulse Ox 98.6 F 72 16 182/101 H 98 07/31/19 16:47 07/31/19 16:47 07/31/19 16:47 07/31/19 16:47 07/31/19 16:47 - Laboratory Laboratory results interpreted by me: 07/31/19 08/01/19 08/01/19 18:26 01:00 01:00 WBC 11.6 H Absolute Neuts (auto) 8.3 H BUN 29 H Creatinine 1.33 H Est GFR (MDRD) Non-Af 55 L Glucose 73 L Urine Protein 100 H Urine Glucose (UA) >=500 H Urine Blood LARGE H Discharge <HOWARD ARIAS - Last Filed: 07/31/19 20:07> <RONIT HOFFMANN - Last Filed: 08/01/19 02:52> - Discharge Clinical Impression: Urinary retention Hematuria Qualifiers: Hematuria type: gross Qualified Code(s): R31.0 - Gross hematuria Condition: Stable Disposition: HOME, SELF-CARE Instructions: Bhatti Catheter Care ([facility]), Urinary Retention ([facility]) Additional Instructions: I have discussed your case with the urologist Dr. Cardenas. He would like to keep the urinary catheter in place. He would also like you to return to the emergency department should you continue with bright red blood in your urinary catheter for the next 24 hours. He would also like you to return to the emergency department should he feel lightheaded, weak, dizzy, short of breath. These could be signs that you are losing too much blood. Please make sure you continue to follow-up at his office on Friday otherwise. Return to the emergency department for any concerns. Referrals: SHIRA CARDENAS MD [NO LOCAL MD] - Follow up as needed JIMI ARIAS MD [ACTIVE STAFF] - Follow up as needed TOVA PARK MD [ACTIVE STAFF] - Follow up as needed
[2019-07-31 18:58] LABS: APPEARANCE,URINE CLOUDY; BILIRUBIN,URINE NEGATIVE (NEGATIVE); COLOR,URINE RED; GLUCOSE, URINE >=500 mg/dL (NEGATIVE); KETONES,URINE NEGATIVE (NEGATIVE); LEUKOCYTE ESTERASE,URINE NEGATIVE (NEGATIVE); NITRITE,URINE NEGATIVE (NEGATIVE); PROTEIN,URINE 100 mg/dL (NEGATIVE); URINE SPECIFIC GRAVITY 1.026; UROBILINOGEN,URINE NEGATIVE mg/dL (<2.0)
[2019-08-01 01:11] LABS: ABSOLUTE EOSINOPHILS # (AUTO) 0.5 10^3/uL (0.0-0.6); ABSOLUTE LYMPHOCYTES (AUTO) 1.6 10^3/uL (0.5-4.7); ABSOLUTE MONOCYTES (AUTO) 1.2 10^3/uL (0.1-1.4); ABSOLUTE NEUT (AUTO) 8.3 10^3/uL (1.7-8.2); BASOPHILS % (AUTO) 0.4 % (0-2); EOSINOPHILS % (AUTO) 4.2 % (0-6); HEMATOCRIT 42.6 % (37.9-51.0); HEMOGLOBIN 14.1 g/dL (13.5-17.0); LYMPHOCYTES % (AUTO) 13.9 % (13-45); MEAN CORPUSCULAR HEMOGLOBIN 29.1 pg (27.0-33.4); MEAN CORPUSCULAR HGB CONC 33.1 g/dL (32.0-36.0); MONOCYTES % (AUTO) 10.3 % (3-13); PLATELET COUNT 246 10^3/uL (150-450); RED BLOOD COUNT 4.84 10^6/uL (4.35-5.55); RED CELL DISTRIBUTION WIDTH 13.2 % (11.5-14.0); SEGMENTED NEUTROPHILS % (AUTO) 71.2 % (42-78); TOTAL CELLS COUNTED % (AUTO) 100 %; WHITE BLOOD COUNT 11.6 10^3/uL (4.0-10.5)
[2019-08-01 01:22] LABS: MEAN CORPUSCULAR VOLUME 88 fl (80-97)
[2019-08-01 01:39] LABS: ANION GAP 9 (5-19); BLOOD UREA NITROGEN 29 mg/dL (7-20); CALCIUM 9.2 mg/dL (8.4-10.2); CARBON DIOXIDE 29 mmol/L (22-30); CHLORIDE 102 mmol/L (98-107); GLUCOSE 73 mg/dL (75-110); POTASSIUM 3.7 mmol/L (3.6-5.0)
== END 2019-08-01 04:08 | disposition home or self-care (01) ==
LOC: ER 16:40
DX: R33.9 Retention of urine, unspecified (principal); R31.0 Gross hematuria; Z85.46 Personal history of malignant neoplasm of prostate
CPT/HCPCS: 36415; 85025; 80048; 81001; A9270 ×2; 51702; 87086; 99283; J3490

== ENCOUNTER → 2019-10-27 | Outpatient (CLI) | payer MEDICARE ==
--- NOTE | 2019-10-27 13:50 | RADIOLOGY REPORT (SQ) ---
EXAM DESCRIPTION: CHEST 2 VIEWS COMPLETED DATE/TIME: 10/27/2019 1:21 pm REASON FOR STUDY: PNEUMOTHORAX (J93.9) COMPARISON: 11/20/2018 EXAM PARAMETERS: NUMBER OF VIEWS: two views TECHNIQUE: Digital Frontal and Lateral radiographic views of the chest acquired. RADIATION DOSE: NA LIMITATIONS: none FINDINGS: LUNGS AND PLEURA: No opacities, masses or pneumothorax. No pleural effusion. MEDIASTINUM AND HILAR STRUCTURES: No discrete masses. Stable widening of the paratracheal stripe, li terry vascular. HEART AND VASCULAR STRUCTURES: Enlarged, stable. Vascular calcifications. BONES: No acute findings. HARDWARE: None in the chest. OTHER: No other significant finding. IMPRESSION: Stable enlarged cardiac silhouette without other evidence of acute intrathoracic process . TECHNICAL DOCUMENTATION: JOB ID: [id number] 2010 [employer]- All Rights Reserved Reading location - IP/workstation name: [email or web address]
== END ==
LOC: RAD 12:37
PROVIDERS: ATTEND Surgery
DX: J93.9 Pneumothorax, unspecified (principal)
CPT/HCPCS: 71046